=== PATIENT | female | born 1990 | race Caucasian/White ===

== ENCOUNTER → 2020-08-08 02:19 | Outpatient (CLI) | payer OTHER, SELFPAY ==
[2020-08-09 16:31] LABS: SARS-CoV-2 RNA PCR Negative
== END ==
PROVIDERS: PCP Emergency Medicine; Visit Provider Obstetrics & Gynecology
DX: Z01.812 Encounter for preprocedural laboratory examination (principal); Z20.822 Contact with and (suspected) exposure to COVID-19
CPT/HCPCS: C9803; U0003; U0005

== ENCOUNTER 2020-08-11 01:50 | Day surgery (SDC) | payer OTHER, SELFPAY ==
[2020-07-27 11:51] VITALS: BMI 21.6
--- NOTE | 2020-08-10 12:12 | P.PNAN_ITS ---
Anes - Initial Pre Proc Eval Procedure: Operation Date: 08/11/20 07:30 Proposed Procedures p Hysteroscopy with Farzana Endometrial Ablation - Trevor Murguia MD Date/Time: 08/10/20 12:12 Surgeon: Trevor Murguia MD Pre Op Diagnosis: menorrhaghia Patient Data Age: 30 Gender: F Height: 1.65 m Weight: 59 kg Allergies Allergy/AdvReac Type Severity Reaction Status Date / Time No Known Allergies Allergy Verified 07/27/20 11:51 Home Medications Medication Instructions Recorded Confirmed Type No Home Medications 07/27/20 07/27/20 History Patient hx anesthesia problems: none Family hx anesthesia problems: none [facility] Social History Social History Years smoked: 13 Smoking status: Current every day smoker Tobacco type: cigarettes Alcohol intake: never Substance use: never Substance use type: does not use Living arrangements: with family Spiritual care concerns: No Anes - Eval Final PreProcedure Day of Procedure 08/10/20 12:12 Patient weight: normal Heart: regular rate and rhythm Lungs: clear to auscultation and normal air movement Airway: Mallampati scale class II Neurological: alert and oriented Last oral intake: >/= 8 hours ASA classification: II Emergent: no Anesthetic plan: proceed Anesthesia type and monitoring: general GIVS and LMA Informed Consent: The patient's anesthetic plan and its attendant risks and benefits were discussed with the patient/family/POA. Questions were solicited and answers provided to the satisfaction of the patient/family/POA.
[2020-08-11] MEDS: ACETAMINOPHEN 500 MG TABLET 1000 MG PO (06:46)
[2020-08-11] MEDS: LACTATED RINGERS 1,000 ML 30 ML IV CONT (06:49)
[2020-08-11 06:52] VITALS: BP 101/71; PULSE 77; RESP 16; TEMP 36.1; O2SAT 100
--- NOTE | 2020-08-11 06:59 | WPDHPUPDATE1 ---
History and Physical Update Update Date/Time: 08/11/20 06:59 History and Physical has been reviewed, including an updated exam of the patient. There are NO changes in the patient's condition. Risks, benefits, and alternatives have been discussed and questions answered. Patient agrees to proceed with procedure.
--- NOTE | 2020-08-11 07:50 | W.PM.PROC2 ---
Procedure Note - Detailed Date of Procedure 08/11/20 Pre-op Diagnosis menorrhaghia Post-op Diagnosis same Procedure Performed endometrial ablation with hysteroscopy d&c Surgeon Trevor Murguia MD Anesthesia MAC Indications Severe menorrhagia Findings Normal vulva vagina and cervix. Normal endometrium. Description of Procedure The patient was taken to the operating room. She was prepped and draped in the dorsal lithotomy position after induction of mac anesthesia. A speculum was placed in the vagina. Cervix grasped with a tenaculum. The cervix was dilated to about 1 cm. The hysteroscope was inserted. The above findings were noted. Endometrial curettage was performed with a medium-size curette. All surfaces of the endometrium were affected by the curettage. The specimens were collected and sent to pathology. Measurements were taken of the uterus and cervix. The uterine length was then entered into the hand piece of the Farzana device. The device was inserted into the intrauterine cavity. The array of the device was expanded. The balloon cuff was inflated. A good seal was achieved. The energy and safety cycles were initiated and completed. The array was collapsed and the instrument was withdrawn after deflating the balloon cuff. Hysteroscope was reinserted. Above findings were noted. The hysteroscope was removed. The patient tolerated the procedure well. The speculum and tenaculum were removed. She was taken to recovery in stable condition. Sponge lap and needle counts were correct x2. Estimated Blood Loss 15 Pathology yes Complications No immediate complications Condition stable Disposition same day
[2020-08-11 07:52] VITALS: BP 111/70; PULSE 71; RESP 16; O2SAT 99
[2020-08-11] MEDS: oxyCODONE HCL (*CRX) 5 MG TAB IR PO (08:16)
[2020-08-11 08:33] VITALS: BP 133/75; PULSE 42; RESP 16
[2020-08-11] MEDS: fentaNYL CITRATE INJ (*CRX) 100 MCG/2 ML VIAL 25 MCG IV PUSH ×2 (08:33→08:36)
== END 2020-08-11 09:10 | disposition home or self-care (01) ==
PROVIDERS: PCP Emergency Medicine; Visit Provider Obstetrics & Gynecology
PROC: 0U5B8ZZ Destruction of Endometrium, Via Natural or Artificial Opening Endoscopic (ICD-10-PCS; CPT 58563; principal; 2020-08-11 07:30)
DX: N92.0 Excessive and frequent menstruation with regular cycle (principal); F17.210 Nicotine dependence, cigarettes, uncomplicated
CPT/HCPCS: 58563; 88305; A9270; J1100; J1885; J2250; J2405; J2704; J3010; J7030; J7120

== ENCOUNTER → 2020-08-18 10:46 | Outpatient (CLI) | payer OTHER, SELFPAY ==
--- NOTE | ~2020-08-18 | XR_ITS ---
EXAMINATION: XR chest 2V DATE: 08/18/2020 11:04 INDICATION: Tobacco use. TECHNIQUE: Frontal and lateral views of the chest were obtained on 3 radiographs. COMPARISON: Chest 2 views 01/06/2012, CT abdomen and pelvis 02/20/2012 FINDINGS: There is mild scarring at the lung apices. No pleural effusion or pneumothorax. The heart s ize is normal. IMPRESSION: 1. Stable mild scarring at the lung apices. Reviewed, dictated and finalized at location A.
== END ==
PROVIDERS: PCP Emergency Medicine; Visit Provider Emergency Medicine
DX: Z72.0 Tobacco use (principal)
CPT/HCPCS: 71046

== ENCOUNTER 2022-10-21 15:13 | Emergency (ER) | payer OTHER, SELFPAY ==
[2022-10-21 15:29] VITALS: BP 124/104; PULSE 79; RESP 16; TEMP 36.9; O2SAT 97
--- NOTE | 2022-10-21 16:32 | ED.URI ---
HPI - URI/Sore Throat General Chief Complaint: Upper Respiratory Infection Stated Complaint: ribcage pain,cough,sweating Time Seen by Provider: 10/21/22 16:24 Source: patient and RN notes reviewed Mode of arrival: ambulatory Limitations: no limitations History of Present Illness HPI Narrative: Patient presents today complaining of a 2 day history of dry cough, sweats, shortness of breath with exertion. Denies fever, congestion, rhinorrhea. She has been taking Tylenol and a decongestant at home without relief. Denies history of asthma or COPD. She did a home COVID test that was negative. Patient is a smoker Related Data Allergies Allergy/AdvReac Type Severity Reaction Status Date / Time No Known Allergies Allergy Verified 10/21/22 15:52 Review of Systems Review of Systems: CONSTITUTIONAL: Denies body aches, fever, chills. + sweats EYES: Denies visual changes, redness, or discharge. ENT: Denies rhinorrhea, congestion, sore throat, or otalgia. CARDIOVASCULAR: Denies chest pain, palpitations, or edema. RESPIRATORY: + cough, shortness of breath with exertion. GASTROINTESTINAL: Denies abdominal pain, nausea, vomiting, or diarrhea. GENITOURINARY: Denies dysuria or hematuria. SKIN: Denies rash, itching, or wounds. MUSCULOSKELETAL: Denies back pain, joint pain, or myalgia. NEUROLOGIC: Denies headache, numbness, tingling, or weakness. PSYCH: Denies depression or anxiety. [facility] Social History Social History Years smoked: 13 Smoking status: Current every day smoker Tobacco type: cigarettes Alcohol intake: never Substance use: never Substance use type: does not use Living arrangements: with family Spiritual care concerns: No Comments At time of signature, I have reviewed and agree with nursing past medical, surgical, social and family history unless otherwise noted. Please see nursing chart for further information. There is no relevant family history pertinent to the presenting complaint Exam Narrative: GENERAL: Well-appearing, well-nourished, and in no acute distress. HEAD: Normocephalic, atraumatic. EYES: EOMI. No redness or drainage. Conjunctivae normal. ENT: Mucous membranes pink and moist. Nares clear. No rhinorrhea. TMs normal bilaterally. Throat normal. Uvula midline. NECK: Normal AROM. Supple. No lymphadenopathy. CHEST: No respiratory distress. Slight expiratory wheeze in the left upper lobe, otherwise clear. Harsh cough noted. HEART: Regular rate and rhythm. No murmur appreciated. Normal peripheral pulses. EXTREMITIES: Normal range of motion. No edema. SKIN: Warm, dry, no rash. Capillary refill normal. Normal skin turgor. NEURO: No focal deficits. Alert and oriented x3. Gait steady. PSYCH: Normal affect. No signs of depression or anxiety. Course Course Level of Care: Express Care Visit Vital Signs Vital signs: Vital Signs Temperature 98.5 F 10/21/22 15:29 Pulse Rate 79 10/21/22 15:29 Respiratory Rate 16 10/21/22 15:29 Blood Pressure 124/104 H 10/21/22 15:29 Pulse Oximetry 97 10/21/22 15:29 Oxygen Delivery Room Air 10/21/22 15:29 Temperature 98.5 F 10/21/22 15:29 Pulse Rate 79 10/21/22 15:29 Respiratory Rate 16 10/21/22 15:29 Blood Pressure 124/104 H 10/21/22 15:29 Pulse Oximetry 97 10/21/22 15:29 Oxygen Delivery Room Air 10/21/22 15:29 Reviewed MDM - URI/Sore Throat MDM Narrative Medical decision making narrative: Will treat patient with prednisone and albuterol inhaler. Instructed her to purchase some Mucinex to help break up any congestion in her chest. Patient agrees with plan. Anticipatory guidance given. Differential Diagnosis Differential diagnosis: Likely upper respiratory infection, viral infection, bronchitis and other (Pneumonia) Critical Care Time Critical Care Time Critical Care Time: No Discharge Plan Discharge Clinical Impression: Bronch
== END 2022-10-21 16:48 | disposition home or self-care (01) ==
PROVIDERS: Emergency Provider Nurse Practitioner; PCP Emergency Medicine
DX: J40 Bronchitis, not specified as acute or chronic (principal); F17.210 Nicotine dependence, cigarettes, uncomplicated
CPT/HCPCS: 99213; G0463

== ENCOUNTER 2023-08-27 15:55 | Observation (INO) | payer OTHER, SELFPAY ==
[2023-08-27] VITALS (13 sets, daily range): BP systolic 99–121; BP diastolic 66–82; PULSE 78–115; RESP 17–21; TEMP 36.3–36.6; O2SAT 91–98; BMI 18.7
--- NOTE | ~2023-08-27 | CT_ITS ---
EXAMINATION: CTA chest PE protocol DATE: 08/27/2023 19:30 INDICATION: Shortness of breath. TECHNIQUE: Computed tomography angiography (CTA) of the chest was performed with 100 mL Omnipaque-350 intravenous contrast timed to evaluate the pulmonary arteries. Coronal maximum intensity projection 3D-reconstructions were created by the technologist. Automated exposure control and iterative reconst ruction technique were employed. The dose-length product was 151.30 mGy-cm. COMPARISON: CT abdomen and pelvis 02/20/2012 FINDINGS: There is moderate emphysema. There are patchy groundglass and airspace opacities involving all lobes. No pleural effusion. The heart size is normal. There is no pulmonary embolus. There is tho racic dextroscoliosis and mild spondylosis. IMPRESSION: 1. No pulmonary embolus. 2. Multifocal lung disease, likely pneumonia. 3. Moderate emphysema. Reviewed, dictated and finalized at location E.
--- NOTE | ~2023-08-27 | XR_ITS ---
EXAMINATION: XR chest 2V DATE: 08/27/2023 16:23 INDICATION: Shortness of breath. TECHNIQUE: Frontal and lateral views of the chest were obtained. COMPARISON: Chest 2 views 08/18/2020 FINDINGS: A calcified right lung nodule is consistent with old granulomatous disease. No pleural effu nicky or pneumothorax. The heart size is normal. IMPRESSION: 1. No acute cardiopulmonary disease. Reviewed, dictated and finalized at location E.
--- NOTE | 2023-08-27 16:00 | ECG_ITS ---
Test Date: 2023-08-27 16:05:46 Measurements Intervals [place] Rate: 93 P: 69 [place]: 155 QRS: 114 QRSD: 90 T: 59 QT: 349 QTc: 435 Interpretive Statements SINUS RHYTHM WITH SINUS ARRHYTHMIA RIGHT AXIS DEVIATION INCOMPLETE RIGHT BUNDLE BRANCH BLOCK BORDERLINE ST-T WAVE ABNORMALITY- INFERIOR LEADS BASELINE ARTIFACT- I, II, III, AVR, AVL, V4-V6 BORDERLINE ECG No previous ECG available for comparison Electronically Signed On 08-27-2023 20:29:42 CDT by Mark Kraus D.O.
[2023-08-27 16:39] LABS: Basophils Absolute Auto 0.1 K/mm3 (0.0-0.1); Basophils Percent Auto 0.4 % (0.2-1.2); Eosinophils Percent Auto 0.2 % (0-4.4); Hematocrit 44.5 % (37.0-47.0); Hemoglobin 14.8 g/dL (12.0-15.0); Immature Granulocyte Absolute 0.06 K/mm3 (0.00-0.031); Immature Granulocyte Percent A 0.4 % (0-0.5); Lymphocytes Absolute Auto 1.08 K/mm3 (0.9-3.2); Lymphocytes Percent Auto 6.4 % (18.3-44.2); Mean Corpuscular HGB Conc 33.3 g/dl (32-36); Mean Corpuscular Hemoglobin 31.2 pg (26-34); Mean Corpuscular Volume 93.7 fl (80-100); Mean Platelet Volume 10.1 fl (7.4-10.4); Monocytes Absolute Auto 0.8 K/mm3 (0.1-0.6); Monocytes Percent Auto 4.8 % (2.6-8.5); Neutrophils Absolute Auto 14.9 K/mm3 (1.3-6.7); Neutrophils Percent Auto 87.8 % (45.5-73.1); Platelet Count Result 207 k/mm3 (150-375); Red Blood Count 4.75 M/mm3 (4.2-5.4); Red Cell Distribution Width 12.9 % (11.5-14.5); White Blood Count 16.9 K/mm3 (4.5-10.0)
[2023-08-27 16:48] LABS: Alanine Aminotransferase 21 U/L (6-35); Albumin Level 4.6 g/dL (3.5-5.1); Alkaline Phosphatase 63 U/L (38-126); Anion Gap 12 mmol/L (4-12); Aspartate Amino Transferase 33 U/L (14-36); Bilirubin,Total 0.8 mg/dL (0.2-1.3); Blood Urea Nitrogen 9 mg/dL (7-17); Calcium 9.3 mg/dL (8.4-10.2); Carbon Dioxide 25 mmol/L (22-30); Chloride 104 mmol/L (98-107); Estimated CRCL calculation 93 ml/min; Estimated Glomerular Filt Rate > 60; Glucose 101 mg/dL (65-110); Potassium 3.7 mmol/L (3.4-5.0); Sodium 141 mmol/L (137-145)
[2023-08-27] MEDS: ALBUTEROL SULFATE NEB 2.5 MG/3 ML INH 10 MG INHALATION (17:06)
--- NOTE | 2023-08-27 17:06 | ED.SOB ---
HPI - SOB/Dyspnea General Chief Complaint: Shortness of Breath/Dyspnea Stated Complaint: SOB Time Seen by Provider: 08/27/23 16:04 History of Present Illness HPI Narrative: Patient is a 33-year-old female presenting with shortness of breath. Patient states that she started feeling very short of breath earlier today. She took some gvza-crx-ksuaexx asthma medicine which normally helps for her but this did not help at all this time. She continued to feel very short of breath and then became very sweaty so EMS was called. She was found to be saturating approximately 80% on room air. Placed on 2 L nasal cannula with improvement to the mid 90s. States that she still has chest tightness but she feels much better on the oxygen. Denies any recent fevers, sore throat, chest pain, leg swelling. No further complaints. Related Data Allergies Allergy/AdvReac Type Severity Reaction Status Date / Time No Known Allergies Allergy Verified 10/21/22 15:52 Review of Systems Review of Systems: All systems reviewed & are unremarkable except as noted in HPI and below PMFSH Social History Social History Years smoked: 13 Smoking status: Former smoker Tobacco type: cigarettes Smokeless tobacco user: other Second hand tobacco smoke exposure: No Alcohol intake: never Substance use: former Substance use type: marijuana Do You Feel Safe in your Home?: Yes Lack of Transportation: No Lack of Food: Never True Current Housing: I Have Housing Concerned About Future Housing: No Difficulty Paying Gas/Electric Bills: No Difficulty Paying for Meds: No Currently Unemployed: No Education: High School Diploma/GED Difficulty w/ Childcare or Family Care: No Living arrangements: with family Spiritual care concerns: No Exam Narrative: GENERAL: Ill-appearing, in no acute distress, pleasant cooperative HEAD: Normocephalic, atraumatic. EYES: PERRLA and EOMI. ENT: Mucous membranes moist. NECK: Supple. CHEST: Crackles and wheezing bilaterally, on 2 L nasal cannula saturating in the mid 90s HEART: Tachycardic, regular rhythm ABDOMEN: Soft, nontender, nondistended EXTREMITIES: Normal range of motion. No edema. SKIN: Warm, dry, no rash. NEURO: No focal deficits. Alert and oriented x3. PSYCH: Normal mood and affect. Course Vital Signs Vital signs: Vital Signs Temperature 97.9 F 08/27/23 15:52 Pulse Rate 78 08/27/23 15:52 Respiratory Rate 18 08/27/23 15:52 Blood Pressure 121/79 08/27/23 15:52 Pulse Oximetry 96 08/27/23 15:52 Oxygen Delivery Nasal Cannula 08/27/23 15:52 Oxygen Flow Rate 2 08/27/23 15:52 Temperature 97.3 F L 08/28/23 06:00 Pulse Rate 81 08/28/23 08:00 Respiratory Rate 20 08/28/23 07:40 Blood Pressure 103/62 08/28/23 06:00 Pulse Oximetry 95 08/28/23 08:00 Oxygen Delivery Nasal Cannula 08/28/23 07:23 Oxygen Flow Rate 2 08/28/23 07:23 MDM - SOB/Dyspnea MDM Narrative Medical decision making narrative: 33-year-old female presenting with shortness of breath and chest tightness. Patient was hypoxic on room air, she saturating the mid 90s on 2 L nasal cannula. Exam is otherwise remarkable for the above. Patient given a breathing treatment reports improvement in her shortness of breath but she remains hypoxic on room air. Continues to require 2 L. D-dimer is elevated so CT PE study was obtained which shows multifocal pneumonia. No evidence of pulmonary embolus. Blood work concerning for leukocytosis of 17. Patient would benefit from admission for IV antibiotics and continued oxygen supplementation. She is agreeable with this plan. Spoke with the hospitalist who has accepted her for admission. Differential Diagnosis Differential diagnosis: Likely acute exacerbation of chronic obstructive airways disease, community acquired pneumonia and pulmonary embolism Medical Records Attestation: I re
[2023-08-27] MEDS: IPRATROPIUM BR 0.02% INH SOLN 0.5 MG/2.5 ML VIAL INHALATION (17:07)
[2023-08-27] MEDS: SODIUM CHLORIDE 0.9% IV 1,000 ML 999 ML IV CONT (17:12)
[2023-08-27] MEDS: methylPREDNISolone SOD SUCC 125 MG VIAL IV PUSH (17:12)
[2023-08-27 17:15] LABS: Appearance Urine Clear (Clear); Bacteria Urine None Seen /hpf; Bilirubin Urine Negative (Negative); Blood Urine Negative (Negative); Color Urine Yellow (Yellow); Glucose Urine UA Negative (Negative); Ketones Urine Negative (Negative); Leukocyte Esterase Ur Negative LEU/UL (Negative); Nitrate Urine Negative (Negative); Non Pathogenic Casts 0-2; Protein Urine Trace mg/dL (Negative); RBC Urine 0-2 /hpf (0-2); Squamous Epithelial Cell Urine Occasional /hpf (Few); Urobilinogen Urine 0.2 mg/dL (<2.0); WBC Urine 0-5 /hpf (0-3)
[2023-08-27 17:24] LABS: Add Urine Microscopic? YES
[2023-08-27 17:25] LABS: Troponin I < 0.012 ng/mL (0.000-0.034)
[2023-08-27 17:45] LABS: Influenza A QL RT-PCR Negative (Negative); Influenza B QL RT-PCR Negative (Negative); RSV RNA, RT-PCR Negative (Negative); SARS-CoV-2 RNA PCR Negative (Negative)
[2023-08-27 18:16] LABS: D Dimer 0.52 ug/mL (<0.48)
[2023-08-27 19:10] LABS: Pregnancy On Board Control Positive; Urine Pregnancy Test Negative
--- NOTE | 2023-08-27 19:24 | ECG_ITS ---
Test Date: 2023-08-27 19:49:36 Measurements Intervals [place] Rate: 88 P: 71 [place]: 154 QRS: 96 QRSD: 94 T: 59 QT: 378 QTc: 459 Interpretive Statements SINUS RHYTHM WITH SINUS ARRHYTHMIA RIGHT AXIS DEVIATION BORDERLINE ST-T WAVE ABNORMALITY- ANT/INF LEADS BASELINE ARTIFACT- I, II, III, AVR, AVL, AVF, V2, V4 BORDERLINE ECG Compared to ECG 08/27/2023 16:05:46 NO SIGNIFICANT CHANGE Electronically Signed On 08-27-2023 20:25:42 CDT by Mark Kraus D.O.
[2023-08-27 20:29] LABS: Troponin I < 0.012 ng/mL (0.000-0.034)
[2023-08-27] MEDS: cefTRIAXone 2 GM/NS 100 ML 2 GM/100 ML BAG IVPB (20:53)
--- NOTE | 2023-08-27 21:44 | PM.IMHP ---
H&P: HPI History of Present Illness Date/Time: 08/27/23 21:44 Chief Complaint: Shortness of breath Narrative: Patient today [age] female came to the hospital with severe shortness of breath and productive cough. Patient states that normally she gets sick uses ktgg-iqd-slhudst medications not on any inhalers used to smoke quit smoking a few years ago but today she was so short of breath he could not stand up. She also felt some dizziness weakness fever and chills no exposure to COVID no nausea vomiting diarrhea no hematemesis hemoptysis. Patient has a productive cough no blood-tinged sputum noted or recent exposure to sick person no recent travels Review of Systems Review of Systems: All systems reviewed & are unremarkable except as noted in HPI and below PMFSH Social History Social History Years smoked: 13 Smoking status: Current every day smoker Tobacco type: cigarettes Alcohol intake: never Substance use: never Substance use type: does not use Living arrangements: with family Spiritual care concerns: No Meds Home Medications and Allergies Home Medications Medication Instructions Recorded Confirmed Type albuterol sulfate 90 mcg/actuation 2 puff inhalation Q4-6H PRN 10/21/22 Rx aerosol inhaler (ProAir HFA) shortness of breath or wheezing #18 grams inhalational spacing device #1 ea 10/21/22 Rx (BreatheRite MDI Spacer) prednisone 50 mg tablet 50 mg PO DAILY 5 days #5 tabs 10/21/22 Rx Allergies Allergy/AdvReac Type Severity Reaction Status Date / Time No Known Allergies Allergy Verified 10/21/22 15:52 Vital Signs Vital Signs - 24 hr 08/27/23 15:52 08/27/23 16:03 08/27/23 16:30 Temperature 36.6 C Pulse Rate 78 95 Respiratory Rate 18 19 Blood Pressure 121/79 116/80 Pulse Oximetry 96 96 94 Oxygen Delivery Nasal Cannula Nasal Cannula Oxygen Flow Rate 2 2 08/27/23 17:09 08/27/23 17:52 08/27/23 17:49 Temperature Pulse Rate 96 105 H 100 Respiratory Rate 20 21 H 18 Blood Pressure 118/66 Pulse Oximetry 98 Oxygen Delivery Oxygen Flow Rate 08/27/23 18:00 08/27/23 18:30 08/27/23 19:00 Temperature Pulse Rate 109 H 115 H 108 H Respiratory Rate 20 20 17 Blood Pressure 109/73 112/71 115/78 Pulse Oximetry 96 91 93 Oxygen Delivery Oxygen Flow Rate 08/27/23 19:35 08/27/23 20:46 Temperature Pulse Rate 108 H 99 Respiratory Rate 20 20 Blood Pressure 110/82 112/73 Pulse Oximetry 96 93 Oxygen Delivery Oxygen Flow Rate Exam Narrative: GENERAL: Well appearing, no acute distress. HEAD: Normocephalic, atraumatic. NECK: Supple. No adenopathy, no masses. RESPIRATORY: respirations nonlabored. , no rales, has wheezing. Bilateral CARDIOVASCULAR: Regular rate and rhythm without murmurs, . Peripheral pulses 2+ and equal bilaterally. ABDOMINAL: Soft, nontender, nondistended, no hepatosplenomegaly. Normoactive BS. MUSCULOSKELETAL: no Epigastric and no hypochondrial tenderness SKIN: Warm, dry, NEURO: A&O X3. Moves all extremities H&P: Results Labs Labs: Short CBC 08/27/23 Range/Units 16:32 WBC 16.9 H (4.5-10.0) K/mm3 Hgb 14.8 (12.0-15.0) g/dL Hct 44.5 (37.0-47.0) % Plt Count 207 (150-375) k/mm3 BMP 08/27/23 16:32 Sodium 141 Potassium 3.7 Chloride 104 Carbon Dioxide 25 BUN 9 Creatinine 0.60 L Glucose 101 Calcium 9.3 Cardiac Enzymes 08/27/23 08/27/23 Range/Units 16:32 19:43 Troponin I < 0.012 < 0.012 (0.000-0.034) ng/mL Liver Function 08/27/23 Range/Units 16:32 Total Bilirubin 0.8 (0.2-1.3) mg/dL AST 33 (14-36) U/L ALT 21 (6-35) U/L Alkaline Phosphatase 63 (38-126) U/L Albumin 4.6 (3.5-5.1) g/dL Urine 08/27/23 Range/Units 17:02 Urine Color Yellow (Yellow) Urine Appearance Clear (Clear) Urine pH 5.0 (5.0-9.0) Ur Specific [place] 1.020 (1.00
[2023-08-27 22:11] LABS: Albumin Level 4.5 g/dL (3.5-5.1); Alkaline Phosphatase 59 U/L (38-126); Anion Gap 15 mmol/L (4-12); Aspartate Amino Transferase 31 U/L (14-36); Bilirubin,Total 0.7 mg/dL (0.2-1.3); Blood Urea Nitrogen 8 mg/dL (7-17); Calcium 9.1 mg/dL (8.4-10.2); Carbon Dioxide 18 mmol/L (22-30); Chloride 107 mmol/L (98-107); Estimated CRCL calculation 109 ml/min; Estimated Glomerular Filt Rate > 60; Glucose 145 mg/dL (65-110); Potassium 3.3 mmol/L (3.4-5.0); Sodium 140 mmol/L (137-145)
[2023-08-27 22:17] LABS: Alanine Aminotransferase 27 U/L (6-35)
--- NOTE | 2023-08-27 22:49 | ADMGEN ---
This patient, Muriel Armando, was admitted to Medical Room 250-01. Patient/family oriented to hospital policies and general routines including ID bracelet, bed and alarms, visiting hours, pain management, procedures, bathroom and other care routines, personal items, smoking policy, room service/diet, and visiting hours. Information on how to activate the Rapid Response Team has been discussed. Patient/Family are encouraged to report perceived risks to care and to ask questions if they do not understand what they are told or what they should do.
[2023-08-27 23:16] LABS: Troponin I < 0.012 ng/mL (0.000-0.034)
[2023-08-27] MEDS: AZITHROMYCIN 500 MG/NS 250 ML 500 MG/250 ML BAG 250 MG IVPB (23:39)
[2023-08-27] MEDS: SODIUM CHLORIDE 0.9% IV 1,000 ML 100 ML IV CONT (23:40)
[2023-08-28] VITALS (8 sets, daily range): BP systolic 103; BP diastolic 62; PULSE 76–100; RESP 18–20; TEMP 36.3; O2SAT 95–97
[2023-08-28] MEDS: IPRATROPIUM 0.5 MG/ALBUTEROL SULFATE 2.5 MG AMPUL.NEB 3 ML INHALATION ×2 (03:55→07:23)
--- NOTE | 2023-08-28 06:58 | P.PNIM_ITS ---
Progress Note: A&P Assessment and Plan (1) Bilateral upper lobe community acquired pneumonia: Code(s): J18.9 - Pneumonia, unspecified organism Status: Acute Assessment and Plan: * Presented to the ED with worsening shortness of breath * chest ct positive for opacities in all lobes * Monitor lactic acid levels. * Repeat CBC CMP. Monitor oxygen saturation. * Watch for any chest pain,tachycardia or tachypnea * Two sets of blood culture,Sputum cultures * Urine Legionella antigen ordered * DuoNeb q.4 p.r.n. * Solu-Medrol IV 40 mg BID * Consider pulmonary consult (2) Acute respiratory failure with hypoxemia: Code(s): J96.01 - Acute respiratory failure with hypoxia Status: Acute Assessment and Plan: * Noted to be saturating 80% on arrival * Supplemental oxygen to maintain saturation >90% * Neb treatments * Most likely related to PNA and most likely COPD/Emphysema * IV antibiotics continued * Trend respiratory status * Continuous pulse-ox (3) Sepsis: Qualifiers: Acute respiratory failure type: with hypoxia Sepsis acute organ dysfunction status: with acute organ dysfunction Sepsis type: sepsis due to unspecified organism Severe sepsis acute organ dysfunction type: acute respiratory failure Severe sepsis shock status: without septic shock Qualified Code(s): A41.9 - Sepsis, unspecified organism; R65.20 - Severe sepsis without septic shock; J96.01 - Acute respiratory failure with hypoxia Code(s): A41.9 - Sepsis, unspecified organism Status: Acute Assessment and Plan: * Meets SIRS criteria with tachycardia, tachypnea, leukocytosis, mild hypotension * Source of infection PNA * Blood cultures pending * Sputum cultures pending * WBC elevated at admission 16.9 * Chest CT shows opacities in all lobes, multifocal in all lobes and emphysema * Continue IV Azithromycin and ceftriaxone * Neb treatments on board (4) Emphysema lung: Code(s): J43.9 - Emphysema, unspecified Status: Acute Assessment and Plan: * Chest ct shows emphysema * No home medications * Consider Pulmonary consult * Supplemental oxygen keep saturations >90% * Continue Solumedrol 40mg BID, deescalate as able * Will need outpatient PFTs * Continue Neb treatments Time Spent With Patient Time: 51 minutes Time with patient: Greater than 35 minutes Subjective Date/time seen: 08/28/23 06:58 Interval history: 08/27/23 21:44 Patient today [age] female came to the hospital with severe shortness of breath and productive cough. Patient states that normally she gets sick uses [id number] medications not on any inhalers used to smoke quit smoking a few years ago but today she was so short of breath he could not stand up. She also felt some dizziness weakness fever and chills no exposure to COVID no naus ea vomiting diarrhea no hematemesis hemoptysis. Patient has a productive cough no blood-tinged sputum noted or recent exposure to sick person no recent travels 08/28/2023 Review of Systems Review of Systems: All systems reviewed & are unremarkable except as noted in HPI and below Exam Narrative: General: well-nourished, ill-appearing 33-year-old female, sitting up in bed, comfortable, NARD Neuro: awake, alert and oriented x4, speech clear, no focal neuro deficits noted HEENMT: normocephalic, atraumatic, EOMI, sclerae anicteric,
--- NOTE | 2023-08-28 06:58 | PM.IMPN ---
Progress Note: A&P Assessment and Plan (1) Bilateral upper lobe community acquired pneumonia: Code(s): J18.9 - Pneumonia, unspecified organism Status: Acute Assessment and Plan: Presented to the ED with worsening shortness of breath chest ct positive for opacities in all lobes Monitor lactic acid levels. Repeat CBC CMP. Monitor oxygen saturation. Watch for any chest pain,tachycardia or tachypnea Two sets of blood culture,Sputum cultures Urine Legionella antigen ordered DuoNeb q.4 p.r.n. Solu-Medrol IV 40 mg BID Consider pulmonary consult (2) Acute respiratory failure with hypoxemia: Code(s): J96.01 - Acute respiratory failure with hypoxia Status: Acute Assessment and Plan: Noted to be saturating 80% on arrival Supplemental oxygen to maintain saturation >90% Neb treatments Most likely related to PNA and most likely COPD/Emphysema IV antibiotics continued Trend respiratory status Continuous pulse-ox (3) Sepsis: Qualifiers: Acute respiratory failure type: with hypoxia Sepsis acute organ dysfunction status: with acute organ dysfunction Sepsis type: sepsis due to unspecified organism Severe sepsis acute organ dysfunction type: acute respiratory failure Severe sepsis shock status: without septic shock Qualified Code(s): A41.9 - Sepsis, unspecified organism; R65.20 - Severe sepsis without septic shock; J96.01 - Acute respiratory failure with hypoxia Code(s): A41.9 - Sepsis, unspecified organism Status: Acute Assessment and Plan: Meets SIRS criteria with tachycardia, tachypnea, leukocytosis, mild hypotension Source of infection PNA Blood cultures pending Sputum cultures pending WBC elevated at admission 16.[address] shows opacities in all lobes, multifocal in all lobes and emphysema Continue IV Azithromycin and ceftriaxone Neb treatments on board (4) Emphysema lung: Code(s): J43.9 - Emphysema, unspecified Status: Acute Assessment and Plan: Chest ct shows emphysema No home medications Consider Pulmonary consult Supplemental oxygen keep saturations >90% Continue Solumedrol 40mg BID, deescalate as able Will need outpatient PFTs Continue Neb treatments Time Spent With Patient Time: 51 minutes Time with patient: Greater than 35 minutes Subjective Date/time seen: 08/28/23 06:58 Interval history: 08/27/23 21:44 Patient today [age] female came to the hospital with severe shortness of breath and productive cough. Patient states that normally she gets sick uses [id number]-[id number] medications not on any inhalers used to smoke quit smoking a few years ago but today she was so short of breath he could not stand up. She also felt some dizziness weakness fever and chills no exposure to COVID no nausea vomiting diarrhea no hematemesis hemoptysis. Patient has a productive cough no blood-tinged sputum noted or recent exposure to sick person no recent travels 08/28/2023 Review of Systems Review of Systems: All systems reviewed & are unremarkable except as noted in HPI and below Exam Narrative: General: well-nourished, ill-appearing 33-year-old female, sitting up in bed, comfortable, NARD Neuro: awake, alert and oriented x4, speech clear, no focal neuro deficits noted HEENMT: normocephalic, atraumatic, EOMI, sclerae anicteric, moist oral mucosa Respiratory: Clear to auscultation bilaterally without crackles, rhonchi or wheezes, nonlabored breathing Cardio: regular rate, regular rhythm with S1-S2 Abdomen: nondistended, normoactive bowel sounds, soft, nontender to palpation Extremities: no edema, erythema, or tenderness to palpation, DP pulses 2+ bilaterally Skin: no rashes or lesions, warm and dry Psych: appropriate mood and affect, judgment and insight intact Objective Data Vital Signs Vital Signs: Vital Signs - 24 hr 08/27/23
[2023-08-28 07:44] LABS: Basophils Percent Auto 0.1 % (0.2-1.2); Hematocrit 39.9 % (37.0-47.0); Hemoglobin 13.2 g/dL (12.0-15.0); Immature Granulocyte Absolute 0.06 K/mm3 (0.00-0.031); Immature Granulocyte Percent A 0.5 % (0-0.5); Lymphocytes Absolute Auto 0.84 K/mm3 (0.9-3.2); Lymphocytes Percent Auto 7.3 % (18.3-44.2); Mean Corpuscular HGB Conc 33.1 g/dl (32-36); Mean Corpuscular Hemoglobin 31.1 pg (26-34); Mean Corpuscular Volume 94.1 fl (80-100); Mean Platelet Volume 10.5 fl (7.4-10.4); Monocytes Absolute Auto 0.4 K/mm3 (0.1-0.6); Monocytes Percent Auto 3.7 % (2.6-8.5); Neutrophils Absolute Auto 10.2 K/mm3 (1.3-6.7); Neutrophils Percent Auto 88.4 % (45.5-73.1); Platelet Count Result 206 k/mm3 (150-375); Red Blood Count 4.24 M/mm3 (4.2-5.4); Red Cell Distribution Width 13.4 % (11.5-14.5); White Blood Count 11.5 K/mm3 (4.5-10.0)
[2023-08-28] MEDS: PANTOPRAZOLE 40 MG TABLET PO (08:20)
[2023-08-28] MEDS: ENOXAPARIN 40 MG/0.4 ML SYRINGE SUB-Q (08:20)
[2023-08-28] MEDS: methylPREDNISolone SOD SUCC 40 MG VIAL IV PUSH (08:20)
--- NOTE | 2023-08-28 10:22 | P.DS_ITS ---
DS: Admitting Diagnosis Discharge Date 08/28/2023 0945 Admitting Diagnosis PNA, Emphysema, COPD exacerbation DS: Discharge Diagnosis Discharge Diagnosis (1) Bilateral upper lobe community acquired pneumonia: Code(s): J18.9 - Pneumonia, unspecified organism Status: Acute Assessment and Plan: * Presented to the ED with worsening shortness of breath * chest ct positive for opacities in all lobes * Monitor lactic acid levels. * Repeat CBC CMP. Monitor oxygen saturation. * Watch for any chest pain,tachycardia or tachypnea * Two sets of blood culture,Sputum cultures * Urine Legionella antigen ordered * DuoNeb q.4 p.r.n. * Solu-Medrol IV 40 mg BID * Consider pulmonary consult (2) Acute respiratory failure with hypoxemia: Code(s): J96.01 - Acute respiratory failure with hypoxia Status: Acute Assessment and Plan: * Noted to be saturating 80% on arrival * Supplemental oxygen to maintain saturation >90% * Neb treatments * Most likely related to PNA and most likely COPD/Emphysema * IV antibiotics continued * Trend respiratory status * Continuous pulse-ox (3) Sepsis: Qualifiers: Sepsis type: sepsis due to unspecified organism Sepsis acute organ dysfunction status: with acute organ dysfunction Severe sepsis acute organ dysfunction type: acute respiratory failure Acute respiratory failure type: with hypoxia Severe sepsis shock status: without septic shock Qualified Code(s): A41.9 - Sepsis, unspecified organism; R65.20 - Severe sepsis without septic shock; J96.01 - Acute respiratory failure with hypoxia Code(s): A41.9 - Sepsis, unspecified organism Status: Acute Assessment and Plan: * Meets SIRS criteria with tachycardia, tachypnea, leukocytosis, mild hypotension * Source of infection PNA * Blood cultures pending * Sputum cultures pending * WBC elevated at admission 16.9 * Chest CT shows opacities in all lobes, multifocal in all lobes and emphysema * Continue IV Azithromycin and ceftriaxone * Neb treatments on board (4) Emphysema lung: Code(s): J43.9 - Emphysema, unspecified Status: Acute Assessment and Plan: * Chest ct shows emphysema * No home medications * Consider Pulmonary consult * Supplemental oxygen keep saturations >90% * Continue Solumedrol 40mg BID, deescalate as able * Will need outpatient PFTs * Continue Neb treatments DS: Summary Hospital Course Hospital Course: Patient is a 39 year old female with no significant past medical history presented to the ED with shortness of breath and productive cough. Upon arrival to the ED patient was noted to be satting 80% on room air and patient was given supplemental oxygen. Saturations improved. Patient did meet sepsis criteria with tachycardia, tachypnea, leukocytosis and mild hypotension with source of infection. White blood cell count on admission was 16.9. CT of the chest showed opacities in all lobes and emphysema. Patient was initiated on IV azithromycin ceftriaxone and white count is down to 11. Patient was also started on Solu-Medrol which wheezing has resolved. Patient does have a productive cough however seems to be stable. DuoNebs were also ordered. Patient has been walking around and has been doing well. She denies any current chest pain, shortness a breath, nausea, vomiting, diarrhea or constipation. Her biggest complaint was that she just feels exhausted. Currently patient is stable for discharge per labs and vital
--- NOTE | 2023-08-28 10:22 | PM.DS ---
DS: Admitting Diagnosis Discharge Date 08/28/2023 0945 Admitting Diagnosis PNA, Emphysema, COPD exacerbation DS: Discharge Diagnosis Discharge Diagnosis (1) Bilateral upper lobe community acquired pneumonia: Code(s): J18.9 - Pneumonia, unspecified organism Status: Acute Assessment and Plan: Presented to the ED with worsening shortness of breath chest ct positive for opacities in all lobes Monitor lactic acid levels. Repeat CBC CMP. Monitor oxygen saturation. Watch for any chest pain,tachycardia or tachypnea Two sets of blood culture,Sputum cultures Urine Legionella antigen ordered DuoNeb q.4 p.r.n. Solu-Medrol IV 40 mg BID Consider pulmonary consult (2) Acute respiratory failure with hypoxemia: Code(s): J96.01 - Acute respiratory failure with hypoxia Status: Acute Assessment and Plan: Noted to be saturating 80% on arrival Supplemental oxygen to maintain saturation >90% Neb treatments Most likely related to PNA and most likely COPD/Emphysema IV antibiotics continued Trend respiratory status Continuous pulse-ox (3) Sepsis: Qualifiers: Sepsis type: sepsis due to unspecified organism Sepsis acute organ dysfunction status: with acute organ dysfunction Severe sepsis acute organ dysfunction type: acute respiratory failure Acute respiratory failure type: with hypoxia Severe sepsis shock status: without septic shock Qualified Code(s): A41.9 - Sepsis, unspecified organism; R65.20 - Severe sepsis without septic shock; J96.01 - Acute respiratory failure with hypoxia Code(s): A41.9 - Sepsis, unspecified organism Status: Acute Assessment and Plan: Meets SIRS criteria with tachycardia, tachypnea, leukocytosis, mild hypotension Source of infection PNA Blood cultures pending Sputum cultures pending WBC elevated at admission 16.[address] shows opacities in all lobes, multifocal in all lobes and emphysema Continue IV Azithromycin and ceftriaxone Neb treatments on board (4) Emphysema lung: Code(s): J43.9 - Emphysema, unspecified Status: Acute Assessment and Plan: Chest ct shows emphysema No home medications Consider Pulmonary consult Supplemental oxygen keep saturations >90% Continue Solumedrol 40mg BID, deescalate as able Will need outpatient PFTs Continue Neb treatments DS: Summary Hospital Course Hospital Course: Patient is a 39 year old female with no significant past medical history presented to the ED with shortness of breath and productive cough. Upon arrival to the ED patient was noted to be satting 80% on room air and patient was given supplemental oxygen. Saturations improved. Patient did meet sepsis criteria with tachycardia, tachypnea, leukocytosis and mild hypotension with source of infection. White blood cell count on admission was 16.9. CT of the chest showed opacities in all lobes and emphysema. Patient was initiated on IV azithromycin ceftriaxone and white count is down to 11. Patient was also started on Solu-Medrol which wheezing has resolved. Patient does have a productive cough however seems to be stable. DuoNebs were also ordered. Patient has been walking around and has been doing well. She denies any current chest pain, shortness a breath, nausea, vomiting, diarrhea or constipation. Her biggest complaint was that she just feels exhausted. Currently patient is stable for discharge per labs and vital signs. Patient has been updated on plan of care and agreed with plan of care at this time. Time spent discussing smoking cessation with patient: more than 10 minutes Status at Discharge Functional status at discharge: independent ambulation Overall status at discharge: patient is progressing back to baseline Time Spent with Patient Time attestation: Total time spent providing and/or coordinating discharge services:42 minutes Time spent: Abdulkadir
[2023-09-02 16:44] LABS: Pneumococcal Antigen Urine NOT DETECTED
[2023-09-04 01:33] LABS: Legionella pneumophila Ag Ur NOT DETECTED
== END 2023-08-28 11:27 | disposition home or self-care (01) ==
LOC: ANHED 22:01 → ANH2MED 08-28 10:33
PROVIDERS: Nurse Practitioner; Student in an Organized Health Care Education/Training Program; Admitting Provider Internal Medicine; Emergency Provider Emergency Medicine; PCP Emergency Medicine; Visit Provider Hospitalist
DX: J18.9 Pneumonia, unspecified organism (principal); J96.01 Acute respiratory failure with hypoxia; R65.20 Severe sepsis without septic shock; A41.9 Sepsis, unspecified organism; J43.9 Emphysema, unspecified; Z87.891 Personal history of nicotine dependence; Z20.822 Contact with and (suspected) exposure to COVID-19
CPT/HCPCS: 36415; 71046; 71275; 80053; 81001; 81025; 84484; 85025; 85380; 86738; 87040; 87449; 87637; 87899; 93005; 94640; 96361; 96365; 96372; 96375; 96376; 99291; A9270; G0378; J0456; J0696; J1650; J2919; J7030; Q9967

== ENCOUNTER → 2023-10-07 10:08 | Outpatient (CLI) | payer OTHER, SELFPAY ==
--- NOTE | ~2023-10-07 | XR_ITS ---
EXAMINATION: XR chest 2V 10/07/2023 10:26 INDICATION: Pneumonia PROCEDURE: Two-view chest COMPARISON: 08/2023 FINDINGS: The lungs are clear. The cardiomediastinal silhouette is within normal limits. There are no pleural effusions. There is no pneumothorax suspected. There is dextroscoliosis of the thoracic spine. The lungs are mildly hyperinflated, which can be associated with reactive airway disease. IMPRESSION: 1: NO ACUTE CARDIOPULMONARY DISEASE. Reviewed, dictated and finalized at location B.
== END ==
PROVIDERS: PCP Emergency Medicine; Visit Provider Emergency Medicine
DX: J18.9 Pneumonia, unspecified organism (principal)
CPT/HCPCS: 71046

== ENCOUNTER 2023-11-01 10:54 | Emergency (ER) | payer OTHER, SELFPAY ==
--- NOTE | ~2023-11-01 | XR_ITS ---
EXAMINATION: XR chest 2V DATE: 11/01/2023 11:20 INDICATION: Wheezing TECHNIQUE: frontal and lateral views of the chest were obtained. COMPARISON: Chest radiograph dated 10/07/[address] dated 08/27/2023 FINDINGS: Again seen is hyperexpansion of lungs a consistent with emphysema which is better appreciated on prio r CT. No focal airspace opacities, pulmonary edema, pleural effusion or pneumothorax. Nipple shadows project over the bilateral anterior fifth ribs. The cardiomediastinal silhouette is normal. 30 degree s thoracic dextroscoliosis. IMPRESSION: 1. Emphysema. No acute cardiopulmonary disease. Reviewed, dictated and finalized at location A.
[2023-11-01 10:56] VITALS: BP 114/69; PULSE 98; RESP 20; TEMP 37.2; O2SAT 98
[2023-11-01 11:02] VITALS: BP 114/69; PULSE 98; RESP 20; TEMP 37.2; O2SAT 98
--- NOTE | 2023-11-01 11:08 | ED.URI ---
HPI - URI/Sore Throat General Chief Complaint: Upper Respiratory Infection Stated Complaint: Cough/SOB Time Seen by Provider: 11/01/23 11:08 Source: patient, RN notes reviewed and old records reviewed Mode of arrival: ambulatory Limitations: no limitations History of Present Illness HPI Narrative: Patient with history of COPD presents with complaints of shortness of breath and cough over the past few days. She has run out of her albuterol inhaler. She has been using Primatene mist, states that she has had worsening of symptoms since running out of albuterol. She is not in any distress at this time. She denies any fever, chills, sweats. No body aches. Related Data Allergies Allergy/AdvReac Type Severity Reaction Status Date / Time No Known Allergies Allergy Verified 11/01/23 11:00 Review of Systems Review of Systems: All systems reviewed & are unremarkable except as noted in HPI and below Constitutional: Constitutional: Reports as per HPI and Reports no additional constitutional complaints ENT: Reports system reviewed and no additional complaints, except as documented Cardiovascular: Cardiovascular: Reports no additional cardiovascular complaints Respiratory: Respiratory: Reports as per HPI, Reports no additional respiratory complaints, Reports chest congestion, Reports cough, Reports dyspnea and Reports dyspnea on exertion Gastrointestinal: Gastrointestinal: Reports no additional gastrointestinal complaints [facility] Social History Social History Years smoked: 13 Smoking status: Former smoker Tobacco type: cigarettes Smokeless tobacco user: other Second hand tobacco smoke exposure: No Alcohol intake: never Substance use: former Substance use type: marijuana Do You Feel Safe in your Home?: Yes Lack of Transportation: No Lack of Food: Never True Current Housing: I Have Housing Concerned About Future Housing: No Difficulty Paying Gas/Electric Bills: No Difficulty Paying for Meds: No Currently Unemployed: No Education: High School Diploma/GED Difficulty w/ Childcare or Family Care: No Living arrangements: with family Spiritual care concerns: No Exam Const: General: cooperative, no acute distress, alert and awake Orientation/consciousness: oriented to person, oriented to place and oriented to time HENMT: Head: normal to inspection Resp: Effort & Inspection: normal respiratory effort and able to speak in complete sentences Auscultation: clear to auscultation bilaterally, no crackles, no rales, no rhonchi and wheezes scattered wheezes and throughout Cardio: Palpation: normal PMI Rate: regular rate Rhythm: regular rhythm Heart sounds: S1 normal heart sound present and S2 normal heart sound present Neuro: General: oriented to person, oriented to place and oriented to time Cranial nerves: Yes CN's II-XII intact bilaterally Psych: Appearance: grossly normal Thought process: Normal thought process present Insight: Good insight present (Psych) Judgement: Good judgement present (Psych) Course Course Emergency Course: Patient presents with complaints of wheezing and shortness of breath since running out of albuterol. She is speaking in full sentences, no respiratory distress. Chest x-ray without any acute findings. This is COPD exacerbation. First dose of steroids given prior to discharge, DuoNeb given. Will send home with prescriptions of azithromycin for further reduction of inflammation, steroids, albuterol. Follow with primary care provider. Emergency department with any new or worse symptoms. Discharge instructions reviewed with patient, as well as provided in writing per nursing staff. The instructions also include specific and strict return/GO TO THE ER as well as f/u information. All questions have been answered, and the patient deny any further questions with discharge and discharge plan. Some parts of this di
[2023-11-01] MEDS: predniSONE 20 MG TABLET 60 MG PO (11:40)
[2023-11-01] MEDS: IPRATROPIUM 0.5 MG/ALBUTEROL SULFATE 2.5 MG AMPUL.NEB 3 ML INHALATION (11:41)
[2023-11-01 11:55] VITALS: PULSE 98; RESP 18; O2SAT 98
== END 2023-11-01 12:00 | disposition home or self-care (01) ==
PROVIDERS: Emergency Provider Nurse Practitioner Family; PCP Emergency Medicine
DX: J44.1 Chronic obstructive pulmonary disease with (acute) exacerbation (principal); Z87.891 Personal history of nicotine dependence
CPT/HCPCS: 71046; 94640; 99213; G0463; J7512

== ENCOUNTER 2023-12-28 19:06 | Observation (INO) | payer OTHER, SELFPAY ==
[2023-12-28] VITALS (9 sets, daily range): BP systolic 114–133; BP diastolic 72–83; PULSE 65–114; RESP 13–20; TEMP 36.4; O2SAT 89–93
--- NOTE | ~2023-12-28 | CT_ITS ---
CT Scan of the Chest without Contrast: Clinical Indication: Cough, shortness of breath Technique: Contiguous sections were acquired throughout the chest without intravenous contrast. Dose reduction technique was used on this scan by utilizing automated exposure control and iterative recon struction technique. The dose-length product (DLP) was 131.53 mGy-cm. COMPARISON: 08/27/2023 Findings: There is no evidence of any significant mediastinal, hilar or axillary lymphadenopathy. The mediastin al soft tissues appear normal. There is no evidence of pleural or pericardial effusion. There is moderate to advanced emphysema. There is patchy groundglass consolidation in the anteromedia l right upper lobe, compatible with pneumonia. There are minimal additional groundglass opacities in the medial aspects of the bilateral lower lobes.. Images through the upper abdomen reveal no abnormalities. Impression: Patchy groundglass consolidation, mildly worsened from prior exam, compatible with multifocal pneumon ia, possibly chronic pneumonia given relative stability in distribution of findings from prior exam. Underlying moderate to advanced emphysema. Reviewed, dictated and finalized at location M. ICS TECHNICAL OFFICER Impression: Patchy groundglass consolidation, mildly worsened from prior exam, compatible w ith multifocal pneumonia, possibly chronic pneumonia given relative stability i n distribution of findings from prior exam. Underlying moderate to advanced emphysema.
--- NOTE | ~2023-12-28 | XR_ITS ---
EXAMINATION: XR chest 2V Exam Date/Time: 12/28/2023 19:31 PATIENT INTAKE COORDINATOR HISTORY: SOB, CHEST PAIN Comparison: 11/01/2023. CTPA 08/27/2023. RESULT: Lines, tubes, and devices: None. Lungs and pleura: Clear. Emphysematous change. Cardiomediastinal silhouette: Stable. Other: No acute osseous or upper abdominal finding. IMPRESSION: No acute cardiopulmonary process. Reviewed, dictated and finalized at location K. ENT INTAKE COORDINATOR
--- NOTE | 2023-12-28 19:07 | ECG_ITS ---
Test Date: 2023-12-28 19:15:58 Measurements Intervals [place] Rate: 104 P: 77 [place]: 162 QRS: 136 QRSD: 95 T: 51 QT: 344 QTc: 454 Interpretive Statements SINUS TACHYCARDIA INCOMPLETE RIGHT BUNDLE BRANCH BLOCK DELAYED PRECORDIAL R/S TRANSITION BORDERLINE ST ABNORMALITY- ANTEROLAT/IF LEADS BASELINE ARTIFACT- I, II, AVR, AVL, AVF, V1, V4-V6 BORDERLINE ECG Compared to ECG 08/27/2023 19:49:36 HEART RATE HAS INCREASED Electronically Signed On 12-29-2023 06:42:37 [employer] by Mark Kraus D.O.
[2023-12-28 19:29] LABS: Basophils Absolute Auto 0.1 K/mm3 (0.0-0.1); Basophils Percent Auto 0.7 % (0.2-1.2); Eosinophils Absolute Auto 0.8 K/mm3 (0-0.3); Eosinophils Percent Auto 6.3 % (0-4.4); Hematocrit 41.1 % (37.0-47.0); Hemoglobin 13.8 g/dL (12.0-15.0); Immature Granulocyte Absolute 0.04 K/mm3 (0.00-0.031); Immature Granulocyte Percent A 0.3 % (0-0.5); Lymphocytes Absolute Auto 2.96 K/mm3 (0.9-3.2); Mean Corpuscular HGB Conc 33.6 g/dl (32-36); Mean Corpuscular Hemoglobin 31.9 pg (26-34); Mean Corpuscular Volume 95.1 fl (80-100); Mean Platelet Volume 10.2 fl (7.4-10.4); Monocytes Absolute Auto 0.9 K/mm3 (0.1-0.6); Monocytes Percent Auto 7.6 % (2.6-8.5); Neutrophils Absolute Auto 7.5 K/mm3 (1.3-6.7); Neutrophils Percent Auto 61.1 % (45.5-73.1); Platelet Count Result 261 k/mm3 (150-375); Red Blood Count 4.32 M/mm3 (4.2-5.4); Red Cell Distribution Width 11.9 % (11.5-14.5); White Blood Count 12.3 K/mm3 (4.5-10.0)
[2023-12-28 19:38] LABS: Alanine Aminotransferase 26 U/L (6-35); Albumin Level 4.2 g/dL (3.5-5.1); Alkaline Phosphatase 63 U/L (38-126); Anion Gap 8 mmol/L (4-12); Aspartate Amino Transferase 32 U/L (14-36); Bilirubin,Total 0.3 mg/dL (0.2-1.3); Blood Urea Nitrogen 8 mg/dL (7-17); Calcium 9.3 mg/dL (8.4-10.2); Carbon Dioxide 31 mmol/L (22-30); Chloride 99 mmol/L (98-107); Estimated CRCL calculation 97 ml/min; Estimated Glomerular Filt Rate > 60; Glucose 114 mg/dL (65-110); Potassium 3.2 mmol/L (3.4-5.0); Sodium 138 mmol/L (137-145)
--- NOTE | 2023-12-28 21:26 | ED.SOB ---
HPI - SOB/Dyspnea General Chief Complaint: Shortness of Breath/Dyspnea <Esthela Ribeiro PA-C - Last Filed: 12/28/23 23:29> Stated Complaint: Severe SOB <NAFISA Smith Last Filed: 12/28/23 23:29> Time Seen by Provider: 12/28/23 21:23 <NAFISA Smith Last Filed: 12/28/23 23:29> Source: patient <NAFISA Smith Last Filed: 12/28/23 23:29> Mode of arrival: ambulatory <NAFISA Smith Last Filed: 12/28/23 23:29> Limitations: no limitations <NAFISA Smith Last Filed: 12/28/23 23:29> History of Present Illness HPI Narrative: This is a 33-year-old female that presents to the emergency department for shortness of breath. Ongoing over the last several days. Reports associated cough and congestion. Also is wheezing. Has history of asthma. Has been using her albuterol inhaler with little relief. Denies fevers. <NAFISA Smith Last Filed: 12/28/23 23:29> Related Data Home Medications: Home Medications Medication Instructions Recorded Confirmed fluticasone propionate 115 2 puff inhalation Q12H 12/28/23 12/28/23 mcg-salmeterol 21 mcg/actuation HFA inhaler (Advair HFA) <Esthela Ribeiro PA-C - Last Filed: 12/28/23 23:29> Allergies/Adverse Reactions: Allergies Allergy/AdvReac Type Severity Reaction Status Date / Time No Known Allergies Allergy Verified 12/28/23 19:13 <NAFISA Smith Last Filed: 12/28/23 23:29> Review of Systems Review of Systems: CONSTITUTIONAL: Denies fever CARDIOVASCULAR: Denies chest pain or edema. RESPIRATORY: Reports cough and dyspnea. <NAFISA Smith Last Filed: 12/28/23 23:29> All systems reviewed & are unremarkable except as noted in HPI and below <Esthela Ribeiro PA-C - Last Filed: 12/28/23 23:29> [facility] Past Medical History Medical History: Medical History (Updated 12/28/23 @ 23:15 by Brooke Martinez MD) History of asthma <Esthela Ribeiro PA-C - Last Filed: 12/28/23 23:29> Family History Family History: Family History (Updated 12/28/23 @ 23:42 by Xochitl Durbin RN) Mother Lung cancer <Esthela Ribeiro PA-C - Last Filed: 12/28/23 23:29> Social History Social History: Social History Years smoked: 13 Smoking status: Former smoker Tobacco type: cigarettes Smokeless tobacco user: other Second hand tobacco smoke exposure: No Alcohol intake: never Substance use: former Substance use type: marijuana Do You Feel Safe in your Home?: Yes Lack of Transportation: No Lack of Food: Never True Current Housing: I Have Housing Concerned About Future Housing: No Difficulty Paying Gas/Electric Bills: No Difficulty Paying for Meds: No Currently Unemployed: No Education: High School Diploma/GED Difficulty w/ Childcare or Family Care: No Living arrangements: with family Spiritual care concerns: No <NAFISA Smith Last Filed: 12/28/23 23:29> Exam Narrative: GENERAL: Well-appearing, well-nourished, and in no acute distress. HEAD: Normocephalic, atraumatic. EYES: EOMI. ENT: Nares clear, no rhinorrhea or epistaxis. Mucous membranes moist. Oropharynx without tonsillar hypertrophy exudate or other lesions. NECK: Supple. No adenopathy or masses. CHEST: No respiratory distress. Diffuse expiratory wheezing. No rales or rhonchi HEART: Regular rate and rhythm. No murmur heard. Normal peripheral pulses. EXTREMITIES: Normal range of motion. No edema. SKIN: Warm, dry, no rash. NEURO: No focal deficits. Alert and oriented x3. PSYCH: Normal mood and affect <Esthela Ribeiro PA-C - Last Filed: 12/28/23 23:29> Course Course Emergency Course: patient updated on her workup and recommendation for admission <Esthela Ribeiro PA-C - Last Filed: 12/28/23 23:29> YE[employer]KE C[employer]TER/PA Physician Supervision I was available for consultation while this patient was in the emergency department but otherwise did not personally examine and was not involved in their care. <Laurie Anderson MD - Last Filed: 12/30/23 08:13> Consultations Consultation #1: spoke with hospitalist about patient and workup who accepts admission <Esthela Ribeiro PA-C - Last Filed: 12/28/23 23:29> Date: 12/28/23 <Esthela Ribeiro PA-C - Last Filed: 12/28/23 23:29> Vital Signs Vital signs: Vital Signs Temperature 97.6 F 12/28/23 19:08 Pulse Rate 112 H 12/28/23 19:08 Respiratory Rate 16 12/28/23 19:08 Blood Pressure 116/72 12/28/23 19:08 Pulse Oximetry 93 12/28/23 19:08 Oxygen Delivery Room Air 12/28/23 19:08 Temperature 97.2 F L 12/29/23 08:00 Pulse Rate 111 H 12/29/23 14:30 Respiratory Rate 16 12/29/23 08:00 Blood Pressure 121/59 L 12/29/23 08:00 Pulse Oximetry 92 12/29/23 14:30 Oxygen Delivery Room Air 12/29/23 14:30 Oxygen Flow Rate 2 12/29/23 08:15 <Esthela Ribeiro PA-C - Last Filed: 12/28/23 23:29> Vital Signs Temperature 97.6 F 12/28/23 19:08 Pulse Rate 112 H 12/28/23 19:08 Respiratory Rate 16 12/28/23 19:08 Blood Pressure 116/72 12/28/23 19:08 Pulse Oximetry 93 12/28/23 19:08 Oxygen Delivery Room Air 12/28/23 19:08 Temperature 97.2 F L 12/29/23 08:00 Pulse Rate 111 H 12/29/23 14:30 Respiratory Rate 16 12/29/23 08:00 Blood Pressure 121/59 L 12/29/23 08:00 Pulse Oximetry 92 12/29/23 14:30 Oxygen Delivery Room Air 12/29/23 14:30 Oxygen Flow Rate 2 12/29/23 08:15 <Laurie Anderson MD - Last Filed: 12/30/23 08:13> MDM - SOB/Dyspnea MDM Narrative Medical decision making narrative: patient presents to the emergency department for shortness of breath. She is afebrile and nontoxic appearing. Oxygen saturation did dip to the mid to upper 80s on room air. Placed on 2 L nasal cannula. She was wheezing initially, this improved after nebulizer treatment. CBC with leukocytosis to 12.3. Metabolic panel with mild hypokalemia, patient's potassium was replaced. Chest x-ray without acute cardiopulmonary abnormality. D-dimer negative. CT of the chest was obtained for further evaluation. This does show findings of pneumonia. Patient will be admitted for further management. Spoke with hospitalist about patient and workup who accepts admission <Esthela Ribeiro PA-C - Last Filed: 12/28/23 23:29> Differential Diagnosis Differential diagnosis: Likely acute exacerbation of chronic obstructive airways disease, community acquired pneumonia, asthma with exacerbation and pulmonary embolism <Esthela Ribeiro PA-C - Last Filed: 12/28/23 23:29> Lab Data Attestation: I reviewed the patient's lab results. <Esthela Ribeiro PA-C - Last Filed: 12/28/23 23:29> Result diagrams: 12/29/23 07:26 12/29/23 07:26 <Esthela Ribeiro PA-C - Last Filed: 12/28/23 23:29> Labs: Lab Results 12/28/23 12/29/23 Range/Units 19:23 07:26 WBC 12.3 H 6.3 (4.5-10.0) K/mm3 RBC 4.32 4.67 (4.2-5.4) M/mm3 Hgb 13.8 14.6 (12.0-15.0) g/dL Hct 41.1 44.3 (37.0-47.0) % MCV 95.1 94.9 (80-100) fl MCH 31.9 31.3 (26-34) pg MCHC 33.6 33.0 (32-36) g/dl RDW 11.9 11.9 (11.5-14.5) % Plt Count 261 254 (150-375) k/mm3 MPV 10.2 10.2 (7.4-10.4) fl Immature Gran % (Auto) 0.3 Not Reportable (0-0.5) % Neut % (Auto) 61.1 Not Reportable (45.5-73.1) % Lymph % (Auto) 24.0 Not Reportable (18.3-44.2) % [place] % (Auto) 7.6 Not Reportable (2.6-8.5) % Eos % (Auto) 6.3 H Not Reportable (0-4.4) % Baso % (Auto) 0.7 Not Reportable (0.2-1.2) % Lymph # (Auto) 2.96 Not Reportable (0.9-3.2) K/mm3 [place] # (Auto) 0.9 H Not Reportable (0.1-0.6) K/mm3 Eos # (Auto) 0.8 H Not Reportable (0-0.3) K/mm3 Baso # (Auto) 0.1 Not Reportable (0.0-0.1) K/mm3 Abs Immat Gran (auto) 0.04 H Not Reportable (0.00-0.031) K/mm3 Absolute Neuts (auto) 7.5 H Not Reportable (1.3-6.7) K/mm3 Absolute Nucleated RBC 0.000 Not Reportable (0.0-0.012) K/mm3 Total Counted 100 Neutrophils % (Manual) 88 H (46-73) % Band Neutrophils % 1 (0-6) % Lymphocytes % (Manual) 9 L (18-44) % Monocytes % (Manual) 2 L (3-9) % Eosinophils % (Manual) 0 (0-4) % Basophils % (Manual) 0 (0-1) % Nucleated RBC % 0.0 Not Reportable (0.0-0.2) % Abs Neuts (Manual) 5.60 (1.7-7.2) K/mm3 Abs Lymphs (Manual) 0.56 L (1.1-4.5) K/mm3 Abs Monocytes (Manual) 0.12 (0.1-0.90) K/mm3 Absolute Eos (Manual) 0.00 L (0.02-0.50) K/mm3 Abs Basophils (Manual) 0.00 (0.0-0.1) K/mm3 Atypical Lymphocytes Present Platelet Estimate Adequate (Adequate) Schistocytes None seen D-Dimer < 0.27 (<0.48) ug/mL Sodium 138 138 (137-145) mmol/L Potassium 3.2 L 4.7 (3.4-5.0) mmol/L Chloride 99 107 (98-107) mmol/L Carbon Dioxide 31 H 24 (22-30) mmol/L Anion Gap 8 7 (4-12) mmol/L BUN 8 8 (7-17) mg/dL Creatinine 0.60 L 0.50 L (0.7-1.0) mg/dL Estim Creat Clear Calc 97 115 ml/min Estimated GFR > 60 > 60 (59 - ) Glucose 114 H 138 H (65-110) mg/dL Calcium 9.3 9.5 (8.4-10.2) mg/dL Magnesium 1.9 2.0 (1.6-2.3) mg/dL Total Bilirubin 0.3 0.5 (0.2-1.3) mg/dL AST 32 30 (14-36) U/L ALT 26 26 (6-35) U/L Alkaline Phosphatase 63 66 (38-126) U/L Total Protein 8.0 8.0 (6.3-8.2) g/dL Albumin 4.2 4.4 (3.5-5.1) g/dL <Esthela Ribeiro PA-C - Last Filed: 12/28/23 23:29> Lab Results 12/28/23 12/29/23 Range/Units 19:23 07:26 WBC 12.3 H 6.3 (4.5-10.0) K/mm3 RBC 4.32 4.67 (4.2-5.4) M/mm3 Hgb 13.8 14.6 (12.0-15.0) g/dL Hct 41.1 44.3 (37.0-47.0) % MCV 95.1 94.9 (80-100) fl MCH 31.9 31.3 (26-34) pg MCHC 33.6 33.0 (32-36) g/dl RDW 11.9 11.9 (11.5-14.5) % Plt Count 261 254 (150-375) k/mm3 MPV 10.2 10.2 (7.4-10.4) fl Immature Gran % (Auto) 0.3 Not Reportable (0-0.5) % Neut % (Auto) 61.1 Not Reportable (45.5-73.1) % Lymph % (Auto) 24.0 Not Reportable (18.3-44.2) % [place] % (Auto) 7.6 Not Reportable (2.6-8.5) % Eos % (Auto) 6.3 H Not Reportable (0-4.4) % Baso % (Auto) 0.7 Not Reportable (0.2-1.2) % Lymph # (Auto) 2.96 Not Reportable (0.9-3.2) K/mm3 [place] # (Auto) 0.9 H Not Reportable (0.1-0.6) K/mm3 Eos # (Auto) 0.8 H Not Reportable (0-0.3) K/mm3 Baso # (Auto) 0.1 Not Reportable (0.0-0.1) K/mm3 Abs Immat Gran (auto) 0.04 H Not Reportable (0.00-0.031) K/mm3 Absolute Neuts (auto) 7.5 H Not Reportable (1.3-6.7) K/mm3 Absolute Nucleated RBC 0.000 Not Reportable (0.0-0.012) K/mm3 Total Counted 100 Neutrophils % (Manual) 88 H (46-73) % Band Neutrophils % 1 (0-6) % Lymphocytes % (Manual) 9 L (18-44) % Monocytes % (Manual) 2 L (3-9) % Eosinophils % (Manual) 0 (0-4) % Basophils % (Manual) 0 (0-1) % Nucleated RBC % 0.0 Not Reportable (0.0-0.2) % Abs Neuts (Manual) 5.60 (1.7-7.2) K/mm3 Abs Lymphs (Manual) 0.56 L (1.1-4.5) K/mm3 Abs Monocytes (Manual) 0.12 (0.1-0.90) K/mm3 Absolute Eos (Manual) 0.00 L (0.02-0.50) K/mm3 Abs Basophils (Manual) 0.00 (0.0-0.1) K/mm3 Atypical Lymphocytes Present Platelet Estimate Adequate (Adequate) Schistocytes None seen D-Dimer < 0.27 (<0.48) ug/mL Sodium 138 138 (137-145) mmol/L Potassium 3.2 L 4.7 (3.4-5.0) mmol/L Chloride 99 107 (98-107) mmol/L Carbon Dioxide 31 H 24 (22-30) mmol/L Anion Gap 8 7 (4-12) mmol/L BUN 8 8 (7-17) mg/dL Creatinine 0.60 L 0.50 L (0.7-1.0) mg/dL Estim Creat Clear Calc 97 115 ml/min Estimated GFR > 60 > 60 (59 - ) Glucose 114 H 138 H (65-110) mg/dL Calcium 9.3 9.5 (8.4-10.2) mg/dL Magnesium 1.9 2.0 (1.6-2.3) mg/dL Total Bilirubin 0.3 0.5 (0.2-1.3) mg/dL AST 32 30 (14-36) U/L ALT 26 26 (6-35) U/L Alkaline Phosphatase 63 66 (38-126) U/L Total Protein 8.0 8.0 (6.3-8.2) g/dL Albumin 4.2 4.4 (3.5-5.1) g/dL <Laurie Anderson MD - Last Filed: 12/30/23 08:13> Imaging Data Radiologist's impression: ITS Impressions Chest X-Ray 12/28/23 20:06 IMPRESSION: No acute cardiopulmonary process. <Esthela Ribeiro PA-C - Last Filed: 12/28/23 23:29> ECG Data EKG #1: ECG completion date: 12/28/23 <Esthela Ribeiro PA-C - Last Filed: 12/28/23 23:29> EKG Interpretation: normal rate, sinus rhythm, no ST changes and normal QT <Esthela Ribeiro PA-C - Last Filed: 12/28/23 23:29> Critical Care Time Critical Care Time Critical Care Time: Yes <Esthela Riebiro PA-C - Last Filed: 12/28/23 23:29> Total Critical Care Time: 35 <Esthela Ribeiro PA-C - Last Filed: 12/28/23 23:29> Discharge Plan Discharge Clinical Impression: Acute respiratory failure with hypoxemia, Pneumonia <Esthela Ribeiro PA-C - Last Filed: 12/28/23 23:29> Patient Disposition: Still a Patient <Esthela Ribeiro PA-C - Last Filed: 12/28/23 23:29> Condition: Improved <Esthela Ribeiro PA-C - Last Filed: 12/28/23 23:29>
[2023-12-28] MEDS: IPRATROPIUM 0.5 MG/ALBUTEROL SULFATE 2.5 MG AMPUL.NEB 3 ML INHALATION (21:37)
[2023-12-28] MEDS: methylPREDNISolone SOD SUCC 125 MG VIAL IV PUSH (21:51)
[2023-12-28 21:52] LABS: D Dimer < 0.27 ug/mL (<0.48)
--- NOTE | 2023-12-28 23:12 | P.HP_ITS ---
H&P: HPI History of Present Illness Date/Time: 12/28/23 23:12 Chief Complaint: shortness of breath Narrative: This is a 33-year-old female with past medical history significant for asthma, patient presents to the emergency room due to 3-4 days of shortness of breath and wheezing has been using her inhalers more than usual with L relieve however has worsened over the last 24 hours, has had a dry cough, chills, fevers, night sweats. In emergency room preliminary workup was significant for CT of the chest showed infiltrate. Patient has been admitted for further evaluation management and treatment. EXAMINATION: XR chest 2V Exam Date/Time: 12/28/2023 19:31 LOGISTIC MANAGER HISTORY: SOB, CHEST PAIN Comparison: 11/01/2023. CTPA 08/27/2023. RESULT: Lines, tubes, and devices: None. Lungs and pleura: Clear. Emphysematous change. Cardiomediastinal silhouette: Stable. Other: No acute osseous or upper abdominal finding. IMPRESSION: No acute cardiopulmonary process. Review of Systems Review of Systems: Shortness of breath, dry cough, night sweats, fevers, chills PMFSH Past Medical History Medical History (Updated 12/28/23 @ 23:15 by Brooke Martinez MD) History of asthma Family History Family History (Updated 12/28/23 @ 23:42 by Xochitl Durbin RN) Mother Lung cancer Social History Social History Years smoked: 13 Smoking status: Former smoker Tobacco type: cigarettes Smokeless tobacco user: other Second hand tobacco smoke exposure: No Alcohol intake: never Substance use: former Substance use type: marijuana Do You Feel Safe in your Home?: Yes Lack of Transportation: No Lack of Food: Never True Current Housing: I Have Housing Concerned About Future Housing: No Difficulty Paying Gas/Electric Bills: No Difficulty Paying for Meds: No Currently Unemployed: No Education: High School Diploma/GED Difficulty w/ Childcare or Family Care: No Living arrangements: with family Spiritual care concerns: No Meds Home Medications and Allergies Home Medications Medication Instructions Recorded Confirmed Type albuterol sulfate 90 mcg/actuation 2 puff inhalation Q4H PRN 09/14/24 11/10/24 Rx aerosol inhaler (Ventolin HFA) shortness of breath or wheezing #8.5 grams fluticasone propionate 115 2 puff inhalation Q12H 12/28/23 12/28/23 History mcg-salmeterol 21 mcg/actuation HFA inhaler (Advair HFA) Allergies Allergy/AdvReac Type Severity Reaction Status Date / Time No Known Allergies Allergy Verified 12/28/23 19:13 Vital Signs Vital Signs - 24 hr 12/28/23 19:08 12/28/23 21:37 12/28/23 21:52 Temperature 97.6 F Pulse Rate 112 H 65 114 H Respiratory Rate 16 20 Blood Pressure 116/72 Pulse Oximetry 93 Oxygen Delivery Room Air Oxygen Flow Rate 12/28/23 21:52 12/28/23 21:52 12/28/23 22:40 Temperature Pulse Rate 99 91 Respiratory Rate 16 16 Blood Pressure 114/83 115/74 Pulse Oximetry 92 90 90 Oxygen Delivery Room Air Oxygen Flow Rate 12/28/23 22:41 Temperature Pulse Rate Respiratory Rate Blood Pressure Pulse Oximetry 91 Oxygen Delivery Nasal Cannula Oxygen Flow Rate 2 Exam Narrative: patient is sitting in a stretcher Const: General: cooperative, comfortable, no acute distress, well developed, alert, awake, ill appearing acutely and thin Nutritional Appearance: thin Orientation/consciousness: patient oriented x3 HENMT: Head: normal to inspection, normocephalic and atraumatic Ears: hearing grossly normal bilaterally Face/Nose/Sinus: normal facial exam Face and sinus: normal facial exam Eyes: General: appearance normal, both eyes and all related structures Pupils: Equal, round and reactive pupils present EOM: EOMs intact bilaterally Neck: Neck: full ROM, no lymphadenopathy and no JVD Thyroid: thyroid normal Lymphatic: no lymphadenopathy noted Resp: Effort & Inspection: normal respiratory effort and able to speak in complete sentences Auscultation: wheezes and diminished lung sounds Cardio: Jugular venous distension: no JVD Rate: regular rate Rhythm: regular rhythm Heart sounds: S1 normal heart sound present and S2 normal heart sound present GI: GI Palp: Yes Soft to palpation and Yes No hepatosplenomegaly present : General: Yes deferred Skin: Rashes: no rashes Wounds: no wounds Neuro: General: patient oriented x3 and CN's II-XI intact bilaterally Cranial nerves: Yes CN's II-XII intact bilaterally and Yes Equal, round and reactive pupils present Cognition (Neuro): normal cognition Speech: normal speech Gait exam (Neuro): Normal gait present Motor exam (neuro): 5/5 motor strength present throughout Extrem: General: normal to inspection, full ROM, no joint enlargement and no pedal edema H&P: Results Labs Labs: Short CBC 12/28/23 Range/Units 19:23 WBC 12.3 H (4.5-10.0) K/mm3 Hgb 13.8 (12.0-15.0) g/dL Hct 41.1 (37.0-47.0) % Plt Count 261 (150-375) k/mm3 BMP 12/28/23 19:23 Sodium 138 Potassium 3.2 L Chloride 99 Carbon Dioxide 31 H BUN 8 Creatinine 0.60 L Glucose 114 H Calcium 9.3 Liver Function 12/28/23 Range/Units 19:23 Total Bilirubin 0.3 (0.2-1.3) mg/dL AST 32 (14-36) U/L ALT 26 (6-35) U/L Alkaline Phosphatase 63 (38-126) U/L Albumin 4.2 (3.5-5.1) g/dL Assessment and Plan Assessment and plan (1) Acute respiratory failure with hypoxemia: Code(s): J96.01 - Acute respiratory failure with hypoxia Status: Acute Assessment and Plan: admit to [facility] on supplemental oxygen by nasal cannula (2) Emphysema lung: Code(s): J43.9 - Emphysema, unspecified Status: Acute Assessment and Plan: patient is in the process of having lung functioning test done in the outpatient setting (3) Asthma: Code(s): J45.909 - Unspecified asthma, uncomplicated Status: Acute Assessment and Plan: breathing treatments systemic steroids (4) Pneumonia: Code(s): J18.9 - Pneumonia, unspecified organism Status: Acute Assessment and Plan: started Rocephin and Zithromax Hospitalist [facility] Advance Care Plan I have confirmed that the patient's Advanced Care Plan is present, code status is documented, or surrogate decision maker is listed in patient medical record.: Yes Medication Reconciliation I have utilized all available resources to obtain, update and review the patients current medications (includes all prescriptions, OTC, herbals, cannabis, and nutritional supplements).: Yes
[2023-12-28] MEDS: POTASSIUM CHLORIDE 20 MEQ ER TABLET 40 MEQ PO (23:19)
[2023-12-28 23:42] LABS: Magnesium 1.9 mg/dL (1.6-2.3)
[2023-12-29] VITALS (14 sets, daily range): BP systolic 110–125; BP diastolic 59–69; PULSE 79–129; RESP 16–20; TEMP 36.2–36.7; O2SAT 90–97
[2023-12-29] MEDS: AZITHROMYCIN 500 MG/NS 250 ML 500 MG/250 ML BAG 250 MG IVPB (00:02)
--- NOTE | 2023-12-29 00:09 | ADMGEN ---
This patient, Muriel Armando, was admitted to 2 Medical Room 240-01. Patient/family oriented to hospital policies and general routines including ID bracelet, bed and alarms, visiting hours, pain management, procedures, bathroom and other care routines, personal items, smoking policy, room service/diet, and visiting hours. Information on how to activate the Rapid Response Team has been discussed. Patient/Family are encouraged to report perceived risks to care and to ask questions if they do not understand what they are told or what they should do.
[2023-12-29] MEDS: methylPREDNISolone SOD SUCC 125 MG VIAL 60 MG IV PUSH ×2 (05:12→11:34)
--- NOTE | 2023-12-29 07:12 | PM.IMPN ---
Progress Note: A&P Assessment and Plan (1) Acute respiratory failure with hypoxemia: Code(s): J96.01 - Acute respiratory failure with hypoxia Status: Acute Assessment and Plan: -Likely secondary to community acquired pneumonia and asthma exacerbation Currently on 2L NC, continue to wean O2 for a saturation greater than 92% Respiratory panel (2) Pneumonia: Code(s): J18.9 - Pneumonia, unspecified organism Status: Acute Assessment and Plan: Continue Duonebs q 6 hours She was given loading dose of Solumedrol 125mg IVP while in the ER, Continue Solumedrol 60 mg IVP q6h will check MRSA and if positive will add Vancomycin Continue Rocephin and Azithromycin Check mycoplasma, urine strep, urine legionella (3) Asthma: Code(s): J45.909 - Unspecified asthma, uncomplicated Status: Acute Assessment and Plan: Continue Duonebs and Solumedrol as described above. Time Spent With Patient Time with patient: Greater than 35 minutes Subjective Date/time seen: 12/29/23 07:12 Interval history: Interval history: This is a 33 year old female who presented to the hospital on 12/29/23 with acute respiratory failure with hypoxia due to asthma exacerbation complicated by pneumonia. Work up in the hospital included a chest x-ray which was negative. Chest CT shown patchy ground glass consolidation compatible with multifocal pneumonia. Initial labs revealed a WBC of 12.3, K+ 3.2. Blood cultures were obtained and pending. Patient was given 125mg of solu-medrol, Duoneb, potassium 40 meq and started on Rocephin and Azithromycin while in the ER. Subjective: Patient denies. Patient endorses. Labs and imaging reviewed. Review of Systems Review of Systems: All systems reviewed & are unremarkable except as noted in HPI and below Constitutional: Constitutional: Reports as per HPI and Reports no additional constitutional complaints Eyes: Eyes: Reports as per HPI and Reports no additional eye complaints ENT: Reports system reviewed and no additional complaints, except as documented and Reports as per HPI Cardiovascular: Cardiovascular: Reports as per HPI and Reports no additional cardiovascular complaints Respiratory: Respiratory: Reports as per HPI and Reports no additional respiratory complaints Gastrointestinal: Gastrointestinal: Reports as per HPI and Reports no additional gastrointestinal complaints Genitourinary: Genitourinary: Reports no additional female genitourinary complaints and Reports as per HPI Musculoskeletal: Musculoskeletal: Reports no additional musculoskeletal complaints and Reports as per HPI Integumentary/Breasts: Skin/Breast: Reports system reviewed and no additional complaints, except as docu and Reports as per HPI Neurologic: Reports system reviewed and no additional complaints, except as documented and Reports as per HPI Psychiatric: Psychiatric: Reports no additional psychiatric complaints and Reports as per HPI Exam Narrative: General: In no acute distress, well nourished Head: atraumatic, no encephalopathy Eyes: EOMI, PERRLA, sclera clear ENT: moist mucous membranes, nasal passages clear Neck: supple, no JVD, no adenopathy, trachea midline Cardiac: Normal S1 and S2. No murmur, gallops or friction rubs, peripheral pulses intact. Respiratory: Lungs clear to auscultation, no adventitious lung sounds Gastrointestinal: soft, non-distended, non-tender, normoactive bowel sounds. : voiding without difficulty. Extremities: moves all extremities well, no edema, good ROM, strength 5/5 Skin: clean, dry, intact. No wounds or lesions. Neuro: Alert and oriented x4, cranial nerves intact, no neuro deficits. Psych: normal mood, normal affect, interactive Objective Data Vital Signs Vital Signs: Vital Signs - 24 hr 12/28/23 19:08 12/28/23 21:37 12/28/23 21:52 Temperature 97.6 F Pulse Rate 112 H 65 114 H Respiratory Rate 16 20 Blood Pressure 116/72 Pulse Oximetry 93 Oxygen Delivery Room Air Oxygen Flow Rate 12/28/23 21:52 12/28/23 21:52 12/28/23 22:40 Temperature Pulse Rate 99 91 Respiratory Rate 16 16 Blood Pressure 114/83 115/74 Pulse Oximetry 92 90 90 Oxygen Delivery Room Air Oxygen Flow Rate 12/28/23 22:41 12/28/23 21:51 12/28/23 22:00 Temperature Pulse Rate 102 H 96 Respiratory Rate 13 18 Blood Pressure 114/83 117/74 Pulse Oximetry 91 93 90 Oxygen Delivery Nasal Cannula Oxygen Flow Rate 2 12/28/23 22:30 12/28/23 23:20 12/29/23 00:11 Temperature 98.1 F Pulse Rate 100 100 84 Respiratory Rate 19 16 20 Blood Pressure 115/74 133/81 125/69 Pulse Oximetry 89 L 92 97 Oxygen Delivery Oxygen Flow Rate 12/29/23 00:23 12/29/23 04:00 12/29/23 05:36 Temperature 98.0 F Pulse Rate 79 94 Respiratory Rate 20 Blood Pressure 110/68 Pulse Oximetry 97 96 Oxygen Delivery Nasal Cannula Oxygen Flow Rate 2 Intake/Output Intake/Output: Intake & Output 12/26/23 12/27/23 12/28/23 12/29/23 23:59 23:59 23:59 23:59 Intake Total 250 Balance 250 Meds/Results Medications: Active Medications Generic Name Dose Route Start Last Admin Trade Name Freq PRN Reason Stop Dose Admin Acetaminophen 1,000 mg 12/29/23 01:51 Acetaminophen 500 Mg Tablet PO Q6H PRN Mild Pain (1-3) or Fever Al Hydrox/Mg Hydrox/Simethicone 30 ml 12/29/23 01:51 Mag Hydrox/Al Hydrox/Simeth 30 Ml Udc PO Q6H PRN Indigestion Albuterol/Ipratropium 3 ml 12/29/23 02:00 Ipratropium 0.5 Mg/Albuterol Sulfate 2.5 Mg Ampul.Neb 3 Ml INHALATION Q6HRT [facility] Ceftriaxone Sodium 1 gm in 50 mls @ 100 mls/hr 12/29/23 21:00 Rocephin 1 Gm/Ns 50 Ml IVPB Q24H [facility] Azithromycin 500 mg in 250 mls @ 250 mls/hr 12/29/23 21:00 Zithromax IVPB Q24H [facility] Methylprednisolone Sodium Succinate 60 mg 12/29/23 05:00 12/29/23 05:12 Methylprednisolone Sod Succ 125 Mg Vial IV PUSH 60 mg Q6HR [facility] Administration Ondansetron HCl 4 mg 12/29/23 01:51 Ondansetron Inj 4 Mg/2 Ml Vial IV PUSH Q4H PRN Nausea And Vomiting Polyethylene Glycol 17 gm 12/29/23 01:51 Polyethylene Glycol 3350 17 Gm Powd.Pack PO QAM PRN Constipation Fluticasone/Salmeterol 2 puff 12/29/23 08:00 Fluticasone/Salmeterol 115-21 Mcg Inhaler 1 Puff INHALATION Q12HRT [facility] Radiology Results: ITS Impressions Chest X-Ray 12/28/23 20:06 IMPRESSION: No acute cardiopulmonary process. Chest CT 12/29/23 05:29 Impression: Patchy groundglass consolidation, mildly worsened from prior exam, compatible with multifocal pneumonia, possibly chronic pneumonia given relative stability in distribution of findings from prior exam. Underlying moderate to advanced emphysema. Labs Labs: Laboratory Results - last 24 hr 12/28/23 19:23 WBC 12.3 H RBC 4.32 Hgb 13.8 Hct 41.1 MCV 95.1 MCH 31.9 MCHC 33.6 RDW 11.9 Plt Count 261 MPV 10.2 Immature Gran % (Auto) 0.3 Neut % (Auto) 61.1 Lymph % (Auto) 24.0 Graves % (Auto) 7.6 Eos % (Auto) 6.3 H Baso % (Auto) 0.7 Lymph # (Auto) 2.96 Graves # (Auto) 0.9 H Eos # (Auto) 0.8 H Baso # (Auto) 0.1 Abs Immat Gran (auto) 0.04 H Absolute Neuts (auto) 7.5 H Absolute Nucleated RBC 0.000 Nucleated RBC % 0.0 D-Dimer < 0.27 Sodium 138 Potassium 3.2 L Chloride 99 Carbon Dioxide 31 H Anion Gap 8 BUN 8 Creatinine 0.60 L Estim Creat Clear Calc 97 Estimated GFR > 60 Glucose 114 H Calcium 9.3 Magnesium 1.9 Total Bilirubin 0.3 AST 32 ALT 26 Alkaline Phosphatase 63 Total Protein 8.0 Albumin 4.2 Quality VTE Prophylaxis VTE prophylaxis: mechanical ordered
[2023-12-29] MEDS: FLUTICASONE/SALMETEROL 115-21 MCG INHALER 1 PUFF 2 PUFF INHALATION (07:33)
[2023-12-29] MEDS: IPRATROPIUM 0.5 MG/ALBUTEROL SULFATE 2.5 MG AMPUL.NEB 3 ML INHALATION (07:33)
[2023-12-29 07:34] LABS: Hematocrit 44.3 % (37.0-47.0); Hemoglobin 14.6 g/dL (12.0-15.0); Mean Corpuscular Hemoglobin 31.3 pg (26-34); Mean Corpuscular Volume 94.9 fl (80-100); Mean Platelet Volume 10.2 fl (7.4-10.4); Platelet Count Result 254 k/mm3 (150-375); Red Blood Count 4.67 M/mm3 (4.2-5.4); Red Cell Distribution Width 11.9 % (11.5-14.5); White Blood Count 6.3 K/mm3 (4.5-10.0)
[2023-12-29 07:49] LABS: Atypical Lymphocytes Present; Band Neutrophils Percent 1 % (0-6); Basophils Percent Manual 0 % (0-1); Eosinophils Percent Manual 0 % (0-4); Lymphocytes Absolute Manual 0.56 K/mm3 (1.1-4.5); Lymphocytes Percent Manual 9 % (18-44); Monocytes Absolute Manual 0.12 K/mm3 (0.1-0.90); Monocytes Percent Manual 2 % (3-9); Neutrophils Percent Manual 88 % (46-73); Total Cells Counted 100
[2023-12-29 07:50] LABS: Alanine Aminotransferase 26 U/L (6-35); Albumin Level 4.4 g/dL (3.5-5.1); Alkaline Phosphatase 66 U/L (38-126); Anion Gap 7 mmol/L (4-12); Aspartate Amino Transferase 30 U/L (14-36); Bilirubin,Total 0.5 mg/dL (0.2-1.3); Blood Urea Nitrogen 8 mg/dL (7-17); Calcium 9.5 mg/dL (8.4-10.2); Carbon Dioxide 24 mmol/L (22-30); Chloride 107 mmol/L (98-107); Estimated CRCL calculation 115 ml/min; Estimated Glomerular Filt Rate > 60; Glucose 138 mg/dL (65-110); Platelet Estimate Adequate (Adequate); Potassium 4.7 mmol/L (3.4-5.0); Schistocytes None Seen; Sodium 138 mmol/L (137-145)
[2023-12-29 13:05] LABS: MRSA (PCR) NOT DETECTED (NOT DETECTE)
--- NOTE | 2023-12-29 13:14 | P.DS_ITS ---
DS: Admitting Diagnosis Discharge Date 12/29/23 Admitting Diagnosis Acute respiratory failure with hypoxemia Emphysema lung Asthma Pneumonia DS: Summary Hospital Course Reason for hospitalization: Acute respiratory failure with hypoxemia Emphysema lung Asthma Pneumonia Hospital Course: This is a 33 year old female who presented to the hospital on 12/29/23 with acute respiratory failure with hypoxia due to asthma exacerbation complicated by pneumonia. Work up in the hospital included a chest x-ray which was negative. Chest CT shown patchy ground glass consolidation compatible with multifocal pneumonia. Initial labs revealed a WBC of 12.3, K+ 3.2. Blood cultures were obtained and pending. Patient was given 125mg of solu-medrol, Duoneb, potassium 40 meq and started on Rocephin and Azithromycin while in the ER. Patient was weaned off oxygen and states that she is feeling much better today. Her lungs are clear with no audible wheezing. She would like to go home today. We went ahead and switched her over to oral antibiotics of Augmentin and azithromycin. MRSA was negative. She will need to follow up with her primary care physician in 1 week. We will also send her home with a nebulizer with DuoNebs as backup treatment considering her overuse of her albuterol inhaler. She also sees turner machine over at [facility] and has an appointment in 2 weeks to follow-up. She will also be given steroid taper. Final diagnosis: Acute respiratory failure with hypoxemia, asthma exacerbation, community-acquired pneumonia Status at Discharge Cognitive/behavioral status at discharge: Alert oriented x4 Functional status at discharge: independent ambulation Overall status at discharge: patient is progressing back to baseline Time Spent with Patient Time attestation: Total time spent providing and/or coordinating discharge services: Time spent: Greater than 30 minutes Exam Narrative: General: In no acute distress, well nourished Head: atraumatic, no encephalopathy Eyes: PERRLA, sclera clear ENT: moist mucous membranes, nasal passages clear Neck: supple, no JVD, no adenopathy, trachea midline Cardiac: Normal S1 and S2. No murmur, gallops or friction rubs, peripheral pulses intact. Respiratory: Lungs clear to auscultation, no adventitious lung sounds Gastrointestinal: soft, non-distended, non-tender, normoactive bowel sounds. : voiding without difficulty. Extremities: moves all extremities well, no edema, good ROM, strength 5/5 Skin: clean, dry, intact. No wounds or lesions. Neuro: Alert and oriented x4, cranial nerves intact, no neuro deficits. Psych: normal mood, normal affect, interactive DS: Data Data Completed and Pending Completed studies during hospitalization: Chest CT Chest x-ray Pending studies at discharge: Blood cultures Labs on day of discharge: Labs from last 24 hours 12/29/23 12/29/23 12/28/23 11:38 07:26 19:23 WBC 6.3 12.3 H RBC 4.67 4.32 Hgb 14.6 13.8 Hct 44.3 41.1 MCV 94.9 95.1 MCH 31.3 31.9 MCHC 33.0 33.6 RDW 11.9 11.9 Plt Count 254 261 MPV 10.2 10.2 Immature Gran % (Auto) Not Reportable 0.3 Neut % (Auto) Not Reportable 61.1 Lymph % (Auto) Not Reportable 24.0 [facility] % (Auto) Not Reportable 7.6 Eos % (Auto) Not Reportable 6.3 H Baso % (Auto) Not Reportable 0.7 Lymph # (Auto) Not Reportable 2.96 [facility] # (Auto) Not Reportable 0.9 H Eos # (Auto) Not Reportable 0.8 H Baso # (Auto) Not Reportable 0.1 Abs Immat Gran (auto) Not Reportable 0.04 H Absolute Neuts (auto) Not Reportable 7.5 H Absolute Nucleated RBC Not Reportable 0.000 Total Counted 100 Neutrophils % (Manual) 88 H Band Neutrophils % 1 Lymphocytes % (Manual) 9 L Monocytes % (Manual) 2 L Eosinophils % (Manual) 0 Basophils % (Manual) 0 Nucleated RBC % Not Reportable 0.0 Abs Neuts (Manual) 5.60 Abs Lymphs (Manual) 0.56 L Abs Monocytes (Manual) 0.12 Absolute Eos (Manual) 0.00 L Abs Basophils (Manual) 0.00 Atypical Lymphocytes Present Platelet Estimate Adequate Schistocytes None seen D-Dimer < 0.27 Sodium 138 138 Potassium 4.7 3.2 L Chloride 107 99 Carbon Dioxide 24 31 H Anion Gap 7 8 BUN 8 8 Creatinine 0.50 L 0.60 L Estim Creat Clear Calc 115 97 Estimated GFR > 60 > 60 Glucose 138 H 114 H Calcium 9.5 9.3 Magnesium 2.0 1.9 Total Bilirubin 0.5 0.3 AST 30 32 ALT 26 26 Alkaline Phosphatase 66 63 Total Protein 8.0 8.0 Albumin 4.4 4.2 Nasal MRSA (PCR) Not detected Legionella Culture Pending M. pneumoniae Source Pending M.pneumoniae DNA (PCR) Pending Urine Pneumococcal Ag Pending Procedures/Treatments: None Imaging Radiologist's impression: CT Scan of the Chest without Contrast: Clinical Indication: Cough, shortness of breath Technique: Contiguous sections were acquired throughout the chest without intravenous contrast. Dose reduction technique was used on this scan by utilizing automated exposure control and iterative reconstruction technique. The dose-length product (DLP) was 131.53 mGy-cm. COMPARISON: 08/27/2023 Findings: There is no evidence of any significant mediastinal, hilar or axillary lymphadenopathy. The mediastinal soft tissues appear normal. There is no evidence of pleural or pericardial effusion. There is moderate to advanced emphysema. There is patchy groundglass cons olidation in the anteromedial right upper lobe, compatible with pneumonia. There are minimal additional groundglass opacities in the medial aspects of the bilateral lower lobes.. Images through the upper abdomen reveal no abnormalities. Impression: Patchy groundglass consolidation, mildly worsened from prior exam, compatible with multifocal pneumonia, possibly chronic pneumonia given relative stability in distribution of findings from prior exam. Underlying moderate to advanced emphysema. Reviewed, dictated and finalized at [facility]. SIGNALMAN EXAMINATION: XR chest 2V Exam Date/Time: 12/28/2023 19:31 FLAG SIGNALMAN HISTORY: SOB, CHEST PAIN Comparison: 11/01/2023. CTPA 08/27/2023. RESULT: Lines, tubes, and devices: None. Lungs and pleura: Clear. Emphysematous change. Cardiomediastinal silhouette: Stable. Other: No acute osseous or upper abdominal finding. IMPRESSION: No acute cardiopulmonary process. Reviewed, dictated and finalized at location [facility]NALMAN Discharge Plan Discharge Attending physician on discharge: Ángel Villarreal Discharging Clinician: Damari Crabtree Anticipated Discharge Date/Time: 12/29/23 12:24 Patient Disposition: Home, Self-Care Activity: as tolerated Diet: as tolerated Discharge Instructions: * Follow up with Primary care doctor in 1 week * Follow up with [facility] in 2 weeks as previously scheduled. * Finish all your antibiotics as directed * Continue using your inhalers at home as 1st line treatment for asthma exacerbation * If not controlled with albuterol inhaler after 2 uses then get nebulizer and do a nebulized treatment. * If inhalers and nebulized breathing treatments fail, then come back to the ER as you may need steroids. * Keep track of your asthma exacerbations. If you have more than 3 in a year...you may need to have medications adjusted. This would be a talk between you and your pulmonology team. * If you have not gotten the Flu or covid booster, make sure you do get it soon. Preferably after you complete your antibiotic course. Patient Instructions: Antibiotic Form, Pain Management (DC) Patient Language: French Stand Alone Forms: General Discharge Information Follow-up/Referrals: Catracho Mcghee MD [Primary Care Provider] - 1 Week Discharge Medications: New (DME) nebulizer accessories Kit See Rx Instructions .Route Qty: 1 0RF Rx Instructions: As directed (DME) nebulizer and compressor [Comp-Air Nebulizer Compressor] Device See Rx Instructions .Route Qty: 1 0RF Rx Instructions: As directed amoxicillin-pot clavulanate 875-125 mg tablet 1 tablet PO Q12H Qty: 14 0RF azithromycin 500 mg tablet 500 mg PO DAILY 3 Days Qty: 3 0RF prednisone 10 mg tablets,dose pack See Taper PO DAILY 12 Days Qty: 42 0RF Taper: Prednisone Taper from 60 mg;12 days 60 mg DAILY for 2 Days and 0 Hour 50 mg DAILY for 2 Days and 0 Hour 40 mg DAILY for 2 Days and 0 Hour 30 mg DAILY for 2 Days and 0 Hour 20 mg DAILY for 2 Days and 0 Hour 10 mg DAILY for 2 Days and 0 Hour Rx Instructions: see taper instructions Call if you have questions [phone] Damari BAKER ipratropium-albuterol 0.5 mg-3 mg(2.5 mg base)/3 mL Solution For Nebulization 3 ml inhalation Q6HRT Qty: 30 0RF Continued albuterol sulfate [Ventolin HFA] 90 mcg/actuation HFA aerosol inhaler 2 puff inhalation Q4H PRN (Reason: shortness of breath or wheezing) Qty: 8.5 0RF fluticasone propion-salmeterol [Advair HFA] 115-21 mcg/actuation Hfa Aerosol Inhaler 2 puff INHALATION Q12H Date of admission: 12/29/23 08:44 Primary Care Provider: Catracho Mcghee Admitting Provider: Brooke Martinez V. Attending physician on admission: Damari Crabtree Condition: Improved Quality VTE Prophylaxis VTE prophylaxis: mechanical ordered Hospitalist MIPS Heart Failure (Exclusion) Patient has history of Heart Transplant or Left Ventricular Assistive Device?: No IF YES, STOP HERE Heart Failure (Qualifier) Patient has current or prior documentation of LVEF less than or equal to 40%, or mod/servere depressed LVSF?: No IF NO, STOP HERE
== END 2023-12-29 14:30 | disposition home or self-care (01) ==
LOC: ANHED 23:25 → ANH2MED 23:45
PROVIDERS: Student in an Organized Health Care Education/Training Program; Admitting Provider Internal Medicine; Emergency Provider Physician Assistant; PCP Emergency Medicine; Visit Provider Nurse Practitioner Acute Care
DX: J96.01 Acute respiratory failure with hypoxia (principal); J45.909 Unspecified asthma, uncomplicated; J18.9 Pneumonia, unspecified organism; J43.9 Emphysema, unspecified; Z79.51 Long term (current) use of inhaled steroids; Z87.891 Personal history of nicotine dependence; J45.901 Unspecified asthma with (acute) exacerbation
CPT/HCPCS: 36415; 71046; 71250; 80053; 83735; 85025; 85380; 87040; 87081; 87181; 87581; 87641; 87899; 93005; 94618; 94640; 96365; 96374; 96375; 96376; 99285; A9270; G0378; J0456; J0696; J2919

== ENCOUNTER 2023-12-31 09:35 | Emergency (ER) | payer OTHER, SELFPAY ==
[2023-12-31 09:37] VITALS: BP 130/81; PULSE 102; RESP 16; TEMP 36.4; O2SAT 99
--- NOTE | 2023-12-31 11:41 | ED.RECABL ---
HPI - Recheck/Abnormal Lab/Rx General Chief Complaint: Recheck/Abnormal Lab/Rx Stated Complaint: positive blood cultures Time Seen by Provider: 12/31/23 11:41 Focused HPI: This is a 33-year-old female that presents to the emergency department for positive blood cultures. Reports she was called by her PCP and told to come to the ER for further evaluation. She was recently admitted for pneumonia and reports she continues to feel better. Denies fever, chest pain, shortness of breath. GENERAL: Well-appearing, well-nourished, and in no acute distress. HEAD: Normocephalic, atraumatic. CHEST: Clear to auscultation. ?No respiratory distress. HEART: Regular rate and rhythm.? NEURO: ?Alert and oriented x3. Patient screened in triage and initial orders placed.? ?Additional care and disposition to be based upon?diagnostic testing and treatment. Related Data Home Medications Medication Instructions Recorded Confirmed fluticasone propionate 115 2 puff inhalation Q12H 12/28/23 12/28/23 mcg-salmeterol 21 mcg/actuation HFA inhaler (Advair HFA) Allergies Allergy/AdvReac Type Severity Reaction Status Date / Time No Known Allergies Allergy Verified 12/28/23 19:13 Review of Systems Review of Systems: CONSTITUTIONAL: Denies fever CARDIOVASCULAR: Denies chest pain RESPIRATORY: Denies dyspnea. All systems reviewed & are unremarkable except as noted in HPI and below PMFSH Past Medical History Medical History (Updated 12/31/23 @ 12:25 by Esthela Ribeiro PA-C) History of asthma Family History Family History (Updated 12/28/23 @ 23:42 by Xochitl Durbin RN) Mother Lung cancer Social History Social History Years smoked: 13 Smoking status: Former smoker Tobacco type: cigarettes Smokeless tobacco user: other Second hand tobacco smoke exposure: No Alcohol intake: never Substance use: former Substance use type: marijuana Do You Feel Safe in your Home?: Yes Lack of Transportation: No Lack of Food: Never True Current Housing: I Have Housing Concerned About Future Housing: No Difficulty Paying Gas/Electric Bills: No Difficulty Paying for Meds: No Currently Unemployed: No Education: High School Diploma/GED Difficulty w/ Childcare or Family Care: No Living arrangements: with family Spiritual care concerns: No Exam Narrative: GENERAL: Well-appearing, well-nourished, and in no acute distress. HEAD: Normocephalic, atraumatic. EYES: EOMI. CHEST: Clear to auscultation. No respiratory distress. No wheezes rales or rhonchi HEART: Regular rate and rhythm. No murmur heard. Normal peripheral pulses. EXTREMITIES: Normal range of motion. No edema. SKIN: Warm, dry, no rash. NEURO: No focal deficits. Alert and oriented x3. PSYCH: Normal mood and affect Course Course Emergency Course: Patient agrees with plan of care Consultations Consultation #1: Spoke with infectious disease pharmacist who agrees that her positive blood culture is likely a contamination as it is in one bottle, a common skin rui, not usually pathogenic in humans Date: 12/31/23 Vital Signs Vital signs: Vital Signs Temperature 97.5 F L 12/31/23 09:37 Pulse Rate 102 H 12/31/23 09:37 Respiratory Rate 16 12/31/23 09:37 Blood Pressure 130/81 12/31/23 09:37 Pulse Oximetry 99 12/31/23 09:37 Temperature 97.5 F L 12/31/23 09:37 Pulse Rate 102 H 12/31/23 09:37 Respiratory Rate 16 12/31/23 09:37 Blood Pressure 130/81 12/31/23 09:37 Pulse Oximetry 99 12/31/23 09:37 MDM - Recheck/Abnormal Lab/Rx MDM Narrative Medical decision making narrative: Patient had blood cultures that were positive after her recent admission for pneumonia. It is 1 of the 2 sets and a common skin rui. Reports she is improving clinically. She is afebrile and nontoxic appearing. Spoke with infectious disease pharmacist who agrees that her positive blood culture is likely a contamination as it is in one bottle, a common skin rui, not usually pathogenic in humans. Will repeat her blood cultures today to ensure these come back negative. Instructed to follow-up with her PCP. Given strict return precautions Critical Care Time Critical Care Time Critical Care Time: No Discharge Plan Discharge Clinical Impression: Positive blood culture Patient Disposition: Home, Self-Care Condition: Stable Additional Instructions: Return to the ER for fever, worsening symptoms or any other concerns It is very likely that your blood cultures were a contamination from your skin (not true infection). We re-ann-marie cultures today to be sure Prescriptions: No Action albuterol sulfate [Ventolin HFA] 90 mcg/actuation HFA aerosol inhaler 2 puff inhalation Q4H PRN (Reason: shortness of breath or wheezing) Qty: 8.5 0RF fluticasone propion-salmeterol [Advair HFA] 115-21 mcg/actuation Hfa Aerosol Inhaler 2 puff INHALATION Q12H ipratropium-albuterol 0.5 mg-3 mg(2.5 mg base)/3 mL Solution For Nebulization 3 ml inhalation Q6HRT Qty: 30 0RF (DME) nebulizer accessories Kit See Rx Instructions .Route Qty: 1 0RF Rx Instructions: As directed (DME) nebulizer and compressor [Comp-Air Nebulizer Compressor] Device See Rx Instructions .Route Qty: 1 0RF Rx Instructions: As directed amoxicillin-pot clavulanate 875-125 mg tablet 1 tablet PO Q12H Qty: 14 0RF azithromycin 500 mg tablet 500 mg PO DAILY 3 Days Qty: 3 0RF prednisone 10 mg tablets,dose pack See Taper PO DAILY 12 Days Qty: 42 0RF Taper: Prednisone Taper from 60 mg;12 days 60 mg DAILY for 2 Days and 0 Hour 50 mg DAILY for 2 Days and 0 Hour 40 mg DAILY for 2 Days and 0 Hour 30 mg DAILY for 2 Days and 0 Hour 20 mg DAILY for 2 Days and 0 Hour 10 mg DAILY for 2 Days and 0 Hour Rx Instructions: see taper instructions Call if you have questions [phone] Damari BAKER Follow-up/Referrals: Dilma Gaytan MD [Physician] - Catracho Mcghee MD [Primary Care Provider] -
== END 2023-12-31 12:41 | disposition home or self-care (01) ==
LOC: ANHED 12:27
PROVIDERS: Emergency Provider Physician Assistant; PCP Emergency Medicine
DX: R78.81 Bacteremia (principal); Z87.01 Personal history of pneumonia (recurrent); J45.909 Unspecified asthma, uncomplicated; Z87.891 Personal history of nicotine dependence
CPT/HCPCS: 87040; 99283

== ENCOUNTER 2024-04-08 09:20 | Outpatient (CLI) | payer OTHER, SELFPAY ==
--- OUTSIDE RECORDS SUMMARY | 2024-04-08 09:37 | XMS_ITS | Referral Summary ---
Author Organization [facility] Address [address] [place] [address] Care Team Providers Care Disability Examiner Name Role Phone Catracho Mcghee MD Primary Care Provider [phone] Allergies No known active allergies Medications albuterol HFA (PROVENTIL HFA,VENTOLIN HFA,PROAIR HFA) 90 mcg/actuation inhaler INHALE 2 PUFFS BY MOUTH EVERY 4 HOURS NEEDED FOR SHORTNESS OF BREATH FOR WHEEZING 4 Active fluticasone propion-salmete roL (Advair HFA) 115-21 mcg/actuation inhaler Inhale 2 puffs 2 (two) times a day Rinse mouth with water after use. Do not swallow. 12 g 3 4 Active Active Problems No known active problems Social History Tobacco Use Types Packs/Day Years Used Date Smoking Tobacco: Former Cigarettes Tobacco Cessation:Counseling Given: Not Answered Personal Safety Answer Date Recorded Getting School Help Needed Not on file 05/02 Comments Unknown Sex and Gender Information Value Date Recorded Sex Assigned at Not on file Legal Sex Female 3:14 AM [employer]PER[employer] Gender Identity Not on file Sexual Orientation Not on file Last Filed Vital Signs Vital Sign Reading Time Taken Comments Blood Pressure 114/75 11/06/2023 9:26 AM CDT Pulse 85 11/06/2023 9:26 AM CDT Temperature 37 C (98.6 F) 11/06/2023 9:26 AM CDT Respiratory Rate 18 11/06/2023 9:26 AM CDT Oxygen Saturation 97% 11/06/2023 9:26 AM CDT Inhaled Oxygen Concentration - - Weight 51.7 kg (114 lb) 11/06/2023 9:26 AM CDT Height 165.1 cm (5' 5 ) 11/06/2023 9:26 AM CDT Body Mass Index 18.97 11/06/2023 9:26 AM CDT Plan of Treatment Not on file Insurance Care Teams Disability Examiner Relationship Specialty Start Date End Date Catracho Mcghee MD [address] [place] [id number] PCP - General Emergency Medicine 10/08/23
--- OUTSIDE RECORDS SUMMARY | 2024-04-08 09:37 | XMS_ITS | Referral Summary ---
Author Organization [facility] [employer] Address [address] [place] [address] Care Team Providers Care Center Rep Name Role Phone Ebonie Crowe MD Primary Care Provider [phone] Source Comments [facility] [employer],non-owned Affiliates and Associated Physician Practices is amultiple site organization consisting of ambulatory clinics and hospital sitesin [place], [place], [place] and [place]. This disclosure is being madepursuant to the Care Everywhere program and may not contain all information available regarding this patient. Last updated [email or web address] Allergies No known active allergies Medications Be aware that medications may not be up to date on this document. Always verify current medications with the patient. No known medications Active Problems Patient Care Coordination No te Formatting of this note migh t be different from the original. Negative Sequential Screen Problem Noted Date Diagnosed Date Choroid plexus cyst of fetus 08/31/2013 Encounter for supervision of other normal pregna ncy 08/31/2013 Overview (12/25/2014): abnormality affecting management of mother, antepartum condition or complication 08/31/2013 Overview (11/17/2014): Social History Tobacco Use Types Packs/Day Years Used Date Smoking Tobacco: Every Day Cigarettes 0.5 10 Smokeless Tobacco: Never Alcohol Use Standard Drinks/Week Comments No 0 (1 standard drink = 0.6 oz pur e alcohol) Sex and Gender Information Value Date Recorded Sex Assigned at Not on file Gender Identity Not on file Sexual Orientation Not on file Plan of Treatment Not on file Care Teams Center Rep Relationship Specialty Start Date End Date Ebonie Crowe MD [address] [place] [address] PCP - General 04/08/18
--- OUTSIDE RECORDS SUMMARY | 2024-04-08 09:37 | XMS_ITS | Patient Health Summary ---
Author Organization [facility] Address [address] [place] [address] Care Team Providers Care Fish Seiner Name Role Phone Ebonie Crowe MD Primary Care Provider [phone] Note from [facility][note 3],non-owned Affiliates and Associated Physician Practices is amultiple site organization consisting of ambulatory clinics and hospital sitesin [place], [place], [place] and [place]. This disclosure is being madepursuant to the Care Everywhere program and may not contain all information available regarding this patient. Last updated 17.[email or web address] [employer] Allergies No known active allergies Medications Be aware that medications may not be up to date on this document. Always verify current medications with the patient. No known medications Active Problems Problem Noted Date Diagnosed Date Choroid plexus cyst of fetus 08/31/2013 Encounter for supervision of other normal pregna ncy 08/31/2013 abnormality affecting management of mother, antepartum condition or complication 08/31/2013 Social History Tobacco Use Types Packs/Day Years Used Date Smoking Tobacco: Every Day Cigarettes 0.5 10 Smokeless Tobacco: Never Alcohol Use Standard Drinks/Week Comments No 0 (1 standard drink = 0.6 oz pur e alcohol) Sex and Gender Information Value Date Recorded Sex Assigned at Not on file Gender Identity Not on file Sexual Orientation Not on file Procedures * OPH VISUAL FIELD TEST [facility](Performed 05/18/2018) Performed for Blurred vision, left eye * OPH OCT TEST [facility](Performed 05/18/2018) Performed for Blurred vision, left eye * SONOGRAM - COMPLETE(Performed 08/31/2013) Performed for Choroid plexus cyst of fetus on ultrasound Results * OPH VISUAL FIELD TEST [facility] (05/18/2018 8:43 AM CDT) Anatomical Region Laterality Modality Other 05/18/2018 8:43 AM CDT Alyssa Dan MD OPHTHALMOLOGY SERVIC ES ORDERABLES * OPH OCT TEST [facility] (05/18/2018 12:00 AM CDT) Anatomical Region Laterality Modality Other 05/18/2018 Alyssa Dan MD OPHTHALMOLOGY SERVIC ES ORDERABLES * SONOGRAM - COMPLETE (08/31/2013 12:29 PM CDT) Anatomical Region Laterality Modality Other 08/31/2013 12:2 9 PM CDT Narrative 08/31/2013 1:19 PM CDT [facility] PHONE: FAX: Pat. Name: ADDISON ARMANDO Pat. No: [id number] Study Date: 08/31/2013 12:29pm , Age: 04 1990, 23 Pregnancies: 2, Para 1 LMP: Unknown GA by US: 23w5d GA Selected: 23w2d (From Known E) SHABNAM: 12/26/2013 Referring MD: Ebonie Crowe MD Garage Door Technician: Suzy Martinez RDMS Hist/Ind: Choroid Plexus Cyst on Outside Scan MEASUREMENTS & AGE GROWTH EVALUATION Measurement GA Range Srce %for GA Ratios ----- ---- ------- BPD 5.8 cm 23w5d ([id number]) Hadl BPD 62% FL/BPD 0.71 (0.71 - 0.87) HC 21.4 cm 23w3d ([id number]) Hadl HC 55% FL/AC 0.22 (0.20 - 0.24) AC 18.6 cm 23w3d ([id number]) Hadl AC 52% HC/AC 1.15 (1.03 - 1.22) FL 4.1 cm 23w3d ([id number]) Hadl FL 52% CI 0.77 (0.70 - 0.86) HL 4.0 cm 24w3d ([id number]) Jose HL 70% GA for sonogram 23w5d ([id number]) Weight Estimate: based on (HL,BPD,HC,AC,FL) Avg Weight: 592 gm (505-678) Hadlock : 1lbs, 4oz Normal: 576 gm (384-1016) Brunilda Wt% 51% for 23w2d Heart Rate: 146 bpm Amniotic Fluid Index: 04.8cm (Deepest Pocket) CLINICAL SUMMARY Study Number: 1 A zacarias fetus is identified in cephalic presentation. The amniotic fluid volume is within normal limits. The placenta is anterior. IMPRESSION: 1) Zacarias gestation, 23w2d 2) Biometry is consistent with the previously established SHABNAM of 12/26/13 3) No structural abnormalities were detected on detailed anatomic survey NOTE: The patient was advised that ultrasound does not allow detection of all structural or chromosomal abnormalities. RECOMMEND: Follow up ultrasound only as clinically indicated. Thank you for allowing us the opportunity to care for your patient. Pat Montano MD <Electronic Signature> 08/31/2013 01:18pm Provider Unknown M ORDERABLES Care Teams Fish Seiner Relationship Specialty Start Date End Date Ebonie Crowe MD [address] [place] [address] PCP - General 04/08/18
--- OUTSIDE RECORDS SUMMARY | 2024-04-08 09:37 | XMS_ITS | Data Portability ---
Author Organization [facility] [place] Address [address] [place] [address] [place] [address] Care Team Providers Care Follow Up Manager Name Role Phone PROMISE LAZARO Primary Care Provider Assessment No assessment recorded. Plan of Treatment Reminders Order Date Submit Date Provider Last Modified By Organization Details Last Modified Time Details Appointments None recorded. Lab test, urine 2022 023 [email or web address] [facility], [address], [place], [address], 3 13:03:17 test, urine 2022 023 [email or web address] [facility], [address], [address], [place], [address], 3 11:38:17 Referral None recorded. Procedures None recorded. Surgeries loop electrode excision procedure, surgical (LEEP) (SURG) 2022 023 [id number] [facility], [address], [address], [place], [address], 3 09:22:18 Imaging None recorded. Medication Orders None recorded. Patient TargetsNo targets recorded. Patient InstructionsNo instructions recorded. Reason for Referral None Reported. Results Created Date Observation Date Name Description Value Unit Range Abnormal Flag Note LastModifiedBy Organization Detail LastModifiedTime 10/16/19 23 10/15/2022 IMAGE GUIDE D PAP AND HPV REGAR DLESS image guided Pap, HPV regardless of Pap result SEE RESULT S BELOW abnormal CASE REPOR T: Cytol ogy Gynec ologi adi Repor t Case: [id number] Autho curtis weston Provi rubi: Bridget Isidro NP Colle cted: 10/15 1446 Order ing Locat ion: [place] Patho logy Recei kurtis: 10/16 0544 First Scree n: Dyan Potts, CT Patho logis t: Faye Dillard MD Speci men: Catarino danielsg Pap - Image d, Cervi x STATE MENT OF ADEQU ACY: Satis facto ry for evalu ation Trans forma tion zone compo nent prese nt FINAL DIAGN OSIS: Epith elial Cell Abnor malit y, Squam ous Cell: Low Grade Squam 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 Elect anai lopez d by Faye Dillard MD on 2022 at 1:57 PM ----- ----- ----- ----- ----- ----- ----- ----- ----- ----- ----- ----- ----- ----- ----- ----- ----- ---- HPV RESUL TS: HPV mRNA E6/E7 : Posit margaret - HPV mRNA Detec duncan HPV GENOT YPE 16 (KRUPA) : Not Detec duncan HPV GENOT YPE 18/45 (KRUPA) : Not Detec duncan NOTE: This high risk HPV mRNA assay detec ts fourt een high- risk HPV types (16, 18, 31, 33, 35, 39, 45, 51, 52, 56, 58, 59, 66, 68) witho ut diffe renti ation . This assay can diffe renti ate HPV 16 from HPV 18/45 , but does not diffe renti ate betwe en HPV 18 and HPV 45. A negat margaret HPV 16, 18/45 genot ype assay resul t does not exclu de the possi bilit y of cytol ogic abnor malit ies or of futur e or under lying JOSÉ MANUEL 1, JOSÉ MANUEL 3 or cance r. COMME NT: This speci men was revie wed by a Cytot echno logis t and/o r Patho logis t (as indic ated in this repor t) after evalu ation using the Thinp rep Imagi ng Syste m. CLINI ADI INFOR MATIO N: Menst rual Statu s: LMP (if appli cable ): Clini adi Histo ry/Pr eviou s Pap: Type of Neopl wesley (if appli cable ): Signi fican t Clini adi Findi ngs: Other Histo ry: Hormo flor (if appli cable ): SUGGE STED FOLLO W-UP: Follo w up as warra nted, based on curre nt guide lines and indiv idual patie nt consi derat ions. Not Available [facility] (Lab) [address], [place], [address], 10/18/2022 12:42:37 11/06/19 23 11/05/2022 SURGI ADI PATHO LOGY surgical pathology SEE RESULT S BELOW CASE REPOR T: Surgi adi Patho logy Repor t Case: [id number] Autho curtis weston Provi rubi: Jamie Peterson Colle cted: 11/05 1646 CAMP[place] HAND Order ing Locat ion: [place] Patho logy Recei kurtis: 11/06 0144 Patho logis t: David Oquendo MD Speci mens: A) - Endoc ervix , ECC brush bx B) - Cervi x, TMZ spira brush FINAL DIAGN OSIS: A. Endoc ervix , curet tage: -High -grad e squam ous intra epith elial lesio n (JOSÉ MANUEL- 2) invol ving a few detac hed epith elial fragm ents, see comme nt. B. Cervi x, TMZ, biops y: -High -grad e squam ous intra epith elial lesio n (JOSÉ MANUEL- 2) invol ving detac hed epith elial fragm ents, see comme nt. Elect anai cole jessica d by David Oquendo MD on 2022 at 12:45 PM ----- ----- ----- ----- ----- ----- ----- ----- ----- ----- ----- ----- ----- ----- ----- ----- ----- ---- COMME NT: Immun ohist ochem ical christine sis with p16, perfo rmed on both speci mens, shows stron g react ivity and suppo rts the above diagn oses. CLINI ADI INFOR MATIO N: r87.6 12 MICRO SCOPI C DESCR IPTIO N: A micro scopi c exami natio n was perfo rmed. This test was devel oped and its perfo rmanc e ninfa cteri stics deter mined by [facility]an jac[facility]. It has not been clear ed or appro kurtis by the U. S. Food and Drug Admin istra tion. The FDA has deter mined that such clear ance or appro claudine is not neces pradip. This test may be used for clini adi purpo se. It shoul d not be regar ded as inves tigat ional or for resea rc. This labor atory is certi fied under the Clini adi Labor atory Impro vemen t Amend ments of 1987 (CLIA ) as quali fied to perfo rm high compl exity clini adi labor atory testi ng. In cases which have decal cifie d tissu es, the resul ts shoul d be inter prete d with cauti on given the possi bilit y of false negat juni. The posit margaret contr ols demon strat e appro priat e posit margaret stain ing. The known tissu e negat margaret contr ols are negat margaret. The non-i mmune serum contr ol was non-r eacti ve. GROSS DESCR IPTIO N: A. Endoc ervix . The speci men is label ed with the patie nt's name, demog raphi cs and ECC . Recei kurtis in forma nadira is a 2.0 x 2.0 x 0.2 cm aggre gate of mucus and dark red tissu e. The entir e speci men is submi tted in one casse tte. Gross ed by Iris rivas B. Cervi x. The speci men is label ed with the patie nt's name, demog raphi cs and TMZ . Recei kurtis in forma nadira is a 1.0 x 1.0 x 0.2 cm aggre gate of mucus and minut e white -dubose tissu e. The entir e speci men is submi tted in one casse tte. Gross ed by Iris rivas Not Available [facility] (Lab) [address], [place], [address], 11/07/2022 13:48:55 11/06/19 23 11/05/2022 pregn lindsay test, urine HCG negati ve Not Available [place] [address], [place], [address], 11/05/2022 11:23:05 12/20/19 23 12/19/2022 SURGI ADI PATHO LOGY surgical pathology SEE RESULT S BELOW CASE REPOR T: Surgi adi Patho logy Repor t Case: [id number] Autho curtis weston Provi rubi: Becky Murguia MD Colle cted: 12/19 1527 Order ing Locat ion: [place] Patho logy Recei kurtis: 12/20 0127 Patho logis t: Santana Senior MD Speci men: Cervi x, LEEP FINAL DIAGN OSIS: Cervi x, loop elect rical excis ion proce dure: -Foca l high- grade squam ous intra epith elial lesio n (JOSÉ MANUEL- 2). -All surgi adi eze ns negat margaret for HSIL/ JOSÉ MANUEL-2 . Elect anai lopez d by Santana Senior MD on 2022 at 8:06 AM ----- ----- ----- ----- ----- ----- ----- ----- ----- ----- ----- ----- ----- ----- ----- ----- ----- ---- COMME NT: An immun ohist ochem ical stain for p16, perfo rmed on block A5, shows stron g, diffu se nucle ar and cytop lasmi c block posit ivity in areas of HSIL/ JOSÉ MANUEL-2 . CLINI ADI INFOR MATIO N: n87.9 MICRO SCOPI C DESCR IPTIO N: A micro scopi c exami natio n was perfo rmed. This test was devel oped and its perfo rmanc e ninfa cteri stics deter mined by Ronan roe. It has not been clear ed or appro kurtis by the U. S. Food and Drug Admin istra tion. The FDA has deter mined that such clear ance or appro claudine is not neces pradip. This test may be used for clini adi purpo se. It shoul d not be regar ded as inves tigat ional or for resea rch. This labor atory is certi fied under the Clini adi Labor atory Impro vemen t Amend ments of 1987 (CLIA ) as quali fied to perfo rm high compl exity clini adi labor atory testi ng. In cases which have decal cifie d tissu es, the resul ts shoul d be inter prete d with cauti on given the possi bilit y of false negat juni. The posit margaret contr ols demon strat e appro priat e posit margaret stain ing. The known tissu e negat margraet contr ols are negat margaret. The non-i mmune serum contr ol was non-r eacti ve. GROSS DESCR IPTIO N: A. Cervi x. The speci men is label ed with the patie nt's name, demog stalin frost and LEEP . Recei kurtis in forma nadira are 3 irreg ular unori ented piece s of rubbe ry, pink- dubose cervi adi tissu e aggre gatin g 2.5 x 2.0 x 1.0 cm. A disti nct endoc ervic al eze n is not disce rnibl e with certa intaddison hinton ly. The resec tion eze ns of each fragm ent are inked green and each fragm ent is secti oned. The entir e speci men is submi tted in casse ttes A1-A6 . Gross ed by Iris rivas Not Available [facility] (Lab) [address], [place], [address], 12/23/2022 09:10:31 12/20/19 23 12/19/2022 pregn lindsay test, urine HCG negati ve Not Available [facility] [address], [place], [address], 12/19/2022 13:03:00 06/20/19 24 06/20/2023 IMAGE GUIDE D PAP AND HPV REGAR DLESS image guided Pap, HPV regardless of Pap result SEE RESULT S BELOW CASE REPOR T: Cytol ogy Gynec ologi adi Repor t Case: [id number] Autho rin g Provi rubi: Becky Murguia MD Colle cted: 06/19 1105 Order ing Locat ion: [place] Patho logy Recei kurtis: 06/22 0921 First Scree n: Strut z, Willi am, CT Rescr een: Navya Greene ay, CT Speci men: Scree merle Pap - Image d, Cervi x STATE MENT OF ADEQU ACY: Satis facto ry for evalu ation Trans forma tion zone compo nent absen t The absen ce of an endoc ervic al compo nent was confi rmed by an addit ional scree ner. ----- ----- ----- ----- ----- ----- ----- ----- ----- ----- ----- ----- ----- ----- ----- ----- ----- ---- FINAL DIAGN OSIS: Negat margaret for Intra epith elial Lesio n or Sadia cole (NIL) . Elect anai cole jessica d by Navya Greene, CT on 024 at 7:13 AM ----- ----- ----- ----- ----- ----- ----- ----- ----- ----- ----- ----- ----- ----- ----- ----- ----- ---- HPV RESUL TS: HPV mRNA E6/E7 : No HPV mRNA Detec duncan NOTE: This high risk HPV mRNA assay detec ts fourt een high- risk HPV types (16, 18, 31, 33, 35, 39, 45, 51, 52, 56, 58, 59, 66, 68) witho ut diffe renti ation . COMME NT: This speci men was revie wed by a Cytot echno logis t and/o r Patho logis t (as indic ated in this repor t) after evalu ation using the Thinp rep Imagi ng Syste m. CLINI ADI INFOR MATIO N: Menst rual Statu s: LMP (if appli cable ): Clini adi Histo ry/Pr eviou s Pap: Type of Neopl wesley (if appli cable ): Signi fican t Clini adi Findi ngs: Other Histo ry: Hormo flor (if appli cable ): PAP EDUCA JOSE MIGUEL L NOTE: The Pap Test is a scree merle test with an inher ent false negat margaret rate. Liqui d-bas ed sampl ing may decre ase, but will not elimi ulises, false negat margaret resul ts. A negat margaret resul t does not precl ude the prese nce and/o r devel opmen t of disea se, since the prese nce of abnor mal cells in the sampl e depen ds on the locat ion of the lesio n and sampl ing techn ique. Nia nued regul ar scree merle is the best metho d of cance r preve ntion . If repor duncan cytol ogic findi ng do not corre late with physi adi and/o r histo rical findi ngs, furth er inves tigat seb is recom lawanda d, as clini andrew justin nted. Not Available [facility] (Lab) [address], [place], [address], 06/26/2023 08:17:23 Result Notes None recorded. Problems Name Problem SNOMED Code Status Onset Date Resolution Date Notes Provider Name and Address Organization Details Recorded Time Pregnanc y detectio n examinat ion Completed 201606/16/2020 Encounte r for pregnanc y test, result positive ;Practic e ID: 0001 [place] villa, [facility] 18:13:37 Uterine size for dates discrepa ncy Completed 201606/16/2020 Uterine size-peggy e discrepa ncy, first trimeste r;Practi ce ID: 0001 [place] villa, [facility] 18:14:10 Gestatio n less than 9 weeks [id number] Completed 201606/16/2020 Less than 8 weeks gestatio n of pregnanc y;Practi ce ID: 0001 Medina Ohara [facility], [facility] 18:12:40 Secondar y amenorrh ea [id number] Completed 201606/16/2020 Secondar y amenorrh ea;Pract ice ID: 0001 [place] villa, [facility] 18:13:53 Normal pregnanc y in multigra sheng [id number] 4106 Completed 201606/16/2020 Encounte r for suprvsn of normal pregnanc y, first trimeste r;Practi ce ID: 0001 [place] villa, [facility] 18:13:30 Antenata l screenin g Completed 201606/16/2020 Encounte r for antenata l screenin g for nuchal transluc ency;Pra ctice ID: 0001 [place] villa, [facility] 18:11:55 Antenata l screenin g for malforma tion Completed 201606/16/2020 Encounte r for antenata l screenin g for malforma tions;Pr actice ID: 0001 Medina Ohara allen, [facility] 18:11:58 Uterine size for dates discrepa ncy Completed 201706/16/2020 Uterine size-peggy e discrepa ncy, second trimeste r;Practi ce ID: 0001 Medina Ohara [facility], [facility] 18:14:12 Gestatio n period, 31 weeks [id number] Completed 201706/16/2020 31 weeks gestatio n of pregnanc y;Practi ce ID: 0001 Medina Ohara [facility], [facility] 18:12:41 Benign essentia l hyperten nicky complica ting pregnanc y, childbir th and the puerperi um - delivere d with postnata l complica tion [id number] Completed 201106/16/2020 Benign essentia l hyperten nicky, with delivery , with mention of postpart um complica tion;Rec orded Elsewher e: No Locat ion: [facility] S ource: EHR Wildfire Prevention Specialist drew: N Practi ce ID: 0001 Js lable Time: 10:00:00 AM Medina Oliveirapaulo villa, [facility] 18:12:27 Screenin g for malignan t neoplasm of cervix Completed 201306/16/2020 Screenin g for malignan t neoplasm s of the cervix;R ecorded Elsewher e: No Locat ion: [facility] S ource: EHR Wild[employer] Prevention Specialist drew: N Practi ce ID: 0001 Js lable Time: 10:45:00 AM Medina Ohara allen, [facility] 1 18:13:51 Routine antenata l care Completed 201306/16/2020 Supervis ion of other normal pregnanc y;Record ed Elsewher e: No Locat ion: [facility] S ource: EHR Wildfire Prevention Specialist drew: Corey Perez ce ID: 0001 Js lable Time: 10:30:00 AM Medina Ohara [facility], [facility] 1 18:13:46 Lochia finding Completed 201706/16/2020 Encounte r for routine postpart um follow-u p;Record ed Elsewher e: No Locat ion: [facility] S ource: EHR [employer] Prevention Specialist drew: Corey Perez ce ID: 0001 Js lable Time: 11:00:00 AM Medina Ohara [facility], [facility] 18:13:12 Atypical squamous cells on cervical Papanico laou smear cannot exclude high grade squamous intraepi thelial lesion [id number] Completed 201606/16/2020 Atyp squam cell not excl hi grd intrepit h lesn cyto smr crvx;Rec orded Elsewher e: No Locat ion: [facility] S ource: EHR Wildfire Prevention Specialist drew: Corey Perez ce ID: 0001 Js lable Time: 10:30:00 AM Medina Ohara [facility], [facility] 1 18:12:03 Postpart um care Completed 201106/16/2020 Routine postpart um follow-u p;Record ed Elsewher e: No Locat ion: [facility] S ource: EHR Wildfire Prevention Specialist drew: N Chris ce ID: 0001 Js lable Time: 09:30:00 AM Medina Ohara allen, [facility] 1 18:13:34 Ultrason ography Completed 05/01/ 2014 06/16/2020 Antenata l screenin g for malforma tion using ultrason ics;Gerald rded Elsewher e: No Locat ion: [facility] S ource: EHR [employer] Prevention Specialist drew: Corey Perez ce ID: 0001 Js lable Time: 10:30:00 AM Medina Ohara [facility], [facility] 1 18:14:09 Congenit al malforma tion [id number] Completed 201306/16/2020 Antenata l screenin g for malforma tion using ultrason ics;Gerald rded Elsewher e: No [facility] Wild[employer] Prevention Specialist drew: Corey Perez ce ID: 0001 Js lable Time: 10:30:00 AM [place] villa, [facility] 1 18:12:29 Atypical squamous cells of undeterm ined signific ance on cervical Papanico laou smear [id number] Completed 201606/16/2020 Atyp squam cell of undet signfc cyto smr crvx (ASC-US) ;Recorde d Elsewher e: No Locat ion: [facility] S ource: EHR [employer] Prevention Specialist drew: Corey Perez ce ID: 0001 Js lable Time: 11:45:00 AM Med[place] Ohara [facility] 1 18:12:[address] Concept Completed 201706/16/2020 Encntr for sales support consultant exam (general ) (routine ) w/o abn findings ;Recorde d Elsewher e: No Locat ion: [facility] S ource: EHR [employer] Prevention Specialist drew: Corey Perez ce ID: 0001 Js lable Time: 11:00:00 AM Med[place] Ohara [facility] 1 18:13:[address] Concept Completed 201706/16/2020 Encntr for general adult medical exam w/o abnormal findings ;Recorde d Elsewher e: No [facility] Wild[employer] Prevention Specialist drew: Corey Perez ce ID: 0001 Js lable Time: 05:00:00 PM Medina Ohara allen, [facility] 1 18:13:56 Procedur e on genitour inary system Completed 201706/16/2020 Encounte r for surgical aftercar e followin g surgery on the genitour inary system;R ecorded Elsewher e: No Locat ion: [facility] S ource: EHR Wild[employer] Prevention Specialist drew: N Chris ce ID: 0001 Js lable Time: 09:30:00 AM Medina Ohara allen, [facility] 1 18:13:44 Postoper ative care Completed 201706/16/2020 Encounte r for surgical aftercar e followin g surgery on the genitour inary system;R ecorded Elsewher e: No Locat ion: [facility] S ource: EHR Wildfire Prevention Specialist drew: N Chris ce ID: 0001 Js lable Time: 09:30:00 AM Medina Ohara allen, [facility] 1 18:13:32 Pregnanc y test negative [id number] Completed 201406/16/2020 Pregnanc y examinat ion or test, negative result;R ecorded Elsewher e: No Locat ion: [facility] S ource: EHR Wildfire Prevention Specialist drew: N Chris ce ID: 0001 Js lable Time: 11:00:00 AM Medina Ohara allen, [facility] 1 18:13:[address] Concept Completed 201506/16/2020 Encounte r for supervis ion of normal pregnanc y, unspecif ied, second trimeste r;Record ed Elsewher e: No Locat ion: [facility] S ource: EHR Wildfire Prevention Specialist drew: N Chris ce ID: 0001 Js lable Time: 03:00:00 PM [place] villa [facility] 1 18:14:00 Sciatica Completed 201606/16/2020 Sciatica ;Recorde d Elsewher e: No Locat ion: [facility] S ource: EHR Wild[employer] Prevention Specialist drew: N Bibianati ce ID: 0001 Js lable Time: 09:15:00 AM [place], [facility] 1 18:13:47 Educatio n Completed 201706/16/2020 Encounte r for family planning advice NOS;Gerald rded Elsewher e: No Locat ion: [facility] S ource: EHR [employer] Prevention Specialist drew: N Bibianati ce ID: 0001 Js lable Time: 08:30:00 AM Medina Ohara [facility], [facility] 18:12:36 Speciali zed medical examinat ion Completed 201306/16/2020 Gynecolo gical Examinat ion;Gerald rded Elsewher e: No Locat ion: [facility] S ource: EHR Wild[employer] Prevention Specialist drew: N Chris ce ID: 0001 Js lable Time: 10:45:00 AM [place], [facility] 18:14:01 Cytologi c finding [id number] Completed 201406/16/2020 Papanico laou smear of cervix with low grade squamous intraepi thelial lesion (LGSIL); Recorded Elsewher e: No Locat ion: [facility]: [facility] drew: N Chris ce ID: 0001 Js lable Time: 05:00:00 PM [place] villa [facility] 18:12:31 Low grade squamous intraepi thelial lesion on cervical Papanico laou smear [id number] 105 Completed 201706/16/2020 Low grade intrepit h lesion cyto smr crvx (LGSIL); Recorded Elsewher e: No Locat ion: [facility] S ource: EHR Wildfire Prevention Specialist drew: N Chris ce ID: 0001 Js lable Time: 05:00:00 PM Med[place] Mayda villa [facility] 18:13:27 Primigra sheng [id number] Completed 201006/16/2020 Supervis ion of normal first pregnanc y;Bibianati ce ID: 0001 [place] Mayda [place], [facility] 18:13:42 anatomy study Completed 201006/16/2020 [facility] SUR[facility]Y;P ractice ID: 0001 [place] Mayda [place], [facility] 18:12:38 Delivery normal [id number] Completed 201106/16/2020 Normal delivery ;Practic e ID: 0001 Medina Ohara [facility], [facility] 18:12:34 Single live [id number] Completed 201106/16/2020 Mother with single liveborn ;Practic e ID: 0001 Medina Mayda allen, [facility] 18:13:55 Human papillom avirus deoxyrib onucleic acid detected , high risk on cervical specimen [id number] Completed 201406/16/2020 Cervical high risk HPV DNA test positive ;Recorde d Elsewher e: No Locat ion: [facility] S [facility]ce: [facility] drew: N Chris ce ID: 0001 Js lable Time: 05:00:00 PM [place] villa [facility] 18:13:06 Venereal disease screenin g Completed 201406/16/2020 Screenin g examinat ion for venereal disease; Recorded Elsewher e: No Locat ion: [facility] S ource: [facility] drew: N Chris ce ID: 0001 Js lable Time: 11:00:00 AM [place] villa [facility] 1 18:14:14 Pregnanc y test positive [id number] Completed 201306/16/2020 Pregnanc y examinat ion or test, positive result;R ecorded Elsewher e: No Locat ion: [facility] S ource: EHR Wildfire Prevention Specialist drew: Corey Perez ce ID: 0001 Js lable Time: 10:45:00 AM Medina Ohara [facility], [facility] 18:13:40 Adult health examinat ion Completed 201406/16/2020 ROUTINE MEDICAL EXAM;Rec orded Elsewher e: No Locat ion: [facility] S ource: EHR Wildfire Prevention Specialist drew: Corey Perez ce ID: 0001 Js lable Time: 11:00:00 AM [place], [facility] 18:11:54 Speciali zed medical examinat ion Completed 201406/16/2020 Other specifie d chlamydi al diseases ;Recorde d Elsewher e: No Locat ion: [facility] S ource: EHR Wildfire Prevention Specialist drew: Corey Perez ce ID: 0001 Js lable Time: 11:00:00 AM [place], [facility] 18:14:03 Low risk human papillom avirus deoxyrib onucleic acid detected in specimen from cervix [id number] 874902 Completed 201406/16/2020 Cervical low risk HPV DNA test positive ;Practic e ID: 0001 [place], [facility] 18:13:10 Term pregnanc y delivere d [id number] Completed 201506/16/2020 Encounte r for full-ter m uncompli cated delivery ;Practic e ID: 0001 [place], [facility] 18:14:06 Gestatio n period, 38 weeks [id number] Completed 201506/16/2020 38 weeks gestatio n of pregnanc y;Practi ce ID: 0001 [place], [facility] 18:12:44 Gestatio n period, 39 weeks 48640149 Completed 201706/16/2020 39 weeks gestatio n of pregnanc y;Practi ce ID: 0001 [place], [facility] 18:12:46 Steriliz ation procedur e Completed 201706/16/2020 Encounte r for steriliz ation;Pr actice ID: 0001 [place], [facility] 18:14:04 Problem Notes None recorded. Procedures Surgical History Date Name Laterality Status Provider Name and Address Organization Details Recorded Time 12/20/19 23 LEEP completed Mario Murguia MD [address], [place], [address], [facility] 12/19/2022 21:25:56 12/20/19 23 LEEP completed Teresa Lugo [facility] 12/26/2022 10:27:53 11/06/19 23 Colposcopy completed Moinca Nicole OLIVIA- [address], [place], [address], [facility] 11/05/2022 11:38:06 11/06/19 23 Colposcopy completed Medina Ohara [facility] 11/05/2022 11:24:41 11/06/19 23 Colposcopy completed Medina Ohara [facility] 11/05/2022 11:21:10 10/16/19 23 Date of Last Pap Smear completed Medina Ohara [facility] 11/05/2022 11:24:20 08/12/19 21 HYSTEROSCOPY, WITH ENDOMETRIAL ABLATION (SURG) completed Lissette Lowe [facility] 08/11/2020 10:39:26 07/01/19 21 Endometrial Biopsy completed Dea Garcia CNM [address], [place], [address], [facility] 06/30/2020 11:53:30 07/01/19 21 endometrial biopsy completed [facility] 06/30/2020 11:36:07 09/05/19 18 Colposcopy completed [facility] 06/16/2020 18:22:03 02/17/19 18 Tubal Ligation completed [facility] 06/16/2020 18:22:14 10/29/19 17 Colposcopy completed [facility] 06/16/2020 18:21:50 08/09/19 15 Colposcopy completed [facility] 06/16/2020 18:25:15 04/18/19 11 termination of completed [facility] 06/16/2020 18:22:26 Colposcopy completed [facility] 11/19/2022 10:15:28 Tubal Ligation completed [facility] 11/19/2022 10:15:28 Endometrial Ablation completed [facility] 11/19/2022 10:15:28 Imaging Results None recorded. Procedure Notes None recorded. Medical Equipment None Reported. Allergies No known drug allergies Medications Name Sig Start Date Stop Date Status Note LastModified by Organization Details LastModified Time amoxicill in 500 mg capsule TK ONE C PO Q 8 H TAT 06/30 completed Not Available Not Available Not Available ibuprofen 800 mg tablet Take 1 tablet 2 hours before the procedur e. 08/24 completed Not Available Not Available Not Available ondansetr on HCl 8 mg tablet Take 1 tablet 2 hours before the procedur e. 08/24 completed Not Available Not Available Not Available Space Chamber USE DIRECTED active Not Available Not Available No t Available acetamino phen 300 mg-codein e 30 mg tablet TK 1 T PO Q 8 H PRN P 06/30 completed Not Available Not Available Not Available hydrocodo ne 10 mg-acetam inophen 325 mg tablet Take 1 tablet 2 hours before the procedur e. 08/24 completed Not Available Not Available Not Available alprazola m 0.5 mg tablet Take 1 tablet 2 hours before the procedur e. 08/24 completed Not Available Not Available Not Available Flagyl 500 mg tablet take 1 tablet (500MG) by oral route every 12 hours for 7 days 05/27 completed Prescrib ed Elsewher e: No Locat ion: [facility] odify By: cmedical Encount er DateTime : 05/22/19 14 02:03:14 PM Not Available Not Available Not Available prednison e 50 mg tablet TAKE 1 TABLET BY MOUTH ONCE DAILY FOR 5 DAYS active Not Available Not Available No t Available sertralin e 25 mg tablet TAKE 1 TABLET (25 MG) BY MOUTH DAILY 10/15 completed Not Available Not Available Not Available labetalol 100 mg tablet take 1 tablet (100MG) by oral route 2 times every day 08/06 completed Prescrib ed Elsewher e: No Locat ion: [facility] odify By: eedmonds Encount er DateTime : 08/01/19 12 09:30:00 AM Not Available Not Available Not Available albuterol sulfate HFA 90 mcg/actua tion aerosol inhaler INHALE 2 PUFFS BY MOUTH EVERY 4 TO 6 HOURS NEEDED FOR SHORTNES S OF BREATH OR WHEEZING active Not Available Not Available No t Available Vitamin D2 1,250 mcg (50,000 unit) capsule take 1 capsule by oral route every week 09/19 completed Prescrib ed Elsewher e: No [facility] By: [email or web address] Billy r DateTime : 04/24/19 16 02:54:40 PM Not Available Not Available Not Available Fioricet 50 mg-325 mg-40 mg tablet take 1 tablet by oral route every 6 hours as needed not to exceed 6 tablets per 24hrs 01/19 completed Prescrib ed Elsewher e: No Locat ion: [facility] odify By: amnoah Lomax ncounter DateTime : 07/14/19 14 09:30:00 AM Not Available Not Available Not Available multivita min capsule take 1 capsule by oral route every day 05/12 completed Prescrib ed Elsewher e: No Locat ion: [facility] odify By: [email or web address] trick En counter DateTime : 07/18/19 12 09:00:00 AM Not Available Not Available Not Available Flexeril 10 mg tablet take 1 tablet (10MG) by oral route 3 times every day prn 07/08 completed Prescrib ed Elsewher e: No Locat ion: [facility] odify By: cmedical Encount er DateTime : 05/08/19 12 11:00:00 AM Not Available Not Available Not Available Zithromax 500 mg tablet take 2 tablet (1000MG) by oral route once 01/19 completed Prescrib ed Elsewher e: No Locat ion: [facility] odify By: amnoah Lomax ncounter DateTime : 05/20/19 14 09:56:18 AM Not Available Not Available Not Available 03/08 (28) 1 mg-20 mcg (21)/75 mg (7) tablet TAKE 1 TABLET BY ORAL ROUTE EVERY DAY 11/13 completed Prescrib ed Elsewher e: No Locat ion: Catherine monie [facility] odify By: [email or web address] Madayte r DateTime : 10/17/19 17 11:45:00 AM Not Available Not Available Not Available sertralin e 06/19 completed Not Available Not Available Not Available Vitamin D3 10 mcg (400 unit) capsule 07/08 completed Prescrib ed Elsewher e: Yes Loca tion: [facility] odify By: [email or web address] Encount er DateTime : 12/29/19 11 03:00:00 PM Not Available Not Available Not Available Lo Loestrin Fe 1 mg-10 mcg (24)/10 mcg (2) tablet take 1 tablet by oral route every day 01/20 completed Prescrib ed Elsewher e: No Locat ion: [facility] odify By: cmedical Encount er DateTime : 01/20/20 14 02:15:00 PM Not Available Not Available Not Available ZaydarodríguezJackie cruzo DHA 29 mg-1 mg-400 mg oral pack 07/08 completed Prescrib ed Elsewher e: Yes Loca tion: [facility] odify By: spencerdical Encount er DateTime : 12/29/19 11 03:00:00 PM Not Available Not Available Not Available Vitals Date Recorded Body height Body mass index (BMI) Body weight Systolic blood pressure Diastolic blood pressure Provider Name and Address Organization Details Last Updated DateTime 11/05/2022 162.56 cm 21.8 kg/m2 07781.23 g 97 mm[Hg] 66 mm[Hg] Medina Ohara [facility] 3 11:20:04 Date Recorded Body height Body mass index (BMI) Body weight Systolic blood pressure Diastolic blood pressure Provider Name and Address Organization Details Last Updated DateTime 11/19/2022 162.56 cm 21.8 kg/m2 65079.23 g 105 mm[Hg] 67 mm[Hg] [facility] 3 10:15:06 Date Recorded Body height Body mass index (BMI) Body weight Systolic blood pressure Diastolic blood pressure Provider Name and Address Organization Details Last Updated DateTime 12/19/2022 162.56 cm 21.6 kg/m2 06876.64 g 111 mm[Hg] 73 mm[Hg] [facility] 3 10:31:34 Date Recorded Body height Body mass index (BMI) Body weight Systolic blood pressure Diastolic blood pressure Provider Name and Address Organization Details Last Updated DateTime 12/26/2022 162.56 cm 21.6 kg/m2 52844.64 g 98 mm[Hg] 66 mm[Hg] Teresa Lugo [facility] 3 10:27:24 Date Recorded Body height Body mass index (BMI) Body weight Systolic blood pressure Diastolic blood pressure Provider Name and Address Organization Details Last Updated DateTime 06/20/2023 162.56 cm 20.9 kg/m2 82323.27 g 108 mm[Hg] 72 mm[Hg] Sharon Cunningham [facility] 4 10:29:44 Social History Question Answer Notes LastModified by Organizat ion Details LastModified Time Tobacco Smoking Status Current Every Day Smoker [place] [place], [facility] 12/26/2022 10:16:35 Do You Have An Advance Directive? No [email or web address] Information n ot available 06/14/2020 What Is Your Level Of Alcohol Consumption? None [email or web address] Information not available 06/14/2020 If You Are , What Was Your Level Of Alcohol Consumption Prior To ? None [email or web address] Information not available 12/26/2022 Are You Blind Or Do You Have Difficulty Seeing? No [email or web address] Information n ot available 06/14/2020 What Is Your Level Of Caffeine Consumption? Moderate [email or web address] Information not available 06/14/2020 How Much Tobacco Do You Chew? None [email or web address] Information not available 06/14/2020 In The 14 Days Before Symptom Onset, Have You Had Close Contact With A Laboratory-confirm ed COVID-19 While That Case Was Ill? No [email or web address] Information n ot available 06/14/2020 In The 14 Days Before Symptom Onset, Have You Had Close Contact With A Person Who Is Under Investigation For COVID-19 While That Person Was Ill? No [email or web address] Information not available 06/14/2020 Have You Been To An Area Known To Be High Risk For COVID-19? No [email or web address] Information not available 06/14/2020 Are You Deaf Or Do You Have Serious Difficulty Hearing? No Information not available 06/14/2020 What Type Of Diet Are You Following? REGULAR [email or web address] Information n ot available 06/14/2020 What Is The Highest Grade Or Level Of School You Have Completed Or The Highest Degree You Have Received? [id number] [email or web address] Information not available 06/14/2020 What Is Your Occupation? 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 No [email or web address] Information not available 06/14/2020 Do You Use Protection During Sex? Usually [email or web address] Information not available 06/14/2020 Do You Use Your Seat Belt Or Car Seat Routinely? Yes [email or web address] Information not available 06/14/2020 Do You Have Smoke And Carbon Monoxide Detectors In Your Home? Yes Information not available 06/14/2020 At What Age Did You Start Smoking Tobacco? 17 [email or web address] Information not available 06/14/2020 How Much Tobacco Do You Smoke? 2 PPW [email or web address] Information not available 06/14/2020 Do You Feel Stressed (tense, Restless, Nervous, Or Anxious, Or Unable To Sleep At Night)? [id number] [email or web address] Information not available 06/14/2020 Do You Use Any Illicit Or Recreational Drugs? No [email or web address] Information not available 06/14/2020 Do You Use Sunscreen Routinely? Yes [email or web address] Information not available 06/14/2020 Has Tobacco Cessation Counseling Been Provided? No [email or web address] Information not available 12/26/2022 How Many Years Have You Smoked Tobacco? 15 [email or web address] Information not available 11/19/2022 Have You Used IV Drugs? No [email or web address] Information not available 06/14/2020 Do You Or Have You Ever Used Any Other Forms Of Tobacco Or Nicotine? No [email or web address] Information not available 12/26/2022 Sex: Unknown Functional Status Question Answer Note LastModified by Organizat ion Details LastModified Time Do you have difficulty walking or climbing stairs? No [email or web address] Information not available 12/26/2022 Are you able to walk? YESWOREST [email or web address] Information not available 06/14/2020 Are you able to care for yourself? Yes [email or web address] Information not available 12/26/2022 Do you have difficulty dressing or bathing? No Information not available 12/26/2022 What is your exercise level? Moderate [email or web address] Information not available 06/14/2020 Mental Status None recorded. Family History Relationship Description Onset Age of this Age Resolved Age Notes LastModified by Organization Details LastModified Time Mother Malignant tumor of lung [email or web address] Not available 06/16 18:21:28 Brother Asthma Not available 11/05/2022 11:04:07 Medical History Condition Response Allergies (Food, seasonal, environmental ) Y Other N Drug/Latex Allergies/Reactions N Blood Transfusion N Breast Cancer N Dermatologic Disorders N Lung Disease N Defects or Inherited Disease N Breast Problem N Gestational Diabetes N Hematologic disorders N Anesthesia Complications N History of STI Y Deep Vein Thrombosis N Polycystic ovary syndrome N Anxiety Disorder Y Autoimmune disease N Arthritis N Polyps N Infertility N Acid Reflux (GERD) N History of abnormal pap Y Cancer N Varicosities N Stroke N Neurologic/Epilepsy N Endometriosis N High Cholesterol N Fibromyalgia N Headaches N Kidney Disease N Heart Problems N Thyroid Problems N Kidney or Bladder Problems N GI Problems N Eating Disorder N Anemia N Art (IVF or FET) N Psychiatric Illness N Ovarian Cancer N Diabetes N Pulmonary (TB, Asthma) N Hepatitis/Liver Disease N No Past Medical History N Eczema N Urinary Tract Infection N Abuse/Domestic Violence N Asthma Y Trauma/Violence N Depression/ depression Y Heart Disease N Pre-Eclampsia N Hypertension Y Osteoporosis N Thrombophilias N Gynecological History Statement/Question Response Abnormal Pap Yes Date of Last Mammogram Date of LMP 07/08/2020 On BCP's at Conception? N N Was last menstrual period normal Y STIs/STDs Y HPV Vaccine N Colposcopy 11/05/2022 Duration of Flow (days) 5 Current Control Method Tubal Ligat ion Age at First Child 21 Frequency of Cycle (Q days) 24 Sexually Active? Y Age of first menstrual cycle 12 Date of Last Pap Smear 10/15/2022 Sexual Problems? N LMP Approximate N 10/16/2016 Obstetrics History GPAL:G 5 P 4 0 1 4 Type Value Full Term 4 Induced 1 Living 4 Total 5 Past Encounters Encounter ID Performer Location Encounter Start Date Encounter Closed Date Diagnosis/Indication Diagnosis SNOMED-CT Code Diagnosis ICD10 Code Diagnosis Note [id number] Dea Garcia CNM [facility] [address] [address] 06/14/2020 10:42:21 06/14/2020 11:42:05 Dysmenorrhea 582045774 N94.6 Pain in pelvis 68819889 R10.2 [id number] Dea Garcia CNM [facility] [address],[place] [address] 06/30/2020 10:59:55 06/30/2020 12:00:22 Dysmenorrhea 104478637 N94.6 Menorrhagia 529286802 N9 2.0 [id number] Xochitl Waynejake [facility] [address],[place] [address] 06/30/2020 10:59:29 06/30/2020 11:47:19 Abnormal uterine bleeding 8360832898 9100 N93.9 [id number] Mario Murguia MD [facility] [address],[place] [address] 07/20/2020 10:25:33 07/20/2020 16:04:50 Menorrhagia 220029803 N92.0 This patient is a 30-year-ol d female with severe menorrhagi a. We have agreed to perform endometria l ablation with hysterosco py. She understand s the risks, benefits, and alternativ es. She has completed the informed consent process and is ready to proceed. [id number] Mario Murguia MD [facility] [address],[place] [address] 08/11/2020 09:27:24 08/11/2020 09:28:28 [id number] Mario Murguia MD [facility] [address],[place] [address] 08/24/2020 10:58:41 08/24/2020 12:20:12 Menorrhagia 099599567 N92.0 This patient is a 30-year-ol d female presents for follow-up on menorrhagi a. She underwent an endometria l ablation. She is recovering normally from that. She has some very small amount of watery vaginal discharge. We will observe her. She had a good result from her procedure and we hope for amenorrhea . She was given precaution s. [id number] Bridget LaMay, WHNP [facility] [address] [address] 10/15/2022 10:49:00 10/17/2022 12:27:01 Gynecologic examination 42387871 Z01.419 Take Calcium with Vitamin D 1200mg daily if not receiving in daily diet. It is strongly advised to have an annual flu shot and up can obtain at most pharmacies . If you have not had a TDap shot in the last 10 years you should obtain one as well. Discussed with patient & provided with informatio n regarding Gardisil vaccine to prevent the 4 strains for HPV that cause cervical cancer if under age 26. Encourage safe sexual practices, to use condoms and limit partners if not already in a monogamous relationsh ip. Do monthly self breast exams. Have mammogram yearly or every other year depending on family history. BRCA testing is now available for patients with strong genetic history of female cancer. If interested contact the office. Engage in daily exercise of low impact aerobic exercise 45-60 minutes 4-5 times weekly. Avoid tobacco and illicit drugs as well as using moderation with alcohol intake less than 1-2 8 oz beverages daily. This lifestyle behavior pattern will lead to less health conditions and longer life span. If BMI greater than 25 weight watchers or dietary consult advised. Patient received above instructio ns, and questions have been answered. If you have any questions please call or respond to this email. Patient was made aware of the patient portal and may obtain a paper copy of today's plan if desired. [facility] - BTL[facility] of abnormal paps, last in 2018normal pap last in 2019pap updated todaySTI testing added to papblood STI panel declinedfa m hx reviewedUT D with PCP for routine labs Lesion of cervix 9221475 01 N88.9 pinpoint sized darkening noted at 6 oclockwill await pap results and discuss further f/u once reviewed [id number] Monica [facility] [address] [address] 11/05/2022 11:02:11 11/05/2022 11:46:07 Screening procedure 46815313 Z13.9 Low grade squamous intraepithelial lesion on cervical Papanicolaou smear 4677228692 91 R87.612 See procedure notes.Post -procedure instructio ns reviewed with understand ing verbalized .Will contact with results & next steps in plan of care. Counseled on Pap/HPV guidelines /Testing/R esults with understand ing verbalized .All questions answered to patient satisfacti on. Booklet & additional resources regarding pap smear/HPV/ Pap results given. [email or web address] [email or web address].cancer.g ov/types/c ervical/un derstandin g-abnormal -hpv-and-p ap-test-re sults/unde rstanding- cervical-c hanges.pdf [id number] Mario Murguia MD [facility] [address],[place] [address] 11/19/2022 09:40:58 11/19/2022 11:15:10 Dysplasia of cervix 90830358 N87.9 We discussed HPV, cervical dysplasia, cervical cancer. We discussed HPV transmissi on, natural history, and dormancy. We discussed cervical dysplasia screening, diagnosis, treatment. She was given precaution s about follow-up. She was warned of the potential cervical cancer as an outcome in this situation. We discussed LEEP procedure. We discussed the procedure in detail. I showed her video. We discussed the risks, benefits, and alternativ es. We spent 25 minutes face-to-fa ce. [id number] Mario Murguia MD [facility] [address],[place] [address] 12/19/2022 10:29:26 12/20/2022 08:51:15 Screening procedure 37483501 Z13.9 Dysplasia of cervix 7339 1008 N87.9 32-year-ol d female presented for the procedure. She tolerated it well. It was completed without complicati ons. [id number] Mario Murguia MD [facility] [address],[place] [address] 1 06/20/2023 10:14:19 06/23/2023 01:27:18 Dysplasia of cervix 96284126 N87.9 This patient is a 33-year-ol d female who presents for repeat Pap smear after LEEP procedure. This is her 1st repeat Pap smear. The repeat Pap smear was performed. The vulva, vagina, cervix appear normal. She will return in 6 months for repeat Pap smear [id number] Mario Murguia MD [facility] [address] [address] 12/26/2022 10:16:26 12/26/2022 11:24:10 Dysplasia of cervix 50582485 N87.9 32-year-ol d female presents for follow-up on cervical dysplasia. She had a LEEP procedure last week. The margins were free of disease. She did have some focal high-grade dysplasia JOSÉ MANUEL 2. She is no complaints today. We talked about follow-up. She will return in 6 months for repeat Pap and every 6 months for 18 months. reviewed pathology report together. We talked about follow-up. Talked about disease natural history Health Concerns Section Related Observation LastModified by Organization Detai ls LastModified Time None Recorded Concern Status LastModified by Organization Details LastModified Time None Recorded Advance Directives Directive N: Payers Encounter Date Sequence Insurance Name Policy Number Policy Armstrong Covered Member ID Armstrong Member ID Guarantor Name 11/05/2022 1 [facility] (MEDICAID HMO) [id number] [place] [id number] [place] 11/19/2022 1 [facility] (MEDICAID HMO) [id number] [place]iel [place] [id number] [place]iel [place] 12/19/2022 1 [facility] (MEDICAID HMO) [id number] 0003 [place]iel [place] [id number] Muriel Tr 12/26/2022 1 [facility] [facility] (MEDICAID HMO) [id number] 0003 [place] [id number] Muriel Tr 06/20/2023 1 [facility] (MEDICAID HMO) [id number] 0003 [place] [id number] [place] Notes Date Note Type Note Provider Name and Address Organization Details Recorded Time 11/05/2022 text/html Here today for colposcopy due to LGSIL SHEREEN Chapin- [address], [place], [address], [facility] 11/05/2022 11:39:12 11/19/2022 text/html We discussed HPV , cervical dysplasia, cervical cancer. We discussed HPV transmission, natural history, and dormancy. We discussed cervical dysplasia screening, diagnosis, treatment. She was given precautions about follow-up. She was warned of the potential cervical cancer as an outcome in this situation. We discussed LEEP procedure. We discussed the procedure in detail. I showed her video. We discussed the risks, benefits, and alternatives. We spent 25 minutes [id number]. Mario Murguia MD [address], [place], [address], [facility] 11/19/2022 10:50:38 12/19/2022 text/html 32-year-old female who presents for the procedure for severe cervical dysplasia. The procedure was explained to her in detail. She is completed the informed consent process is ready to proceed. She understands risks, benefits, and alternatives. Mario Murguia MD [address], [place], [address], [facility] 12/19/2022 21:26:51 12/26/2022 text/html 32-year-old female presents for follow-up on cervical dysplasia. She had a LEEP procedure last week. The margins were free of disease. She did have some focal high-grade dysplasia JOSÉ MANUEL 2. She is no complaints today. We talked about follow-up. She will return in 6 months for repeat Pap and every 6 months for 18 months. Mario Murguia MD [address], [place], [address], [facility] 12/26/2022 11:07:01 06/20/2023 text/html This patient is a 33-year-old female who presents for repeat Pap smear after LEEP procedure. This is her 1st repeat Pap smear. The repeat Pap smear was performed. The vulva, vagina, cervix appear normal. She will return in 6 months for repeat Pap smear Mario Murguia MD [address], [place], [address], [facility] 06/21/2023 22:54:17 OBGyn Episode Ob Episode Information Episode Created Date Number of Fetuses Patient Bloodtype Patient rh Status Prepregnancy Weight lbs Domestic Partner Domestic Partner Phone Father Name Shop Technician Status 06/17/19 21 1 CLOSED Fetus Data First Name Last Name Admitted to NICU Weight (g) Sex Living Outcome Pediatric Complications Fetus ID Race Codes Race Delivery Type 3259.96 5704 M Full Term [id number] Vaginal Delivery Caio Calculation Initial Caio Date Initial Exam Date Initial Exam Provider Initial Ultrasound Date Last Menstrual Period Date Ultra Sound Weeks Gestation 0 Eighteen To Twenty Week Caio Update Ultra Sound Date Fundal Height At Umbil Quickening Date Ultra Sound Latest Weeks Gestation Final Caio Confirmed By Final Caio Confirmed Date Final Caio Date Ultra Sound Latest Days Gestation 0 0 Menstrual History Last Menstrual Date Menses Monthly On Bcp Conception Prior Menses Frequency Hcg Plus Date Menarche Onset Age Delivery Information Delivery Date Delivery Type Labor Anesthesia Weeks Gestation Incision Type Labor Labor Length Hrs Delivered By Post Complications Tubal Sterilization Discharge Date Comments 2 39 Discharge Information Feeding Method Contraceptive Method Maternal HG B and HCT Levels Ob Episode Information Episode Created Date Number of Fetuses Patient Bloodtype Patient rh Status Prepregnancy Weight lbs Domestic Partner Domestic Partner Phone Father Name Shop Technician Status 06/17/19 21 1 CLOSED Fetus Data First Name Last Name Admitted to NICU Weight (g) Sex Living Outcome Pediatric Complications Fetus ID Race Codes Race Delivery Type , Induced [id number] Caio Calculation Initial Caio Date Initial Exam Date Initial Exam Provider Initial Ultrasound Date Last Menstrual Period Date Ultra Sound Weeks Gestation 0 Eighteen To Twenty Week Caio Update Ultra Sound Date Fundal Height At Umbil Quickening Date Ultra Sound Latest Weeks Gestation Final Caio Confirmed By Final Caio Confirmed Date Final Caio Date Ultra Sound Latest Days Gestation 0 0 Menstrual History Last Menstrual Date Menses Monthly On Bcp Conception Prior Menses Frequency Hcg Plus Date Menarche Onset Age Delivery Information Delivery Date Delivery Type Labor Anesthesia Weeks Gestation Incision Type Labor Labor Length Hrs Delivered By Post Complications Tubal Sterilization Discharge Date Comments 1 Discharge Information Feeding Method Contraceptive Method Maternal HG B and HCT Levels Ob Episode Information Episode Created Date Number of Fetuses Patient Bloodtype Patient rh Status Prepregnancy Weight lbs Domestic Partner Domestic Partner Phone Father Name Shop Technician Status 06/17/19 21 1 CLOSED Fetus Data First Name Last Name Admitted to NICU Weight (g) Sex Living Outcome Pediatric Complications Fetus ID Race Codes Race Delivery Type 3373.36 3704 M Full Term 9543 Vaginal Delivery Caio Calculation Initial Caio Date Initial Exam Date Initial Exam Provider Initial Ultrasound Date Last Menstrual Period Date Ultra Sound Weeks Gestation 0 Eighteen To Twenty Week Caio Update Ultra Sound Date Fundal Height At Umbil Quickening Date Ultra Sound Latest Weeks Gestation Final Caio Confirmed By Final Caio Confirmed Date Final Caio Date Ultra Sound Latest Days Gestation 0 0 Menstrual History Last Menstrual Date Menses Monthly On Bcp Conception Prior Menses Frequency Hcg Plus Date Menarche Onset Age Delivery Information Delivery Date Delivery Type Labor Anesthesia Weeks Gestation Incision Type Labor Labor Length Hrs Delivered By Post Complications Tubal Sterilization Discharge Date Comments 6 38.6 Discharge Information Feeding Method Contraceptive Method Maternal HG B and HCT Levels Ob Episode Information Episode Created Date Number of Fetuses Patient Bloodtype Patient rh Status Prepregnancy Weight lbs Domestic Partner Domestic Partner Phone Father Name Shop Technician Status 06/17/19 21 1 CLOSED Fetus Data First Name Last Name Admitted to NICU Weight (g) Sex Living Outcome Pediatric Complications Fetus ID Race Codes Race Delivery Type 3005.04 7 M Full Term 9545 Vaginal Delivery Caio Calculation Initial Caio Date Initial Exam Date Initial Exam Provider Initial Ultrasound Date Last Menstrual Period Date Ultra Sound Weeks Gestation 0 Eighteen To Twenty Week Caio Update Ultra Sound Date Fundal Height At Umbil Quickening Date Ultra Sound Latest Weeks Gestation Final Caio Confirmed By Final Caio Confirmed Date Final Caio Date Ultra Sound Latest Days Gestation 0 0 Menstrual History Last Menstrual Date Menses Monthly On Bcp Conception Prior Menses Frequency Hcg Plus Date Menarche Onset Age Delivery Information Delivery Date Delivery Type Labor Anesthesia Weeks Gestation Incision Type Labor Labor Length Hrs Delivered By Post Complications Tubal Sterilization Discharge Date Comments 8 39.5 Discharge Information Feeding Method Contraceptive Method Maternal HG B and HCT Levels Ob Episode Information Episode Created Date Number of Fetuses Patient Bloodtype Patient rh Status Prepregnancy Weight lbs Domestic Partner Domestic Partner Phone Father Name Shop Technician Status 06/17/19 21 1 CLOSED Fetus Data First Name Last Name Admitted to NICU Weight (g) Sex Living Outcome Pediatric Complications Fetus ID Race Codes Race Delivery Type 3203.26 6704 M Full Term 9544 Vaginal Delivery Caio Calculation Initial Caio Date Initial Exam Date Initial Exam Provider Initial Ultrasound Date Last Menstrual Period Date Ultra Sound Weeks Gestation 0 Eighteen To Twenty Week Caio Update Ultra Sound Date Fundal Height At Umbil Quickening Date Ultra Sound Latest Weeks Gestation Final Caio Confirmed By Final Caio Confirmed Date Final Caio Date Ultra Sound Latest Days Gestation 0 0 Menstrual History Last Menstrual Date Menses Monthly On Bcp Conception Prior Menses Frequency Hcg Plus Date Menarche Onset Age Delivery Information Delivery Date Delivery Type Labor Anesthesia Weeks Gestation Incision Type Labor Labor Length Hrs Delivered By Post Complications Tubal Sterilization Discharge Date Comments 4 39 Discharge Information Feeding Method Contraceptive Method Maternal HG B and HCT Levels
--- OUTSIDE RECORDS SUMMARY | 2024-04-08 09:37 | XMS_ITS | Clinical Summary ---
Author Organization [facility] Address [address] [place] [address] Care Team Providers Care Machine Tester Name Role Phone Ebonie Crowe MD Primary Care Provider [phone] Source Comments [facility],non-owned Affiliates and Associated Physician Practices is amultiple site organization consisting of ambulatory clinics and hospital sitesin [place], [place], [place] and [place]. This disclosure is being madepursuant to the Care Everywhere program and may not contain all information available regarding this patient. Last updated 17.[employer] [facility] Allergies No known active allergies Medications Be [...] antepartum condition or complication 08/31/2013 Overview (11/17/2014): Family History Medical History Relation Name Comments Cancer Mother LUNG Cancer - Other Mother Relation Name Status Comments Mother Social History Tobacco Use Types Packs/Day Years Used Date Smoking Tobacco: Every Day Cigarettes 0.5 10 Smokeless Tobacco: Never Alcohol Use Standard Drinks/Week Comments No 0 (1 standard drink = 0.6 oz pur e alcohol) Sex and Gender Information Value Date Recorded Sex Assigned at Not on file Gender Identity Not on file Sexual Orientation Not on file Plan of Treatment Health Maintenance Due Date Last Done Comments PAP SMEAR 1989 HIV SCREENING 2004 HEPATITIS C SCREENING 05/28/2007 DTAP/TDAP/TD VACCINES (1 - Tdap) 2008 HEPATITIS B VACCINE (1 of 3 - 19+ 3-dose series) 2008 PNEUMOCOCCAL VACCINE (1 of 2 - PCV) 2008 COVID-19 VACCINE (1 - 2023-2 5 season) 2023 INFLUENZA VACCINE (#1) 2023 DEPRESSION SCREENING 02/18/2024 ZOSTER VACCINE (1 of 2) 06/02/2039 HIB VACCINE Aged Out No longer eligi ble based on patient's age to complete this topic HPV VACCINE Aged Out No longer eligi ble based on patient's age to complete this topic MENINGOCOCCAL (Group B) VACCINE Aged Out No longer eligible based on patient's age to complete this topic MENINGOCOCCAL VACCINE Aged Out No bautista alison eligible based on patient's age to complete this topic Care Teams Machine Tester Relationship Specialty Start Date End Date Ebonie Crowe MD [address] [place] [address] PCP - General 04/08/18
--- OUTSIDE RECORDS SUMMARY | 2024-04-08 09:37 | XMS_ITS | Clinical Summary ---
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 Gender Identity Not on file Sexual Orientation Not on file Obstetrics History Last Filed Vital Signs Vital Sign Reading [...] 11/06/2023 9:26 AM CDT Plan of Treatment Health Maintenance Due Date Last Done Comments Cervical Cancer Screening 1989 Depression Screening 1989 Hepatitis C Screening 1989 Varicella Vaccines (1 of 2 - 13+ 2-dose series) 2002 Regular Well Visit/Exam 18-64 06/02/2007 Pneumococcal vaccine <65 (1 of 2 - PCV) 2008 Influenza Vaccine (#1) 2023 01/12/2003 DTaP/Tdap/Td Vaccine (8 - Td or Tdap) 10/16/2026 10/16/2016, 06/05/2005, 01/31/2003, Additional history exists Hepatitis B Screening Completed 07/10/1999 , 01/23/1999, 12/26/1998 HPV Vaccines Aged Out No longer eligi ble based on patient's age to complete this topic Insurance Care Teams Dungeon Master Relationship Specialty Start Date End Date Catracho Mcghee MD [address] [place] [id number] PCP - General Emergency Medicine 10/08/23
--- OUTSIDE RECORDS SUMMARY | 2024-04-08 09:37 | XMS_ITS | Continuity of Care Document ---
Author Organization [facility] Address [address] [place] [address] Phone Care Team Providers Care Road Packer Operator Name Role Phone Jesús Wells MD Unavailable [...] Date Provider Providers Copied on Encounter [facility] [employer] [facility], [address], [id number], [phone] [employer] [facility] No Information 6 Pr[address]osa. [address] [facility], [facility] [address], [place], [place], [id number] , [place]. tel: [phone] Independent Medical Examination BROKOS [facility] [employer] [facility], [address], [id number], [place] tel:[phone] [facility] [employer] [facility] Pathological fracture of lt radius, initial encounter for fractureNondisp fx of left ulna styloid process, init for clos fx 5 [address]. [address] [facility], [facility] [address], [place], [place], [id number] , [place]. tel: [phone] Family History Family Member Type Diagnosis Age At Onset Problem (finding) Family history of malignant neoplasm of lung Payers Payer name Insurance type Covered alliance party ID Cherie laws(s) [employer] [id number] Social History Type Description Quantity Date Captured [...]
[2024-04-08 10:32] LABS: Basophils Absolute Auto 0.1 K/mm3 (0.0-0.1); Eosinophils Absolute Auto 0.4 K/mm3 (0-0.3); Eosinophils Percent Auto 4.9 % (0-4.4); Hematocrit 47.3 % (37.0-47.0); Hemoglobin 15.1 g/dL (12.0-15.0); Immature Granulocyte Absolute 0.03 K/mm3 (0.00-0.031); Immature Granulocyte Percent A 0.4 % (0-0.5); Lymphocytes Absolute Auto 2.45 K/mm3 (0.9-3.2); Lymphocytes Percent Auto 29.3 % (18.3-44.2); Mean Corpuscular HGB Conc 31.9 g/dl (32-36); Mean Corpuscular Hemoglobin 30.3 pg (26-34); Mean Platelet Volume 10.3 fl (7.4-10.4); Monocytes Absolute Auto 0.6 K/mm3 (0.1-0.6); Monocytes Percent Auto 7.1 % (2.6-8.5); Neutrophils Absolute Auto 4.8 K/mm3 (1.3-6.7); Neutrophils Percent Auto 57.3 % (45.5-73.1); Platelet Count Result 280 k/mm3 (150-375); Red Blood Count 4.98 M/mm3 (4.2-5.4); Red Cell Distribution Width 12.4 % (11.5-14.5); White Blood Count 8.4 K/mm3 (4.5-10.0)
--- NOTE | 2024-04-09 11:39 | WPDPFTINT ---
PFT Procedure Performed PFT Procedure Performed Spirometry with Pre/Post Bronchodilator Plethysmography (Lung Vol) Diffusing Cap (DLCO) Flow Vol Loop PFT Interpretation Lung volumes were measured with the body plethysmography method. The elevated FRC and RV could indicate air trapping. The remaining lung volumes are unremarkable. Spirometry showed diminished expiratory flow rates and a diminished FEV1 to FVC ratio 62%, consistent with obstructive airway disease. Following administration of a bronchodilator there was no significant increase in the expiratory flow rates. Lung diffusion capacity is mildly reduced at 70% predicted. This diminished lung diffusion capacity coupled with the mildly reduced alveolar volume and a normal DLCO/VA ratio indicates loss of alveolar capillary structure with a loss of lung volume as seen in emphysema or interstitial lung disease. The flow-volume loop is consistent with emphysema. Impression: Mild obstructive airway disease with air trapping and no response to bronchodilators on this testing. Mild reduction in lung diffusion capacity.
--- NOTE | 2024-04-09 11:44 | WPDSIXMINUTE ---
Six Minute Walk Procedure Procedure Performed Pulmonary Stress Test (6 min walk) Six Minute Walk Six Minute Walk: This 6 minute walk test was carried out with the patient breathing ambient air. The pre-walk baseline oxyhemoglobin saturation was 100%. The patient walked 487 m with no stops during testing. During the walk the oxyhemoglobin saturation remained in the range 97% to 99%. Impression: No evidence of oxyhemoglobin desaturation on this testing.
[2024-04-09 12:28] LABS: Immunoglobulin E 179 kU/L (<OR=114)
== END 2024-04-08 09:21 | disposition home or self-care (01) ==
PROVIDERS: PCP Emergency Medicine; Visit Provider Internal Medicine Critical Care Medicine
DX: J44.89 Other specified chronic obstructive pulmonary disease (principal)
CPT/HCPCS: 36415; 82785; 85025; 94060; 94618; 94726; 94729

== ENCOUNTER 2024-05-25 08:48 | Emergency (ER) | payer OTHER, SELFPAY ==
--- NOTE | ~2024-05-25 | XR_ITS ---
XR chest 2V Ordering provider: Karolina Vega APRN History: 33 years Female with . cough x 6 days. HX smokeing, COPD, asthma . Comparison: December 28, 2023 FINDINGS: MEDIASTINUM: The cardiac silhouette is not enlarged. LUNGS: Hyperinflated lungs. No effusions or pneumothorax. Minimal opacification in the left infrahila r area which is suggestive of early pneumonia. Follow-up advised. OTHER: No free air under the diaphragm. S-shaped scoliosis IMPRESSION: Possible early pneumonia in the left infrahilar area. Reviewed, dictated and finalized at location A.
--- NOTE | 2024-05-25 08:54 | ED.URI ---
HPI - URI/Sore Throat General Chief Complaint: Upper Respiratory Infection Stated Complaint: Fatigue/Bodyaches/Cough Time Seen by Provider: 05/25/24 08:57 Source: patient, RN notes reviewed and old records reviewed Mode of arrival: ambulatory Limitations: no limitations History of Present Illness HPI Narrative: 33-year-old female presents to the [facility] with complaints of fatigue, body aches, productive cough, fevers. Patient reports that she received her pneumonia vaccine on May 19, 6 days ago. Reports several hours after the vaccine she started having symptoms. States that she does use her Breo as prescribed. Has not had to use her albuterol inhaler in 3 days. Denies shortness of breath. Patient with a history of asthma/COPD Onset (ago): day(s) (6) Treatments prior to arrival: acetaminophen Related Data Allergies Allergy/AdvReac Type Severity Reaction Status Date / Time No Known Allergies Allergy Verified 05/25/24 08:55 Review of Systems Review of Systems: All systems reviewed & are unremarkable except as noted in HPI and below Constitutional: Constitutional: Reports as per HPI, Reports body ache(s), Reports fatigue and Reports fever(s) ENT: Reports system reviewed and no additional complaints, except as documented Cardiovascular: Cardiovascular: Reports no additional cardiovascular complaints, Denies chest pain and Denies dyspnea Respiratory: Respiratory: Reports as per HPI, Denies chest congestion, Reports cough and Denies dyspnea Musculoskeletal: Musculoskeletal: Reports no additional musculoskeletal complaints Integumentary/Breasts: Skin/Breast: Reports system reviewed and no additional complaints, except as docu PMFSH Past Medical History Medical History History of asthma Family History Family History Mother Lung cancer, Onset Age: 47 Other Emphysema of lung Social History Social History Years smoked: 13 Smoking status: Former smoker Tobacco type: cigarettes Smokeless tobacco user: other Second hand tobacco smoke exposure: No Alcohol intake: never Substance use: former Substance use type: marijuana Do You Feel Safe in your Home?: Yes Lack of Transportation: No Lack of Food: Never True Current Housing: I Have Housing Concerned About Future Housing: No Difficulty Paying Gas/Electric Bills: No Difficulty Paying for Meds: No Currently Unemployed: No Education: High School Diploma/GED Difficulty w/ Childcare or Family Care: No Living arrangements: with family Spiritual care concerns: No Comments At the time of my signature, I reviewed and agree with the nursing past medical, surgical, social, and family history. There is no relevant family history pertinent to the patient complaint. Exam Const: General: cooperative, healthy appearing, comfortable, no acute distress, well developed, alert and well nourished Nutritional Appearance: well nourished Orientation/consciousness: patient oriented x3 Limitations: no limitations HENMT: Head: normal to inspection Ears: hearing grossly normal bilaterally, external ears normal, TM's normal bilaterally, EAC's normal, mastoids normal and no periauricular adenopathy Mouth: Yes Normal oral and palatal mucosa present, Yes lip normal, Yes tongue normal and Yes moist mucous membranes Throat: posterior oropharynx normal, uvula midline, postnasal drainage and no uvular edema Eyes: General: appearance normal, both eyes and all related structures Alignment and Position: alignment normal Neck: Neck: normal visual inspection, full ROM, no lymphadenopathy and no meningeal signs Chest: Chest palpation & inspection: normal inspection of the chest Resp: Effort & Inspection: normal respiratory effort and able to speak in complete sentences Auscultation: clear to auscultation bilaterally, no crackles, no rales, no rhonchi and no wheezes Cardio: Rate: regular rate Skin: General skin exam: normal color and no rashes or lesions noted Neuro: General: patient oriented x3, gait normal, moves all extremities and no meningeal signs Cognition (Neuro): normal cognition Speech: normal speech Gait exam (Neuro): Normal gait present Extrem: General: normal to inspection, full ROM, capillary refill normal and normal gait Psych: Appearance: grossly normal and well kempt Mental Status: mental status grossly normal Speech and movement: Normal speech and movement present and Clear speech present Affect: normal affect Attitude: cooperative Course Course Level of Care: Express Care Visit Vital Signs Vital signs: Vital Signs Temperature 98.1 F 05/25/24 08:55 Pulse Rate 102 H 05/25/24 08:55 Respiratory Rate 18 05/25/24 08:55 Blood Pressure 111/76 05/25/24 08:55 Pulse Oximetry 100 05/25/24 08:55 Oxygen Delivery Room Air 05/25/24 08:55 Temperature 98.1 F 05/25/24 08:55 Pulse Rate 102 H 05/25/24 08:55 Respiratory Rate 18 05/25/24 08:55 Blood Pressure 111/76 05/25/24 08:55 Pulse Oximetry 100 05/25/24 08:55 Oxygen Delivery Room Air 05/25/24 08:55 Reviewed MDM - URI/Sore Throat MDM Narrative Medical decision making narrative: Patient sitting in exam room. Patient is nontoxic, vitals stable. Patient in no acute distress. Patient presents with concerns for pneumonia. Flu-like symptoms for 6 days. COVID flu are negative. X-ray shows possible early pneumonia. Will treat for pneumonia due to patient's past medical history. Prescribed antibiotics. Patient appropriate for outpatient treatment with close follow-up, discussed signs and symptoms proceed to the emergency room which she verbalized understanding. Discharge instructions reviewed with patient, as well as provided in writing per nursing staff. The instructions also include specific and strict return/GO TO THE ER as well as f/u information. All questions have been answered, and the patient deny any further questions with discharge and discharge plan. Some parts of this dictation were generated by voice recognition software and may contain typographical and/or grammatical inaccuracies. Differential Diagnosis Differential diagnosis: Likely upper respiratory infection, otitis media, sinusitis, viral infection, bronchitis, influenza and pharyngitis Lab Data Labs: Lab Results 05/25/24 Range/Units 09:05 POC Influenza A Ag Negative (Negative) POC Influenza B Ag Negative (Negative) POC SARS CoV-2 Ag Negative (Negative) Reviewed Imaging Data Radiologist's impression: XR chest 2V Ordering provider: Karolina Vega APRN History: 33 years Female with . cough x 6 days. HX smokeing, COPD, asthma . Comparison: December 28, 2023 FINDINGS: MEDIASTINUM: The cardiac silhouette is not enlarged. LUNGS: Hyperinflated lungs. No effusions or pneumothorax. Minimal opacification in the left infrahilar area which is suggestive of early pneumonia. Follow-up advised. OTHER: No free air under the diaphragm. S-shaped scoliosis IMPRESSION: Possible early pneumonia in the left infrahilar area. Critical Care Time Critical Care Time Critical Care Time: No Discharge Plan Discharge Clinical Impression: Pneumonia Qualifiers: Pneumonia type: due to unspecified organism Laterality: left Patient Disposition: Home Condition: Stable Instructions: Antibiotic Form, Pneumonia (ED) Additional Instructions: Today your x-ray showed early pneumonia. You are being treated with antibiotics. Use your inhaler As needed Follow-up with primary care provider For new or worsening symptoms go directly to the emergency room Patient Language: British Prescriptions: New azithromycin 250 mg tablet See Rx Instructions .ROUTE .COMPLEX Qty: 6 0RF Rx Instructions: take 500 mg today (day 1), then 250 mg for 4 days (days 2-5) amoxicillin-pot clavulanate 875-125 mg tablet 1 tablet PO Q12H Qty: 20 0RF No Action albuterol sulfate [Ventolin HFA] 90 mcg/actuation HFA aerosol inhaler 2 puff inhalation Q4H PRN (Reason: shortness of breath or wheezing) Qty: 8.5 0RF Breo Ellipta 50-25 mcg/dose blister with device 1 inh inhalation ONCE 30 Days Qty: 60 2RF albuterol sulfate 90 mcg/actuation HFA aerosol inhaler 1 puff inhalation Q4H PRN (Reason: shortness of breath or wheezing) 30 Days Qty: 8.5 1RF ipratropium-albuterol 0.5 mg-3 mg(2.5 mg base)/3 mL Solution For Nebulization 3 ml inhalation Q6HRT Qty: 30 0RF (DME) nebulizer accessories Kit See Rx Instructions .Route Qty: 1 0RF Rx Instructions: As directed (DME) nebulizer and compressor [Comp-Air Nebulizer Compressor] Device See Rx Instructions .Route Qty: 1 0RF Rx Instructions: As directed Follow-up/Referrals: Catracho Mcghee MD [Primary Care Provider] - 2 Weeks ([facility] follow-up) Stand Alone Forms: Work/School Release IP Time of Disposition: 10:02
[2024-05-25 08:55] VITALS: BP 111/76; PULSE 102; RESP 18; TEMP 36.7; O2SAT 100
[2024-05-25 09:26] LABS: EDCOVIDSCREEN Negative (Negative); EDINFLUASCREEN Negative (Negative); EDINFLUBSCREEN Negative (Negative)
== END 2024-05-25 10:10 | disposition home or self-care (01) ==
PROVIDERS: Emergency Provider Nurse Practitioner; PCP Emergency Medicine
DX: J18.9 Pneumonia, unspecified organism (principal); Z20.822 Contact with and (suspected) exposure to COVID-19; Z87.891 Personal history of nicotine dependence; J45.909 Unspecified asthma, uncomplicated
CPT/HCPCS: 71046; 87426; 87804; 99213; G0463

== ENCOUNTER 2024-06-15 16:13 | Emergency (ER) | payer OTHER, SELFPAY ==
--- NOTE | ~2024-06-15 | XR_ITS ---
EXAMINATION: XR chest 2V DATE: 06/15/2024 16:38 INDICATION: Cough and wheezing. Asthma and COPD. TECHNIQUE: PA and lateral views of the chest were obtained. COMPARISON: Chest radiograph dated 05/25/[address] dated 12/28/2023 FINDINGS: Hyperexpansion lungs with flattening of the diaphragm and increased retrosternal clear space consiste nt with emphysema better appreciated on prior CT. No focal airspace opacities, pulmonary edema, pleur al effusion or pneumothorax. Nipple shadows project over the inferior margin of the bilateral anterio r fifth ribs. Heart size is normal. S-shaped scoliosis of the thoracic and lumbar spine. IMPRESSION: 1. Emphysema. No acute cardiopulmonary disease. Reviewed, dictated and finalized at location B.
--- NOTE | 2024-06-15 16:17 | ED_ITS ---
HPI - General Adult General Chief complaint: Shortness of Breath/Dyspnea Stated complaint: SOB, light fever Time Seen by Provider: 06/15/24 16:22 Source: patient, RN notes reviewed and old records reviewed Mode of arrival: ambulatory Limitations: no limitations History of Present Illness HPI narrative: 34-year-old female with a history of COPD and asthma presents to the [facility] with complaints of shortness of breath and a fever. Related Data Allergies Allergy/AdvReac Type Severity Reaction Status Date / Time No Known Allergies Allergy Verified 06/15/24 16:19 Review of Systems Review of Systems: All systems reviewed & are unremarkable except as noted in HPI and below Constitutional: Constitutional: Reports no additional constitutional complaints ENT: Reports system reviewed and no additional complaints, except as documented Cardiovascular: Cardiovascular: Reports no additional cardiovascular complaints, Denies chest pain and Denies dyspnea Respiratory: Respiratory: Reports as per HPI, Denies chest congestion, Reports cough and Reports dyspnea Musculoskeletal: Musculoskeletal: Reports no additional musculoskeletal complaints Integumentary/Breasts: Skin/Breast: Reports system reviewed and no additional complaints, except as docu PMFSH Past Medical History Medical History History of asthma Family History Family History Mother Lung cancer, Onset Age: 47 Other Emphysema of lung Social History Social History Years smoked: 13 Smoking status: Former smoker Tobacco type: cigarettes Smokeless tobacco user: other Second hand tobacco smoke exposure: No Alcohol intake: never Substance use: former Substance use type: marijuana Do You Feel Safe in your Home?: Yes Lack of Transportation: No Lack of Food: Never True Current Housing: I Have Housing Concerned About Future Housing: No Difficulty Paying Gas/Electric Bills: No Difficulty Paying for Meds: No Currently Unemployed: No Education: High School Diploma/GED Difficulty w/ Childcare or Family Care: No Living arrangements: with family Spiritual care concerns: No Comments At the time of my signature, I reviewed and agree with the nursing past medical, surgical, social, and family history. There is no relevant family history pertinent to the patient complaint. Exam Const: General: cooperative, healthy appearing, comfortable, no acute distress, well developed, alert and well nourished Nutritional Appearance: well nourished Orientation/consciousness: patient oriented x3 Limitations: no limitations HENMT: Head: normal to inspection Ears: hearing grossly normal bilaterally, external ears normal, TM's normal bilaterally, EAC's normal, mastoids normal and no periauricular adenopathy Mouth: Yes Normal oral and palatal mucosa present, Yes lip normal, Yes tongue normal and Yes moist mucous membranes Throat: posterior oropharynx normal, uvula midline and no uvular edema Eyes: General: appearance normal, both eyes and all related structures Alignment and Position: alignment normal Neck: Neck: normal visual inspection, full ROM, no lymphadenopathy and no meningeal signs Chest: Chest palpation & inspection: normal inspection of the chest Resp: Effort & Inspection: normal respiratory effort and able to speak in complete sentences Auscultation: no crackles, no rales, no rhonchi and wheezes expiratory wheezes and throughout Cardio: Rate: regular rate Skin: General skin exam: normal color and no rashes or lesions noted Neuro: General: patient oriented x3, gait normal, moves all extremities and no meningeal signs Cognition (Neuro): normal cognition Speech: normal speech Gait exam (Neuro): Normal gait present Extrem: General: normal to inspection, full ROM, capillary refill normal and normal gait Psych: Appearance: grossly normal and well kempt Mental Status: mental status grossly normal Speech and movement: Normal speech and movement present and Clear speech present Affect: normal affect Attitude: cooperative Course Course Level of Care: Express Care Visit Vital Signs Vital signs: Vital Signs Temperature 97.9 F 06/15/24 16:20 Pulse Rate 102 H 06/15/24 16:20 Respiratory Rate 16 06/15/24 16:20 Blood Pressure 104/69 06/15/24 16:20 Pulse Oximetry 99 06/15/24 16:20 Oxygen Delivery Room Air 06/15/24 16:20 Temperature 97.9 F 06/15/24 16:20 Pulse Rate 102 H 06/15/24 16:35 Respiratory Rate 18 06/15/24 16:35 Blood Pressure 104/69 06/15/24 16:20 Pulse Oximetry 99 06/15/24 16:35 Oxygen Delivery Room Air 06/15/24 16:20 Reviewed Medical Decision Making MDM Narrative Medical decision making narrative: Patient presents with shortness of breath x1 day, cough. History of pneumonia X-ray negative, breathing ankle improved with breathing treatment Patient appropriate for outpatient treatment with close follow-up Post breathing treatment, patient reports improved min of breathing and lungs are now clear to auscultation Discharge instructions reviewed with patient, as well as provided in writing per nursing staff. The instructions also include specific and strict return/GO TO THE ER as well as f/u information. All questions have been answered, and the patient deny any further questions with discharge and discharge plan. Some parts of this dictation were generated by voice recognition software and may contain typographical and/or grammatical inaccuracies. Differential Diagnosis Differential Diagnosis: Bronchitis, emphysema, COPD, pneumonia, bronchitis Medical Records Medical records reviewed: Yes I reviewed the external patient's medical records. Vital Signs Vital Signs: Vital Signs Temperature 97.9 F 06/15/24 16:20 Pulse Rate 102 H 06/15/24 16:20 Respiratory Rate 16 06/15/24 16:20 Blood Pressure 104/69 06/15/24 16:20 Pulse Oximetry 99 06/15/24 16:20 Oxygen Delivery Room Air 06/15/24 16:20 Temperature 97.9 F 06/15/24 16:20 Pulse Rate 102 H 06/15/24 16:35 Respiratory Rate 18 06/15/24 16:35 Blood Pressure 104/69 06/15/24 16:20 Pulse Oximetry 99 06/15/24 16:35 Oxygen Delivery Room Air 06/15/24 16:20 Reviewed Lab Data Lab results reviewed: Yes I reviewed the patient's lab results. Labs: Reviewed Imaging Data Radiologist's impression: EXAMINATION: XR chest 2V DATE: 06/15/2024 16:38 INDICATION: Cough and wheezing. Asthma and COPD. TECHNIQUE: PA and lateral views of the chest were obtained. COMPARISON: Chest radiograph dated 05/25/[address] dated 12/28/2023 FINDINGS: Hyperexpansion lungs with flattening of the diaphragm and increased retrosternal clear space consistent with emphysema better appreciated on prior CT. No focal airspace opacities, pulmonary edema, pleural effusion or pneumothorax. Nipple shadows project over the inferior margin of the bilateral anterior fifth ribs. Heart size is normal. S-shaped scoliosis of the thoracic and lumbar spine. IMPRESSION: 1. Emphysema. No acute cardiopulmonary disease. Critical Care Time Critical Care Time Critical Care Time: No Discharge Plan Discharge Clinical Impression: Emphysema of lung Qualifiers: Emphysema type: unspecified Qualified Code(s): J43.9 - Emphysema, unspecified Patient Disposition: Home Condition: Stable Instructions: Antibiotic Form, Emphysema (ED) Additional Instructions: Call your [facility] and schedule a follow-up appointment Incentive using your inhaler, use your nebulizer for rescue Continue using your prescribed medication For new or worsening symptoms go directly to the emergency room Patient Language: Citizen Of [place] Prescriptions: New prednisone 20 mg tablet See Rx Instructions .Route .COMPLEX Qty: 9 0RF Rx Instructions: Take 40 mg daily for 3 days, 20 mg daily for 3 days albuterol sulfate 0.63 mg/3 mL solution for nebulization 0.63 mg inhalation Q6H Qty: 75 0RF No Action albuterol sulfate [Ventolin HFA] 90 mcg/actuation HFA aerosol inhaler 2 puff inhalation Q4H PRN (Reason: shortness of breath or wheezing) Qty: 8.5 0RF Breo Ellipta 50-25 mcg/dose blister with device 1 inh inhalation ONCE 30 Days Qty: 60 2RF ipratropium-albuterol 0.5 mg-3 mg(2.5 mg base)/3 mL Solution For Nebulization 3 ml inhalation Q6HRT Qty: 30 0RF (DME) nebulizer accessories Kit See Rx Instructions .Route Qty: 1 0RF Rx Instructions: As directed (DME) nebulizer and compressor [Comp-Air Nebulizer Compressor] Device See Rx Instructions .Route Qty: 1 0RF Rx Instructions: As directed albuterol sulfate 90 mcg/actuation HFA aerosol inhaler See Rx Instructions .ROUTE .COMPLEX Qty: 9 0RF Dose Instruction: INHALE 1 PUFF BY MOUTH EVERY 4 HOURS NEEDED FOR SHORTNESS OF BREATH OR WHEEZING Rx Instructions: INHALE 1 PUFF BY MOUTH EVERY 4 HOURS NEEDED FOR SHORTNESS OF BREATH OR WHEEZING Follow-up/Referrals: UNKNOWN,DOCTOR [Primary Care Provider] - Time of Disposition: 17:10
[2024-06-15 16:20] VITALS: BP 104/69; PULSE 102; RESP 16; TEMP 36.6; O2SAT 99
[2024-06-15 16:35] VITALS: PULSE 102; RESP 18; O2SAT 99
[2024-06-15] MEDS: ALBUTEROL SULFATE NEB 2.5 MG/3 ML INH INHALATION (16:36)
[2024-06-15] MEDS: IPRATROPIUM BR 0.02% INH SOLN 0.5 MG/2.5 ML VIAL INHALATION (16:36)
== END 2024-06-15 17:15 | disposition home or self-care (01) ==
PROVIDERS: Emergency Provider Nurse Practitioner
DX: J43.9 Emphysema, unspecified (principal); Z87.891 Personal history of nicotine dependence
CPT/HCPCS: 71046; 94640; 99213; G0463

== ENCOUNTER 2024-06-16 23:59 | Emergency (ER) | payer OTHER, SELFPAY ==
--- NOTE | ~2024-06-16 | XR_ITS ---
Portable chest x-ray Comparison: 06/15/2024 Clinical History: Shortness of breath Findings: Stable presumed nipple shadows present. Lungs are otherwise clear. Cardiomediastinal silh ouette is stable. Bones and soft tissues are unremarkable. Impression: Presumed nipple shadows, otherwise clear lungs. Reviewed, dictated and finalized at location M. Impression: Presumed nipple shadows, otherwise clear lungs.
[2024-06-17] VITALS (16 sets, daily range): BP systolic 99–137; BP diastolic 63–82; PULSE 76–123; RESP 15–26; TEMP 36.5–37.2; O2SAT 90–98
--- OUTSIDE RECORDS SUMMARY | 2024-06-17 00:01 | XMS_ITS | Data Portability ---
Author Organization [facility] [place] Address [address] [address] [place] [address] Care Team Providers Care Equestrian Trainer Name Role Phone PROMISE LAZARO Primary Care Provider Assessment No assessment recorded. Plan of Treatment Reminders Order Date Submit Date Provider Last Modified By Organization Details Last Modified Time Details Appointments None recorded. Lab test, urine 2022 023 [email or web address] [place], [address], [address], [place], [address], 3 13:03:17 test, urine 2022 023 [email or web address] [place], [address], [address], [place], [address], 3 11:38:17 Referral None recorded. Procedures None recorded. Surgeries loop electrode excision procedure, surgical (LEEP) (SURG) 2022 023 [id number] [facility], [address], [address], [place], [address], 3 09:22:18 Imaging None recorded. Medication Orders [...] patie nt consi derat ions. Not Available [facility] (Lab) [address], [place], [address], 10/18/2022 12:42:37 11/06/19 23 11/05/2022 SURGI ADI PATHO LOGY surgical pathology SEE RESULT S BELOW CASE REPOR T: Surgi adi Patho logy Repor t Case: [id number] Autho curtis weston Provi rubi: Jamie Peterson Colle cted: 11/05 1646 HOGSHEAD HOOPER Order ing Locat ion: [place] Patho logy [...] Gross ed by Iris rivas Not Available [facility] (Lab) [address], [place], [address], 11/07/2022 13:48:55 11/06/19 23 11/05/2022 pregn lindsay test, urine HCG negati ve Not Available [place] [address], [place], [address], 11/05/2022 11:23:05 12/20/19 23 12/19/2022 SURGI ADI [...] Gross ed by Iris rivas Not Available [facility] (Lab) [address], [place], [address], 12/23/2022 09:10:31 12/20/19 23 12/19/2022 pregn lindsay test, urine HCG negati ve Not Available [place] [address], [place], [address], 12/19/2022 13:03:00 06/20/19 24 06/20/2023 IMAGE GUIDE [...] may decre ase, but will not elimi uilses, false negat margaret resul ts. A negat [...] as clini andrew justin nted. Not Available [facility] (Lab) [address], [place], [address], 06/26/2023 08:17:23 Result Notes None recorded. Problems Name Problem SNOMED Code Status Onset Date Resolution Date Notes Provider Name and Address Organization Details Recorded Time Pregnanc y detectio n examinat ion Completed 201606/16/2020 Encounte r for pregnanc y test, result positive ;Practic e ID: 0001 [place], [facility] 18:13:37 Uterine size for dates discrepa ncy Completed 201606/16/2020 Uterine size-peggy e discrepa ncy, first trimeste r;Practi ce ID: 0001 [place], [facility] 18:14:10 Gestatio n less than 9 weeks [id number] Completed 201606/16/2020 Less than 8 weeks gestatio n of pregnanc y;Practi ce ID: 0001 Medina Ohara [facility], [facility] 18:12:40 Secondar y amenorrh ea [id number] Completed 201606/16/2020 Secondar y amenorrh ea;Pract ice ID: 0001 Med[place] villa, [facility] 18:13:53 Normal pregnanc y in multigra sheng [id number] 4106 Completed 201606/16/2020 Encounte r for suprvsn of normal pregnanc y, first trimeste r;Practi ce ID: 0001 [place] villa, [facility] 18:13:30 Antenata l screenin g Completed 201606/16/2020 Encounte r for antenata l screenin g for nuchal transluc ency;Pra ctice ID: 0001 [place] villa, [facility] 18:11:55 Antenata l screenin g for malforma tion Completed 201606/16/2020 Encounte r for antenata l screenin g for malforma tions;Pr actice ID: 0001 Medina Ohara all[place], [facility] 18:11:58 Uterine size for dates discrepa ncy Completed 201706/16/2020 Uterine size-peggy e discrepa ncy, second trimeste r;Practi ce ID: 0001 Medina Ohara [facility], [facility] 18:14:12 Gestatio n period, 31 weeks [id number] Completed 201706/16/2020 31 weeks gestatio n of pregnanc y;Practi ce ID: 0001 Medina Ohara [facility], [facility] 18:12:41 Benign essentia l hyperten nicky complica ting pregnanc y, childbir th and the puerperi um - delivere d with postnata l complica tion [id number] Completed 201106/16/2020 Benign essentia l hyperten nicky, with delivery , with mention of postpart um complica tion;Rec orded Elsewher e: No Locat ion: [facility] S ource: EHR Assembler Brazer drew: N Practi ce ID: 0001 Js lable Time: 10:00:00 AM Medina Oliveirapaulo [place], [facility] 18:12:27 Screenin g for malignan t neoplasm of cervix Completed 201306/16/2020 Screenin g for malignan t neoplasm s of the cervix;R ecorded Elsewher e: No Locat ion: [facility] S ource: EHR Assembler Brazer drew: N Practi ce ID: 0001 Js lable Time: 10:45:00 AM Medina Ohara allen, [facility] 1 18:13:51 Routine antenata l care Completed 201306/16/2020 Supervis ion of other normal pregnanc y;Record ed Elsewher e: No Locat ion: [facility] S ource: EHR Assembler Brazer drew: Corey Perez ce ID: 0001 Js lable Time: 10:30:00 AM Medina Ohara [facility], [facility] 1 18:13:46 Lochia finding Completed 201706/16/2020 Encounte r for routine postpart um follow-u p;Record ed Elsewher e: No Locat ion: [facility] S ource: EHR Assembler Brazer drew: Corey Perez ce ID: 0001 Js lable Time: 11:00:00 AM Medina Ohara [facility], [facility] 18:13:12 Atypical squamous cells on cervical Papanico laou smear cannot exclude high grade squamous intraepi thelial lesion [id number] Completed 201606/16/2020 Atyp squam cell not excl hi grd intrepit h lesn cyto smr crvx;Rec orded Elsewher e: No Locat ion: [facility] S ource: EHR Assembler Brazer drew: Corey Perez ce ID: 0001 Js lable Time: 10:30:00 AM Medina Ohara [facility], [facility] 1 18:12:03 Postpart um care Completed 201106/16/2020 Routine postpart um follow-u p;Record ed Elsewher e: No Locat ion: [facility] S ource: EHR Assembler Brazer drew: N Crhis ce ID: 0001 Js lable Time: 09:30:00 AM Medina Ohara all[place], [facility] 1 18:13:34 Ultrason ography Completed 05/01/ 2014 06/16/2020 Antenata l screenin g for malforma tion using ultrason ics;Gerald rded Elsewher e: No Locat ion: [facility] S ource: EHR Assembler Brazer drew: Corey Perez ce ID: 0001 Js lable Time: 10:30:00 AM Medina Ohara [facility], [facility] 1 18:14:09 Congenit al malforma tion [id number] Completed 201306/16/2020 Antenata l screenin g for malforma tion using ultrason ics;Gerald rded Elsewher e: No [facility]: EHR Assembler Brazer drew: Corey Perez ce ID: 0001 Js lable Time: 10:30:00 AM [place] villa, [facility] 1 18:12:29 Atypical squamous cells of undeterm ined signific ance on cervical Papanico laou smear [id number] Completed 201606/16/2020 Atyp squam cell of undet signfc cyto smr crvx (ASC-US) ;Recorde d Elsewher e: No Locat ion: [facility] S ource: EHR Assembler Brazer drew: Corey Perez ce ID: 0001 Js lable Time: 11:45:00 AM Med[place] Ohara [facility] [address] 18:12:[address] Concept Completed 201706/16/2020 Encntr for metal machinist exam (general ) (routine ) w/o abn findings ;Recorde d Elsewher e: No Locat ion: [facility] S ource: EHR Assembler Brazer drew: Corey Perez ce ID: 0001 Js lable Time: 11:00:00 AM Medina Ohara [facility] [address] 18:13:[address] Concept Completed 201706/16/2020 Encntr for general adult medical exam w/o abnormal findings ;Recorde d Elsewher e: No [facility]at [facility] S ource: EHR Assembler Brazer drew: Corey Perez ce ID: 0001 Js lable Time: 05:00:00 PM Medina Ohara [place], [facility] 1 18:13:56 Procedur e on genitour inary system Completed 201706/16/2020 Encounte r for surgical aftercar e followin g surgery on the genitour inary system;R ecorded Elsewher e: No Locat ion: [facility] S ource: EHR Assembler Brazer drew: N Crhis ce ID: 0001 Js lable Time: 09:30:00 AM Medina Ohara [place], [facility] 1 18:13:44 Postoper ative care Completed 201706/16/2020 Encounte r for surgical aftercar e followin g surgery on the genitour inary system;R ecorded Elsewher e: No Locat ion: [facility] S ource: EHR Assembler Brazer drew: N Chris ce ID: 0001 Js lable Time: 09:30:00 AM Medina Ohara [place], [facility] 1 18:13:32 Pregnanc y test negative [id number] Completed 201406/16/2020 Pregnanc y examinat ion or test, negative result;R ecorded Elsewher e: No Locat ion: [facility] S ource: EHR Assembler Brazer drew: N Chris ce ID: 0001 Js lable Time: 11:00:00 AM Medina Ohara [place], [facility] [address] 18:13:[address] Concept Completed 201506/16/2020 Encounte r for supervis ion of normal pregnanc y, unspecif ied, second trimeste r;Record ed Elsewher e: No Locat ion: [facility] S ource: EHR Assembler Brazer drew: N Chris ce ID: 0001 Js lable Time: 03:00:00 PM Medina villa [facility] 1 18:14:00 Sciatica Completed 201606/16/2020 Sciatica ;Recorde d Elsewher e: No Locat ion: [facility] S ource: EHR Assembler Brazer drew: N Bibianati ce ID: 0001 Js lable Time: 09:15:00 AM [place], [facility] 1 18:13:47 Educatio n Completed 201706/16/2020 Encounte r for family planning advice NOS;Gerald rded Elsewher e: No Locat ion: [facility] S ource: EHR Assembler Brazer drew: N Bibianati ce ID: 0001 Js lable Time: 08:30:00 AM Medina Ohara [facility], [facility] 18:12:36 Speciali zed medical examinat ion Completed 201306/16/2020 Gynecolo gical Examinat ion;Gerald rded Elsewher e: No Locat ion: [facility] S ource: EHR Assembler Brazer drew: N Chris ce ID: 0001 Js lable Time: 10:45:00 AM [place], [facility] 18:14:01 Cytologi c finding [id number] Completed 201406/16/2020 Papanico laou smear of cervix with low grade squamous intraepi thelial lesion (LGSIL); Recorded Elsewher e: No Locat ion: [facility] ce ID: 0001 Js lable Time: 05:00:00 PM Medina villa [facility] 18:12:31 Low grade squamous intraepi thelial lesion on cervical Papanico laou smear [id number] 105 Completed 201706/16/2020 Low grade intrepit h lesion cyto smr crvx (LGSIL); Recorded Elsewher e: No Locat ion: [facility] S ource: EHR Assembler Brazer drew: N Chris ce ID: 0001 Js lable Time: 05:00:00 PM [place] villa, [facility] 18:13:27 Primigra sheng 603061704 Completed 201006/16/2020 Supervis ion of normal first pregnanc y;Bibianati ce ID: 0001 [place] villa, [facility] 18:13:42 anatomy study Completed 201006/16/2020 [facility] SURVEY;P ractice ID: 0001 Medina Ohara [facility], [facility] 18:12:38 Delivery normal [id number] Completed 201106/16/2020 Normal delivery ;Practic e ID: 0001 [place] villa, [facility] 18:12:34 Single live from singleto n pregnanc y [id number] Completed 201106/16/2020 Mother with single liveborn ;Practic e ID: 0001 Medina Ohara [facility], [facility] 18:13:55 Human papillom avirus deoxyrib onucleic acid detected , high risk on cervical specimen [id number] Completed 201406/16/2020 Cervical high risk HPV DNA test positive ;Recorde d Elsewher e: No Locat ion: [facility] S ource: EHR Assembler Brazer drew: N Chris ce ID: 0001 Js lable Time: 05:00:00 PM [place], [facility] 18:13:06 Venereal disease screenin g Completed 201406/16/2020 Screenin g examinat ion for venereal disease; Recorded Elsewher e: No Locat ion: [facility]ce: [facility] Chris ce ID: 0001 Js lable Time: 11:00:00 AM Medina villa [facility] 1 18:14:14 Pregnanc y test positive [id number] Completed 201306/16/2020 Pregnanc y examinat ion or test, positive result;R ecorded Elsewher e: No Locat ion: [facility] S ource: EHR Assembler Brazer drew: Corey Mccartyti ce ID: 0001 Js lable Time: 10:45:00 AM [place] Ohara [facility] 18:13:40 Adult health examinat ion Completed 201406/16/2020 ROUTINE MEDICAL EXAM;Rec orded Elsewher e: No Locat ion: [facility] S ource: EHR Assembler Brazer drew: Corey Perez ce ID: 0001 Js lable Time: 11:00:00 AM [place] Ohara [facility] 18:11:54 Speciali zed medical examinat ion Completed 201406/16/2020 Other specifie d chlamydi al diseases ;Recorde d Elsewher e: No Locat ion: [facility] S ource: EHR Assembler Brazer drew: Corey Perez ce ID: 0001 Js lable Time: 11:00:00 AM Medina Ohara allen, [facility] 1 18:14:03 Low risk human papillom avirus deoxyrib onucleic acid detected in specimen from cervix [id number] 620918 Completed 201406/16/2020 Cervical low risk HPV DNA test positive ;Practic e ID: 0001 Medina Ohara allen, [facility] 18:13:10 Term pregnanc y delivere d 13155957 Completed 201506/16/2020 Encounte r for full-ter m uncompli cated delivery ;Practic e ID: 0001 Medina Ohara all[place], [facility] 18:14:06 Gestatio n period, 38 weeks [id number] Completed 201506/16/2020 38 weeks gestatio n of pregnanc y;Practi ce ID: 0001 [place] villa, [facility] 18:12:44 Gestatio n period, 39 weeks [id number] Completed 201706/16/2020 39 weeks gestatio n of pregnanc y;Practi ce ID: 0001 [place] villa, [facility] 18:12:46 Steriliz ation procedur e Completed 201706/16/2020 Encounte r for steriliz ation;Pr actice ID: 0001 [place], [facility] 18:14:04 Problem Notes None recorded. Procedures Surgical History Date Name Laterality Status Provider Name and Address Organization Details Recorded Time 12/20/19 23 LEEP completed Mario Murguia MD [address], [place], [address], [facility] 12/19/2022 21:25:56 12/20/19 23 LEEP completed Teresa Lugo [facility] 12/26/2022 10:27:53 11/06/19 23 Colposcopy completed Monica Nicole OLIVIA- [address], [place], [address], [facility] 11/05/2022 11:38:06 11/06/19 23 Colposcopy completed Medina Ohara [facility] 11/05/2022 11:24:41 11/06/19 23 Colposcopy completed Medina Ohara [facility] 11/05/2022 11:21:10 10/16/19 23 Date of Last Pap Smear completed Medina Ohara [facility] 11/05/2022 11:24:20 08/12/19 21 HYSTEROSCOPY, WITH ENDOMETRIAL ABLATION (SURG) completed Lissette Lowe [facility] 08/11/2020 10:39:26 07/01/19 21 Endometrial Biopsy completed Dea Garcia CNM [address], [place], [address], [facility] 06/30/2020 11:53:30 07/01/19 21 endometrial biopsy completed [facility] 06/30/2020 11:36:07 09/05/19 18 Colposcopy completed [facility] 06/16/2020 18:22:03 02/17/19 18 Tubal Ligation completed [facility] 06/16/2020 18:22:14 10/29/19 17 Colposcopy completed [facility] 06/16/2020 18:21:50 08/09/19 15 Colposcopy completed [facility] 06/16/2020 18:25:15 04/18/19 11 termination of completed [facility] 06/16/2020 18:22:[address] [facility] 11/19/2022 10:15:28 Tubal Ligation completed [facility] 11/19/2022 10:15:28 Endometrial Ablation completed [facility] 11/19/2022 10:15:28 Imaging Results None recorded. [...] Prescrib ed Elsewher e: No Locat ion: [facility] odify By: [email or web address] Encount er DateTime : [...] Prescrib ed Elsewher e: No [facility] By: [email or web address] Encount er DateTime : [...] Prescrib ed Elsewher e: No [facility] By: [email or web address] Billy r DateTime : 04/24/19 16 02:54:40 PM Not Available Not Available Not Available Fioricet 50 mg-325 mg-40 mg tablet take 1 tablet by oral route every 6 hours as needed not to exceed 6 tablets per 24hrs 01/19 completed Prescrib ed Elsewher e: No Locat ion: [facility] odify By: [email or web address] Lomax ncounter DateTime : 07/14/19 14 09:30:00 AM Not Available Not Available Not Available multivita min capsule take 1 capsule by oral route every day 05/12 completed Prescrib ed Elsewher e: No Locat ion: [facility] odify By: [email or web address] trick En counter DateTime : 07/18/19 12 09:00:00 AM Not Available Not Available Not Available Flexeril 10 mg tablet take 1 tablet (10MG) by oral route 3 times every day prn 07/08 completed Prescrib ed Elsewher e: No Locat ion: [facility] odify By: [email or web address] Encount er DateTime : 05/08/19 12 11:00:00 AM Not Available Not Available Not Available Zithromax 500 mg tablet take 2 tablet (1000MG) by oral route once 01/19 completed Prescrib ed Elsewher e: No Locat ion: [facility] odify By: beverley Lomax ncounter DateTime : 05/20/19 14 09:56:18 AM Not Available Not Available Not Available 03/08 (28) 1 mg-20 mcg (21)/75 mg (7) tablet TAKE 1 TABLET BY ORAL ROUTE EVERY DAY 11/13 completed Prescrib ed Elsewher e: No Locat ion: [facility] odify By: [email or web address] Encounte r DateTime : 10/17/19 17 11:45:00 AM Not Available Not Available Not Available sertralin e 06/19 completed Not Available Not Available Not Available Vitamin D3 10 mcg (400 unit) capsule 07/08 completed Prescrib ed Elsewher e: Yes Loca tion: [facility] odify By: cmedical Encount er DateTime : 12/29/19 11 03:00:00 PM Not Available Not Available Not Available Lo Loestrin Fe 1 mg-10 mcg (24)/10 mcg (2) tablet take 1 tablet by oral route every day 01/20 completed Prescrib ed Elsewher e: No Locat ion: Catherine monie [facility] odify By: cmedical Encount er DateTime : 01/20/20 14 02:15:00 PM Not Available Not Available Not Available Delia cruzo DHA 29 mg-1 mg-400 mg oral pack 07/08 completed Prescrib ed Elsewher e: Yes Loca tion: [facility] monie [facility] odify By: cmedical Encount er DateTime : 12/29/19 11 03:00:00 PM Not Available Not Available Not Available Vitals Date Recorded Body height Body mass index (BMI) Body weight Systolic blood pressure Diastolic blood pressure Provider Name and Address Organization Details Last Updated DateTime 11/05/2022 162.56 cm 21.8 kg/m2 85183.23 g 97 mm[Hg] 66 mm[Hg] Medina Ohara [facility] 3 11:20:04 Date Recorded Body height Body mass index (BMI) Body weight Systolic blood pressure Diastolic blood pressure Provider Name and Address Organization Details Last Updated DateTime 11/19/2022 162.56 cm 21.8 kg/m2 38473.23 g 105 mm[Hg] 67 mm[Hg] [facility] 3 10:15:06 Date Recorded Body height Body mass index (BMI) Body weight Systolic blood pressure Diastolic blood pressure Provider Name and Address Organization Details Last Updated DateTime 12/19/2022 162.56 cm 21.6 kg/m2 61735.64 g 111 mm[Hg] 73 mm[Hg] [facility] 3 10:31:34 Date Recorded Body height Body mass index (BMI) Body weight Systolic blood pressure Diastolic blood pressure Provider Name and Address Organization Details Last Updated DateTime 12/26/2022 162.56 cm 21.6 kg/m2 58656.64 g 98 mm[Hg] 66 mm[Hg] Teresa Lugo [facility] 3 10:27:24 Date Recorded Body height Body mass index (BMI) Body weight Systolic blood pressure Diastolic blood pressure Provider Name and Address Organization Details Last Updated DateTime 06/20/2023 162.56 cm 20.9 kg/m2 60754.27 g 108 mm[Hg] 72 mm[Hg] Sharon Grissomen [facility] 4 10:29:44 Social History Question Answer Notes LastModified by Organizat ion Details LastModified Time Tobacco Smoking Status Current Every Day Smoker Lani Loeraryan [place], [facility] 12/26/2022 10:16:35 Do You Have An Advance Directive? No [email or web address] Information n ot available 06/14/2020 What Is Your Level Of Alcohol Consumption? None [email or web address] Information not available 06/14/2020 If You Are , What Was Your Level Of Alcohol Consumption Prior To ? None [email or web address] Information not available 12/26/2022 Are You Blind Or Do You Have Difficulty Seeing? No [email or web address] Information n ot available 06/14/2020 What Is Your Level Of Caffeine Consumption? Moderate [email or web address] Information not available 06/14/2020 How Much Tobacco Do You Chew? None [email or web address] Information not available 06/14/2020 In The 14 Days Before Symptom Onset, Have You Had Close Contact With A Laboratory-confirm ed COVID-19 While That Case Was Ill? No [email or web address] Information n ot available 06/14/2020 In The 14 Days Before Symptom Onset, Have You Had Close Contact With A Person Who Is Under Investigation For COVID-19 While That Person Was Ill? No [email or web address] Information not available 06/14/2020 Have You Been To An Area Known To Be High Risk For COVID-19? No [email or web address] Information not available 06/14/2020 Are You Deaf Or Do You Have Serious Difficulty Hearing? No Information not available 06/14/2020 What Type Of Diet Are You Following? REGULAR Information n ot available 06/14/2020 What Is The Highest Grade Or Level Of School You Have Completed Or The Highest Degree You Have Received? 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 No [email or web address] Information not available 06/14/2020 Do You Use Protection During Sex? Usually [email or web address] Information not available 06/14/2020 Do You Use Your Seat Belt Or Car Seat Routinely? Yes [email or web address] Information not available 06/14/2020 Do You Have Smoke And Carbon Monoxide Detectors In Your Home? Yes [email or web address] Information not available 06/14/2020 At What Age Did You Start Smoking Tobacco? 17 [email or web address] Information not available 06/14/2020 How Much Tobacco Do You Smoke? 2 PPW [email or web address] Information not available 06/14/2020 Do You Feel Stressed (tense, Restless, Nervous, Or Anxious, Or Unable To Sleep At Night)? [id number] [email or web address] Information not available 06/14/2020 Do You Use Any Illicit Or Recreational Drugs? No [email or web address] Information not available 06/14/2020 Do You Use Sunscreen Routinely? Yes [email or web address] Information not available 06/14/2020 Has Tobacco Cessation Counseling Been Provided? No [email or web address] Information not available 12/26/2022 How Many Years Have You Smoked Tobacco? 15 [email or web address] Information not available 11/19/2022 Have You Used IV Drugs? No [email or web address] Information not available 06/14/2020 Do You Or Have You Ever Used Any Other Forms Of Tobacco Or Nicotine? No [email or web address] Information not available 12/26/2022 Sex: Unknown Functional Status Question Answer Note LastModified by Organizat ion Details LastModified Time Do you have difficulty walking or climbing stairs? No [email or web address] Information not available 12/26/2022 Are you able to walk? YESWOREST [email or web address] Information not available 06/14/2020 Are you able to care for yourself? Yes Information not available 12/26/2022 Do you have difficulty dressing or bathing? No [email or web address] Information not available 12/26/2022 What is your exercise level? Moderate [email or web address] Information not available 06/14/2020 Mental Status None recorded. Family History Relationship Description Onset Age of this Age Resolved Age Notes LastModified by Organization Details LastModified Time Mother Malignant neoplasm of lung [email or web address] Not available 06/16 18:21:28 Brother Asthma [email or web address] Not available 11/05/2022 11:04:07 Medical History Condition Response Allergies (Food, seasonal, environmental ) Y Other N Breast Cancer N Drug/Latex Allergies/Reactions N Blood Transfusion N Dermatologic Disorders N Lung Disease N Defects or Inherited Disease N Breast Problem N Gestational Diabetes N Hematologic disorders N Anesthesia Complications N History of STI Y Deep Vein Thrombosis N Polycystic ovary syndrome N Anxiety Disorder Y Autoimmune disease N Arthritis N Infertility N Polyps N Acid Reflux (GERD) N History of abnormal pap Y Cancer N Stroke N Varicosities N Neurologic/Epilepsy N Endometriosis N High Cholesterol N Headaches N Fibromyalgia N Kidney Disease N Heart Problems N Kidney or Bladder Problems N Thyroid Problems N GI Problems N Eating Disorder [...] SNOMED-CT Code Diagnosis ICD10 Code Diagnosis Note [id number] Dea Garcia, ALCIDES [facility] [address] [address] 06/14/2020 10:42:21 06/14/2020 11:42:05 Dysmenorrhea 351764916 N94.6 Pain in pelvis 36973146 R10.2 [id number] Dea Garcia CNM [facility] [address],[place] [address] 06/30/2020 10:59:55 06/30/2020 12:00:22 Dysmenorrhea 589670720 N94.6 Menorrhagia 928753171 N9 2.0 [id number] Mario Murguia MD [facility] [address],[place] [address] 06/30/2020 10:59:29 06/30/2020 11:47:19 Abnormal uterine bleeding [id number] 9100 N93.9 [id number] Mario Murguia MD [facility] [address],[place] [address] 07/20/2020 10:25:33 07/20/2020 16:04:50 Menorrhagia 123682245 N92.0 This patient is a 30-year-ol d female with severe menorrhagi a. We have agreed to perform endometria l ablation with hysterosco py. She understand s the risks, benefits, and alternativ es. She has completed the informed consent process and is ready to proceed. [id number] Mario Murguia MD [facility] [address],[place] [address] 08/11/2020 09:27:24 08/11/2020 09:28:28 [id number] Mario Murguia MD [facility] [address],[place] [address] 08/24/2020 10:58:41 08/24/2020 12:20:12 Menorrhagia [id number] N92.0 This patient is a 30-year-ol d female presents for follow-up on menorrhagi a. She underwent an endometria l ablation. She is recovering normally from that. She has some very small amount of watery vaginal discharge. We will observe her. She had a good result from her procedure and we hope for amenorrhea . She was given precaution s. [id number] SHEREEN Hartman [facility] [address] [address] 10/15/2022 10:49:00 10/17/2022 12:27:01 Gynecologic examination 34220324 Z01.419 Take Calcium with Vitamin D 1200mg [...] paper copy of today's plan if desired. WWEB - BTLhx of abnormal paps, last in 2018normal pap last in 2019pap updated todaySTI testing added to papblood STI panel declinedfa m hx reviewedUT D with PCP for routine labs Lesion of cervix 7091281 01 N88.9 pinpoint sized darkening noted at 6 oclockwill await pap results and discuss further f/u once reviewed [id number] [facility] [address] [address] 11/05/2022 11:02:11 11/05/2022 11:46:07 Screening procedure 05796998 Z13.9 Low grade squamous intraepithelial lesion on cervical Papanicolaou smear [id number] 9105 R87.612 See procedure notes.Post -procedure instructio ns reviewed with understand ing verbalized .Will contact with results & next steps in plan of care. Counseled on Pap/HPV guidelines /Testing/R esults with understand ing verbalized .All questions answered to patient satisfacti on. Booklet & additional resources regarding pap smear/HPV/ Pap results given. https://ww w.cancer.g ov/types/c ervical/un derstandin g-abnormal -hpv-and-p ap-test-re sults/unde rstanding- cervical-c hanges.pdf [id number] Mario Murguia MD [facility] [address],[place] [address] 11/19/2022 09:40:58 11/19/2022 11:15:10 Dysplasia of cervix 91248994 N87.9 We discussed HPV, cervical dysplasia, cervical [...] es. We spent 25 minutes face-to-fa ce. [id number] Mario Murguia MD [facility] [address],[place] [address] 12/19/2022 10:29:26 12/20/2022 08:51:15 Screening procedure 66319617 Z13.9 Dysplasia of cervix 7339 1008 N87.9 32-year-ol d female presented for the procedure. She tolerated it well. It was completed without complicati ons. [id number] Mario Murguia MD [facility] [address],[place] [address] 06/20/2023 10:14:19 06/23/2023 01:27:18 Dysplasia of cervix 53456682 N87.9 This patient is a 33-year-ol d female who presents for repeat Pap smear after LEEP procedure. This is her 1st repeat Pap smear. The repeat Pap smear was performed. The vulva, vagina, cervix appear normal. She will return in 6 months for repeat Pap smear [id number] Mario Murguia MD [facility] [address] [address] 12/26/2022 10:16:26 12/26/2022 11:24:10 Dysplasia of cervix 84353150 N87.9 32-year-ol d female presents for follow-up [...] Armstrong Member ID Guarantor Name 11/05/2022 1 [facility] (MEDICAID HMO) [id number] 0003 Muriel Tr [id number] Muriel [place] 11/19/2022 1 [facility] (MEDICAID HMO) [id number] 0003 Muriel [place] [id number] Muriel [place] 12/19/2022 1 [facility] (MEDICAID HMO) [id number] 0003 Muriel [place] [id number] Muriel Tr 12/26/2022 1 [facility] (MEDICAID HMO) [id number] 0003 Muriel [place] [id number] Muriel [place] 06/20/2023 1 [facility] (MEDICAID HMO) [id number] 0003 Muriel Tr [id number] Muriel Tr Notes Date Note Type Note Provider Name and Address Organization Details Recorded Time 11/05/2022 text/html Here today for colposcopy due to LGSIL Monica Nicole, [facility]- [address], [place], [address], [facility] 11/05/2022 11:39:12 11/19/2022 text/html We discussed [...] benefits, and alternatives. We spent 25 minutes [id number]. Mario Murguia MD [address], [place], [address], [facility] 11/19/2022 10:50:38 12/19/2022 text/html 32-year-old female who presents for the procedure for severe cervical dysplasia. The procedure was explained to her in detail. She is completed the informed consent process is ready to proceed. She understands risks, benefits, and alternatives. Mario Murguia MD [address], [place], [address], [facility] 12/19/2022 21:26:51 12/26/2022 text/html 32-year-old [...] months. Mario Murguia MD [address], [place], [address], [facility] 12/26/2022 11:07:01 06/20/2023 text/html This patient is a 33-year-old female who presents for repeat Pap smear after LEEP procedure. This is her 1st repeat Pap smear. The repeat Pap smear was performed. The vulva, vagina, cervix appear normal. She will return in 6 months for repeat Pap smear Mario Murguia MD [address], [place], [address], [facility] 06/21/2023 22:54:17 OBGyn Episode Ob Episode Information Episode Created Date Number of Fetuses Patient Bloodtype Patient rh Status Prepregnancy Weight lbs Domestic Partner Domestic Partner Phone Father Name Account Executive Software Sales Status 06/17/19 21 1 CLOSED Fetus Data [...] Domestic Partner Domestic Partner Phone Father Name Account Executive Software Sales Status 06/17/19 21 1 CLOSED Fetus Data [...] Domestic Partner Domestic Partner Phone Father Name Account Executive Software Sales Status 06/17/19 21 1 CLOSED Fetus Data [...] Domestic Partner Domestic Partner Phone Father Name Account Executive Software Sales Status 06/17/19 21 1 CLOSED Fetus Data [...] Domestic Partner Domestic Partner Phone Father Name Account Executive Software Sales Status 06/17/19 21 1 CLOSED Fetus Data [...]
--- OUTSIDE RECORDS SUMMARY | 2024-06-17 00:02 | XMS_ITS | Referral Summary ---
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
--- OUTSIDE RECORDS SUMMARY | 2024-06-17 00:02 | XMS_ITS | Clinical Summary ---
Author Organization [facility] Address [address] [place] [address] Care Team Providers Care Supply Room Clerk Name Role Phone Ebonie Crowe MD Primary Care Provider [phone] Source Comments [facility],non-owned Affiliates and Associated Physician Practices is amultiple site organization consisting of ambulatory clinics and hospital sitesin [place], [place], [place] and [place]. This disclosure is being madepursuant to the Care Everywhere program and may not contain all information available regarding this patient. Last updated 17.[employer] [facility] Allergies No known active allergies Medications * Be aware that medications may not be up to date on this document. Alwaysverify current medications with the patient. No known [...] drink = 0.6 oz pur e alcohol) Comments No Sex and Gender Information Value Date Recorded Sex Assigned at Not on file Legal Sex Female 1:47 PM CDT Gender Identity Not on file Sexual Orientation Not on file Plan of Treatment Health Maintenance Due Date Last Done Comments HIV SCREENING 2004 HEPATITIS C SCREENING 05/28/2007 DTAP/TDAP/TD VACCINES (1 - Tdap) 2008 HEPATITIS B VACCINE (1 of 3 - 19+ 3-dose series) 2008 COVID-19 VACCINE (1 - 2023-2 5 season) 2023 DEPRESSION SCREENING 02/18/2024 INFLUENZA VACCINE (Season Ended) 2024 ZOSTER VACCINE (1 of 2) 06/02/2039 HIB VACCINE Aged Out No longer eligi ble based on patient's age to complete this topic HPV VACCINE Aged Out No longer eligi ble based on patient's age to complete this topic MENINGOCOCCAL (Group B) VACC INE SHARED DECISION-MAKING Aged Out No longer eligibl e based on patient's age to complete this topic MENINGOCOCCAL GROUPS A/C/Y/W VACCINE Aged Out No longer eligible b ased on patient's age to complete this topic PNEUMOCOCCAL VACCINE Aged Out No long er eligible based on patient's age to complete this topic Insurance Care Teams Supply Room Clerk Relationship Specialty Start Date End Date Ebonie Crowe MD [address] [place] [address] PCP - General 04/08/18
--- OUTSIDE RECORDS SUMMARY | 2024-06-17 00:02 | XMS_ITS | Continuity of Care Document ---
Author Organization [facility] Address [address] [place] [address] Phone Care Team Providers Care Telescope Operator Name Role Phone Jesús Wells MD [...] Date Provider Providers Copied on Encounter [facility], [address], [id number], [phone] [facility] No Information 6 Priscilla Espinosa. [address], [address], [place], [place], [id number] , [place]. tel: [phone] Independent Medical Examination BROO[facility], [address], [id number], [place] tel:[phone] [facility] Pathological fracture of lt radius, initial encounter for fractureNondisp fx of left ulna styloid process, init for clos fx 5 Priscilla Espinosa. [address], [facility] [facility] [address], [place], [place], [id number] , [place]. tel: [phone] Family History Family Member Type Diagnosis Age At Onset Problem (finding) Family history of malignant neoplasm of lung Payers Payer name Insurance type Covered republican ID Cherie laws(s) [place] [employer] [id number] Social History Type Description Quantity Date Captured [...]
--- OUTSIDE RECORDS SUMMARY | 2024-06-17 00:02 | XMS_ITS | Clinical Summary ---
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
--- NOTE | 2024-06-17 00:08 | ECG_ITS ---
Test Date: 2024-06-17 00:17:18 Measurements Intervals [place] Rate: 96 P: 75 KS: 154 QRS: 83 QRSD: 94 T: 48 QT: 340 QTc: 430 Interpretive Statements SINUS RHYTHM Compared to ECG 12/28/2023 19:15:58 Sinus tachycardia no longer present Incomplete right bundle-branch block no longer present Electronically Signed On 06-18-2024 18:55:09 CDT by Vinay Castellon
[2024-06-17] MEDS: IPRATROPIUM 0.5 MG/ALBUTEROL SULFATE 2.5 MG AMPUL.NEB 3 ML INHALATION ×3 (00:10→00:50)
--- NOTE | 2024-06-17 00:16 | ED_ITS ---
HPI - SOB/Dyspnea General Chief Complaint: Shortness of Breath/Dyspnea Stated Complaint: sob Time Seen by Provider: 06/17/24 00:06 History of Present Illness HPI Narrative: 34-year-old female with a past medical history including asthma/COPD and recent pneumonia. She thinks she is having an allergic reaction to onion powder. She states that her cooked without any powder and then this afternoon when she ate dinner she had a sudden onset sensation of difficulty breathing and throat closing sensation. She does not have any history of anaphylaxis to her knowledge, no epinephrine at home. She tried a breathing machine treatment with albuterol and Atrovent without any relief of her symptoms. She came to the ER from walk-in triage. Patient looks visibly in distress, short dyspnea sentences, JVD, tachycardic and very wheezy. She was brought back to room 2 for resuscitation. Denies any rash, diarrhea, abdominal pain, fever, chills. No tongue swelling. No lip swelling. No chest pain but states that her chest is tight. Related Data Allergies Allergy/AdvReac Type Severity Reaction Status Date / Time No Known Allergies Allergy Verified 06/15/24 16:19 Review of Systems 2 Review of Systems: As reviewed above in HPI [facility] Past Medical History Medical History History of asthma Family History Family History Mother Lung cancer, Onset Age: 47 Other Emphysema of lung Social History Social History Years smoked: 13 Smoking status: Former smoker Tobacco type: cigarettes Smokeless tobacco user: other Second hand tobacco smoke exposure: No Alcohol intake: never Substance use: former Substance use type: marijuana Do You Feel Safe in your Home?: Yes Lack of Transportation: No Lack of Food: Never True Current Housing: I Have Housing Concerned About Future Housing: No Difficulty Paying Gas/Electric Bills: No Difficulty Paying for Meds: No Currently Unemployed: No Education: High School Diploma/GED Difficulty w/ Childcare or Family Care: No Living arrangements: with family Spiritual care concerns: No Exam 2 Narrative: GENERAL: Uncomfortable appearing, dyspneic, conversational dyspnea HEAD: [Normocephalic, atraumatic.] EYES: [PERRLA and EOMI.] ENT: Nares clear, no rhinorrhea or epistaxis. Mucous membranes moist. JVD bilaterally, no or pharyngeal swelling, uvula is midline without any uvular edema. No posterior oropharyngeal erythema. No base of tongue swelling. Tolerating secretions. NECK: Supple. CHEST: Decreased air entry bilaterally, scattered wheezing with prolonged expiratory phase, right side worse than left HEART: [Regular rate and rhythm]. No murmur heard. [Normal peripheral pulses.] ABDOMEN: [Soft, nondistended], [nontender], [No rigidity or guarding] EXTREMITIES: Normal range of motion. [No edema.] SKIN: Flushed appearing skin on the face and neck, no rash over the abdomen or extremities. NEURO: [No focal deficits]. Alert and oriented [x3.] PSYCH: [Normal mood and affect.] Course Vital Signs Vital signs: Vital Signs Temperature 36.5 C 06/17/24 00:02 Pulse Rate 123 H 06/17/24 00:02 Respiratory Rate 18 06/17/24 00:02 Blood Pressure 111/63 06/17/24 00:02 Pulse Oximetry 91 06/17/24 00:02 Oxygen Delivery Room Air 06/17/24 00:02 Temperature 36.9 C 06/17/24 01:30 Pulse Rate 96 06/17/24 01:53 Respiratory Rate 16 06/17/24 01:53 Blood Pressure 107/70 06/17/24 01:30 Pulse Oximetry 91 06/17/24 01:53 Oxygen Delivery Room Air 06/17/24 00:48 MDM - SOB/Dyspnea MDM Narrative Medical decision making narrative: 34-year-old female with history of asthma/COPD and recent pneumonia. She presents to the emergency room with difficulty breathing that was sudden onset. She states she is having difficulty breathing yesterday and was treated at urgent care and had significant improvement after the treatments there went home. She had a negative x-ray yesterday. Today she thinks that she was exposed to something she is allergic to. She is alert on and pattern her cooked with that this afternoon. After dinner she noted that she was having severe shortness of breath and throat closing sensations as well as appearing flushed. She has very scattered wheezing right worse than left and prolonged expiratory phase with diminished air entry on auscultation. She appears in some distress with tachycardia to keep as well as bilateral JVD. Conversationally dyspneic. She has a warm flushed appearance and skin changes to her anterior neck and face. No base of tongue swelling or uvular edema. She is tolerating secretions. Suspicion for anaphylaxis is raised given the clinical exam findings however she could also be having a severe COPD/asthma exacerbation. She was given 0.3 feeling of mg of subcutaneous epinephrine immediately, placed on cardiac rehabilitation specialist and pulse oximetry, respiratory called to start nebulization treatments. She was given IV Solu-Medrol, Pepcid and diphenhydramine. Basic laboratory studies were drawn as well as a chest x-ray and EKG. She will be observed here in the emergency department for symptom improvement and resolution and to make sure she does not have any rebound signs of anaphylaxis or any worsening respiratory status. After the epinephrine patient had significant respiratory improvement and felt almost 100%. She received nebulization and medications. Her vital signs have since normalized as well as her examination. She is moving oxygen, no signs of wheezing on auscultation, flushing has since subsided. She is no longer feeling like her throat was closing. She was observed in the ER for several hours with any recurrence of her symptoms. She was deemed stable for discharge home at this time and given instructions on how to use an autoinjector epinephrine kit which was prescribed for her as well as instructions to take her steroids from her recent COPD exacerbation to completion and even add Pepcid and diphenhydramine for any remaining allergy symptoms. She was given return precautions and she was safe for discharge. Medical Records Attestation: I reviewed the patient's medical records. Lab Data Attestation: I reviewed the patient's lab results. 06/17/24 00:45 Labs: Lab Results 06/17/24 Range/Units 00:45 WBC 12.4 H (4.5-10.0) K/mm3 RBC 4.64 (4.2-5.4) M/mm3 Hgb 14.0 (12.0-15.0) g/dL Hct 44.5 (37.0-47.0) % MCV 95.9 (80-100) fl MCH 30.2 (26-34) pg MCHC 31.5 L (32-36) g/dl RDW 13.2 (11.5-14.5) % Plt Count 298 (150-375) k/mm3 MPV 9.9 (7.4-10.4) fl Immature Gran % (Auto) 0.4 (0-0.5) % Neut % (Auto) 73.1 (45.5-73.1) % Lymph % (Auto) 17.2 L (18.3-44.2) % [place] % (Auto) 8.8 H (2.6-8.5) % Eos % (Auto) 0.3 (0-4.4) % Baso % (Auto) 0.2 (0.2-1.2) % Lymph # (Auto) 2.13 (0.9-3.2) K/mm3 [place] # (Auto) 1.1 H (0.1-0.6) K/mm3 Eos # (Auto) 0.0 (0-0.3) K/mm3 Baso # (Auto) 0.0 (0.0-0.1) K/mm3 Abs Immat Gran (auto) 0.05 H (0.00-0.031) K/mm3 Absolute Neuts (auto) 9.1 H (1.3-6.7) K/mm3 Absolute Nucleated RBC 0.000 (0.0-0.012) K/mm3 Nucleated RBC % 0.0 (0.0-0.2) % Magnesium 2.2 (1.6-2.3) mg/dL Imaging Data Attestation: I personally reviewed and interpreted this imaging study as follows: My impression: No pneumonia, consolidation or pneumothorax. Critical Care Time Critical Care Time Critical Care Time: Yes Total Critical Care Time: 35 Discharge Plan Discharge Clinical Impression: Anaphylaxis, Asthma-COPD overlap syndrome Patient Disposition: Home Condition: Stable Instructions: Antibiotic Form, Anaphylaxis (ED) Additional Instructions: Your symptoms were consistent with an anaphylactic reaction likely to the exposed allergen. We will send you home with refills of an epinephrine autoinjector. If you experience any rebound symptoms or any future episodes similar to this use the epinephrine and proceed to the nearest emergency department/call 911. Continue taking the steroids that were prescribed recently, you can also take Pepcid and Benadryl [id number] for any allergy symptoms if they are not severe enough to shortness of breath or throat closing sensation. Follow-up with your regular doctor. Return with any concerns. Patient Language: Ethiopian Prescriptions: New epinephrine [EpiPen 2-Huber] 0.3 mg/0.3 mL auto-injector 0.3 mg IM Q5-15M PRN (Reason: anaphylaxis) Qty: 2 0RF Rx Instructions: do not exceed 3 doses per episode No Action prednisone 20 mg tablet See Rx Instructions .Route .COMPLEX Qty: 9 0RF Rx Instructions: Take 40 mg daily for 3 days, 20 mg daily for 3 days albuterol sulfate 0.63 mg/3 mL solution for nebulization 0.63 mg inhalation Q6H Qty: 75 0RF albuterol sulfate [Ventolin HFA] 90 mcg/actuation HFA aerosol inhaler 2 puff inhalation Q4H PRN (Reason: shortness of breath or wheezing) Qty: 8.5 0RF Breo Ellipta 50-25 mcg/dose blister with device 1 inh inhalation ONCE 30 Days Qty: 60 2RF ipratropium-albuterol 0.5 mg-3 mg(2.5 mg base)/3 mL Solution For Nebulization 3 ml inhalation Q6HRT Qty: 30 0RF (DME) nebulizer accessories Kit See Rx Instructions .Route Qty: 1 0RF Rx Instructions: As directed (DME) nebulizer and compressor [Comp-Air Nebulizer Compressor] Device See Rx Instructions .Route Qty: 1 0RF Rx Instructions: As directed albuterol sulfate 90 mcg/actuation HFA aerosol inhaler See Rx Instructions .ROUTE .COMPLEX Qty: 9 0RF Dose Instruction: INHALE 1 PUFF BY MOUTH EVERY 4 HOURS NEEDED FOR SHORTNESS OF BREATH OR WHEEZING Rx Instructions: INHALE 1 PUFF BY MOUTH EVERY 4 HOURS NEEDED FOR SHORTNESS OF BREATH OR WHEEZING Follow-up/Referrals: UNKNOWN,DOCTOR [Primary Care Provider] - Time of Disposition: 03:05
[2024-06-17] MEDS: EPINEPHrine HCL INJ 1 MG/ML AMPUL 0.35 MG SUB-Q (00:18)
[2024-06-17] MEDS: LACTATED RINGERS 1,000 ML 999 ML IV CONT (00:21)
[2024-06-17] MEDS: FAMOTIDINE 20 MG/2 ML VIAL IV PUSH (00:22)
[2024-06-17] MEDS: methylPREDNISolone SOD SUCC 125 MG VIAL IV PUSH (00:22)
[2024-06-17] MEDS: diphenhydrAMINE HCl INJ 50 MG/ML VIAL IV PUSH (00:22)
--- OUTSIDE RECORDS SUMMARY | 2024-06-17 00:37 | XMS_ITS | Clinical Summary ---
Author Organization [facility] Address [address] [place] [address] Care Team Providers Care Carpet Installer Name Role Phone Ebonie Crowe MD Primary Care Provider [phone] Source Comments [facility],non-owned Affiliates and Associated Physician Practices is amultiple site organization consisting of ambulatory clinics and hospital sitesin [place], [place], [place] and [place]. This disclosure is being madepursuant to the Care Everywhere program and may not contain all information available regarding this patient. Last updated 17.[employer] [facility] Allergies No known active allergies Medications * [...] to complete this topic Insurance Care Teams Carpet Installer Relationship Specialty Start Date End Date Ebonie Crowe MD [address] [place] [address] PCP - General 04/08/18
--- OUTSIDE RECORDS SUMMARY | 2024-06-17 00:37 | XMS_ITS | Continuity of Care Document ---
Author Organization [facility] Address [address] [place] [address] Phone Care Team Providers Care Director Sales Name Role Phone Jesús Wells MD Unavailable [...] Date Provider Providers Copied on Encounter [facility] [employer] [facility], [address], [id number], [phone] [facility] No Information 6 Priscilla Espinosa. [address] [facility], [facility] [address], [place], [place], [id number] , [place]. tel: [phone] Independent Medical Examination BROOKS [facility] [employer] [facility], [address], [id number], [place] tel:[phone] [facility] [employer] [facility] Pathological fracture of lt radius, initial encounter for fractureNondisp fx of left ulna styloid process, init for clos fx 5 Priscilla Espinosa. [address] [facility], [facility] [address], [place], [place], [id number] , [place]. tel: [phone] Family History Family Member Type Diagnosis Age At Onset Problem (finding) Family history of malignant neoplasm of lung Payers Payer name Insurance type Covered green party ID Cherie laws(s) [employer] [id number] Social History Type Description Quantity Date Captured [...]
--- OUTSIDE RECORDS SUMMARY | 2024-06-17 00:37 | XMS_ITS | Clinical Summary ---
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
--- OUTSIDE RECORDS SUMMARY | 2024-06-17 00:37 | XMS_ITS | Referral Summary ---
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
[2024-06-17 00:53] LABS: Basophils Percent Auto 0.2 % (0.2-1.2); Eosinophils Percent Auto 0.3 % (0-4.4); Hematocrit 44.5 % (37.0-47.0); Immature Granulocyte Absolute 0.05 K/mm3 (0.00-0.031); Immature Granulocyte Percent A 0.4 % (0-0.5); Lymphocytes Absolute Auto 2.13 K/mm3 (0.9-3.2); Lymphocytes Percent Auto 17.2 % (18.3-44.2); Mean Corpuscular HGB Conc 31.5 g/dl (32-36); Mean Corpuscular Hemoglobin 30.2 pg (26-34); Mean Corpuscular Volume 95.9 fl (80-100); Mean Platelet Volume 9.9 fl (7.4-10.4); Monocytes Absolute Auto 1.1 K/mm3 (0.1-0.6); Monocytes Percent Auto 8.8 % (2.6-8.5); Neutrophils Absolute Auto 9.1 K/mm3 (1.3-6.7); Neutrophils Percent Auto 73.1 % (45.5-73.1); Platelet Count Result 298 k/mm3 (150-375); Red Blood Count 4.64 M/mm3 (4.2-5.4); Red Cell Distribution Width 13.2 % (11.5-14.5); White Blood Count 12.4 K/mm3 (4.5-10.0)
[2024-06-17 01:02] LABS: Magnesium 2.2 mg/dL (1.6-2.3)
--- NOTE | 2024-06-17 03:26 | PC.NURSE ---
pt educated on epi-pen use. Pt also instructed to ask the pharmacy when she goes to continuous pickling line pickler helper the prescription if she can see their epi-pen training device to practice. No questions or concerns.
== END 2024-06-17 03:27 | disposition home or self-care (01) ==
PROVIDERS: Emergency Provider Student in an Organized Health Care Education/Training Program
DX: T78.2XXA Anaphylactic shock, unspecified, initial encounter (principal); J44.9 Chronic obstructive pulmonary disease, unspecified; Z87.891 Personal history of nicotine dependence; Z87.01 Personal history of pneumonia (recurrent); I45.10 Unspecified right bundle-branch block
CPT/HCPCS: 36415; 71045; 83735; 85025; 93005; 94640; 96361; 96374; 96375; 99284; J0171; J1200; J2919; J7120

== ENCOUNTER 2024-06-20 20:49 | Observation (INO) | payer OTHER, SELFPAY ==
--- NOTE | ~2024-06-20 | CT_ITS ---
Clinical Indication: Hypoxia, shortness of breath CT Scan of the Chest with Contrast: Technique: Contiguous sections were acquired throughout the chest after intravenous administration of 100 cc of Omnipaque 350. Dose reduction technique was used on this scan by utilizing automated expos ure control and iterative reconstruction technique. The dose-length product (DLP) was 147.29 mGy-cm. COMPARISON: 12/28/2023 Findings: There is no evidence of any significant mediastinal, hilar or axillary lymphadenopathy. There is no f illing defect in the pulmonary arterial tree to suggest pulmonary embolus. There is no evidence of ao rtic dissection or aneurysm. There is no evidence of pleural or pericardial effusion. There is evidence of emphysema. There are several focal areas of groundglass opacity, possibly left p erihilar region, lingula, and medial right upper lobe, some of which are similar to prior exam. Images through the upper abdomen reveal no abnormalities. Impression: No evidence of pulmonary embolus, aortic dissection, or aortic aneurysm. Advanced emphysema. Scattered focal areas of groundglass opacity, some which are similar to prior exam. Correlate for chr onic pneumonias. Reviewed, dictated and finalized at location . Impression: No evidence of pulmonary embolus, aortic dissection, or aortic aneurysm. Advanced emphysema. Scattered focal areas of groundglass opacity, some which are similar to prior e xam. Correlate for chronic pneumonias.
--- NOTE | ~2024-06-20 | XR_ITS ---
EXAMINATION: XR chest 2V Exam Date/Time: 06/20/2024 21:05 CDT HISTORY: sob Comparison: 06/17/2024, 06/15/2024. RESULT: Lines, tubes, and devices: None. Lungs and pleura: Emphysematous change. No focal consolidation, pleural effusion, or pneumothorax. Cardiomediastinal silhouette: Stable. Other: No acute osseous or upper abdominal finding. IMPRESSION: No acute cardiopulmonary process. Emphysema. Reviewed, dictated and finalized at location K.
[2024-06-20 20:50] VITALS: BP 123/82; PULSE 94; RESP 26; TEMP 36.9; O2SAT 94
--- OUTSIDE RECORDS SUMMARY | 2024-06-20 20:51 | XMS_ITS | Continuity of Care Document ---
Author Organization [facility] Address [address] [place] [address] Phone Care Team Providers Care Manager Ent Name Role Phone Jesús Wells MD Unavailable [...] Date Provider Providers Copied on Encounter [facility], [address], [id number], [phone] [employer] [facility] No Information [address] [facility], [facility] [address], [place], [place], [id number] , [place]. tel: [phone] Independent Medical Examination BROOKS [facility], [address], [id number], [place] tel:[phone] [facility] Pathological fracture of lt radius, initial encounter for fractureNondisp fx of left ulna styloid process, init for clos fx [address] [facility], [facility] [address], [place], [place], [id number] , [place]. tel: [phone] Family History Family Member Type Diagnosis Age At Onset Problem (finding) Family history of malignant neoplasm of lung Payers Payer name Insurance type Covered green party ID Cherie laws(s) [employer] [id number] Social History Type Description Quantity Date Captured [...]
--- OUTSIDE RECORDS SUMMARY | 2024-06-20 20:51 | XMS_ITS | Clinical Summary ---
Author Organization [facility] Address [address] [place] [address] Care Team Providers Care Residential Pest Control Technician Name Role Phone Ebonie Crowe MD Primary Care Provider [phone] Source Comments [facility],non-owned Affiliates and Associated Physician Practices is amultiple site organization consisting of ambulatory clinics and hospital sitesin [place], [place], [place] and [place]. This disclosure is being madepursuant to the Care Everywhere program and may not contain all information available regarding this patient. Last updated 17.[employer] [facility] Allergies No known active allergies Medications * [...] to complete this topic Insurance Care Teams Residential Pest Control Technician Relationship Specialty Start Date End Date Ebonie Crowe MD [address] [place] [address] PCP - General 04/08/18
--- OUTSIDE RECORDS SUMMARY | 2024-06-20 20:51 | XMS_ITS | Clinical Summary ---
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
--- OUTSIDE RECORDS SUMMARY | 2024-06-20 20:51 | XMS_ITS | Referral Summary ---
Author Organization 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
--- OUTSIDE RECORDS SUMMARY | 2024-06-20 20:51 | XMS_ITS | Data Portability ---
Author Organization [facility] [place] Address [address] [place] [address] [place] [address] Care Team Providers Care Excel Vba Developer Name Role Phone PROMISE LAZARO Primary Care Provider [phone] Assessment No assessment recorded. Plan of Treatment Reminders Order Date Submit Date Provider Last Modified By Organization Details Last Modified Time Details Appointments None recorded. Lab test, urine 2022 023 [email or web address] [place], [address], [address], [place], [address], 3 13:03:17 test, urine 2022 023 [email or web address] [place], [address], [address], [place], [address], 3 11:38:17 Referral None recorded. Procedures None recorded. Surgeries loop electrode excision procedure, surgical (LEEP) (SURG) 2022 023 [id number] [facility], [address], [address], [place], [address], 3 09:22:18 Imaging None recorded. Medication Orders [...] [id number] Autho curtis weston Provi urbi: Bridget Isidro NP Colle cted: 10/15 1446 [...] patie nt consi derat ions. Not Available [facility] (Lab) [address], [place], [address], 10/18/2022 12:42:37 11/06/19 23 11/05/2022 SURGI ADI PATHO LOGY surgical pathology SEE RESULT S BELOW CASE REPOR T: Surgi adi Patho logy Repor t Case: [id number] Autho curtis weston Provi rubi: Jamie Peterson Colle cted: 11/05 1646 ERADICATOR Order ing Locat ion: [place] Patho logy [...] Gross ed by Iris rivas Not Available [facility] (Lab) [address], [place], [address], 11/07/2022 13:48:55 11/06/19 23 11/05/2022 pregn lindsay test, urine HCG negati ve Not Available [place] [address], [place], [address], 11/05/2022 11:23:05 12/20/19 23 12/19/2022 SURGI ADI [...] Gross ed by Iris rivas Not Available [facility] (Lab) [address], [place], [address], 12/23/2022 09:10:31 12/20/19 23 12/19/2022 pregn lindsay test, urine HCG negati ve Not Available [place] [address], [place], [address], 12/19/2022 13:03:00 06/20/19 24 06/20/2023 IMAGE GUIDE [...] as clini andrew justin nted. Not Available [facility] (Lab) [address], [place], [address], 06/26/2023 08:17:23 Result Notes None recorded. Problems Name Problem SNOMED Code Status Onset Date Resolution Date Notes Provider Name and Address Organization Details Recorded Time Pregnanc y detectio n examinat ion Completed 201606/16/2020 Encounte r for pregnanc y test, result positive ;Practic e ID: 0001 [place], [facility] 18:13:37 Uterine size for dates discrepa ncy Completed 201606/16/2020 Uterine size-peggy e discrepa ncy, first trimeste r;Practi ce ID: 0001 [place], [facility] 18:14:10 Gestatio n less than 9 weeks [id number] Completed 201606/16/2020 Less than 8 weeks gestatio n of pregnanc y;Practi ce ID: 0001 [place] [facility], [facility] 18:12:40 Secondar y amenorrh ea [id number] Completed 201606/16/2020 Secondar y amenorrh ea;Pract ice ID: 0001 [place], [facility] 18:13:53 Normal pregnanc y in multigra sheng [id number] 4106 Completed 201606/16/2020 Encounte r for suprvsn of normal pregnanc y, first trimeste r;Practi ce ID: 0001 [place], [facility] 18:13:30 Antenata l screenin g Completed 201606/16/2020 Encounte r for antenata l screenin g for nuchal transluc ency;Pra ctice ID: 0001 [place], [facility] 18:11:55 Antenata l screenin g for malforma tion Completed 201606/16/2020 Encounte r for antenata l screenin g for malforma tions;Pr actice ID: 0001 [place] Ohara all[place], [facility] 18:11:58 Uterine size for dates discrepa ncy Completed 201706/16/2020 Uterine size-peggy e discrepa ncy, second trimeste r;Practi ce ID: 0001 [place] [facility], [facility] 18:14:12 Gestatio n period, 31 weeks [id number] Completed 201706/16/2020 31 weeks gestatio n of pregnanc y;Practi ce ID: 0001 [place] [facility], [facility] 18:12:41 Benign essentia l hyperten nicky complica ting pregnanc y, childbir th and the puerperi um - delivere d with postnata l complica tion [id number] Completed 201106/16/2020 Benign essentia l hyperten nicky, with delivery , with mention of postpart um complica tion;Rec orded Elsewher e: No Locat ion: [facility] S ource: EHR Project Manager Industrial drew: N Practi ce ID: 0001 Js lable Time: 10:00:00 AM [place] Oliveirapaulo [place], [facility] 18:12:27 Screenin g for malignan t neoplasm of cervix Completed 201306/16/2020 Screenin g for malignan t neoplasm s of the cervix;R ecorded Elsewher e: No Locat ion: [facility] S ource: EHR Project Manager Industrial drew: N Practi ce ID: 0001 Js lable Time: 10:45:00 AM [place] Ohara allen, [facility] 1 18:13:51 Routine antenata l care Completed 201306/16/2020 Supervis ion of other normal pregnanc y;Record ed Elsewher e: No Locat ion: [facility] S ource: EHR Project Manager Industrial drew: Corey Perez ce ID: 0001 Js lable Time: 10:30:00 AM [place] [facility], [facility] 1 18:13:46 Lochia finding Completed 201706/16/2020 Encounte r for routine postpart um follow-u p;Record ed Elsewher e: No Locat ion: [facility] S ource: EHR Project Manager Industrial drew: Corey Perez ce ID: 0001 Js lable Time: 11:00:00 AM [place] [facility], [facility] 18:13:12 Atypical squamous cells on cervical Papanico laou smear cannot exclude high grade squamous intraepi thelial lesion [id number] Completed 201606/16/2020 Atyp squam cell not excl hi grd intrepit h lesn cyto smr crvx;Rec orded Elsewher e: No Locat ion: [facility] S ource: EHR Project Manager Industrial drew: Corey Perez ce ID: 0001 Js lable Time: 10:30:00 AM [place] [facility], [facility] 1 18:12:03 Postpart um care Completed 201106/16/2020 Routine postpart um follow-u p;Record ed Elsewher e: No Locat ion: [facility] S ource: EHR Project Manager Industrial drew: N Chris ce ID: 0001 Js lable Time: 09:30:00 AM [place] Ohara all[place], [facility] 1 18:13:34 Ultrason ography Completed 05/01/ 2014 06/16/2020 Antenata l screenin g for malforma tion using ultrason ics;Gerald rded Elsewher e: No Locat ion: [facility] S ource: EHR Project Manager Industrial drew: Corey Perez ce ID: 0001 Js lable Time: 10:30:00 AM [place] [facility], [facility] 1 18:14:09 Congenit al malforma tion [id number] Completed 201306/16/2020 Antenata l screenin g for malforma tion using ultrason ics;Gerald rded Elsewher e: No [facility]: EHR Project Manager Industrial drew: Corey Perez ce ID: 0001 Js lable Time: 10:30:00 AM [place], [facility] 1 18:12:29 Atypical squamous cells of undeterm ined signific ance on cervical Papanico laou smear 283207785 Completed 201606/16/2020 Atyp squam cell of undet signfc cyto smr crvx (ASC-US) ;Recorde d Elsewher e: No Locat ion: [facility] S ource: EHR Project Manager Industrial drew: Corey Perez ce ID: 0001 Js lable Time: 11:45:00 AM [place] Ohara [facility] 1 18:12:[address] Concept Completed 201706/16/2020 Encntr for pierogi maker exam (general ) (routine ) w/o abn findings ;Recorde d Elsewher e: No Locat ion: [facility] S ource: EHR Project Manager Industrial drew: Corey Perez ce ID: 0001 Js lable Time: 11:00:00 AM [place] [facility] 1 18:13:[address] Concept Completed 201706/16/2020 Encntr for general adult medical exam w/o abnormal findings ;Recorde d Elsewher e: No [facility]at ion[facility] ource: EHR Project Manager Industrial drew: Corey Perez ce ID: 0001 Js lable Time: 05:00:00 PM [place] Oh[place], [facility] 1 18:13:56 Procedur e on genitour inary system Completed 201706/16/2020 Encounte r for surgical aftercar e followin g surgery on the genitour inary system;R ecorded Elsewher e: No Locat ion: [facility] S ource: EHR Project Manager Industrial drew: N Chris ce ID: 0001 Js lable Time: 09:30:00 AM [place] Ohara [place], [facility] 1 18:13:44 Postoper ative care Completed 201706/16/2020 Encounte r for surgical aftercar e followin g surgery on the genitour inary system;R ecorded Elsewher e: No Locat ion: [facility] S ource: EHR Project Manager Industrial drew: N Chris ce ID: 0001 Js lable Time: 09:30:00 AM [place], [facility] 1 18:13:32 Pregnanc y test negative [id number] Completed 201406/16/2020 Pregnanc y examinat ion or test, negative result;R ecorded Elsewher e: No Locat ion: [facility] S ource: EHR Project Manager Industrial drew: N Chris ce ID: 0001 Js lable Time: 11:00:00 AM [place] Oh[place], [facility] 1 18:13:[address] Concept Completed 201506/16/2020 Encounte r for supervis ion of normal pregnanc y, unspecif ied, second trimeste r;Record ed Elsewher e: No Locat ion: [facility] S ource: EHR Project Manager Industrial drew: N Chris ce ID: 0001 Js lable Time: 03:00:00 PM [place] [facility] 1 18:14:00 Sciatica Completed 201606/16/2020 Sciatica ;Recorde d Elsewher e: No Locat ion: [facility] S ource: EHR Project Manager Industrial drew: N Bibianati ce ID: 0001 Js lable Time: 09:15:00 AM [place], [facility] 1 18:13:47 Educatio n Completed 201706/16/2020 Encounte r for family planning advice NOS;Gerald rded Elsewher e: No Locat ion: [facility] S ource: EHR Project Manager Industrial drew: N Bibianati ce ID: 0001 Js lable Time: 08:30:00 AM [place] [facility], [facility] 18:12:36 Speciali zed medical examinat ion Completed 201306/16/2020 Gynecolo gical Examinat ion;Gerald rded Elsewher e: No Locat ion: [facility] S ource: EHR Project Manager Industrial drew: N Chris ce ID: 0001 Js lable Time: 10:45:00 AM [place], [facility] 18:14:01 Cytologi c finding [id number] Completed 201406/16/2020 Papanico laou smear of cervix with low grade squamous intraepi thelial lesion (LGSIL); Recorded Elsewher e: No Locat ion: [facility] Chris ce ID: 0001 Js lable Time: 05:00:00 PM [place] [facility] 18:12:31 Low grade squamous intraepi thelial lesion on cervical Papanico laou smear [id number] 105 Completed 201706/16/2020 Low grade intrepit h lesion cyto smr crvx (LGSIL); Recorded Elsewher e: No Locat ion: [facility] S ource: EHR Project Manager Industrial drew: N Chris ce ID: 0001 Js lable Time: 05:00:00 PM [place], [facility] 18:13:27 Primigra sheng [id number] Completed 201006/16/2020 Supervis ion of normal first pregnanc y;Bibianati ce ID: 0001 [place], [facility] 18:13:42 anatomy study Completed 201006/16/2020 [facility] ANATMC SURVEY;P ractice ID: 0001 [place] [facility], [facility] 18:12:38 Delivery normal 71627199 Completed 201106/16/2020 Normal delivery ;Practic e ID: 0001 [place], [facility] 18:12:34 Single live from singleto n pregnanc y 520789545 Completed 201106/16/2020 Mother with single liveborn ;Practic e ID: 0001 [place] [facility], [facility] 18:13:55 Human papillom avirus deoxyrib onucleic acid detected , high risk on cervical specimen 568155904 Completed 201406/16/2020 Cervical high risk HPV DNA test positive ;Recorde d Elsewher e: No Locat ion: [facility] S ource: EHR Project Manager Industrial drew: N Chris ce ID: 0001 Js lable Time: 05:00:00 PM [place], [facility] 18:13:06 Venereal disease screenin g Completed 201406/16/2020 Screenin g examinat ion for venereal disease; Recorded Elsewher e: No Locat ion: [facility] Chris ce ID: 0001 Js lable Time: 11:00:00 AM [place] [facility] 1 18:14:14 Pregnanc y test positive [id number] Completed 201306/16/2020 Pregnanc y examinat ion or test, positive result;R ecorded Elsewher e: No Locat ion: [facility] S ource: EHR Project Manager Industrial drew: Corey Mccartyti ce ID: 0001 Js lable Time: 10:45:00 AM [place] Ohara [facility] 18:13:40 Adult health examinat ion Completed 201406/16/2020 ROUTINE MEDICAL EXAM;Rec orded Elsewher e: No Locat ion: [facility] S ource: EHR Project Manager Industrial drew: Corey Perez ce ID: 0001 Js lable Time: 11:00:00 AM [place] Ohara [facility] 18:11:54 Speciali zed medical examinat ion Completed 201406/16/2020 Other specifie d chlamydi al diseases ;Recorde d Elsewher e: No Locat ion: [facility] S ource: EHR Project Manager Industrial drew: Corey Perez ce ID: 0001 Js lable Time: 11:00:00 AM [place] Ohara all[place], [facility] 1 18:14:03 Low risk human papillom avirus deoxyrib onucleic acid detected in specimen from cervix [id number] 725800 Completed 201406/16/2020 Cervical low risk HPV DNA test positive ;Practic e ID: 0001 [place] Ohara [place], [facility] 18:13:10 Term pregnanc y delivere d 29398070 Completed 201506/16/2020 Encounte r for full-ter m uncompli cated delivery ;Practic e ID: 0001 [place] Ohara all[place], [facility] 18:14:06 Gestatio n period, 38 weeks 86305368 Completed 201506/16/2020 38 weeks gestatio n of pregnanc y;Practi ce ID: 0001 [place], [facility] 18:12:44 Gestatio n period, 39 weeks 77562142 Completed 201706/16/2020 39 weeks gestatio n of pregnanc y;Practi ce ID: 0001 [place], [facility] 18:12:46 Steriliz ation procedur e Completed 201706/16/2020 Encounte r for steriliz ation;Pr actice ID: 0001 [place], [facility] 18:14:04 Problem Notes None recorded. Procedures Surgical History Date Name Laterality Status Provider Name and Address Organization Details Recorded Time 12/20/19 23 LEEP completed Mario Murguia MD [address], [place], [address], [facility] 12/19/2022 21:25:56 12/20/19 23 LEEP completed Teresa Lugo [facility] 12/26/2022 10:27:53 11/06/19 23 Colposcopy completed Monica Nicole OLIVIA- [address], [place], [address], [facility] 11/05/2022 11:38:06 11/06/19 23 Colposcopy completed [place] Ohara [facility] 11/05/2022 11:24:41 11/06/19 23 Colposcopy completed [place] Ohara [facility] 11/05/2022 11:21:10 10/16/19 23 Date of Last Pap Smear completed [place] Ohara [facility] 11/05/2022 11:24:20 08/12/19 21 HYSTEROSCOPY, WITH ENDOMETRIAL ABLATION (SURG) completed Lissette Lowe [facility] 08/11/2020 10:39:26 07/01/19 21 Endometrial Biopsy completed Dea Garcia CNM [address], [place], [address], [facility] 06/30/2020 11:53:30 07/01/19 21 endometrial biopsy completed [facility] 06/30/2020 11:36:07 09/05/19 18 Colposcopy completed [facility] 06/16/2020 18:22:03 02/17/19 18 Tubal Ligation completed [facility] 06/16/2020 18:22:14 10/29/19 17 Colposcopy completed [facility] 06/16/2020 18:21:50 08/09/19 15 Colposcopy completed [facility] 06/16/2020 18:25:15 04/18/19 11 termination of completed [facility] 06/16/2020 18:22:26 Colposcopy completed [facility] 11/19/2022 10:15:28 Tubal Ligation completed [facility] 11/19/2022 10:15:28 Endometrial Ablation completed [facility] 11/19/2022 10:15:28 Imaging Results None recorded. [...] Prescrib ed Elsewher e: No Locat ion: [facility] odify By: cmedical Encount er DateTime : [...] Prescrib ed Elsewher e: No [facility]at [facility] odify By: [email or web address] Encount er DateTime : [...] Prescrib ed Elsewher e: No [facility]at [facility] By: [email or web address] Billy r DateTime : 04/24/19 16 02:54:40 PM Not Available Not Available Not Available Fioricet 50 mg-325 mg-40 mg tablet take 1 tablet by oral route every 6 hours as needed not to exceed 6 tablets per 24hrs 01/19 completed Prescrib ed Elsewher e: No Locat ion: [facility]ax [facility] odify By: [email or web address] Lomax ncounter DateTime : 07/14/19 14 09:30:00 AM Not Available Not Available Not Available multivita min capsule take 1 capsule by oral route every day 05/12 completed Prescrib ed Elsewher e: No Locat ion: [facility] lomax [facility] odify By: [email or web address] trick En counter DateTime : 07/18/19 12 09:00:00 AM Not Available Not Available Not Available Flexeril 10 mg tablet take 1 tablet (10MG) by oral route 3 times every day prn 07/08 completed Prescrib ed Elsewher e: No Locat ion: [facility] lomax [facility] odify By: [email or web address] Encount er DateTime : 05/08/19 12 11:00:00 AM Not Available Not Available Not Available Zithromax 500 mg tablet take 2 tablet (1000MG) by oral route once 01/19 completed Prescrib ed Elsewher e: No Locat ion: [facility] l[facility] odify By: beverley Lomax ncounter DateTime : 05/20/19 14 09:56:18 AM Not Available Not Available Not Available 03/08 (28) 1 mg-20 mcg (21)/75 mg (7) tablet TAKE 1 TABLET BY ORAL ROUTE EVERY DAY 11/13 completed Prescrib ed Elsewher e: No Locat ion: [facility] l[facility]ax [facility] odify By: [email or web address] Encounte r DateTime : 10/17/19 17 11:45:00 AM Not Available Not Available Not Available sertralin e 06/19 completed Not Available Not Available Not Available Vitamin D3 10 mcg (400 unit) capsule 07/08 completed Prescrib ed Elsewher e: Yes Loca tion: [facility] l[facility] odify By: cmedical Encount er DateTime : 12/29/19 11 03:00:00 PM Not Available Not Available Not Available Lo Loestrin Fe 1 mg-10 mcg (24)/10 mcg (2) tablet take 1 tablet by oral route every day 01/20 completed Prescrib ed Elsewher e: No Locat ion: Catherine monie [facility] odify By: cmedical Encount er DateTime : 01/20/20 14 02:15:00 PM Not Available Not Available Not Available Delia cruzo DHA 29 mg-1 mg-400 mg oral pack 07/08 completed Prescrib ed Elsewher e: Yes Loca tion: [facility] monie [facility] odify By: cmedical Encount er DateTime : 12/29/19 11 03:00:00 PM Not Available Not Available Not Available Vitals Date Recorded Body height Body mass index (BMI) Body weight Systolic blood pressure Diastolic blood pressure Provider Name and Address Organization Details Last Updated DateTime 11/05/2022 162.56 cm 21.8 kg/m2 52658.23 g 97 mm[Hg] 66 mm[Hg] [place] Ohara [facility] 3 11:20:04 Date Recorded Body height Body mass index (BMI) Body weight Systolic blood pressure Diastolic blood pressure Provider Name and Address Organization Details Last Updated DateTime 11/19/2022 162.56 cm 21.8 kg/m2 67386.23 g 105 mm[Hg] 67 mm[Hg] [facility] 3 10:15:06 Date Recorded Body height Body mass index (BMI) Body weight Systolic blood pressure Diastolic blood pressure Provider Name and Address Organization Details Last Updated DateTime 12/19/2022 162.56 cm 21.6 kg/m2 28413.64 g 111 mm[Hg] 73 mm[Hg] [facility] 3 10:31:34 Date Recorded Body height Body mass index (BMI) Body weight Systolic blood pressure Diastolic blood pressure Provider Name and Address Organization Details Last Updated DateTime 12/26/2022 162.56 cm 21.6 kg/m2 91092.64 g 98 mm[Hg] 66 mm[Hg] Teresa Lugo [facility] 3 10:27:24 Date Recorded Body height Body mass index (BMI) Body weight Systolic blood pressure Diastolic blood pressure Provider Name and Address Organization Details Last Updated DateTime 06/20/2023 162.56 cm 20.9 kg/m2 23667.27 g 108 mm[Hg] 72 mm[Hg] Sharon Grissomen [facility] 4 10:29:44 Social History Question Answer Notes LastModified by Organizat ion Details LastModified Time Tobacco Smoking Status Current Every Day Smoker [place] Loeraryan [place], [facility] 12/26/2022 10:16:35 Do You Have An Advance Directive? No [email or web address] Information n ot available 06/14/2020 What Is Your Level Of Alcohol Consumption? None [email or web address] Information not available 06/14/2020 If You Are , What Was Your Level Of Alcohol Consumption Prior To ? None Information not available 12/26/2022 Are You Blind Or Do You Have Difficulty Seeing? No [email or web address] Information n ot available 06/14/2020 What Is Your Level Of Caffeine Consumption? Moderate Information not available 06/14/2020 How Much Tobacco Do You Chew? None [email or web address] Information not available 06/14/2020 In The 14 Days Before Symptom Onset, Have You Had Close Contact With A Laboratory-confirm ed COVID-19 While That Case Was Ill? No [email or web address] Information n ot available 06/14/2020 In The 14 Days Before Symptom Onset, Have You Had Close Contact With A Person Who Is Under Investigation For COVID-19 While That Person Was Ill? No [email or web address] Information not available 06/14/2020 Have You Been To An Area Known To Be High Risk For COVID-19? No Information not available 06/14/2020 Are You Deaf Or Do You Have Serious Difficulty Hearing? No [email or web address] Information not available 06/14/2020 What Type Of Diet Are You Following? REGULAR [email or web address] Information n ot available 06/14/2020 What Is The Highest Grade Or Level Of School You Have Completed Or The Highest Degree You Have Received? [id number] [email or web address] Information not available 06/14/2020 What Is Your Occupation? 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 No [email or web address] Information not available 06/14/2020 Do You Use Protection During Sex? Usually [email or web address] Information not available 06/14/2020 Do You Use Your Seat Belt Or Car Seat Routinely? Yes [email or web address] Information not available 06/14/2020 Do You Have Smoke And Carbon Monoxide Detectors In Your Home? Yes [email or web address] Information not available 06/14/2020 At What Age Did You Start Smoking Tobacco? 17 [email or web address] Information not available 06/14/2020 How Much Tobacco Do You Smoke? 2 PPW [email or web address] Information not available 06/14/2020 Do You Feel Stressed (tense, Restless, Nervous, Or Anxious, Or Unable To Sleep At Night)? [id number] [email or web address] Information not available 06/14/2020 Do You Use Any Illicit Or Recreational Drugs? No [email or web address] Information not available 06/14/2020 Do You Use Sunscreen Routinely? Yes [email or web address] Information not available 06/14/2020 Has Tobacco Cessation Counseling Been Provided? No [email or web address] Information not available 12/26/2022 How Many Years Have You Smoked Tobacco? 15 [email or web address] Information not available 11/19/2022 Have You Used IV Drugs? No [email or web address] Information not available 06/14/2020 Do You Or Have You Ever Used Any Other Forms Of Tobacco Or Nicotine? No [email or web address] Information not available 12/26/2022 Sex: Unknown Functional Status Question Answer Note LastModified by Organizat ion Details LastModified Time Do you have difficulty walking or climbing stairs? No [email or web address] Information not available 12/26/2022 Are you able to walk? [email or web address] Information not available 06/14/2020 Are you able to care for yourself? Yes [email or web address] Information not available 12/26/2022 Do you have difficulty dressing or bathing? No [email or web address] Information not available 12/26/2022 What is your exercise level? Moderate Information not available 06/14/2020 Mental Status None recorded. Family History Relationship Description Onset Age of this Age Resolved Age Notes LastModified by Organization Details LastModified Time Mother Malignant neoplasm of lung [email or web address] Not available 06/16 18:21:28 Brother Asthma [email or web address] Not available 11/05/2022 11:04:07 Medical History Condition [...] SNOMED-CT Code Diagnosis ICD10 Code Diagnosis Note [id number] Dea Garcia, ALCIDES [place] [address] [address] 06/14/2020 10:42:21 06/14/2020 11:42:05 Dysmenorrhea 132537994 N94.6 Pain in pelvis 65982930 R10.2 [id number] Dea Garcia CNM [place] [address],[place] [address] 06/30/2020 10:59:55 06/30/2020 12:00:22 Dysmenorrhea 235312086 N94.6 Menorrhagia 642344541 N9 2.0 [id number] Mario Murguia MD [place] [address],[place] [address] 06/30/2020 10:59:29 06/30/2020 11:47:19 Abnormal uterine bleeding [id number] 9100 N93.9 [id number] Mario Murguia MD [place] [address],[place] [address] 07/20/2020 10:25:33 07/20/2020 16:04:50 Menorrhagia 112698702 N92.0 This patient is a 30-year-ol d female with severe menorrhagi a. We have agreed to perform endometria l ablation with hysterosco py. She understand s the risks, benefits, and alternativ es. She has completed the informed consent process and is ready to proceed. [id number] Mario Murguia MD [place] [address],[place] [address] 08/11/2020 09:27:24 08/11/2020 09:28:28 [id number] Mario Murguia MD [place] [address],[place] [address] 08/24/2020 10:58:41 08/24/2020 12:20:12 Menorrhagia 081909201 N92.0 This patient is a 30-year-ol d female presents for follow-up on menorrhagi a. She underwent an endometria l ablation. She is recovering normally from that. She has some very small amount of watery vaginal discharge. We will observe her. She had a good result from her procedure and we hope for amenorrhea . She was given precaution s. [id number] SHEREEN Hartman [place] [address] [address] 10/15/2022 10:49:00 10/17/2022 12:27:01 Gynecologic examination 69761273 Z01.419 Take Calcium with Vitamin D 1200mg [...] PCP for routine labs Lesion of cervix 4796768 01 N88.9 pinpoint sized darkening noted at 6 oclockwill await pap results and discuss further f/u once reviewed [id number] [facility] [address] [address] 11/05/2022 11:02:11 11/05/2022 11:46:07 Screening procedure 81359813 Z13.9 Low grade squamous intraepithelial lesion on cervical Papanicolaou smear [id number] 9105 R87.612 See procedure notes.Post -procedure instructio ns reviewed with understand ing verbalized .Will contact with results & next steps in plan of care. Counseled on Pap/HPV guidelines /Testing/R esults with understand ing verbalized .All questions answered to patient satisfacti on. Booklet & additional resources regarding pap smear/HPV/ Pap results given. https://ww w.cancer.g ov/types/c ervical/un derstandin g-abnormal -hpv-and-p ap-test-re sults/unde rstanding- cervical-c hanges.pdf [id number] Mario Murguia MD [place] [address],[place] [address] 1 11/19/2022 09:40:58 11/19/2022 11:15:10 Dysplasia of cervix 46250199 N87.9 We discussed HPV, cervical dysplasia, cervical [...] es. We spent 25 minutes face-to-fa ce. [id number] Mario Murguia MD [place] [address],[place] [address] 12/19/2022 10:29:26 12/20/2022 08:51:15 Screening procedure 00969758 Z13.9 Dysplasia of cervix 7339 1008 N87.9 32-year-ol d female presented for the procedure. She tolerated it well. It was completed without complicati ons. [id number] Mario Murguia MD [place] [address],[place] [address] 06/20/2023 10:14:19 06/23/2023 01:27:18 Dysplasia of cervix 95947354 N87.9 This patient is a 33-year-ol d female who presents for repeat Pap smear after LEEP procedure. This is her 1st repeat Pap smear. The repeat Pap smear was performed. The vulva, vagina, cervix appear normal. She will return in 6 months for repeat Pap smear [id number] Mario Murguia MD [place] [address] [address] 12/26/2022 10:16:26 12/26/2022 11:24:10 Dysplasia of cervix 65995453 N87.9 32-year-ol d female presents for follow-up [...] Armstrong Member ID Guarantor Name 11/05/2022 1 [facility] (MEDICAID HMO) [id number] 0003 Muriel Tr [id number] Muriel [place] 11/19/2022 1 [facility] (MEDICAID HMO) [id number] 0003 Muriel [place] [id number] Muriel [place] 12/19/2022 1 [facility] (MEDICAID HMO) [id number] 0003 Muriel [place] [id number] Muriel Tr 12/26/[address] [facility] (MEDICAID HMO) [id number] 0003 Muriel [place] [id number] Muriel [place] 06/20/2023 1 [facility] (MEDICAID HMO) [id number] 0003 Muriel Tr [id number] Muriel Tr Notes Date Note Type Note Provider Name and Address Organization Details Recorded Time 11/05/2022 text/html Here today for colposcopy due to LGSIL Monica Nicole, [facility]- [address], [place], [address], [facility] 11/05/2022 11:39:12 11/19/2022 text/html We discussed [...] benefits, and alternatives. We spent 25 minutes [id number]. Mario Murguia MD [address], [place], [address], [facility] 11/19/2022 10:50:38 12/19/2022 text/html 32-year-old female who presents for the procedure for severe cervical dysplasia. The procedure was explained to her in detail. She is completed the informed consent process is ready to proceed. She understands risks, benefits, and alternatives. Mario Murguia MD [address], [place], [address], [facility] 12/19/2022 21:26:51 12/26/2022 text/html 32-year-old female [...] months. Mario Murguia MD [address], [place], [address], [facility] 12/26/2022 11:07:01 06/20/2023 text/html This patient is a 33-year-old female who presents for repeat Pap smear after LEEP procedure. This is her 1st repeat Pap smear. The repeat Pap smear was performed. The vulva, vagina, cervix appear normal. She will return in 6 months for repeat Pap smear aMrio Murguia MD [address], [place], [address], [facility] 06/21/2023 22:54:17 OBGyn Episode Ob Episode Information Episode Created Date Number of Fetuses Patient Bloodtype Patient rh Status Prepregnancy Weight lbs Domestic Partner Domestic Partner Phone Father Name Washateria Attendant Status 06/17/19 21 1 CLOSED Fetus Data [...] Domestic Partner Domestic Partner Phone Father Name Washateria Attendant Status 06/17/19 21 1 CLOSED Fetus Data [...] Domestic Partner Domestic Partner Phone Father Name Washateria Attendant Status 06/17/19 21 1 CLOSED Fetus Data [...] Domestic Partner Domestic Partner Phone Father Name Washateria Attendant Status 06/17/19 21 1 CLOSED Fetus Data [...] Domestic Partner Domestic Partner Phone Father Name Washateria Attendant Status 06/17/19 21 1 CLOSED Fetus Data [...]
--- NOTE | 2024-06-20 20:55 | ECG_ITS ---
Test Date: 2024-06-20 20:59:59 Measurements Intervals [place] Rate: 79 P: 64 VA: 152 QRS: 109 QRSD: 98 T: 68 QT: 361 QTc: 415 Interpretive Statements SINUS RHYTHM MARKED RIGHT AXIS DEVIATION [QRS AXIS > 100] MINIMAL ST DEPRESSION [0.025+ mV ST DEPRESSION] Compared to ECG 06/17/2024 00:17:18 Right-axis deviation now present ST (T wave) deviation now present Electronically Signed On 06-21-2024 06:48:08 CDT by Checo Dunham M.D.
[2024-06-20 21:05] VITALS: O2SAT 90
[2024-06-20 21:11] LABS: Basophils Percent Auto 0.3 % (0.2-1.2); Eosinophils Absolute Auto 0.1 K/mm3 (0-0.3); Eosinophils Percent Auto 1.1 % (0-4.4); Hemoglobin 13.6 g/dL (12.0-15.0); Immature Granulocyte Absolute 0.04 K/mm3 (0.00-0.031); Immature Granulocyte Percent A 0.3 % (0-0.5); Lymphocytes Absolute Auto 3.73 K/mm3 (0.9-3.2); Lymphocytes Percent Auto 29.1 % (18.3-44.2); Mean Corpuscular HGB Conc 31.6 g/dl (32-36); Mean Corpuscular Volume 94.7 fl (80-100); Mean Platelet Volume 9.6 fl (7.4-10.4); Monocytes Percent Auto 7.8 % (2.6-8.5); Neutrophils Absolute Auto 7.9 K/mm3 (1.3-6.7); Neutrophils Percent Auto 61.4 % (45.5-73.1); Platelet Count Result 273 k/mm3 (150-375); Red Blood Count 4.54 M/mm3 (4.2-5.4); Red Cell Distribution Width 12.9 % (11.5-14.5); White Blood Count 12.8 K/mm3 (4.5-10.0)
[2024-06-20 21:23] LABS: Alanine Aminotransferase 24 U/L (6-35); Albumin Level 4.5 g/dL (3.5-5.1); Alkaline Phosphatase 74 U/L (38-126); Anion Gap 7 mmol/L (4-12); Aspartate Amino Transferase 30 U/L (14-36); Bilirubin,Total 0.5 mg/dL (0.2-1.3); Blood Urea Nitrogen 13 mg/dL (7-17); Calcium 9.4 mg/dL (8.4-10.2); Carbon Dioxide 29 mmol/L (22-30); Chloride 104 mmol/L (98-107); Estimated CRCL calculation 95 ml/min; Estimated Glomerular Filt Rate > 60; Glucose 108 mg/dL (65-110); Potassium 3.5 mmol/L (3.4-5.0); Sodium 140 mmol/L (137-145)
--- OUTSIDE RECORDS SUMMARY | 2024-06-20 21:30 | XMS_ITS | Referral Summary ---
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
--- OUTSIDE RECORDS SUMMARY | 2024-06-20 21:30 | XMS_ITS | Continuity of Care Document ---
Author Organization [facility] Address [address] [place] [address] Phone Care Team Providers Care Technical Implementation Lead Name Role Phone Jesús Wells MD [...] Date Provider Providers Copied on Encounter [facility], [address], [id number], [phone] [facility] No Information 6 Priscilla Espinosa. [address] [facility] [address], [place], [place], [id number] , [place]. tel: [phone] Independent Medical Examination BROOKS [facility], [address], [id number], [place] tel:[phone] [facility] Pathological fracture of lt radius, initial encounter for fractureNondisp fx of left ulna styloid process, init for clos fx 5 Priscilla Espinosa. [address] [facility] [address], [place], [place], [id number] , [place]. tel: [phone] Family History Family Member Type Diagnosis Age At Onset Problem (finding) Family history of malignant neoplasm of lung Payers Payer name Insurance type Covered libertarian ID Cherie laws(s) [employer] [id number] Social History Type Description Quantity Date Captured [...]
--- OUTSIDE RECORDS SUMMARY | 2024-06-20 21:30 | XMS_ITS | Clinical Summary ---
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
--- OUTSIDE RECORDS SUMMARY | 2024-06-20 21:30 | XMS_ITS | Clinical Summary ---
Author Organization [facility] Address [address] [place] [address] Care Team Providers Care Pv Design Engineer Name Role Phone Ebonie Crowe MD Primary Care Provider [phone] Source Comments [facility],non-owned Affiliates and Associated Physician Practices is amultiple site organization consisting of ambulatory clinics and hospital sitesin [place], [place], [place] and [place]. This disclosure is being madepursuant to the Care Everywhere program and may not contain all information available regarding this patient. Last updated 17.[employer] [facility] Allergies No known active allergies Medications * [...] to complete this topic Insurance Care Teams Pv Design Engineer Relationship Specialty Start Date End Date Ebonie Crowe MD [address] [place] [address] PCP - General 04/08/18
[2024-06-20 21:47] LABS: Influenza A QL RT-PCR Negative (Negative); Influenza B QL RT-PCR Negative (Negative); RSV RNA, RT-PCR Negative (Negative); SARS-CoV-2 RNA PCR Negative (Negative)
[2024-06-20 22:14] LABS: Troponin I < 0.012 ng/mL (0.000-0.034)
[2024-06-20] MEDS: methylPREDNISolone SOD SUCC 125 MG VIAL IV PUSH (22:23)
[2024-06-20] MEDS: LEVALBUTEROL NEB 1.25 MG/3 ML 2.5 MG INHALATION (22:37)
[2024-06-20] MEDS: IPRATROPIUM BR 0.02% INH SOLN 0.5 MG/2.5 ML VIAL 1.5 MG INHALATION (22:37)
[2024-06-20 22:38] VITALS: PULSE 94; RESP 16
--- NOTE | 2024-06-20 22:44 | ED.SOB ---
HPI - SOB/Dyspnea General Chief Complaint: Shortness of Breath/Dyspnea <NAFISA Gonzalez Last Filed: 06/21/24 02:25> Stated Complaint: sob <NAFISA Gonzalez Last Filed: 06/21/24 02:25> Time Seen by Provider: 06/20/24 21:18 <NAFISA Gonzalez Last Filed: 06/21/24 02:25> Source: patient <NAFISA Gonzalez Last Filed: 06/21/24 02:25> Mode of arrival: ambulatory <NAFISA Gonzalez Last Filed: 06/21/24 02:25> Limitations: no limitations <NAFISA Gonzalez Last Filed: 06/21/24 02:25> History of Present Illness HPI Narrative: Patient is a 34-year-old female, with past medical history of asthma, who presents to the ED with report of shortness of breath. Patient reports she began feeling unwell today. Developed significant shortness of breath, dry cough, wheezing. Used her inhaler at home without improvement. Also administered a nebulizer treatment at home without improvement. Began feeling dizzy with exertion, which prompted her presentation. She notes history of multiple episodes of pneumonia since last August. She is not currently on any antibiotics. Denies any recent fevers, but does admit to occasional diaphoresis. Denies chest pain. Denies lower extremity pain or swelling. <NAFISA Gonzalez Last Filed: 06/21/24 02:25> Related Data Allergies/Adverse Reactions: Allergies Allergy/AdvReac Type Severity Reaction Status Date / Time No Known Allergies Allergy Verified 06/15/24 16:19 <NAFISA Gonzalez Last Filed: 06/21/24 02:25> Review of Systems Review of Systems: All systems reviewed & are unremarkable except as noted in HPI. <NAFISA Gonzalez Last Filed: 06/21/24 02:25> All systems reviewed & are unremarkable except as noted in HPI and below <NAFISA Gonzalez Last Filed: 06/21/24 02:25> [facility] Past Medical History Medical History: Medical History (Updated 06/21/24 @ 02:42 by Ciara Vieyra PA-C) Depression with anxiety Asthma-COPD overlap syndrome <Mariangel Goodwin PA-C - Last Filed: 06/21/24 02:25> Surgical History Surgical History: Surgical History (Updated 06/21/24 @ 02:34 by Ciara Vieyra PA-C) History of tubal ligation <Mariangel Goodwin PA-C - Last Filed: 06/21/24 02:25> Family History Family History: Family History Mother Lung cancer, Onset Age: 47 Other Emphysema of lung <Mariangle Goodwin PA-C - Last Filed: 06/21/24 02:25> Social History Social History: Social History (Updated 06/21/24 @ 02:36 by Ciara Vieyra PA-C) Social History: Surrogate medical decision maker: Geremias Feliciano, spouse. Code status: Full code. Years smoked: 13 Smoking status: Former smoker Tobacco type: cigarettes Smokeless tobacco user: other Second hand tobacco smoke exposure: No Alcohol intake: never Substance use: never Substance use type: marijuana Do You Feel Safe in your Home?: Yes Lack of Transportation: No Lack of Food: Sometimes True Current Housing: I Have Housing Concerned About Future Housing: No Difficulty Paying Gas/Electric Bills: No Difficulty Paying for Meds: No Currently Unemployed: No Education: High School Diploma/GED Difficulty w/ Childcare or Family Care: No Living arrangements: with family Spiritual care concerns: No <Mariangel Goodwin PA-C - Last Filed: 06/21/24 02:25> Exam Narrative: GENERAL: Well appearing, thin, non-toxic, in mild acute distress. HEAD: Normocephalic, atraumatic. RESPIRATORY: Airway patent, respirations mildly tachypneic and labored with accessory muscle use. Diffuse inspiratory and expiratory wheezing shahram, worse in LLL CARDIOVASCULAR: Tachycardic with regular rhythm without murmurs, rubs, or gallops. Peripheral pulses intact. MUSCULOSKELETAL: Moves all extremities. No gross deformities. No peripheral edema. SKIN: Warm, dry, normal color. NEURO: A&O X3. Speech clear. PSYCHIATRIC: Appropriate mood and affect. Normal interaction. <Mariangel Goodwin PA-C - Last Filed: 06/21/24 02:25> Course ELECTRICITY TRADING ANALYST/PA Physician Supervision For this patient encounter, I reviewed the ELECTRICITY TRADING ANALYST or PA documentation, treatment plan, and medical decision making; and I had [id number] time with this patient. <Kayode Alvarez MD - Last Filed: 06/21/24 03:21> Vital Signs Vital signs: Vital Signs Temperature 98.4 F 06/20/24 20:50 Pulse Rate 94 06/20/24 20:50 Respiratory Rate 26 H 06/20/24 20:50 Blood Pressure 123/82 06/20/24 20:50 Pulse Oximetry 94 06/20/24 20:50 Oxygen Delivery Room Air 06/20/24 20:50 Temperature 97.4 F L 06/21/24 02:45 Pulse Rate 74 06/21/24 02:45 Respiratory Rate 17 06/21/24 02:45 Blood Pressure 120/72 06/21/24 02:45 Pulse Oximetry 93 06/21/24 03:02 Oxygen Delivery Nasal Cannula 06/21/24 03:02 Oxygen Flow Rate 2 06/21/24 03:02 <Mariangel Goodwin PA-C - Last Filed: 06/21/24 02:25> Vital Signs Temperature 98.4 F 06/20/24 20:50 Pulse Rate 94 06/20/24 20:50 Respiratory Rate 26 H 06/20/24 20:50 Blood Pressure 123/82 06/20/24 20:50 Pulse Oximetry 94 06/20/24 20:50 Oxygen Delivery Room Air 06/20/24 20:50 Temperature 97.4 F L 06/21/24 02:45 Pulse Rate 74 06/21/24 02:45 Respiratory Rate 17 06/21/24 02:45 Blood Pressure 120/72 06/21/24 02:45 Pulse Oximetry 93 06/21/24 03:02 Oxygen Delivery Nasal Cannula 06/21/24 03:02 Oxygen Flow Rate 2 06/21/24 03:02 <Kayode Alvarez MD - Last Filed: 06/21/24 03:21> MDM - SOB/Dyspnea MDM Narrative Medical decision making narrative: Patient presented to ED with increased shortness breath, dizziness, cough, wheezing. History of asthma. VSS upon arrival, though O2 was borderline/low 90s upon arrival, placed on 2L NC. No previous O2 requirement. She is afebrile here. Patient given hour long nebulizer treatment, 125mg IV Solu-Medrol. CBC with white blood cell count of 12.8. CMP is unremarkable. Viral swabs are negative. EKG with lots of artifact, some nonspecific ST changes. Patient is denying active chest pain. Baseline troponin undetectable. Initial chest x-ray showing emphysematous changes, no acute abnormalities. CTA of chest was obtained to rule out PE/occult PNA. CTA w/o evidence of PE, did show diffuse patchy ground-glass infiltrates, infection versus inflammation versus aspiration, areas of mucoid impaction. Discussed imaging findings with patient. She is feeling improved after hour long nebulizer treatment, wheezing is much improved, however oxygen saturations remained borderline. I removed patient's oxygen while in the room and she did drop down to 88% with a good waveform, placed back on O2. Discussed admission for continued nebulizer treatments and steroids. She was also given IV magnesium. Patient is in agreement with plan and need for admission. Discussed case with Ciara LARA hospitalist, accepted patient for admission. Agrees w/ plan to start abx to cover for potential PNA Patient did express concern over financial and food instability. She has two medically complex special needs children. Will place care coordination consult for additional resources. <Mariangel Goodwin PA-C - Last Filed: 06/21/24 02:25> Medical Records Attestation: I reviewed the patient's medical records. <NAFISA Gonzalez Last Filed: 06/21/24 02:25> Lab Data Attestation: I reviewed the patient's lab results. <NAFISA Gonzalez Last Filed: 06/21/24 02:25> Result diagrams: 06/20/24 21:04 06/20/24 21:04 <NAFISA Gonzalez Last Filed: 06/21/24 02:25> Labs: Lab Results 06/20/24 Range/Units 21:04 WBC 12.8 H (4.5-10.0) K/mm3 RBC 4.54 (4.2-5.4) M/mm3 Hgb 13.6 (12.0-15.0) g/dL Hct 43.0 (37.0-47.0) % MCV 94.7 (80-100) fl MCH 30.0 (26-34) pg MCHC 31.6 L (32-36) g/dl RDW 12.9 (11.5-14.5) % Plt Count 273 (150-375) k/mm3 MPV 9.6 (7.4-10.4) fl Immature Gran % (Auto) 0.3 (0-0.5) % Neut % (Auto) 61.4 (45.5-73.1) % Lymph % (Auto) 29.1 (18.3-44.2) % Boyle % (Auto) 7.8 (2.6-8.5) % Eos % (Auto) 1.1 (0-4.4) % Baso % (Auto) 0.3 (0.2-1.2) % Lymph # (Auto) 3.73 H (0.9-3.2) K/mm3 Boyle # (Auto) 1.0 H (0.1-0.6) K/mm3 Eos # (Auto) 0.1 (0-0.3) K/mm3 Baso # (Auto) 0.0 (0.0-0.1) K/mm3 Abs Immat Gran (auto) 0.04 H (0.00-0.031) K/mm3 Absolute Neuts (auto) 7.9 H (1.3-6.7) K/mm3 Absolute Nucleated RBC 0.000 (0.0-0.012) K/mm3 Nucleated RBC % 0.0 (0.0-0.2) % Sodium 140 (137-145) mmol/L Potassium 3.5 (3.4-5.0) mmol/L Chloride 104 (98-107) mmol/L Carbon Dioxide 29 (22-30) mmol/L Anion Gap 7 (4-12) mmol/L BUN 13 D (7-17) mg/dL Creatinine 0.63 L (0.7-1.0) mg/dL Estim Creat Clear Calc 95 ml/min Estimated GFR > 60 (59 - ) Glucose 108 (65-110) mg/dL Calcium 9.4 (8.4-10.2) mg/dL Total Bilirubin 0.5 (0.2-1.3) mg/dL AST 30 (14-36) U/L ALT 24 (6-35) U/L Alkaline Phosphatase 74 (38-126) U/L Troponin I < 0.012 (0.000-0.034) ng/mL Total Protein 8.0 (6.3-8.2) g/dL Albumin 4.5 (3.5-5.1) g/dL Influenza A (RT-PCR) Negative (Negative) Influenza B (RT-PCR) Negative (Negative) RSV (RT-PCR) Negative (Negative) SARS-CoV-2 RNA (RT-PCR) Negative (Negative) <Mariangel Goodwin PA-C - Last Filed: 06/21/24 02:25> Lab Results 06/20/24 Range/Units 21:04 WBC 12.8 H (4.5-10.0) K/mm3 RBC 4.54 (4.2-5.4) M/mm3 Hgb 13.6 (12.0-15.0) g/dL Hct 43.0 (37.0-47.0) % MCV 94.7 (80-100) fl MCH 30.0 (26-34) pg MCHC 31.6 L (32-36) g/dl RDW 12.9 (11.5-14.5) % Plt Count 273 (150-375) k/mm3 MPV 9.6 (7.4-10.4) fl Immature Gran % (Auto) 0.3 (0-0.5) % Neut % (Auto) 61.4 (45.5-73.1) % Lymph % (Auto) 29.1 (18.3-44.2) % Boyle % (Auto) 7.8 (2.6-8.5) % Eos % (Auto) 1.1 (0-4.4) % Baso % (Auto) 0.3 (0.2-1.2) % Lymph # (Auto) 3.73 H (0.9-3.2) K/mm3 Boyle # (Auto) 1.0 H (0.1-0.6) K/mm3 Eos # (Auto) 0.1 (0-0.3) K/mm3 Baso # (Auto) 0.0 (0.0-0.1) K/mm3 Abs Immat Gran (auto) 0.04 H (0.00-0.031) K/mm3 Absolute Neuts (auto) 7.9 H (1.3-6.7) K/mm3 Absolute Nucleated RBC 0.000 (0.0-0.012) K/mm3 Nucleated RBC % 0.0 (0.0-0.2) % Sodium 140 (137-145) mmol/L Potassium 3.5 (3.4-5.0) mmol/L Chloride 104 (98-107) mmol/L Carbon Dioxide 29 (22-30) mmol/L Anion Gap 7 (4-12) mmol/L BUN 13 D (7-17) mg/dL Creatinine 0.63 L (0.7-1.0) mg/dL Estim Creat Clear Calc 95 ml/min Estimated GFR > 60 (59 - ) Glucose 108 (65-110) mg/dL Calcium 9.4 (8.4-10.2) mg/dL Total Bilirubin 0.5 (0.2-1.3) mg/dL AST 30 (14-36) U/L ALT 24 (6-35) U/L Alkaline Phosphatase 74 (38-126) U/L Troponin I < 0.012 (0.000-0.034) ng/mL Total Protein 8.0 (6.3-8.2) g/dL Albumin 4.5 (3.5-5.1) g/dL Influenza A (RT-PCR) Negative (Negative) Influenza B (RT-PCR) Negative (Negative) RSV (RT-PCR) Negative (Negative) SARS-CoV-2 RNA (RT-PCR) Negative (Negative) <Kayode Alvarez MD - Last Filed: 06/21/24 03:21> Imaging Data Attestation: I personally reviewed and interpreted this imaging study as follows: <Mariangel Goodwin PA-C - Last Filed: 06/21/24 02:25> Radiologist's impression: CTA chest: Comparison 08/27/2023. Impression: No evidence of central pulmonary embolism. Emphysema. Patchy ground-glass infiltrates, may reflect infection/inflammation and/or aspiration. Bronchial wall thickening/airway disease. Areas of mucoid impaction. <NAFISA Gonzalez Last Filed: 06/21/24 02:25> ECG Data EKG #1: Attestation: I personally reviewed and interpreted this ECG as follows: <NAFISA Gonzalez Last Filed: 06/21/24 02:25> ECG completion date: 06/20/24 <NAFISA Gonzalez Last Filed: 06/21/24 02:25> ECG completion time: 23:06 <NAFISA Gonzalez Last Filed: 06/21/24 02:25> EKG Interpretation: normal rate (79), sinus rhythm and non-specific ST changes <NAFISA Gonzalez Last Filed: 06/21/24 02:25> Discharge Plan Discharge Clinical Impression: Acute respiratory failure with hypoxemia Asthma exacerbation Qualifiers: Asthma severity: unspecified severity Asthma persistence: unspecified Qualified Code(s): J45.901 - Unspecified asthma with (acute) exacerbation Pneumonia Qualifiers: Pneumonia type: due to unspecified organism Laterality: bilateral Lung location: unspecified part of lung Qualified Code(s): J18.9 - Pneumonia, unspecified organism <NAFISA Gonzalez Last Filed: 06/21/24 02:25> Patient Disposition: Still a Patient <NAFISA Gonzalez Last Filed: 06/21/24 02:25> Condition: Stable <NAFISA Gonzalez Last Filed: 06/21/24 02:25>
[2024-06-20 23:13] VITALS: PULSE 111; RESP 18
[2024-06-20] MEDS: SODIUM CHLORIDE 0.9% IV 1,000 ML 999 ML IV CONT (23:42)
[2024-06-20 23:43] VITALS: BP 116/63; PULSE 91; RESP 14; O2SAT 91
[2024-06-20 23:44] VITALS: O2SAT 91
[2024-06-21] VITALS (27 sets, daily range): BP systolic 101–132; BP diastolic 54–83; PULSE 72–120; RESP 12–18; TEMP 36.3–36.9; O2SAT 91–95; BMI 19.3
[2024-06-21] MEDS: MAGNESIUM SULF 2 GM/WATER 50ML 2 GM/50 ML BAG IVPB (00:20)
[2024-06-21] MEDS: IPRATROPIUM 0.5 MG/ALBUTEROL SULFATE 2.5 MG AMPUL.NEB 3 ML INHALATION ×7 (01:58→23:40)
--- NOTE | 2024-06-21 02:25 | PM.IMHP ---
H&P: HPI History of Present Illness Date/Time: 06/21/24 02:25 Chief Complaint: Shortness of breath. Narrative: This is a 34-year-old female with asthma who presented to the emergency department with complaints of shortness of breath. She has not been feeling well since yesterday with symptoms to include a cough which has been really productive of thick clear phlegm, wheezing, and progressive dyspnea. Rescue inhaler and nebulizer treatment administered home offered no significant improvement. She reports occasional sweats but denies fever, chills, congestion, sore throat, chest pain, pleuritic pain, nausea, vomiting, lower extremity edema, and calf pain. At the time my evaluation she has no complaints but reports hesitancy to have to stay in the hospital as she has financial concerns and food instability with to medically complex special needs children at home; she is worried that she will not be able to get to the food pantry tomorrow to feed her family. In the ED: Respiratory rate was 26 on arrival with an SpO2 of 94. Labs were pretty unremarkable aside from a WBC count of 12.8. Respiratory panel was negative. Chest CTA was negative for central pulmonary embolism and demonstrate emphysema and patchy ground-glass infiltrates which may reflect inflammation, infection, or aspiration with bronchial wall thickening evidence of air disease and some areas of mucoid impaction. She was administered an hour long nebulizer treatment, magnesium sulfate 2 g, and Solu-Medrol 125 mg. There was a V/Q mismatch after her nebulizer with an SpO2 dropping down to 88% and she was placed on oxygen. She is being admitted in this setting for further treatment. Review of Systems Review of Systems: 12 systems were reviewed and are negative except for as per HPI. [facility] Past Medical History Medical History (Updated 06/21/24 @ 02:42 by Ciara Vieyra PA-C) Depression with anxiety Asthma-COPD overlap syndrome Surgical History Surgical History (Updated 06/21/24 @ 02:34 by Ciara Vieyra PA-C) History of tubal ligation Family History Family History Mother Lung cancer, Onset Age: 47 Other Emphysema of lung Social History Social History (Updated 06/21/24 @ 02:36 by Ciara Vieyra PA-C) Social History: Surrogate medical decision maker: Geremias Feliciano, spouse. Code status: Full code. Years smoked: 13 Smoking status: Former smoker Tobacco type: cigarettes Smokeless tobacco user: other Second hand tobacco smoke exposure: No Alcohol intake: never Substance use: never Substance use type: marijuana Do You Feel Safe in your Home?: Yes Lack of Transportation: No Lack of Food: Sometimes True Current Housing: I Have Housing Concerned About Future Housing: No Difficulty Paying Gas/Electric Bills: No Difficulty Paying for Meds: No Currently Unemployed: No Education: High School Diploma/GED Difficulty w/ Childcare or Family Care: No Living arrangements: with family Spiritual care concerns: No Meds Home Medications and Allergies Home Medications ?Medication ?Instructions ?Recorded ?Confirmed ?Type albuterol sulfate 90 mcg/actuation 2 puff inhalation Q4H PRN 11/01/23 06/21/24 Rx aerosol inhaler (Ventolin HFA) shortness of breath or wheezing #8.5 grams nebulizer accessories #1 ea 12/29/23 06/21/24 Rx nebulizer and compressor (Comp-Air #1 ea 12/29/23 06/21/24 Rx Nebulizer Compressor) fluticasone furoate 50 1 inh inhalation ONCE asthma/COPD 03/30/24 06/21/24 Rx mcg-vilanterol 25 mcg/dose 1 month #60 ea inhalation powder (Breo Ellipta) albuterol sulfate 90 mcg/actuation See Rx Instructions .Route 06/02/24 06/21/24 Rx aerosol inhaler .COMPLEX #9 grams albuterol sulfate 0.63 mg/3 mL 0.63 mg (3 mL) inhalation Q6H #75 06/15/24 06/21/24 Rx solution for nebulization mL epinephrine 0.3 mg/0.3 mL 0.3 mg (0.3 mL) IM Q5-15M PRN 06/17/24 06/21/24 Rx injection, auto-injector (EpiPen anaphylaxis #2 ea 2-Huber) Allergies Allergy/AdvReac Type Severity Reaction Status Date / Time No Known Allergies Allergy Verified 06/15/24 16:19 Vital Signs Vital Signs - 24 hr 06/20/24 20:50 06/20/24 21:05 06/20/24 22:38 Temperature 98.4 F Pulse Rate 94 94 Respiratory Rate 26 H 16 Blood Pressure 123/82 Pulse Oximetry 94 90 Oxygen Delivery Room Air Room Air Oxygen Flow Rate 06/20/24 23:13 06/20/24 23:43 06/20/24 23:44 Temperature Pulse Rate 111 H 91 Respiratory Rate 18 14 Blood Pressure 116/63 Pulse Oximetry 91 91 Oxygen Delivery Nasal Cannula Oxygen Flow Rate 1 06/21/24 01:10 06/21/24 01:10 06/21/24 01:59 Temperature Pulse Rate 72 Respiratory Rate 18 Blood Pressure Pulse Oximetry 93 93 Oxygen Delivery Nasal Cannula Oxygen Flow Rate 3 06/21/24 02:08 06/21/24 02:23 06/21/24 02:24 Temperature Pulse Rate 96 77 77 Respiratory Rate 18 14 Blood Pressure 121/76 Pulse Oximetry 94 Oxygen Delivery Oxygen Flow Rate Exam Narrative: General: Nontoxic-appearing female sitting up in bed receiving a nebulizer treatment. Weight: 52.7 kg. BMI: 19.3. HEENT: PERRL, EOMI. Sclera anicteric. Oral mucosa moist. Neck: Supple. No lymphadenopathy. Respiratory: Currently receiving a nebulizer treatment. Respirations are nonlabored and she is speaking in full sentences. Lung sounds are a bit diminished with scattered high-pitched wheezes. Cardiovascular: Regular rate and rhythm with S1-S2. Gastrointestinal: Abdomen is soft, nontender, and nondistended with positive bowel sounds. Skin: Warm and dry. No rash or lesions on limited exam. Extremities: No cyanosis, clubbing, or edema. Radial and pedal pulses intact. Neurological: Alert. Cranial nerves 2-12 are grossly intact. No gross focal deficits to casual conversation. Psychiatric: Pleasant and cooperative with normal mood and affect. Judgment and insight intact. H&P: Results Labs Labs: Short CBC 06/20/24 Range/Units 21:04 WBC 12.8 H (4.5-10.0) K/mm3 Hgb 13.6 (12.0-15.0) g/dL Hct 43.0 (37.0-47.0) % Plt Count 273 (150-375) k/mm3 [facility] 06/20/24 21:04 Sodium 140 Potassium 3.5 Chloride 104 Carbon Dioxide 29 BUN 13 D Creatinine 0.63 L Glucose 108 Calcium 9.4 Cardiac Enzymes 06/20/24 Range/Units 21:04 Troponin I < 0.012 (0.000-0.034) ng/mL Liver Function 06/20/24 Range/Units 21:04 Total Bilirubin 0.5 (0.2-1.3) mg/dL AST 30 (14-36) U/L ALT 24 (6-35) U/L Alkaline Phosphatase 74 (38-126) U/L Albumin 4.5 (3.5-5.1) g/dL Imaging Chest X-Ray 06/20/24 21:18 IMPRESSION: No acute cardiopulmonary process. Emphysema. Assessment and Plan Assessment and plan (1) Hypoxia: Code(s): R09.02 - Hypoxemia Status: Acute (2) Asthma exacerbation: Qualifiers: Asthma persistence: unspecified Asthma severity: unspecified severity Qualified Code(s): J45.901 - Unspecified asthma with (acute) exacerbation Code(s): J45.901 - Unspecified asthma with (acute) exacerbation Status: Acute (3) Asthma-COPD overlap syndrome: Code(s): J44.89 - Other specified chronic obstructive pulmonary disease Status: Acute Plan The patient presented to the emergency department with complaints of dry cough, wheezing, and shortness of breath for not quite a day as detailed in HPI. Labs, imaging, EKG, and all reports were personally reviewed. Clinically she has evidence of an asthma/COPD exacerbation and she has been started on scheduled bronchodilators and systemic steroids. Chest CTA showed diffuse ground-glass opacities which could be inflammation or infection thus will start empiric antibiotics as well. Areas of mucoid impaction were noted and Cornet and Mucinex have been ordered to help mobilize secretions. Consider Mucomyst for something similar depending on how she responds. Wean oxygen as tolerated. Her home medications will be reviewed and resumed as appropriate. Findings and treatment plan were discussed with the patient. Questions were solicited and answered to satisfaction. The patient's medical management will be taken over by the hospitalist team in a.m. Quality VTE Prophylaxis VTE prophylaxis: pharmacologic ordered The patient has been admitted under observation status. Hospitalist MIPS Advance Care Plan I have confirmed that the patient's Advanced Care Plan is present, code status is documented, or surrogate decision maker is listed in patient medical record.: Yes Medication Reconciliation I have utilized all available resources to obtain, update and review the patients current medications (includes all prescriptions, OTC, herbals, cannabis, and nutritional supplements).: Yes
[2024-06-21] MEDS: AZITHROMYCIN 500 MG/NS 250 ML 500 MG/250 ML BAG 250 MG IVPB (03:20)
[2024-06-21 05:20] LABS: MRSA (PCR) NOT DETECTED (NOT DETECTE)
[2024-06-21] MEDS: methylPREDNISolone SOD SUCC 125 MG VIAL 60 MG IV PUSH ×4 (05:47→23:41)
[2024-06-21] MEDS: guaiFENesin 12 HR 600 MG TABCR 1200 MG PO ×2 (08:50→20:47)
[2024-06-21] MEDS: ENOXAPARIN 40 MG/0.4 ML SYRINGE SUB-Q (08:53)
--- NOTE | 2024-06-21 10:21 | P.PNIM_ITS ---
Progress Note: A&P Assessment and Plan (1) Hypoxia: Code(s): R09.02 - Hypoxemia Status: Acute Assessment and Plan: Has been needing NC O2 since admission, down to 1.5L NC 94% SpO2 -CO2 WDL, continue to trend (2) Asthma exacerbation: Qualifiers: Asthma persistence: unspecified Asthma severity: unspecified severity Qualified Code(s): J45.901 - Unspecified asthma with (acute) exacerbation Code(s): J45.901 - Unspecified asthma with (acute) exacerbation Status: Acute Assessment and Plan: Presented to the ED with SOB, dry cough, and wheezing x1 day. -Reports feeling much better today -Scheduled bronchodilators and systemic steroids have been ordered --> Dueoneb --> Solu-medrol (3) Asthma-COPD overlap syndrome: Code(s): J44.89 - Other specified chronic obstructive pulmonary disease Status: Acute Assessment and Plan: See above (4) Pneumonia: Qualifiers: Laterality: bilateral Lung location: unspecified part of lung Pneumonia type: due to unspecified organism Qualified Code(s): J18.9 - Pneumonia, unspecified organism Code(s): J18.9 - Pneumonia, unspecified organism Status: Acute Assessment and Plan: Chest CTA showed diffuse ground-glass opacities which could be inflammation or infection. Areas of mucoid impaction were noted as well. -Started empiric antibiotics upon admission --> Ceftriaxone --> Azithromycin -Cornet, Mucinex, and physiotherapy have been ordered to help mobilize secretions. Consider Mucomyst for something similar depending on how she responds -Pt reports that she believes these interventions have been helping -Pending blood and sputum cultures Time Spent With Patient Time with patient: less than 15 minutes Subjective Date/time seen: 06/21/24 1000 Interval history: Pt resting comfortably in bed on 1.5L NC O2. Pt declines being on home O2. She reports that her last asthma exacerbation was last week but was D/C. Pt denies ever having to get intubated in the past. Pt does report today that she is feeling a lot better, just tired . Pt updated on the plan for pending sputum and blood cultures as well as keeping her another day for PNA treatment and to wean her off O2. Pt seeing Pulm outpt here (Dr. Willoughby) as well as recently seeing an asthma coding support specialist; pt has an epi-pen due to her recent dx of allergic asthma . Reports taking bronchodilator inhalers and nebs at home PRN. Pt agreeable with plan to stabilize. Review of Systems Review of Systems: All systems reviewed & are unremarkable except as noted in HPI and below Constitutional: Comments: Very pleasant Respiratory: Respiratory: Reports cough (mild dry, improving) and Reports dyspnea (mild, improving) Exam Const: General: comfortable and no acute distress HENMT: Face/Nose/Sinus: Normal nares present Mouth: Yes moist mucous membranes Eyes: General: appearance normal, both eyes and all related structures Sclera: sclerae normal Neck: Neck: supple and no JVD Carotids: no bruits Resp: Auscultation: wheezes (mild) expiratory wheezes and scattered wheezes Other: pt on 1.5L NC O2 Cardio: Rate: regular rate Rhythm: regular rhythm Other: TELE NSR 78bpm GI: Inspection: non-distended Auscultation: normal bowel sounds Skin: General skin exam: normal color and no rashes or lesions noted Wounds: no wounds Neuro: Speech: normal speech Motor exam (neuro): Normal motor muscle tone present throughout Extrem: General: normal to inspection Psych: Mental Status: mental status grossly normal Affect: normal affect Objective Data Vital Signs Vital Signs: Vital Signs - 24 hr 06/20/24 20:50 06/20/24 21:05 06/20/24 22:38 Temperature 98.4 F Pulse Rate 94 94 Respiratory Rate 26 H 16 Blood Pressure 123/82 Pulse Oximetry 94 90 Oxygen Delivery Room Air Room Air Oxygen Flow Rate 06/20/24 23:13 06/20/24 23:43 06/20/24 23:44 Temperature Pulse Rate 111 H 91 Respiratory Rate 18 14 Blood Pressure 116/63 Pulse Oximetry 91 91 Oxygen Delivery Nasal Cannula Oxygen Flow Rate 1 06/21/24 01:10 06/21/24 01:10 06/21/24 01:59 Temperature Pulse Rate 72 Respiratory Rate 18 Blood Pressure Pulse Oximetry 93 93 Oxygen Delivery Nasal Cannula Oxygen Flow Rate 3 06/21/24 02:08 06/21/24 02:23 06/21/24 02:24 Temperature Pulse Rate 96 77 77 Respiratory Rate 18 14 Blood Pressure 121/76 Pulse Oximetry 94 Oxygen Delivery Oxygen Flow Rate 06/21/24 02:45 06/21/24 03:02 06/21/24 03:50 Temperature 97.4 F L Pulse Rate 74 86 Respiratory Rate 17 18 Blood Pressure 120/72 Pulse Oximetry 93 93 Oxygen Delivery Nasal Cannula Oxygen Flow Rate 2 06/21/24 03:51 06/21/24 04:00 06/21/24 04:00 Temperature Pulse Rate 86 86 120 H Respiratory Rate 18 18 Blood Pressure Pulse Oximetry 95 Oxygen Delivery Nasal Cannula Oxygen Flow Rate 2 06/21/24 04:52 06/21/24 07:15 06/21/24 07:15 Temperature 98.4 F Pulse Rate 89 99 Respiratory Rate 16 18 Blood Pressure 101/54 L Pulse Oximetry 91 94 Oxygen Delivery Nasal Cannula Oxygen Flow Rate 1.5 06/21/24 07:26 Temperature Pulse Rate 100 Respiratory Rate 18 Blood Pressure Pulse Oximetry Oxygen Delivery Oxygen Flow Rate Intake/Output Intake/Output: Intake & Output 06/18/24 06/19/24 06/20/24 06/21/24 23:59 23:59 23:59 23:59 Intake Total 1350 Output Total 100 Balance 1250 Meds/Results Medications: Active Medications Generic Name Dose Route Start Last Admin Trade Name Freq PRN Reason Stop Dose Admin Acetaminophen 650 mg 06/21/24 01:40 Acetaminophen 325 Mg Tablet PO Q4H PRN Mild Pain (1-3) or Fever Albuterol/Ipratropium 3 ml 06/21/24 04:00 06/21/24 07:15 Ipratropium 0.5 Mg/Albuterol Sulfate 2.5 Mg Ampul.Neb 3 Ml INHALATION 3 ml Q4HRT LOW Administration Dextrose 12.5 gm 06/21/24 01:40 Dextrose 50% 25 Gm/50 Ml Syringe IV PUSH PRN PRN Hypoglycemia Protocol Enoxaparin Sodium 40 mg 06/21/24 09:00 06/21/24 08:53 Enoxaparin 40 Mg/0.4 Ml Syringe SUB-Q 40 mg DAILY LOW Administration Glucagon 1 mg 06/21/24 01:40 Glucagon For Inj 1 Mg Vial IM PRN PRN Hypoglycemia Protocol Glucose 15 gm 06/21/24 01:40 Glucose Oral Gel 15 Gm Of Glucse In 37.5 Gm Tube PO PRN PRN Hypoglycemia Protocol Guaifenesin 1,200 mg 06/21/24 09:00 06/21/24 08:50 Guaifenesin 12 Hr 600 Mg Tabcr PO 1,200 mg Q12HR LOW Administration Ceftriaxone Sodium 1 gm in 50 mls @ 100 mls/hr 06/22/24 02:00 Rocephin 1 Gm/Ns 50 Ml IVPB Q24H LOW Azithromycin 500 mg in 250 mls @ 250 mls/hr 06/22/24 02:00 Zithromax IVPB Q24H LOW Dextrose 1,000 mls @ 100 mls/hr 06/21/24 01:40 Dextrose 5% 1,000 Ml IVPB PRN PRN Hypoglycemia Protocol Methylprednisolone Sodium Succinate 60 mg 06/21/24 06:00 06/21/24 05:47 Methylprednisolone Sod Succ 125 Mg Vial IV PUSH 60 mg Q6HR LOW Administration Radiology Results: ITS Impressions Chest X-Ray 06/20/24 21:18 IMPRESSION: No acute cardiopulmonary process. Emphysema. Chest CTA 06/21/24 05:30 Impression: No evidence of pulmonary embolus, aortic dissection, or aortic aneurysm. Advanced emphysema. Scattered focal areas of groundglass opacity, some which are similar to prior exam. Correlate for chronic pneumonias. Labs Labs: Laboratory Results - last 24 hr 06/20/24 06/21/24 21:04 03:39 WBC 12.8 H RBC 4.54 Hgb 13.6 Hct 43.0 MCV 94.7 MCH 30.0 MCHC 31.6 L RDW 12.9 Plt Count 273 MPV 9.6 Immature Gran % (Auto) 0.3 Neut % (Auto) 61.4 Lymph % (Auto) 29.1 Randall % (Auto) 7.8 Eos % (Auto) 1.1 Baso % (Auto) 0.3 Lymph # (Auto) 3.73 H Randall # (Auto) 1.0 H Eos # (Auto) 0.1 Baso # (Auto) 0.0 Abs Immat Gran (auto) 0.04 H Absolute Neuts (auto) 7.9 H Absolute Nucleated RBC 0.000 Nucleated RBC % 0.0 Sodium 140 Potassium 3.5 Chloride 104 Carbon Dioxide 29 Anion Gap 7 BUN 13 D Creatinine 0.63 L Estim Creat Clear Calc 95 Estimated GFR > 60 Glucose 108 Calcium 9.4 Total Bilirubin 0.5 AST 30 ALT 24 Alkaline Phosphatase 74 Troponin I < 0.012 Total Protein 8.0 Albumin 4.5 Nasal MRSA (PCR) Not detected Influenza A (RT-PCR) Negative Influenza B (RT-PCR) Negative RSV (RT-PCR) Negative SARS-CoV-2 RNA (RT-PCR) Negative Quality VTE Prophylaxis VTE prophylaxis: pharmacologic ordered
[2024-06-22] VITALS (11 sets, daily range): BP systolic 116; BP diastolic 70; PULSE 78–111; RESP 18–20; TEMP 36.3; O2SAT 92
[2024-06-22] MEDS: AZITHROMYCIN 500 MG/NS 250 ML 500 MG/250 ML BAG 250 MG IVPB (02:09)
[2024-06-22] MEDS: IPRATROPIUM 0.5 MG/ALBUTEROL SULFATE 2.5 MG AMPUL.NEB 3 ML INHALATION ×3 (03:55→11:56)
[2024-06-22 05:12] LABS: Basophils Percent Auto 0.1 % (0.2-1.2); Hematocrit 39.4 % (37.0-47.0); Hemoglobin 12.9 g/dL (12.0-15.0); Immature Granulocyte Absolute 0.07 K/mm3 (0.00-0.031); Immature Granulocyte Percent A 0.6 % (0-0.5); Lymphocytes Absolute Auto 0.97 K/mm3 (0.9-3.2); Lymphocytes Percent Auto 7.9 % (18.3-44.2); Mean Corpuscular HGB Conc 32.7 g/dl (32-36); Mean Corpuscular Hemoglobin 30.6 pg (26-34); Mean Corpuscular Volume 93.4 fl (80-100); Mean Platelet Volume 9.6 fl (7.4-10.4); Monocytes Absolute Auto 0.2 K/mm3 (0.1-0.6); Monocytes Percent Auto 1.9 % (2.6-8.5); Neutrophils Absolute Auto 11.1 K/mm3 (1.3-6.7); Neutrophils Percent Auto 89.5 % (45.5-73.1); Platelet Count Result 265 k/mm3 (150-375); Red Blood Count 4.22 M/mm3 (4.2-5.4); Red Cell Distribution Width 13.1 % (11.5-14.5); White Blood Count 12.3 K/mm3 (4.5-10.0)
[2024-06-22 05:27] LABS: Alanine Aminotransferase 20 U/L (6-35); Albumin Level 3.9 g/dL (3.5-5.1); Alkaline Phosphatase 61 U/L (38-126); Anion Gap 8 mmol/L (4-12); Aspartate Amino Transferase 24 U/L (14-36); Bilirubin,Total 0.3 mg/dL (0.2-1.3); Blood Urea Nitrogen 9 mg/dL (7-17); Calcium 9.1 mg/dL (8.4-10.2); Carbon Dioxide 25 mmol/L (22-30); Chloride 105 mmol/L (98-107); Estimated CRCL calculation 110 ml/min; Estimated Glomerular Filt Rate > 60; Glucose 130 mg/dL (65-110); Magnesium 2.3 mg/dL (1.6-2.3); Potassium 3.8 mmol/L (3.4-5.0); Sodium 138 mmol/L (137-145)
[2024-06-22] MEDS: methylPREDNISolone SOD SUCC 125 MG VIAL 60 MG IV PUSH (06:13)
[2024-06-22] MEDS: guaiFENesin 12 HR 600 MG TABCR 1200 MG PO (08:54)
[2024-06-22] MEDS: ENOXAPARIN 40 MG/0.4 ML SYRINGE SUB-Q (08:54)
--- NOTE | 2024-06-22 11:24 | PM.DS ---
DS: Admitting Diagnosis Discharge Date 06/22/2024 Admitting Diagnosis Asthma exacerbation, PNA DS: Discharge Diagnosis Discharge Diagnosis (1) Hypoxia: Code(s): R09.02 - Hypoxemia Status: Acute Assessment and Plan: Weaned completely off O2, stable at 95% today per my check, she states this is her baseline at home. -CO2 WDL (2) Asthma exacerbation: Qualifiers: Asthma persistence: unspecified Asthma severity: unspecified severity Qualified Code(s): J45.901 - Unspecified asthma with (acute) exacerbation Code(s): J45.901 - Unspecified asthma with (acute) exacerbation Status: Acute Assessment and Plan: Presented to the ED with SOB, dry cough, and wheezing x1 day. -Reports feeling much better today -Bronchodilators and systemic steroids have been ordered --> Dueoneb --> Solu-medrol -->Pt reports these have helped and also reports that she has enough inhalers and nebs at home. -->Will D/C with prednisone 40mg x3 more doses (total of 5) (3) Asthma-COPD overlap syndrome: Code(s): J44.89 - Other specified chronic obstructive pulmonary disease Status: Acute Assessment and Plan: See above (4) Pneumonia: Qualifiers: Laterality: bilateral Lung location: unspecified part of lung Pneumonia type: due to unspecified organism Qualified Code(s): J18.9 - Pneumonia, unspecified organism Code(s): J18.9 - Pneumonia, unspecified organism Status: Acute Assessment and Plan: Chest CTA showed diffuse ground-glass opacities which could be inflammation or infection. Areas of mucoid impaction were noted as well. -Started empiric antibiotics upon admission --> Ceftriaxone --> Azithromycin -D/C with continued abx therapy: Augmentin 875/125 x8 more doses (BID) and azithromycin x3 more doses. Also D/C with x3 more doses of Prednisone 40mg daily. -Cornet, Mucinex, and physiotherapy have been ordered to help mobilize secretions. -Pt reports that she believes these interventions have been helping, feeling much better today -Blood cultures negative, sputum culture unacceptable per lab, no need to repeat due to pt improving rapidly. DS: Summary Hospital Course Reason for hospitalization: Asthma exacerbation, PNA Hospital Course: Pt is a 34-year-old female with a history of asthma with no intubations who came to the emergency department on June 20 for increased shortness of breath despite her home nebulizer and inhaler. Patient reports that she was seen at [facility] last week with similar symptoms but was discharged home. Patient also complaining of thick sputum productive cough and wheezing. patient denies any other symptoms including fever, chills, malaise, chest pain, pleuritic pain, nausea, vomiting, diarrhea. Patient also declines ill contacts recently. Upon coming into the emergency department, her respiratory rate was elevated at 26 and her SpO2 was 94% on RA. Her labs had a white blood cell count of 12.8 her respiratory panel was negative and a CTA of her chest was performed which was negative for central pulmonary embolism and demonstrated emphysema and patchy ground glass infiltrates which may reflect inflammation infection or aspiration with bronchial wall thickening evidence of air disease and some areas of mucoid impaction. In the ER she was given an hour long nebulizer treatment, Mag sulfate 2 g, and Solu-Medrol 125 mg IV. Her oxygen saturations ended up dropping to 88% and she was placed on oxygen with the plan to be admitted for observation. upon admission patient was started on antibiotics for presumed pneumonia and daily Solu-Medrol. Goal was to wean her down to her baseline of no oxygen. She was also placed on daily bronchodilators as well as Mucinex. Blood cultures were obtained in the ED which were found to be negative. Sputum culture was also obtained in the ED, but labs found as unacceptable , this test was not reperformed due to patient getting better. Patient actively seeing outpatient pulmonology Dr. Steven as well as seeing asthma in immunology team recently. Patient able to completely wean off oxygen and maintain her O2 and is feeling much better; her lungs are clear throughout. Patient to be discharged with continuation of azithromycin and Augmentin as well as daily prednisone. Also encouraged patient to continue with Mucinex and adequate hydration. Patient states that she has enough inhalers and nebulizers at home. Sending patient home with a PCP referral as she needs to establish care. Status at Discharge Cognitive/behavioral status at discharge: Stable Time Spent with Patient Time attestation: Total time spent providing and/or coordinating discharge services: Exam Const: General: comfortable and no acute distress HENMT: Face/Nose/Sinus: Normal nares present Mouth: Yes moist mucous membranes Eyes: General: appearance normal, both eyes and all related structures Sclera: sclerae normal Neck: Neck: supple and no JVD Resp: Effort & Inspection: normal respiratory effort Auscultation: clear to auscultation bilaterally Cardio: Rate: regular rate Rhythm: regular rhythm GI: Inspection: non-distended GI Palp: Yes Soft to palpation and No Tenderness to palpation present (GI) Auscultation: normal bowel sounds Skin: General skin exam: normal color and no rashes or lesions noted Wounds: no wounds Neuro: Motor exam (neuro): Normal motor muscle tone present throughout Sensory Exam: normal sensation Extrem: General: normal to inspection Psych: Mental Status: mental status grossly normal Affect: normal affect DS: Data Data Completed and Pending Labs on day of discharge: Labs from last 24 hours 06/22/24 04:53 WBC 12.3 H RBC 4.22 Hgb 12.9 Hct 39.4 MCV 93.4 MCH 30.6 MCHC 32.7 RDW 13.1 Plt Count 265 MPV 9.6 Immature Gran % (Auto) 0.6 H Neut % (Auto) 89.5 H Lymph % (Auto) 7.9 L [place] % (Auto) 1.9 L Eos % (Auto) 0.0 Baso % (Auto) 0.1 L Lymph # (Auto) 0.97 [place] # (Auto) 0.2 Eos # (Auto) 0.0 Baso # (Auto) 0.0 Abs Immat Gran (auto) 0.07 H Absolute Neuts (auto) 11.1 H Absolute Nucleated RBC 0.000 Nucleated RBC % 0.0 Sodium 138 Potassium 3.8 Chloride 105 Carbon Dioxide 25 Anion Gap 8 BUN 9 Creatinine 0.49 L Estim Creat Clear Calc 110 Estimated GFR > 60 Glucose 130 H Calcium 9.1 Magnesium 2.3 Total Bilirubin 0.3 AST 24 ALT 20 Alkaline Phosphatase 61 Total Protein 7.0 Albumin 3.9 Preliminary micro results at discharge 06/21/24 02:21 Blood Culture - Preliminary Blood 06/21/24 02:21 Blood Culture - Preliminary Blood Discharge Plan Discharge Attending physician on discharge: Ann Renee Consulting providers: Elda Radford Discharging Clinician: Ann Renee Anticipated Discharge Date/Time: 06/22/24 11:32 Patient Disposition: Home Activity: may shower and unlimited Diet: regular Discharge Instructions: 1. Establish care with a primary care provider and see them soon to update them on your recent admissions 2. Follow-up with your retail seasonal specialist as well 3. I am giving you x2 antibiotics to finish up at home, these are Azithromycin and Augmentin. The azithromycin will start tonight and then x2 more doses, then the Augmentin will start tonight as well but it is twice daily medication, so after today you will have x2 more days of it taking it twice daily. 4. I am also giving you the remaining course of steroids (prednisone) that you will continue daily the next x3 days, starting tomorrow. Remember, steroids can make it hard to sleep so take these in the AM. 5. Feel free to continue taking Mucinex to try to break up more of the mucus as well as keeping hydrated. 6. Come back to the ER if any new issues breathing or cannot catch your breath with your home medications. Patient Instructions: Antibiotic Form, Amoxicillin/Clavulanate Potassium (By mouth), Azithromycin (By mouth), Prednisolone (By mouth), Asthma (GEN), Community Acquired Pneumonia (GEN) Patient Language: Bruneian Stand Alone Forms: General Discharge Information Follow-up/Referrals: Elda Radford DO [Physician] - (Establish care) Nataliia Willoughby MD [Physician] - (Follow-up after admission.) Discharge Medications: New amoxicillin-pot clavulanate 875-125 mg tablet 1 tablet PO Q12H Qty: 8 0RF Rx Instructions: Start this medication this evening. azithromycin 500 mg tablet 500 mg PO DAILY Qty: 3 0RF Rx Instructions: Start this medication tonight and then x2 more nights prednisone 20 mg tablet 40 mg PO DAILY Qty: 6 0RF Rx Instructions: Start this medication (x2 pills) tomorrow AM, and then x2 more days in the AM after tomorrow. Continued albuterol sulfate 0.63 mg/3 mL solution for nebulization 0.63 mg inhalation Q6H Qty: 75 0RF albuterol sulfate [Ventolin HFA] 90 mcg/actuation HFA aerosol inhaler 2 puff inhalation Q4H PRN (Reason: shortness of breath or wheezing) Qty: 8.5 0RF Breo Ellipta 50-25 mcg/dose blister with device 1 inh inhalation ONCE 30 Days Qty: 60 2RF (DME) nebulizer accessories Kit See Rx Instructions .Route Qty: 1 0RF Rx Instructions: As directed (DME) nebulizer and compressor [Comp-Air Nebulizer Compressor] Device See Rx Instructions .Route Qty: 1 0RF Rx Instructions: As directed epinephrine [EpiPen 2-Huber] 0.3 mg/0.3 mL auto-injector 0.3 mg IM Q5-15M PRN (Reason: anaphylaxis) Qty: 2 0RF Rx Instructions: do not exceed 3 doses per episode albuterol sulfate 90 mcg/actuation HFA aerosol inhaler See Rx Instructions .ROUTE .COMPLEX Qty: 9 0RF Dose Instruction: INHALE 1 PUFF BY MOUTH EVERY 4 HOURS NEEDED FOR SHORTNESS OF BREATH OR WHEEZING Rx Instructions: INHALE 1 PUFF BY MOUTH EVERY 4 HOURS NEEDED FOR SHORTNESS OF BREATH OR WHEEZING Date of admission: 06/21/24 01:40 Primary Care Provider: PHYSICIAN,WIND PROJECTS SUPERVISOR Admitting Provider: Brent Mahoney Attending physician on admission: Brent Mahoney Condition: Stable Quality VTE Prophylaxis VTE prophylaxis: pharmacologic ordered Hospitalist MIPS Heart Failure (Exclusion) Patient has history of Heart Transplant or Left Ventricular Assistive Device?: No IF YES, STOP HERE Heart Failure (Qualifier) Patient has current or prior documentation of LVEF less than or equal to 40%, or mod/servere depressed LVSF?: No IF NO, STOP HERE
[2024-06-23 17:33] LABS: Pneumococcal Antigen Urine NOT DETECTED
[2024-06-23 17:53] LABS: Mycoplasma IgM Antibody Titer 399 U/mL
[2024-06-23 18:29] LABS: Legionella pneumophila Ag Ur NOT DETECTED
== END 2024-06-22 12:25 | disposition home or self-care (01) ==
LOC: ANHED 06-21 01:19 → ANH2MED 06-21 02:21
PROVIDERS: Emergency Medicine; Physician Assistant; Admitting Provider Internal Medicine; Emergency Provider Physician Assistant; Visit Provider Internal Medicine
DX: J44.0 Chronic obstructive pulmonary disease with (acute) lower respiratory infection (principal); J44.89 Other specified chronic obstructive pulmonary disease; J45.901 Unspecified asthma with (acute) exacerbation; J18.9 Pneumonia, unspecified organism; R09.02 Hypoxemia; F41.8 Other specified anxiety disorders; Z87.891 Personal history of nicotine dependence; Z79.51 Long term (current) use of inhaled steroids; Z20.822 Contact with and (suspected) exposure to COVID-19
CPT/HCPCS: 36415; 71046; 71275; 80053; 83735; 84484; 85025; 86738; 87040; 87070; 87205; 87449; 87637; 87641; 87899; 93005; 94640; 94667; 96361; 96365; 96368; 96372; 96375; 96376; 99285; A9270; G0378; J0456; J0696; J1650; J2919; J3475; J7030; Q9967

== ENCOUNTER 2024-10-23 23:23 | Emergency (ER) | payer OTHER, SELFPAY ==
--- OUTSIDE RECORDS SUMMARY | 2015-02-28 19:00 | XMS_ITS | Continuity of Care Document ---
Author Organization [facility] Address [address] [place] [address] Phone Care Team Providers Care Energy Projects Lead Name Role Phone Jesús Wells MD Unavailable [...] Date Provider Providers Copied on Encounter [facility], [address], [id number], [phone] [employer] [facility] No Information 6 Priscilla Espinosa. [address] [facility], [facility] [address], [place], [place], [id number] , [place]. tel: [phone] Independent Medical Examination BROOKS [facility], [address], [id number], [place] tel:[phone] [facility] Pathological fracture of lt radius, initial encounter for fractureNondisp fx of left ulna styloid process, init for clos fx 5 Priscilla Espinosa. [address] [facility], [facility] [address], [place], [place], [id number] , [place]. tel: [phone] Family History Family Member Type Diagnosis Age At Onset Problem (finding) Family history of malignant neoplasm of lung Payers Payer name Insurance type Covered republican ID Cherie laws(s) [employer] [id number] Social History Type Description Quantity Date Captured [...]
[2024-10-23 23:42] VITALS: O2SAT 93
[2024-10-24] VITALS (10 sets, daily range): BP systolic 113–129; BP diastolic 78–89; PULSE 80–97; RESP 17–26; O2SAT 95–98
--- NOTE | 2024-10-24 00:37 | PC.NURSE ---
Pt c/o of 7/10 chest pain when taking a deep breath. Pt placed on 2 L via NC for comfort.
[2024-10-24] MEDS: FAMOTIDINE 20 MG/2 ML VIAL IV PUSH (01:05)
--- OUTSIDE RECORDS SUMMARY | 2024-10-24 04:06 | XMS_ITS | Clinical Summary ---
Author Organization [facility] Address [address] [place] [address] Care Team Providers Care Tool Crib Lead Name Role Phone Ebonie Crowe MD Primary Care Provider [phone] Source Comments [facility],non-owned Affiliates and Associated Physician Practices is amultiple site organization consisting of ambulatory clinics and hospital sitesin [place], [place], [place] and [place]. This disclosure is being madepursuant to the Care Everywhere program and may not contain all information available regarding this patient. Last updated 17.[employer] [facility] Allergies No known active allergies Medications * [...] of 3 - 19+ 3-dose series) 2008 HPV VACCINE (1 - 3-dose SCDM series) 2016 DEPRESSION SCREENING 02/18/2024 COVID-19 VACCINE (1 - 2023-2 5 season) 2024 INFLUENZA VACCINE (#1) 2024 ZOSTER VACCINE (1 of 2) 06/02/2039 [...] to complete this topic Insurance Care Teams Tool Crib Lead Relationship Specialty Start Date End Date Ebonie Crowe MD [address] [place] [address] PCP - General 04/08/18
--- OUTSIDE RECORDS SUMMARY | 2024-10-24 04:06 | XMS_ITS | Clinical Summary ---
Author Organization [facility] Address [address] [place] [address] Care Team Providers Care Slag Mixer Name Role Phone Catracho Mcghee MD Primary Care Provider [phone] Allergies No known active allergies Medications albuterol [...] on file Legal Sex Female 3:14 AM [employer] Gender Identity Not on file Sexual Orientation [...] 9:26 AM CDT Height 165.1 cm (5' 5) 11/06/2023 9:26 AM CDT Body Mass Index 18.97 11/06/2023 9:26 AM CDT Plan of Treatment Health Maintenance Due Date Last Done Comments Cervical Cancer Screening 1989 Depression Screening 1989 Hepatitis C Screening 1989 Varicella Vaccines (1 of 2 - 13+ 2-dose series) 2002 Regular Well Visit/Exam 18-64 06/02/2007 Pneumococcal vaccine <65 (1 of 2 - PCV) 2008 HPV Vaccines (1 - 3-dose SCD M series) 2016 Influenza Vaccine (#1) 2024 01/12/2003 DTaP/Tdap/Td Vaccine (8 - Td or Tdap) 10/16/2026 10/16/2016, 06/05/2005, 01/31/2003, Additional history exists Hepatitis B Screening Completed 07/10/1999 , 01/23/1999, 12/26/1998 Insurance [facility] Care Teams Slag Mixer Relationship Specialty Start Date End Date Catracho Mcghee MD [address] [place] [id number] PCP - General Emergency Medicine 10/08/23
--- NOTE | 2024-10-24 04:10 | ED.ALLEREA ---
HPI - Allergic Reaction General Chief complaint: Allergic Reaction Stated complaint: my throat feels like it's closing, I cant breathe Time Seen by Provider: 10/24/24 01:37 History of Present Illness HPI narrative: Patient is a 34-year-old female who presents emergency department this evening due to concern of an allergic reaction. Patient states that she had a severe allergy a year so ago to onion powder and today she started to have some upper respiratory symptoms. Initially she thought they were URI symptoms, however, she started to feel like the symptoms are progressive rapidly and she was concerned that she may have been exposed to something that she is allergic to. She was outside and states that there were a lot of people cooking barbecue when she is unsure if people using onion powder. Denies any additional symptoms or concerns at this time. Related Data Allergies Allergy/AdvReac Type Severity Reaction Status Date / Time No Known Allergies Allergy Verified 10/23/24 23:25 Review of Systems Review of Systems: All systems are reviewed and are negative unless stated otherwise in the HPI. [facility] Past Medical History Medical History Depression with anxiety Asthma-COPD overlap syndrome Surgical History Surgical History History of tubal ligation Family History Family History Mother Lung cancer, Onset Age: 47 Other Emphysema of lung Social History Social History Social History: Surrogate medical decision maker: Geremias Feliciano, spouse. Code status: Full code. Years smoked: 13 Smoking status: Former smoker Tobacco type: cigarettes Smokeless tobacco user: other Second hand tobacco smoke exposure: No Alcohol intake: never Substance use: never Substance use type: marijuana Do You Feel Safe in your Home?: Yes Lack of Transportation: No Lack of Food: Sometimes True Current Housing: I Have Housing Concerned About Future Housing: No Difficulty Paying Gas/Electric Bills: No Difficulty Paying for Meds: No Currently Unemployed: No Education: High School Diploma/GED Difficulty w/ Childcare or Family Care: No Living arrangements: with family Spiritual care concerns: No Exam Narrative: General: Alert, awake, afebrile, anxious. HEENT: PERRL, no rhinorrhea, no post nasal drip, oropharynx clear. Neck: Trachea midline, no JVD, no lymphadenopathy. Cardiovascular: Regular rate and rhythm, no murmurs, rubs or gallops, no peripheral edema. Respiratory: Clear to auscultation bilaterally, no tachypnea, no wheezing, no rhonchi, no rubs, no respiratory distress. Abdomen: Soft, nontender, nondistended, no rebound, no guarding, no peritoneal signs. Musculoskeletal: No joint swelling or deformity, normal muscle tone. Skin: No rashes or petechia, no signs of infection. Psychiatric: Alert and oriented, normal behavior and judgment for situation. Neurological: Alert and oriented to person, place, and time. Follows all commands. No focal deficits, speech is clear and fluent. Course Vital Signs Vital signs: Vital Signs Pulse Oximetry 93 10/23/24 23:42 Oxygen Delivery Room Air 10/23/24 23:42 Pulse Rate 97 10/24/24 02:31 Respiratory Rate 22 H 10/24/24 02:31 Blood Pressure 127/79 10/24/24 02:31 Pulse Oximetry 95 10/24/24 02:31 Oxygen Delivery Room Air 10/23/24 23:42 MDM - Allergic Reaction MDM Narrative Medical decision making narrative: The patient was evaluated by myself in the emergency department. History is obtained from patient who is an independent historian and physical exam was performed. External medical records were reviewed at this time. IV was established and pertinent tests were ordered. Patient was administered 125 mg of IV Solu-Medrol, 50 mg IV Benadryl and 20 mg IV Pepcid. Differential diagnosis considerations include anaphylaxis, allergic reaction, acute viral syndrome. Comorbidities impacting this visit include known allergies to onion powder. I have evaluated and discussed social determinants of health with the patient that could potentially impact subsequent diagnosis and treatment plans. On repeat assessment of the patient, reevaluation revealed that the patient is doing well and is in no acute distress. Patient symptoms have improved since she arrived to our emergency department. Patient was observed in the emergency department for 5 hours. Repeat vital signs were all reviewed and noted to be stable. Differential diagnosis and treatment plan were discussed with the patient at bedside. Patient agrees with discussion and after shared medical decision making agrees with discharge. All questions were answered to the patient's satisfaction. Patient will follow up with her PCP in 3-5 days. Patient was provided with strict return precautions and instructed to return to the emergency department if any new or worsening symptoms develop. The patient was discharged in stable condition. Discharge Plan Discharge Clinical Impression: Allergic reaction Patient Disposition: Home Condition: Improved Instructions: Antibiotic Form, Allergies (ED) Additional Instructions: Please follow-up with the family doctor within the next 3-5 days. Return to the emergency department if any new or worsening symptoms develop. Patient Language: Chinese Prescriptions: No Action albuterol sulfate 0.63 mg/3 mL solution for nebulization 0.63 mg inhalation Q6H Qty: 75 0RF albuterol sulfate [Ventolin HFA] 90 mcg/actuation HFA aerosol inhaler 2 puff inhalation Q4H PRN (Reason: shortness of breath or wheezing) Qty: 8.5 0RF (DME) nebulizer accessories Kit See Rx Instructions .Route Qty: 1 0RF Rx Instructions: As directed (DME) nebulizer and compressor [Comp-Air Nebulizer Compressor] Device See Rx Instructions .Route Qty: 1 0RF Rx Instructions: As directed epinephrine [EpiPen 2-Huber] 0.3 mg/0.3 mL auto-injector 0.3 mg IM Q5-15M PRN (Reason: anaphylaxis) Qty: 2 0RF Rx Instructions: do not exceed 3 doses per episode amoxicillin-pot clavulanate 875-125 mg tablet 1 tablet PO Q12H Qty: 8 0RF Rx Instructions: Start this medication this evening. azithromycin 500 mg tablet 500 mg PO DAILY Qty: 3 0RF Rx Instructions: Start this medication tonight and then x2 more nights prednisone 20 mg tablet 40 mg PO DAILY Qty: 6 0RF Rx Instructions: Start this medication (x2 pills) tomorrow AM, and then x2 more days in the AM after tomorrow. Breo Ellipta 50-25 mcg/dose blister with device See Rx Instructions .ROUTE .COMPLEX Qty: 60 1RF Dose Instruction: Inhale 1 puff by mouth once daily Rx Instructions: Inhale 1 puff by mouth once daily albuterol sulfate 90 mcg/actuation HFA aerosol inhaler See Rx Instructions .ROUTE .COMPLEX Qty: 9 2RF Dose Instruction: INHALE 1 PUFF BY MOUTH EVERY 4 HOURS NEEDED FOR SHORTNESS OF BREATH FOR WHEEZING Rx Instructions: INHALE 1 PUFF BY MOUTH EVERY 4 HOURS NEEDED FOR SHORTNESS OF BREATH FOR WHEEZING Follow-up/Referrals: Alek Ordoñez MD [Physician, Family Practice] - 3 Days PHYSICIAN,STAFF DEVELOPMENT COORDINATOR RN [Primary Care Provider, Internal Medicine] Time of Disposition: 04:10
== END 2024-10-24 04:47 | disposition home or self-care (01) ==
PROVIDERS: Emergency Provider Emergency Medicine
DX: T78.40XA Allergy, unspecified, initial encounter (principal); X58.XXXA Exposure to other specified factors, initial encounter; Z87.891 Personal history of nicotine dependence
CPT/HCPCS: 96374; 96375; 99284; J1200; J2919

== ENCOUNTER 2024-10-26 08:51 | Emergency (ER) | payer OTHER, SELFPAY ==
--- NOTE | ~2024-10-26 | XR_ITS ---
Examination: XR chest 2V Clinical History: Cough Comparison: 06/20/2024 Technique: PA and Lateral Findings: Cardiomediastinal silhouette normal size and configuration. Lungs clear. Hyperinflation. No acute bony abnormality. Scoliosis. IMPRESSION: 1. No acute cardiopulmonary findings. Reviewed, dictated and finalized at location R.
--- NOTE | 2024-10-26 09:08 | ED.URI ---
HPI - URI/Sore Throat General Chief Complaint: Upper Respiratory Infection Stated Complaint: shortness of breath, fever, cough Time Seen by Provider: 10/26/24 09:14 Source: patient and RN notes reviewed Mode of arrival: ambulatory Limitations: no limitations History of Present Illness HPI Narrative: 34-year-old female with history of asthma presents with a concern for 2 day history of fever, cough, shortness of breath. She also reports body aches and diarrhea. She ran out of her albuterol inhaler and nebulizer last night. MD elicited complaint: cough Related Data Allergies Allergy/AdvReac Type Severity Reaction Status Date / Time No Known Allergies Allergy Verified 10/26/24 08:58 Review of Systems Review of Systems: CONSTITUTIONAL: Reports malaise EYES: Denies visual changes, redness, or discharge. ENT: Reports rhinorrhea, congestion. Denies sinus pain, otalgia and sore throat. CARDIOVASCULAR: Denies chest pain, palpitations, or edema. RESPIRATORY: Reports cough, dyspnea. GASTROINTESTINAL: Denies abdominal pain, nausea, vomiting, diarrhea SKIN: Denies rash or itching. MUSCULOSKELETAL: Reports myalgia. NEUROLOGIC: Denies headache. All systems reviewed & are unremarkable except as noted in HPI and below PMFSH Past Medical History Medical History Depression with anxiety Asthma-COPD overlap syndrome Surgical History Surgical History History of tubal ligation Family History Family History Mother Lung cancer, Onset Age: 47 Other Emphysema of lung Social History Social History Social History: Surrogate medical decision maker: Geremias Feliciano, spouse. Code status: Full code. Years smoked: 13 Smoking status: Former smoker Tobacco type: cigarettes Smokeless tobacco user: other Second hand tobacco smoke exposure: No Alcohol intake: never Substance use: never Substance use type: marijuana Do You Feel Safe in your Home?: Yes Lack of Transportation: No Lack of Food: Sometimes True Current Housing: I Have Housing Concerned About Future Housing: No Difficulty Paying Gas/Electric Bills: No Difficulty Paying for Meds: No Currently Unemployed: No Education: High School Diploma/GED Difficulty w/ Childcare or Family Care: No Living arrangements: with family Spiritual care concerns: No Comments At time of signature, agree with nursing past medical, surgical, social and family history. There is no relevant family history pertinent to the presenting complaint Exam Narrative: GENERAL: Well-appearing, well-nourished, and in no acute distress. HEAD: Normocephalic EYES: PERRLA, conjunctivae clear ENT: Nares clear. Mucous membranes moist. TM pearly castellanos with sharp light reflex bilaterally; no tragal tenderness. Oropharynx not erythematous without lesions. Tonsils not enlarged and without exudate, no drooling, no hoarseness, no trismus, uvula midline. NECK: Supple. No lymphadenopathy CHEST: Scattered wheeze and rhonchi, breath sounds equal. No rales, or stridor. No respiratory distress, speaks in full sentences. HEART: Regular rate and rhythm. No murmur heard. SKIN: Warm, dry, no rash. NEURO: Alert and oriented x3. PSYCH: Normal mood and affect Course Course Emergency Course: Patient is aware of diagnosis, understands and agrees to treatment plan. Anticipatory guidance given. Patient agrees to follow-up as directed and is aware of reasons to seek care at the emergency department. Portions of this record may have been created with voice recognition software Level of Care: Express Care Visit Reevaluation(s) Reevaluation #1: Lung sounds improved patient verbalizes improvement Date: 10/26/24 Time: 09:42 Vital Signs Vital signs: Reviewed. MDM - URI/Sore Throat MDM Narrative Medical decision making narrative: Differential diagnosis considered: López virus, strep pharyngitis, allergic rhinitis, upper respiratory tract infection, sinusitis, rhinosinusitis, nasopharyngitis. viral pharyngitis, otitis media, otitis externa, pneumonia, bronchitis, viral cough syndrome, viral syndrome, and influenza. Exam findings show no acute concerns or changes; patient is non-toxic appearing and is in no distress. Patient is appropriate for outpatient treatment and follow-up. Lab Data Attestation: I reviewed the patient's lab results. Imaging Data My impression: Images reviewed, interpreted by radiologist, agree, see report. Radiologist's impression: Examination: XR chest 2V Clinical History: Cough Comparison: 06/20/2024 Technique: PA and Lateral Findings: Cardiomediastinal silhouette normal size and configuration. Lungs clear. Hyperinflation. No acute bony abnormality. Scoliosis. IMPRESSION: 1. No acute cardiopulmonary findings. Critical Care Time Critical Care Time Critical Care Time: No Discharge Plan Discharge Clinical Impression: Viral illness Asthma exacerbation Qualifiers: Asthma severity: unspecified severity Asthma persistence: unspecified Qualified Code(s): J45.901 - Unspecified asthma with (acute) exacerbation Patient Disposition: Home Condition: Stable Instructions: Antibiotic Form Additional Instructions: Your COVID and flu tests are negative Your chest x-ray is normal Viral illness may last between 7-21 days; antibiotics do not cure viral illness and are NOT recommended at this time. Recommend antihistamine such as Benadryl at night time and Zyrtec or Melvina during the day Use inhaler as needed for cough, wheezing, shortness of breath or chest tightness. Also, recommend symptomatic treatment includes: rest, fluids, and increase humidity of the air at home. Recommend Acetaminophen as directed on the bottle to reduce fever, pain, headache. Avoid smoking/second-hand smoke. Please schedule a follow-up visit with your personal physician for further evaluation and treatment within 3-5days. If your symptoms persist, change or worsen significantly before you can contact your personal physician then please, without delay, go to the emergency department for further evaluation. Patient Language: Chinese Prescriptions: New albuterol sulfate 2.5 mg /3 mL (0.083 %) solution for nebulization 2.5 mg inhalation Q4H PRN (Reason: shortness of breath or wheezing) Qty: 75 0RF prednisone 50 mg tablet 50 mg PO DAILY 5 Days Qty: 5 0RF albuterol sulfate 90 mcg/actuation HFA aerosol inhaler 2 puff INHALATION QID PRN (Reason: shortness of breath or wheezing) Qty: 8.5 0RF No Action albuterol sulfate [Ventolin HFA] 90 mcg/actuation HFA aerosol inhaler 2 puff inhalation Q4H PRN (Reason: shortness of breath or wheezing) Qty: 8.5 0RF (DME) nebulizer accessories Kit See Rx Instructions .Route Qty: 1 0RF Rx Instructions: As directed (DME) nebulizer and compressor [Comp-Air Nebulizer Compressor] Device See Rx Instructions .Route Qty: 1 0RF Rx Instructions: As directed epinephrine [EpiPen 2-Huber] 0.3 mg/0.3 mL auto-injector 0.3 mg IM Q5-15M PRN (Reason: anaphylaxis) Qty: 2 0RF Rx Instructions: do not exceed 3 doses per episode Breo Ellipta 50-25 mcg/dose blister with device See Rx Instructions .ROUTE .COMPLEX Qty: 60 1RF Dose Instruction: Inhale 1 puff by mouth once daily Rx Instructions: Inhale 1 puff by mouth once daily albuterol sulfate 90 mcg/actuation HFA aerosol inhaler See Rx Instructions .ROUTE .COMPLEX Qty: 9 2RF Dose Instruction: INHALE 1 PUFF BY MOUTH EVERY 4 HOURS NEEDED FOR SHORTNESS OF BREATH FOR WHEEZING Rx Instructions: INHALE 1 PUFF BY MOUTH EVERY 4 HOURS NEEDED FOR SHORTNESS OF BREATH FOR WHEEZING Follow-up/Referrals: UNKNOWN,DOCTOR [Primary Care Provider] Stand Alone Forms: Work/School Release IP
[2024-10-26 09:10] VITALS: BP 119/69; PULSE 91; RESP 20; TEMP 35.8; O2SAT 96
[2024-10-26 09:30] LABS: EDCOVIDSCREEN Negative (Negative); EDINFLUASCREEN Negative (Negative); EDINFLUBSCREEN Negative (Negative)
[2024-10-26] MEDS: IPRATROPIUM 0.5 MG/ALBUTEROL SULFATE 2.5 MG AMPUL.NEB 3 ML INHALATION (09:30)
== END 2024-10-26 09:50 | disposition home or self-care (01) ==
PROVIDERS: Nurse Practitioner; Emergency Provider Family Medicine
DX: B34.9 Viral infection, unspecified (principal); J45.901 Unspecified asthma with (acute) exacerbation; Z20.822 Contact with and (suspected) exposure to COVID-19; J44.9 Chronic obstructive pulmonary disease, unspecified; Z87.891 Personal history of nicotine dependence
CPT/HCPCS: 71046; 87426; 87804; 94640; 99213; G0463

== ENCOUNTER 2024-12-06 11:08 | Emergency (ER) | payer OTHER, SELFPAY ==
--- NOTE | ~2024-12-06 | XR_ITS ---
EXAMINATION: XR chest 2V, 12/06/2024 12:00 CDT HISTORY: cough x 1 day, sob, fever hx asthma COMPARISON: No comparisons available. Technique: 2 views obtained. Findings: The lungs are clear, no effusion. No pneumothorax. Heart is normal size. Mediastinal and hilar contours are within normal limits. Bony thorax no acute abnormality. Impression: No acute cardiopulmonary abnormality. Reviewed, dictated and finalized at location P. Impression: No acute cardiopulmonary abnormality.
[2024-12-06 11:11] VITALS: BP 103/77; PULSE 83; RESP 24; TEMP 36.6; O2SAT 93
--- NOTE | 2024-12-06 12:02 | ED_ITS ---
HPI - URI/Sore Throat General Chief Complaint: Upper Respiratory Infection Stated Complaint: Upper Respiratory Infection Time Seen by Provider: 12/06/24 11:55 Source: patient and RN notes reviewed Mode of arrival: ambulatory Limitations: no limitations History of Present Illness HPI Narrative: 34-year-old female patient with history of asthma presents today complaining of a fever with a T-max of 100.6?, wheezing and shortness of breath, dry cough, upper back pain that worsens with deep breath, and chest tightness. Denies congestion, sore throat, rhinorrhea. She has been using her albuterol inhaler and nebulizer treatments with short-term relief. She is currently out of her inhaler. Related Data Allergies Allergy/AdvReac Type Severity Reaction Status Date / Time No Known Allergies Allergy Verified 12/06/24 11:23 [facility], [facility] Past Medical History Medical History Depression with anxiety Asthma-COPD overlap syndrome Surgical History Surgical History History of tubal ligation Family History Family History Mother Lung cancer, Onset Age: 47 Other Emphysema of lung Social History Social History Social History: Surrogate medical decision maker: Geremias Feliciano, spouse. Code status: Full code. Years smoked: 13 Smoking status: Former smoker Tobacco type: cigarettes Smokeless tobacco user: other Second hand tobacco smoke exposure: No Alcohol intake: never Substance use: never Substance use type: marijuana Do You Feel Safe in your Home?: Yes Lack of Transportation: No Lack of Food: Sometimes True Current Housing: I Have Housing Concerned About Future Housing: No Difficulty Paying Gas/Electric Bills: No Difficulty Paying for Meds: No Currently Unemployed: No Education: High School Diploma/GED Difficulty w/ Childcare or Family Care: No Living arrangements: with family Spiritual care concerns: No Comments At time of signature, I have reviewed and agree with nursing past medical, surgical, social and family history unless otherwise noted. Please see nursing chart for further information. There is no relevant family history pertinent to the presenting complaint Exam Narrative: GENERAL: Mildly [id number], well-nourished, and in no acute distress. HEAD: Normocephalic, atraumatic. EYES: EOMI. No redness or drainage. Conjunctivae normal. ENT: Mucous membranes pink and moist. Nares clear. No rhinorrhea. TMs normal bilaterally. Throat normal. Uvula midline. NECK: Normal AROM. Supple. No lymphadenopathy. CHEST: No respiratory distress. Inspiratory and expiratory wheezing throughout HEART: Regular rate and rhythm. No murmur appreciated. EXTREMITIES: Normal range of motion. No edema. SKIN: Warm, dry, no rash. Capillary refill normal. Normal skin turgor. NEURO: No focal deficits. Alert and oriented x3. Gait steady. PSYCH: Normal affect. No signs of depression or anxiety. Course Course Emergency Course: 1250-DuoNeb finished. Patient states she feels a bit better. Wheezing has significantly improved. Level of Care: Express Care Visit Vital Signs Vital signs: Vital Signs Temperature 97.9 F 12/06/24 11:11 Pulse Rate 83 12/06/24 11:11 Respiratory Rate 24 H 12/06/24 11:11 Blood Pressure 103/77 12/06/24 11:11 Pulse Oximetry 93 12/06/24 11:11 Oxygen Delivery Room Air 12/06/24 11:11 Temperature 97.9 F 12/06/24 11:11 Pulse Rate 83 12/06/24 11:11 Respiratory Rate 24 H 12/06/24 11:11 Blood Pressure 103/77 12/06/24 11:11 Pulse Oximetry 93 12/06/24 11:11 Oxygen Delivery Room Air 12/06/24 11:11 Reviewed MDM - URI/Sore Throat MDM Narrative Medical decision making narrative: 34-year-old female patient with history of asthma presents today complaining of a fever with a T-max of 100.6?, wheezing and shortness of breath, dry cough, upper back pain that worsens with deep breath, and chest tightness. Patient out of her albuterol inhaler and nebulizer treatments at home. Upon exam, patient is mildly ill appearing inspiratory and expiratory wheezing throughout. Chest x-ray is negative for pneumonia. DuoNeb improved patient's wheezing. Symptoms likely viral in etiology. Influenza and COVID negative. She will be treated with prednisone and Cheratussin. Her albuterol has been refilled as well. Patient agrees with plan. Vital signs stable. Anticipatory guidance given. ED precautions given. Differential Diagnosis Differential diagnosis: Likely upper respiratory infection, viral infection, influenza and other (COVID-19, pneumonia, asthma exacerbation) Lab Data Attestation: I reviewed the patient's lab results. Labs: Lab Results 12/06/24 Range/Units 11:22 POC Influenza A Ag Negative (Negative) POC Influenza B Ag Negative (Negative) POC SARS CoV-2 Ag Negative (Negative) Imaging Data Radiologist's impression: ITS Impressions Chest X-Ray 12/06/24 12:12 Impression: No acute cardiopulmonary abnormality. Critical Care Time Critical Care Time Critical Care Time: No Discharge Plan Discharge Clinical Impression: Acute lower respiratory infection, Asthma exacerbation Patient Disposition: Home Condition: Stable Instructions: Viral Syndrome (ED) Additional Instructions: Your chest x-ray is negative for pneumonia. Your influenza and COVID-19 tests are negative as well. Please use all medications as prescribed. Do not drive within 6 hours of taking the Cheratussin as it can make you drowsy. Is recommended that you start some Mucinex to help break up any chest congestion. Please drink plenty of water when you take Mucinex to make it more effective. Your symptoms are likely due to a viral illness, which is not treated with antibiotics. Virus symptoms can last for up to 7-10days. Take Tylenol or ibuprofen for pain or fever. Rest and stay hydrated. Follow-up with PCP in 1 week if symptoms are not improving. To the ER if symptoms worsen. Patient Language: Tuvaluan Prescriptions: New prednisone 50 mg tablet 50 mg PO DAILY 5 Days Qty: 5 0RF albuterol sulfate 90 mcg/actuation HFA aerosol inhaler 2 inh inhalation Q4-6H PRN (Reason: shortness of breath or wheezing) Qty: 8.5 0RF albuterol sulfate 2.5 mg /3 mL (0.083 %) solution for nebulization 2.5 mg inhalation Q4-6H PRN (Reason: shortness of breath or wheezing) Qty: 90 0RF codeine-guaifenesin 10-100 mg/5 mL liquid 5 ml PO Q6H PRN (Reason: cough) Qty: 120 0RF No Action albuterol sulfate 2.5 mg /3 mL (0.083 %) solution for nebulization 2.5 mg inhalation Q4H PRN (Reason: shortness of breath or wheezing) Qty: 75 0RF albuterol sulfate 90 mcg/actuation HFA aerosol inhaler 2 puff INHALATION QID PRN (Reason: shortness of breath or wheezing) Qty: 8.5 0RF albuterol sulfate [Ventolin HFA] 90 mcg/actuation HFA aerosol inhaler 2 puff inhalation Q4H PRN (Reason: shortness of breath or wheezing) Qty: 8.5 0RF (DME) nebulizer accessories Kit See Rx Instructions .Route Qty: 1 0RF Rx Instructions: As directed (DME) nebulizer and compressor [Comp-Air Nebulizer Compressor] Device See Rx Instructions .Route Qty: 1 0RF Rx Instructions: As directed epinephrine [EpiPen 2-Huber] 0.3 mg/0.3 mL auto-injector 0.3 mg IM Q5-15M PRN (Reason: anaphylaxis) Qty: 2 0RF Rx Instructions: do not exceed 3 doses per episode Breo Ellipta 50-25 mcg/dose blister with device See Rx Instructions .ROUTE .COMPLEX Qty: 60 1RF Dose Instruction: Inhale 1 puff by mouth once daily Rx Instructions: Inhale 1 puff by mouth once daily albuterol sulfate 90 mcg/actuation HFA aerosol inhaler See Rx Instructions .ROUTE .COMPLEX Qty: 9 2RF Dose Instruction: INHALE 1 PUFF BY MOUTH EVERY 4 HOURS NEEDED FOR SHORTNESS OF BREATH FOR WHEEZING Rx Instructions: INHALE 1 PUFF BY MOUTH EVERY 4 HOURS NEEDED FOR SHORTNESS OF BREATH FOR WHEEZING Follow-up/Referrals: PHYSICIAN,LEAD MATERIAL HANDLER [Primary Care Provider, Internal Medicine] Time of Disposition: 12:54
[2024-12-06 12:04] LABS: EDCOVIDSCREEN Negative (Negative); EDINFLUASCREEN Negative (Negative); EDINFLUBSCREEN Negative (Negative)
[2024-12-06] MEDS: IPRATROPIUM BR 0.02% INH SOLN 0.5 MG/2.5 ML VIAL INHALATION (12:16)
[2024-12-06] MEDS: ALBUTEROL SULFATE NEB 2.5 MG/3 ML INH INHALATION (12:17)
== END 2024-12-06 13:02 | disposition home or self-care (01) ==
PROVIDERS: Emergency Provider Nurse Practitioner
DX: J22 Unspecified acute lower respiratory infection (principal); J45.901 Unspecified asthma with (acute) exacerbation; F41.8 Other specified anxiety disorders; Z87.891 Personal history of nicotine dependence; Z20.822 Contact with and (suspected) exposure to COVID-19
CPT/HCPCS: 71046; 87426; 87804; 94640; 99213; G0463

== ENCOUNTER 2024-12-27 16:11 | Emergency (ER) | payer OTHER, SELFPAY ==
--- OUTSIDE RECORDS SUMMARY | 2015-02-28 18:00 | XMS_ITS | Continuity of Care Document ---
Author Organization [facility] Address [address] [place] [address] Phone Care Team Providers Care Tipple Repairer Name Role Phone Jesús Wells MD Unavailable Unavailable Allergies, Adverse Reactions, Alerts Substance Reaction Status Criticality No Known Drug Allergies Active No I nformation Medications Medication Instructions Dosage Effective Dates (start - stop) Status Comments HYDROCODONE-ACETAM INOPHEN (unknown strength) take 1 - 2 Tablet by oral route every 4 - 6 hours as needed for pain Not Available - Active Procedures Procedure Date Special Narrative Report Independent Medical Examination BROOKS Advance Directives Directive Yes / No Effective Date File Name No Information Encounters Encounter Description Practice Location Reason(s) For Visit Diagnoses Date Provider Providers Copied on Encounter [facility], [address], [id number], [phone] [place] [facility] No Information 6 Priscilla Espinosa. [address] [facility], [facility] [address], [place], [place], [id number] , [place]. tel: [phone] Independent Medical Examination BROOKS [facility], [address], [id number], [place] tel:[phone] [facility] Pathological fracture of lt radius, initial encounter for fractureNondisp fx of left ulna styloid process, init for clos fx 5 Priscilla Espinosa. [address] [facility], [facility] [address], [place], [place], [id number] , [place]. tel: [phone] Family History Family Member Type Diagnosis Age At Onset Problem (finding) Family history of malignant neoplasm of lung Payers Payer name Insurance type Covered constitution party ID Cherie laws(s) [employer] [id number] Social History Type Description Quantity Date Captured Comments Sex Female Smoking Status No Information Chief Complaint And Reason For Visit No Information Reason For Referral Reason For Referral No Information Plan Of Treatment Date Type Action Status Patient Education Stopping Smoking: After Your Visit completed History Of Present Illness Encounter Date Complaint History Of Prese nt Illness No Information Functional Status Date Functional Assessmen t No Information Instructions Date Instruction Additional Infor mation No Information Assessments Type Assessment Date No Information Patient Care Teams Name Effective Dates (start - stop) Status Members No Information
[2024-12-27] VITALS (31 sets, daily range): BP systolic 96–132; BP diastolic 65–85; PULSE 70–124; RESP 16–32; TEMP 36.3; O2SAT 87–98
--- NOTE | ~2024-12-27 | CT_ITS ---
CTA chest PE protocol HISTORY:sob, hypoxia . COMPARISON: 06/20/2024 TECHNIQUE: Following the noncontrasted legal administrator, axial images of the thorax were obtained following infusion of 100 cc of Isovue 370. Post-processing on an independent workstation was performed to reconstruct MIP images for evaluation of the thoracic vasculature. FINDINGS: There is no pulmonary embolism, aortic dissection, thoracic aneurysm or pericardial fluid. Scattered areas of interlobular groundglass opacity and interlobular septal thickening bilaterally has increased. There are centrilobular emphysema. No pleural effusion or pneumothorax is noted. There is no axillary, mediastinal or hilar adenopathy. Limited evaluation of the upper abdomen demonstrates no gross abnormalities. Review of bone windows demonstrates no osteoblastic or lytic lesions. IMPRESSION: There is no pulmonary embolism, aortic dissection, pericardial fluid or thoracic aneurysm. Increase in areas of interlobular ground glass opacities bilaterally. All CT scans at this facility are performed using low dose modulation techniques as appropriate to perform exam including the following: automated exposure control; use of iterative reconstruction technique; adjustment of the mA and/or kV according to patient size (this includes techniques or standardized protocols for targeted exams where dose is matched to indication/reason for exam). Reviewed, dictated and finalized at location S. WORKING MACHINIST IMPRESSION: There is no pulmonary embolism, aortic dissection, pericardial fluid or thoraci c aneurysm. Increase in areas of interlobular ground glass opacities bilaterally. All CT scans at this facility are performed using low dose modulation techniqu es as appropriate to perform exam including the following: automated exposure c ontrol; use of iterative reconstruction technique; adjustment of the mA and/or kV according to patient size (this includes techniques or standardized protocol s for targeted exams where dose is matched to indication/reason for exam).
--- OUTSIDE RECORDS SUMMARY | 2024-12-27 16:13 | XMS_ITS | Clinical Summary ---
Author Organization [facility] Address [address] [place] [address] Care Team Providers Care Windows Systems Architect Name Role Phone Catracho Mcghee MD Primary Care Provider [phone] Allergies No known active allergies Medications albuterol [...] on file Legal Sex Female 3:14 AM [employer] Gender Identity Not on file Sexual Orientation [...] series) 2002 Regular Well Visit/Exam 18-64 06/02/2007 HPV Vaccines (1 - 3-dose SCDM series) 2016 Influenza Vaccine (#1) 2024 01/12/2003 DTaP/Tdap/Td Vaccine (8 - Td or Tdap) 10/16/2026 10/16/2016, 06/05/2005, 01/31/2003, Additional history exists Hepatitis B Screening Completed 07/10/1999 , 01/23/1999, 12/26/1998 Pneumococcal vaccine <65 Aged Out No longer eligible based on patient's age to complete this topic Insurance Care Teams Windows Systems Architect Relationship Specialty Start Date End Date Catracho Mcghee MD [address] [place] [id number] PCP - General Emergency Medicine 10/08/23
--- OUTSIDE RECORDS SUMMARY | 2024-12-27 16:13 | XMS_ITS | Data Portability ---
Author Organization [facility] [place] Address [address] [place] [address] Care Team Providers Care Outreach Assistant Name Role Phone TEJAS PROMISE Primary Care Provider [phone] Assessment No assessment recorded. Plan of Treatment Reminders Order Date Submit Date Provider Last Modified By Organization Details Last Modified Time Details Appointments None recorded. Lab test, urine 2022 023 [email or web address] [place], [address], [place], [address], 3 13:03:17 test, urine 2022 023 [email or web address] [place], [address], [place], [address], 3 11:38:17 Referral None recorded. Procedures None recorded. Surgeries loop electrode excision procedure, surgical (LEEP) (SURG) 2022 023 [id number] [facility], [address], [place], [address], 3 09:22:18 Imaging None recorded. Medication Orders [...] elial Lesio n (LSIL ). Elect anai cole jessica d by Faye Dillard MD on 2022 [...] ry: Hormo flor (if appli cable ): SUGNICANOR STED FOLLO W-UP: Follo w up as warra nted, based on curre nt guide lines and indiv idual patie nt consi derat ions. Not Available [facility] (Lab) [address], [place], [address], 10/18/2022 12:42:37 11/06/19 23 11/05/2022 SURGI ADI PATHO LOGY surgical pathology SEE RESULT S BELOW CASE REPOR T: Surgi adi Patho logy Repor t Case: [id number] Autho curtis weston Provi rubi: Jamie Peterson Colle cted: 11/05 1646 JUICE STANDARDIZER Order ing Locat ion: [place] Patho logy [...] Gross ed by Iris rivas Not Available [facility] (Lab) [address], [place], [address], 11/07/2022 13:48:55 11/06/19 23 11/05/2022 pregn lindsay test, urine HCG negati ve Not Available [place] [address], [place], [address], 11/05/2022 11:23:05 12/20/19 23 12/19/2022 SURGI ADI PATHO LOGY surgical pathology SEE RESULT S BELOW CASE REPOR T: Surgi adi Patho logy Repor t Case: [id number] Autho curtis weston Provi rubi: Becky [...] for HSIL/ JOSÉ MANUEL-2 . Elect anai bennett by Santana Senior MD on 2022 at [...] patie nt's name, demog raphi cs and LEEP . Recei kurtis in forma nadira are 3 irreg ular unori ented piece s of rubbe ry, pink- dubose cervi adi tissu e aggre gatin g 2.5 x 2.0 x 1.0 cm. A disti nct endoc ervic al eze n is not disce rnibl e with certa be hinton ly. The resec tion eze ns of each fragm ent are inked green and each fragm ent is secti oned. The entir e speci men is submi tted in casse ttes A1-A6 . Gross ed by Iris rivas Not Available [facility] (Lab) [address], [place], [address], 12/23/2022 09:10:31 12/20/19 23 12/19/2022 pregn lindsay test, urine HCG negati ve Not Available [place] [address], [place], [address], 12/19/2022 13:03:00 06/20/19 24 06/20/2023 IMAGE GUIDE D PAP AND HPV REGAR DLESS image guided Pap, HPV regardless of Pap result SEE RESULT S BELOW CASE REPOR T: Cytol ogy Gynec ologi adi Repor t Case: [id number] Autho rifreedom g Provi rubi: Becky Murgiua MD Colle cted: 06/19 1105 Order ing [...] or Sadia cole (NIL) . Elect anai hurtadoe d by Navya Greene, CT on 024 [...] rical findi ngs, furth er inves tigat ion is recom lawanda d, as clini andrew justin nted. Not Available [facility] (Lab) [address], [place], [address], 06/26/2023 08:17:23 Result Notes None recorded. Problems Name Problem SNOMED Code Status Onset Date Resolution Date Notes Provider Name and Address Organization Details Recorded Time Primigra sheng 411978657 Completed 201006/16/2020 Supervis ion of normal first pregnanc y;Chris ce ID: 0001 Medina villa [facility] 18:13:42 anatomy study Completed 201006/16/2020 [facility] ANATMC SURVEY;P ractice ID: 0001 Medina Oh[facility] 18:12:38 Delivery normal [id number] Completed 201106/16/2020 Normal delivery ;Practic e ID: 0001 Medina [facility] 18:12:34 Single live from singleto n pregnanc y [id number] Completed 201106/16/2020 Mother with single liveborn ;Practic e ID: 0001 Medina villa, [facility] 18:13:55 Benign essentia l hyperten nicky complica ting pregnanc y, childbir th and the puerperi um - delivere d with postnata l complica tion [id number] Completed 201106/16/2020 Benign essentia l hyperten nicky, with delivery , with mention of postpart um complica tion;Rec orded Elsewher e: No Locat ion: [facility] S ource: EHR Psychologists drew: N Bibianati ce ID: 0001 Js lable Time: 10:00:00 AM Medina villa [facility] 1 18:12:27 Postpart um care Completed 201106/16/2020 Routine postpart um follow-u p;Record ed Elsewher e: No Locat ion: [facility] S ource: EHR Psychologists drew: N Chris ce ID: 0001 Js lable Time: 09:30:00 AM Median [facility], [facility] 1 18:13:34 Screenin g for malignan t neoplasm of cervix Completed 201306/16/2020 Screenin g for malignan t neoplasm s of the cervix;R ecorded Elsewher e: No Locat ion: [facility] S ource: EHR Psychologists drew: Corey Perez ce ID: 0001 Js lable Time: 10:45:00 AM Medina [facility], [facility] 18:13:51 Speciali zed medical examinat ion Completed 201306/16/2020 Gynecolo gical Examinat ion;Gerald rded Elsewher e: No Locat ion: [facility] S ource: EHR Psychologists drew: N Chris ce ID: 0001 Js lable Time: 10:45:00 AM [facility] villa, [facility] 18:14:01 Pregnanc y test positive [id number] Completed 201306/16/2020 Pregnanc y examinat ion or test, positive result;R ecorded Elsewher e: No Locat ion: [facility] S ource: EHR Psychologists drew: N Bibianati ce ID: 0001 Js lable Time: 10:45:00 AM Medina [facility], [facility] 18:13:40 Ultrason ography Completed 201306/16/2020 Antenata l screenin g for malforma tion using ultrason ics;Gerald rded Elsewher e: No Locat ion: [facility] S ource: EHR Psychologists drew: N Chris ce ID: 0001 Js lable Time: 10:30:00 AM Medina villa, [facility] 18:14:09 Congenit al malforma tion [id number] Completed 201306/16/2020 Antenata l screenin g for malforma tion using ultrason ics;Gerald rded Elsewher e: No Locat ion: [facility] monie [facility] S ource: EHR Psychologists drew: N Bibianati ce ID: 0001 Js lable Time: 10:30:00 AM Medina villa, [facility] 18:12:29 Routine antenata l care Completed 201306/16/2020 Supervis ion of other normal pregnanc y;Record ed Elsewher e: No [facility] S ource: EHR Psychologists drew: N Chris ce ID: 0001 Js lable Time: 10:30:00 AM Medina Ohara allen [facility] 18:13:46 Pregnanc y test negative [id number] Completed 201406/16/2020 Pregnanc y examinat ion or test, negative result;R ecorded Elsewher e: No Locat ion: [facility] S ource: EHR Psychologists drew: N Chris ce ID: 0001 Js lable Time: 11:00:00 AM [place] villa [facility] 18:13:38 Venereal disease screenin g Completed 201406/16/2020 Screenin g examinat ion for venereal disease; Recorded Elsewher e: No Locat ion: [facility] S ource: EHR Psychologists drew: N Bibianati ce ID: 0001 Js lable Time: 11:00:00 AM [place] villa [facility] 18:14:14 Adult health examinat ion Completed 201406/16/2020 ROUTINE MEDICAL EXAM;Rec orded Elsewher e: No Locat ion: [facility] S ource: EHR Psychologists drew: N Bibianati ce ID: 0001 Js lable Time: 11:00:00 AM Medina villa, [facility] 1 18:11:54 Speciali zed medical examinat ion Completed 201406/16/2020 Other specifie d chlamydi al diseases ;Recorde d Elsewher e: No Locat ion: [facility] S ource: EHR Psychologists drew: N Bibianati ce ID: 0001 Js lable Time: 11:00:00 AM Medina [facility], [facility] 1 18:14:03 Cytologi c finding Completed 201406/16/2020 Papanico laou smear of cervix with low grade squamous intraepi thelial lesion (LGSIL); Recorded Elsewher e: No Locat ion: [facility] S ource: EHR Psychologists drew: N Bibianati ce ID: 0001 Js lable Time: 05:00:00 PM Medina villa, [facility] 1 18:12:31 Human papillom avirus deoxyrib onucleic acid detected , high risk on cervical specimen 902583012 Completed 201406/16/2020 Cervical high risk HPV DNA test positive ;Recorde d Elsewher e: No Locat ion: [facility] S ource: EHR Psychologists drew: N Bibianati ce ID: 0001 Js lable Time: 05:00:00 PM Medina villa [facility] 1 18:13:06 Low risk human papillom avirus deoxyrib onucleic acid detected in specimen from cervix [id number] 643715 Completed 201406/16/2020 Cervical low risk HPV DNA test positive ;Practic e ID: 0001 Medina villa, [facility] 18:13:[address] Concept Completed 201506/16/2020 Encounte r for supervis ion of normal pregnanc y, unspecif ied, second trimeste r;Record ed Elsewher e: No Locat ion: [facility] S ource: EHR Psychologists drew: N Practi ce ID: 0001 Js lable Time: 03:00:00 PM [facility] villa, [facility] 18:14:00 Term pregnanc y delivere d [id number] Completed 201506/16/2020 Encounte r for full-ter m uncompli cated delivery ;Practic e ID: 0001 Medina [facility], [facility] 18:14:06 Gestatio n period, 38 weeks [id number] Completed 201506/16/2020 38 weeks gestatio n of pregnanc y;Practi ce ID: 0001 Medina villa, [facility] 18:12:44 Atypical squamous cells of undeterm ined signific ance on cervical Papanico laou smear [id number] Completed 201606/16/2020 Atyp squam cell of undet signfc cyto smr crvx (ASC-US) ;Recorde d Elsewher e: No Locat ion: [facility] S ource: EHR Psychologists drew: N Practi ce ID: 0001 Js lable Time: 11:45:00 AM Medina villa [facility] 18:12:00 Pregnanc y detectio n examinat ion Completed 201606/16/2020 Encounte r for pregnanc y test, result positive ;Practic e ID: 0001 Medina villa [facility] 18:13:37 Atypical squamous cells on cervical Papanico laou smear cannot exclude high grade squamous intraepi thelial lesion 650678303 Completed 201606/16/2020 Atyp squam cell not excl hi grd intrepit h lesn cyto smr crvx;Rec orded Elsewher e: No Locat ion: Jaclynjenaro lomax [facility] S ource: EHR Psychologists rdew: N Practi ce ID: 0001 Js lable Time: 10:30:00 AM Medina Ohara allen, [facility] 18:12:03 Uterine size for dates discrepa ncy Completed 201606/16/2020 Uterine size-peggy e discrepa ncy, first trimeste r;Practi ce ID: 0001 Medina Mayda allen, [facility] 18:14:10 Gestatio n less than 9 weeks [id number] Completed 201606/16/2020 Less than 8 weeks gestatio n of pregnanc y;Practi ce ID: 0001 Medina Mayda villa, [facility] 18:12:40 Secondar y amenorrh ea 466575533 Completed 201606/16/2020 Secondar y amenorrh ea;Pract ice ID: 0001 Medina villa, [facility] 18:13:53 Normal pregnanc y in multigra sheng [id number] 4106 Completed 201606/16/2020 Encounte r for suprvsn of normal pregnanc y, first trimeste r;Practi ce ID: 0001 Medina Ohara allen, [facility] 18:13:30 Antenata l screenin g Completed 201606/16/2020 Encounte r for antenata l screenin g for nuchal transluc ency;Pra ctice ID: 0001 Medina Ohara null, [facility] 18:11:55 Antenata l screenin g for malforma tion Completed 201606/16/2020 Encounte r for antenata l screenin g for malforma tions;Pr actice ID: 0001 Medinahansel villa, [facility] 18:11:58 Sciatica Completed 201606/16/2020 Sciatica ;Recorde d Elsewher e: No Locat ion: Bayron lomax [facility] S ource: EHR Psychologists drew: N Practi ce ID: 0001 Js lable Time: 09:15:00 AM Medina [facility], [facility] 18:13:47 Uterine size for dates discrepa ncy Completed 201706/16/2020 Uterine size-peggy e discrepa ncy, second trimeste r;Practi ce ID: 0001 Medina [facility], [facility] 18:14:12 Gestatio n period, 31 weeks [id number] Completed 201706/16/2020 31 weeks gestatio n of pregnanc y;Practi ce ID: 0001 Medina [facility], [facility] 18:12:41 Gestatio n period, 39 weeks [id number] Completed 201706/16/2020 39 weeks gestatio n of pregnanc y;Practi ce ID: 0001 Medina [facility], [facility] 18:12:46 Lochia finding Completed 201706/16/2020 Encounte r for routine postpart um follow-u p;Record ed Elsewher e: No [facility] S ource: EHR Psychologists drew: N Practi ce ID: 0001 Js lable Time: 11:00:00 AM Medinahansel Ohara [facility], [facility] 18:13:[address] Concept Completed 201706/16/2020 Encntr for furnace tender exam (general ) (routine ) w/o abn findings ;Recorde d Elsewher e: No Locat ion: Bayron lomax [facility] S ource: EHR Psychologists drew: N Bibianati ce ID: 0001 Js lable Time: 11:00:00 AM Medina Oliveiratz allen [facility] 18:13:[address] Concept Completed 201706/16/2020 Encntr for general adult medical exam w/o abnormal findings ;Recorde d Elsewher e: No [facility] Psychologists drew: N Bibianati ce ID: 0001 Js lable Time: 05:00:00 PM Medina Oliveiratz allen [facility] 18:13:56 Low grade squamous intraepi thelial lesion on cervical Papanico laou smear [id number] 105 Completed 201706/16/2020 Low grade intrepit h lesion cyto smr crvx (LGSIL); Recorded Elsewher e: No Locat ion: Bayron lomax [facility] N Bibianati ce ID: 0001 Js lable Time: 05:00:00 PM Medina Oliveiratz allen [facility] 18:13:27 Procedur e by method Completed 201706/16/2020 Encounte r for family planning advice NOS;Gerald rded Elsewher e: No [facility] Psychologists drew: N Bibianati ce ID: 0001 Js lable Time: 08:30:00 AM Medina Ohara allen [facility] 18:12:36 Steriliz ation procedur e Completed 201706/16/2020 Encounte r for steriliz ation;Pr actice ID: 0001 Medina Ohara allen [facility] 18:14:04 Procedur e on genitour inary system Completed 201706/16/2020 Encounte r for surgical aftercar e followin g surgery on the genitour inary system;R ecorded Elsewher e: No Locat ion: [facility] S ource: EHR Psychologists drew: N Practi ce ID: 0001 Js lable Time: 09:30:00 AM Medina villa [facility] 18:13:44 Postoper ative care Completed 201706/16/2020 Encounte r for surgical aftercar e followin g surgery on the genitour inary system;R ecorded Elsewher e: No [facility] Psychologists drew: N Practi ce ID: 0001 Js lable Time: 09:30:00 AM Medina villa, [facility] 18:13:32 Problem Notes None recorded. Procedures Surgical History Date Name Laterality Status Provider Name and Address Organization Details Recorded Time 12/20/19 23 LEEP completed Mario Murguia MD [address], [place], [address], [facility] 12/19/2022 21:25:56 12/20/19 23 LEEP completed Teresa Lugo [facility] 12/26/2022 10:27:53 11/06/19 23 Colposcopy completed Monica Nicole OLIVIA- [address], [place], [address], [facility] 11/05/2022 11:38:06 11/06/19 23 Colposcopy completed Medina Ohara [facility] 11/05/2022 11:24:41 11/06/19 23 Colposcopy completed Medina Ohara [facility] 11/05/2022 11:21:10 10/16/19 23 Date of Last Pap Smear completed Medina Ohara [facility] 11/05/2022 11:24:20 08/12/19 21 HYSTEROSCOPY, WITH ENDOMETRIAL ABLATION (SURG) completed Lissette Lowe [facility] 08/11/2020 10:39:26 07/01/19 21 Endometrial Biopsy completed eDa Garcia CNM [address], [place], [address], [facility] 06/30/2020 11:53:30 07/01/19 21 endometrial biopsy completed [facility] 06/30/2020 11:36:07 09/05/19 18 Colposcopy completed [facility] 06/16/2020 18:22:03 02/17/19 18 Tubal Ligation completed [facility] 06/16/2020 18:22:14 10/29/19 17 Colposcopy completed [facility] 06/16/2020 18:21:50 08/09/19 15 Colposcopy completed [facility] 06/16/2020 18:25:15 04/18/19 11 termination of completed [facility] 06/16/2020 18:22:26 Colposcopy completed [facility] 11/19/2022 10:15:28 Tubal Ligation completed [facility] 11/19/2022 10:15:28 Endometrial Ablation completed [facility] 11/19/2022 10:15:28 Imaging Results None recorded. [...] Prescrib ed Elsewher e: No Locat ion: [facility] odify By: cmedical Encount er [...] Prescrib ed Elsewher e: No Locat ion: [facility] odify By: eedmonds Encount er [...] Prescrib ed Elsewher e: No [facility] By: [email or web address] Encounte r DateTime : 04/24/19 16 02:54:40 PM Not Available Not Available Not Available Fioricet 50 mg-325 mg-40 mg tablet take 1 tablet by oral route every 6 hours as needed not to exceed 6 tablets per 24hrs 01/19 completed Prescrib ed Elsewher e: No Locat ion: [facility]ron lomax [facility] odify By: amnoah Lomax ncounter DateTime : 07/14/19 14 09:30:00 AM Not Available Not Available Not Available multivita min capsule take 1 capsule by oral route every day 05/12 completed Prescrib ed Elsewher e: No Locat ion: [facility] odify By: [email or web address] trick En counter DateTime : 07/18/19 12 09:00:00 AM Not Available Not Available Not Available Flexeril 10 mg tablet take 1 tablet (10MG) by oral route 3 times every day prn 07/08 completed Prescrib ed Elsewher e: No Locat ion: [facility] lomax [facility] odify By: mao Nassart er DateTime : 05/08/19 12 11:00:00 AM Not Available Not Available Not Available Zithromax 500 mg tablet take 2 tablet (1000MG) by oral route once 01/19 completed Prescrib ed Elsewher e: No Locat ion: [facility] lomax [facility] odify By: amnoah Lomax ncounter DateTime : 05/20/19 14 09:56:18 AM Not Available Not Available Not Available 03/08 (28) 1 mg-20 mcg (21)/75 mg (7) tablet TAKE 1 TABLET BY ORAL ROUTE EVERY DAY 11/13 completed Prescrib ed Elsewher e: No Locat ion: [facility]ron lomax [facility] odify By: olga Encounte r DateTime : 10/17/19 17 11:45:00 AM Not Available Not Available Not Available sertralin e 06/19 completed Not Available Not Available Not Available Vitamin D3 10 mcg (400 unit) capsule 07/08 completed Prescrib ed Elsewher e: Yes Loca tion: [facility] lomax [facility] odify By: cmedical Encount er DateTime : 12/29/19 11 03:00:00 PM Not Available Not Available Not Available Lo Loestrin Fe 1 mg-10 mcg (24)/10 mcg (2) tablet take 1 tablet by oral route every day 01/20 completed Prescrib ed Elsewher e: No Locat ion: Catherine monie [facility] odify By: cmedical Encount er DateTime : 01/20/20 14 02:15:00 PM Not Available Not Available Not Available Delia cruzo DHA 29 mg-1 mg-400 mg oral pack 07/08 completed Prescrib ed Elsewher e: Yes Loca tion: [facility] odify By: cmedical Encount er DateTime : 12/29/19 11 03:00:00 PM Not Available Not Available Not Available Vitals Date Recorded Body height Body mass index (BMI) Body weight Systolic And Diastolic Provider Name and Address Organization Details Last Updated DateTime 06/20/2023 162.56 cm 20.9 kg/m2 79156.27 g 108/72 mm[Hg] Sharon Cunningham [facility] 06/20/2023 10:29:44 Date Recorded Body height Body mass index (BMI) Body weight Systolic And Diastolic Provider Name and Address Organization Details Last Updated DateTime 11/05/2022 162.56 cm 21.8 kg/m2 15071.23 g 97/66 mm[Hg] Medina Ohara [facility] 11/05/2022 11:20:04 Date Recorded Body height Body mass index (BMI) Body weight Systolic And Diastolic Provider Name and Address Organization Details Last Updated DateTime 11/19/2022 162.56 cm 21.8 kg/m2 41651.23 g 105/67 mm[Hg] Teresa Lugo [facility] 11/19/2022 10:15:06 Date Recorded Body height Body mass index (BMI) Body weight Systolic And Diastolic Provider Name and Address Organization Details Last Updated DateTime 12/19/2022 162.56 cm 21.6 kg/m2 59084.64 g 111/73 mm[Hg] Teresa [facility] 12/19/2022 10:31:34 Date Recorded Body height Body mass index (BMI) Body weight Systolic And Diastolic Provider Name and Address Organization Details Last Updated DateTime 12/26/2022 162.56 cm 21.6 kg/m2 81552.64 g 98/66 mm[Hg] Teresa Lugo [facility] 12/26/2022 10:27:24 Social History Question Answer Notes LastModified by Organizat ion Details LastModified Time Tobacco Smoking Status Current Every Day Smoker Lani Loera allen, [facility] 12/26/2022 10:16:35 Do You Have An Advance Directive? No [email or web address] Information n ot available 06/14/2020 If You Are , What Was Your Level Of Alcohol Consumption Prior To ? None [email or web address] Information not available 12/26/2022 Are You Blind Or Do You Have Difficulty Seeing? No [email or web address] Information n ot available 06/14/2020 What Is Your Level Of Caffeine Consumption? Moderate [email or web address] Information not available 06/14/2020 How Much Tobacco Do You Chew? None [email or web address] Information not available 06/14/2020 In The 14 Days Before Symptom Onset, Have You Had Close Contact With A Laboratory-confirm ed COVID-19 While That Case Was Ill? No [email or web address] Information n ot available 06/14/2020 In The 14 Days Before Symptom Onset, Have You Had Close Contact With A Person Who Is Under Investigation For COVID-19 While That Person Was Ill? No [email or web address] Information not available 06/14/2020 Have You Been To An Area Known To Be High Risk For COVID-19? No [email or web address] Information not available 06/14/2020 Are You Deaf Or Do You Have Serious Difficulty Hearing? No Information not available 06/14/2020 What Type Of Diet Are You Following? REGULAR [email or web address] Information n ot available 06/14/2020 What Is The Highest Grade Or Level Of School You Have Completed Or The Highest Degree You Have Received? [id number] Information not available 06/14/2020 Are There Any Guns Present In Your Home? No [email or web address] Information not available 06/14/2020 Do You Use Protection During Sex? Usually [email or web address] Information not available 06/14/2020 Do You Use Your Seat Belt Or Car Seat Routinely? Yes [email or web address] Information not available 06/14/2020 Do You Have Smoke And Carbon Monoxide Detectors In Your Home? Yes [email or web address] Information not available 06/14/2020 At What Age Did You Start Smoking Tobacco? 17 [email or web address] Information not available 06/14/2020 How Much Tobacco Do You Smoke? 2 PPW [email or web address] Information not available 06/14/2020 Do You Use Sunscreen Routinely? Yes [email or web address] Information not available 06/14/2020 Has Tobacco Cessation Counseling Been Provided? No [email or web address] Information not available 12/26/2022 How Many Years Have You Smoked Tobacco? 15 Information not available 11/19/2022 Have You Used IV Drugs? No [email or web address] Information not available 06/14/2020 Do You Have Difficulty Walking Or Climbing Stairs? No [email or web address] Information not available 12/26/2022 Sex: Unknown Functional Status Question Answer Note LastModified by Organizat ion Details LastModified Time Do you use any illicit or recreational drugs? No [email or web address] Information not available 06/14/2020 Do you or have you ever used any other forms of tobacco or nicotine? No [email or web address] Information not available 12/26/2022 What is your level of alcohol consumption? None Information not available 06/14/2020 Are you able to walk independently without assistance or assistive devices? YESWOREST [email or web address] Information not available 06/14/2020 Are you able to care for yourself independently? Yes [email or web address] Information not available 12/26/2022 What is your occupation? Stay at home mom Information not available 11/19/2022 Do you have difficulty dressing, bathing, grooming, or toileting? No [email or web address] Information not available 12/26/2022 What is your exercise level? Moderate [email or web address] Information not available 06/14/2020 Mental Status Question Answer Note LastModified by Organization D etails LastModified Time Do you feel stressed (tense, restless, nervous, or anxious, or unable to sleep at night)? [id number] [email or web address] Information not available 06/14/2020 Family History Relationship Description Onset Age of this Age Resolved Age Notes LastModified by Organization Details LastModified Time Mother Malignant neoplasm of lung [email or web address] Not available 06/16 18:21:28 Brother Asthma [email or web address] Not available 11/05/2022 11:04:07 Medical History Condition [...] Diagnosis SNOMED-CT Code Diagnosis ICD10 Code Diagnosis IMO Codes Diagnosis Note [id number] Dea Garcia, ALCIDES [facility] [address] [address] 06/14/2020 10:42:21 06/14/2020 11:42:05 Dysmenorrhea [id number] N94.6 Pain in pelvis [id number] R10.2 [id number] [facility] [address],[place] [address] 06/30/2020 10:59:55 06/30/2020 12:00:22 Dysmenorrhea 147679200 N94.6 Menorrhagia [id number] N9 2.0 [id number] Mario Murguia MD [facility] [address],[place] [address] 06/30/2020 10:59:29 06/30/2020 11:47:19 Abnormal uterine bleeding [id number] 9100 N93.9 [id number] Mario Murguia MD [facility] [address],[place] [address] 07/20/2020 10:25:33 07/20/2020 16:04:50 Menorrhagia 732975504 N92.0 This patient is a 30-year-ol d female with severe menorrhagi a. We have agreed to perform endometria l ablation with hysterosco py. She understand s the risks, benefits, and alternativ es. She has completed the informed consent process and is ready to proceed. [id number] Mario Murguia MD [facility] [address],[place] [address] 08/11/2020 09:27:24 08/11/2020 09:28:28 [id number] Mario Murguia MD [facility] [address],[place] [address] 08/24/2020 10:58:41 08/24/2020 12:20:12 Menorrhagia 174412975 N92.0 This patient is a 30-year-ol d female presents for follow-up on menorrhagi a. She underwent an endometria l ablation. She is recovering normally from that. She has some very small amount of watery vaginal discharge. We will observe her. She had a good result from her procedure and we hope for amenorrhea . She was given precaution s. [id number] SHEREEN Hartman [facility] [address] [address] 10/15/2022 10:49:00 10/17/2022 12:27:01 Gynecologic examination [id number] Z01.419 Take Calcium with Vitamin D 1200mg [...] PCP for routine labs Lesion of cervix [id number] 01 N88.9 pinpoint sized darkening noted at 6 oclockwill await pap results and discuss further f/u once reviewed [id number] [facility] [address] [address] 11/05/2022 11:02:11 11/05/2022 11:46:07 Screening procedure [id number] Z13.9 Low grade squamous intraepithelial lesion on cervical Papanicolaou smear [id number] 9105 R87.612 See procedure notes.Post -procedure instructio ns reviewed with understand ing verbalized .Will contact with results & next steps in plan of care. Counseled on Pap/HPV guidelines /Testing/R esults with understand ing verbalized .All questions answered to patient satisfacti on. Booklet & additional resources regarding pap smear/HPV/ Pap results given. [email or web address]://ww w.cancer.g ov/types/c ervical/un derstandin g-abnormal -hpv-and-p ap-test-re sults/unde rstanding- cervical-c hanges.pdf [id number] Mario Murguia MD [facility] [address],[place] [address] 11/19/2022 09:40:58 11/19/2022 11:15:10 Dysplasia of cervix 47497309 N87.9 We discussed HPV, cervical dysplasia, cervical [...] es. We spent 25 minutes face-to-fa ce. [id number] Mario Murguia MD [facility] [address],[place] [address] 12/19/2022 10:29:26 12/20/2022 08:51:15 Screening procedure 25124305 Z13.9 Dysplasia of cervix 7339 1008 N87.9 32-year-ol d female presented for the procedure. She tolerated it well. It was completed without complicati ons. [id number] Mario Murguia MD [facility] [address],[place] [address] 06/20/2023 10:14:19 06/23/2023 01:27:18 Dysplasia of cervix 17676257 N87.9 This patient is a 33-year-ol d female who presents for repeat Pap smear after LEEP procedure. This is her 1st repeat Pap smear. The repeat Pap smear was performed. The vulva, vagina, cervix appear normal. She will return in 6 months for repeat Pap smear [id number] Mario Murguia MD [facility] [address] [address] 12/26/2022 10:16:26 12/26/2022 11:24:10 Dysplasia of cervix 63746204 N87.9 32-year-ol d female presents for follow-up [...] None Recorded Advance Directives Directive N: Payers Insurance Date Sequence Insurance Name Policy Number Policy Armstrong Covered Member ID Armstrong Member ID Guarantor Name 09/04/2023 1 [facility] (MEDICAID HMO) [id number] Muriel Armando [id number] Muriel Armando Notes Date Note Type Note Provider Name and Address Organization Details Recorded Time 11/05/2022 text/html ROS as noted in the HPI Here today for colposcopy due to LGSIL Monica Nicole, [facility] [address], [place], [address], [facility] 11/05/2022 11:39:12 11/19/2022 text/html We discussed HPV, cervical dysplasia, cervical cancer. [...] benefits, and alternatives. We spent 25 minutes [id number]. Mario Murguia MD [address], [place], [address], [facility] 11/19/2022 10:50:38 12/19/2022 text/html 32-year-old female who presents for the procedure for severe cervical dysplasia. The procedure was explained to her in detail. She is completed the informed consent process is ready to proceed. She understands risks, benefits, and alternatives. Mario Murguia MD [address], [place], [address], [facility] 12/19/2022 21:26:51 12/26/2022 [...] months. Mario Murguia MD [address], [place], [address], [facility] 12/26/2022 11:07:01 06/20/2023 text/html This patient is a 33-year-old female who presents for repeat Pap smear after LEEP procedure. This is her 1st repeat Pap smear. The repeat Pap smear was performed. The vulva, vagina, cervix appear normal. She will return in 6 months for repeat Pap smear Mario Murguia MD [address], [place], [address], [facility] 06/21/2023 22:54:17 OBGyn Episode Ob Episode Information Episode Created Date Number of Fetuses Patient Bloodtype Patient rh Status Prepregnancy Weight lbs Domestic Partner Domestic Partner Phone Father Name Tobacco Stripper Status 06/17/19 21 1 CLOSED Fetus Data [...] Domestic Partner Domestic Partner Phone Father Name Tobacco Stripper Status 06/17/19 21 1 CLOSED Fetus Data [...] Domestic Partner Domestic Partner Phone Father Name Tobacco Stripper Status 06/17/19 21 1 CLOSED Fetus Data [...] Domestic Partner Domestic Partner Phone Father Name Tobacco Stripper Status 06/17/19 21 1 CLOSED Fetus Data [...] Domestic Partner Domestic Partner Phone Father Name Tobacco Stripper Status 06/17/19 21 1 CLOSED Fetus Data [...]
--- OUTSIDE RECORDS SUMMARY | 2024-12-27 16:13 | XMS_ITS | Clinical Summary ---
Author Organization [facility] [employer] Address [address] [place] [address] Care Team Providers Care Quiller Hand Name Role Phone Ebonie Crowe MD Primary Care Provider [phone] Source Comments [facility],non-owned Affiliates and Associated Physician Practices is amultiple site organization consisting of ambulatory clinics and hospital sitesin [place], [place], [place] and [place]. This disclosure is being madepursuant to the Care Everywhere program and may not contain all information available regarding this patient. Last updated 17.[employer] Allergies No known active allergies Medications * [...] to complete this topic Insurance Care Teams Quiller Hand Relationship Specialty Start Date End Date Ebonie Crowe MD [address] [place] [address] PCP - General 04/08/18
--- NOTE | 2024-12-27 16:20 | PC.NURSE ---
Pt was hypoxic during triage vitals, pt placed on 3L o2 via NC and oxygen saturation is now 93%. Pt does not normally wear oxygen.
--- NOTE | 2024-12-27 17:30 | ECG_ITS ---
Test Date: 2024-12-27 17:42:41 Measurements Intervals [place] Rate: 99 P: 75 WV: 168 QRS: 120 QRSD: 98 T: 52 QT: 346 QTc: 446 Interpretive Statements SINUS RHYTHM POSSIBLE LEFT ATRIAL ENLARGEMENT [-0.1mV P-WAVE IN V1/V2] INDETERMINATE AXIS INCOMPLETE RIGHT BUNDLE BRANCH BLOCK [90+ ms QRS DURATION, TERMINAL R IN V1/V2, 40+ ms S IN I/aVL/V4/V5/V6] LEFT POSTERIOR FASCICULAR BLOCK [QRS AXIS > 109, INFERIOR Q] Electronically Signed On 12-28-2024 17:29:27 TRANSPORTATION MAINTENANCE WORKER by Checo Dunham M.D.
[2024-12-27] MEDS: SODIUM CHLORIDE 0.9% IV 1,000 ML 999 ML IV CONT (17:40)
--- NOTE | 2024-12-27 17:46 | ED_ITS ---
HPI - SOB/Dyspnea General Chief Complaint: Shortness of Breath/Dyspnea Stated Complaint: SOB Time Seen by Provider: 12/27/24 17:31 Source: patient Mode of arrival: ambulatory Limitations: no limitations History of Present Illness HPI Narrative: This is a 34-year-old female that presents to the emergency department for shortness of breath. Reports she has had cold symptoms over the last couple of days. Reports today sudden worsening of shortness of breath. Reports history of COPD and asthma. She is a former smoker. Denies fevers. Related Data Allergies Allergy/AdvReac Type Severity Reaction Status Date / Time No Known Allergies Allergy Verified 12/27/24 18:24 Review of Systems 2 Review of Systems: All systems reviewed & are unremarkable except as noted in HPI and below PMFSH Past Medical History Medical History Depression with anxiety Asthma-COPD overlap syndrome Surgical History Surgical History History of tubal ligation Family History Family History Mother Lung cancer, Onset Age: 47 Other Emphysema of lung Social History Social History Social History: Surrogate medical decision maker: Geremias Feliciano, spouse. Code status: Full code. Years smoked: 13 Tobacco type: cigarettes Smokeless tobacco user: other Second hand tobacco smoke exposure: No Alcohol intake: never Substance use: never Substance use type: marijuana Do You Feel Safe in your Home?: Yes Lack of Transportation: No Lack of Food: Sometimes True Current Housing: I Have Housing Concerned About Future Housing: No Difficulty Paying Gas/Electric Bills: No Difficulty Paying for Meds: No Currently Unemployed: No Education: High School Diploma/GED Difficulty w/ Childcare or Family Care: No Living arrangements: with family Spiritual care concerns: No Exam 2 Narrative: GENERAL: Well-appearing, well-nourished, and in no acute distress. HEAD: Normocephalic, atraumatic. EYES: EOMI. ENT: Nares clear, no rhinorrhea or epistaxis. Mucous membranes moist. Oropharynx without tonsillar hypertrophy exudate or other lesions. Bilateral TMs pearly castellanos non-bulging NECK: Supple. No adenopathy or masses. CHEST: No respiratory distress. Diffuse expiratory wheezing. No rales or rhonchi HEART: Tachycardic, regular rhythm. No murmur heard. Normal peripheral pulses. ABDOMEN: Soft, nontender, nondistended, normal active bowel sounds. EXTREMITIES: Normal range of motion. No edema. SKIN: Warm, dry, no rash. NEURO: No focal deficits. Alert and oriented x3. PSYCH: Normal mood and affect Course Course Emergency Course: Patient reports she cannot stay in the hospital at this time. She will be signing out against medical advice. I will send a steroid and antibiotics to the pharmacy. Reports she has plenty of albuterol at home Vital Signs Vital signs: Vital Signs Temperature 97.3 F L 12/27/24 16:14 Pulse Rate 124 H 12/27/24 16:14 Respiratory Rate 25 H 12/27/24 16:14 Blood Pressure 127/85 12/27/24 16:14 Pulse Oximetry 88 L 12/27/24 16:14 Oxygen Delivery Room Air 12/27/24 16:14 Temperature 97.3 F L 12/27/24 16:14 Pulse Rate 123 H 12/27/24 22:45 Respiratory Rate 25 H 12/27/24 22:45 Blood Pressure 96/83 L 12/27/24 19:16 Pulse Oximetry 87 L 12/27/24 22:45 Oxygen Delivery Nasal Cannula 12/27/24 17:58 Oxygen Flow Rate 4 12/27/24 17:58 MDM - SOB/Dyspnea MDM Narrative Medical decision making narrative: Patient presents to the emergency department for cold symptoms, shortness of breath. Noted to be hypoxic upon arrival. Given nebulizer treatment, steroid with some improvement. CBC with leukocytosis to 12.1. Metabolic panel without concerning findings. Influenza, COVID and RSV screens are negative. CTA chest PE with abdomen pelvis obtained. No PE. Does show pneumonia. Blood cultures obtained, patient started on IV antibiotics. Patient reports she cannot stay in the hospital at this time as she does not have anyone to care for her children. She will be signing out against medical advice. I will send a steroid and antibiotics to the pharmacy. Reports she has plenty of albuterol at home Differential Diagnosis Differential diagnosis: Likely acute exacerbation of chronic obstructive airways disease, community acquired pneumonia, asthma with exacerbation and pulmonary embolism Lab Data Attestation: I reviewed the patient's lab results. 12/27/24 17:45 12/27/24 17:45 Labs: Lab Results 12/27/24 12/27/24 Range/Units 17:44 17:45 WBC 12.1 H (4.5-10.0) K/mm3 RBC 4.40 (4.2-5.4) M/mm3 Hgb 13.5 (12.0-15.0) g/dL Hct 42.1 (37.0-47.0) % MCV 95.7 (80-100) fl MCH 30.7 (26-34) pg MCHC 32.1 (32-36) g/dl RDW 13.2 (11.5-14.5) % Plt Count 260 (150-375) k/mm3 MPV 9.7 (7.4-10.4) fl Immature Gran % (Auto) 0.4 (0-0.5) % Neut % (Auto) 80.9 H (45.5-73.1) % Lymph % (Auto) 8.5 L (18.3-44.2) % Posey % (Auto) 5.7 (2.6-8.5) % Eos % (Auto) 3.8 (0-4.4) % Baso % (Auto) 0.7 (0.2-1.2) % Lymph # (Auto) 1.03 (0.9-3.2) K/mm3 Posey # (Auto) 0.7 H (0.1-0.6) K/mm3 Eos # (Auto) 0.5 H (0-0.3) K/mm3 Baso # (Auto) 0.1 (0.0-0.1) K/mm3 Abs Immat Gran (auto) 0.05 H (0.00-0.031) K/mm3 Absolute Neuts (auto) 9.8 H (1.3-6.7) K/mm3 Absolute Nucleated RBC 0.000 (0.0-0.012) K/mm3 Nucleated RBC % 0.0 (0.0-0.2) % PT 13.8 (11.1-14.7) Seconds INR 1.1 APTT 34.8 (22.3-36.8) Seconds D-Dimer < 0.27 (<0.48) ug/mL Sodium 138 (137-145) mmol/L Potassium 3.6 (3.4-5.0) mmol/L Chloride 102 (98-107) mmol/L Carbon Dioxide 30 (22-30) mmol/L Anion Gap 6 (4-12) mmol/L BUN 5 L (7-17) mg/dL Creatinine 0.58 L (0.7-1.0) mg/dL Estim Creat Clear Calc 100 ml/min Estimated GFR > 60 (59 - ) Glucose 110 (65-110) mg/dL Lactic Acid 1.3 (0.7-2.0) mmol/L Calcium 9.4 (8.4-10.2) mg/dL Total Bilirubin 0.4 (0.2-1.3) mg/dL AST 29 (14-36) U/L ALT 18 (6-35) U/L Alkaline Phosphatase 60 (38-126) U/L C-Reactive Protein 1.0 (<1.0) mg/dL NT-Pro-B Natriuret Pep 147 H (19.9-100) pg/mL Total Protein 7.4 (6.3-8.2) g/dL Albumin 4.4 (3.5-5.1) g/dL Influenza A (RT-PCR) Negative (Negative) Influenza B (RT-PCR) Negative (Negative) RSV (RT-PCR) Negative (Negative) SARS-CoV-2 RNA (RT-PCR) Negative (Negative) Imaging Data Radiologist's impression: ITS Impressions Chest CTA 12/27/24 18:34 IMPRESSION: There is no pulmonary embolism, aortic dissection, pericardial fluid or thoracic aneurysm. Increase in areas of interlobular ground glass opacities bilaterally. All CT scans at this facility are performed using low dose modulation techniques as appropriate to perform exam including the following: automated exposure control; use of iterative reconstruction technique; adjustment of the mA and/or kV according to patient size (this includes techniques or standardized protocols for targeted exams where dose is matched to indication/reason for exam). ECG Data EKG #1: ECG completion date: 12/27/24 EKG Interpretation: normal rate, sinus rhythm, no ST changes and normal QT Critical Care Time Critical Care Time Critical Care Time: Yes Total Critical Care Time: 35 Discharge Plan Discharge Clinical Impression: Acute hypoxemic respiratory failure Pneumonia Qualifiers: Pneumonia type: due to unspecified organism Laterality: bilateral Lung location: lower lobe of lung Qualified Code(s): J18.9 - Pneumonia, unspecified organism Asthma exacerbation Qualifiers: Asthma severity: unspecified severity Asthma persistence: unspecified Qualified Code(s): J45.901 - Unspecified asthma with (acute) exacerbation Patient Disposition: Left Against Medical Advice Condition: Guarded Prognosis Instructions: Asthma (ED), Community Acquired Pneumonia (ED), Acute Respiratory Failure (ED) Additional Instructions: Return any time for further management Take steroid and antibiotic as prescribed. Albuterol 2 puffs every 4-6 hours as needed for shortness of breath or wheezing Patient Language: Greenlandic Prescriptions: New prednisone 20 mg tablet 40 mg PO DAILY 4 Days Qty: 8 0RF azithromycin 250 mg tablet See Rx Instructions .ROUTE .COMPLEX Qty: 6 0RF Rx Instructions: For 250 mg dose pack: take 500 mg today (day 1), then 250 mg for 4 days (days 2-5) amoxicillin-pot clavulanate 875-125 mg tablet 1 tablet PO Q12H 5 Days Qty: 10 0RF No Action albuterol sulfate 2.5 mg /3 mL (0.083 %) solution for nebulization 2.5 mg inhalation Q4H PRN (Reason: shortness of breath or wheezing) Qty: 75 0RF albuterol sulfate 90 mcg/actuation HFA aerosol inhaler 2 puff INHALATION QID PRN (Reason: shortness of breath or wheezing) Qty: 8.5 0RF albuterol sulfate [Ventolin HFA] 90 mcg/actuation HFA aerosol inhaler 2 puff inhalation Q4H PRN (Reason: shortness of breath or wheezing) Qty: 8.5 0RF prednisone 50 mg tablet 50 mg PO DAILY 5 Days Qty: 5 0RF albuterol sulfate 90 mcg/actuation HFA aerosol inhaler 2 inh inhalation Q4-6H PRN (Reason: shortness of breath or wheezing) Qty: 8.5 0RF albuterol sulfate 2.5 mg /3 mL (0.083 %) solution for nebulization 2.5 mg inhalation Q4-6H PRN (Reason: shortness of breath or wheezing) Qty: 90 0RF codeine-guaifenesin 10-100 mg/5 mL liquid 5 ml PO Q6H PRN (Reason: cough) Qty: 120 0RF (DME) nebulizer accessories Kit See Rx Instructions .Route Qty: 1 0RF Rx Instructions: As directed (DME) nebulizer and compressor [Comp-Air Nebulizer Compressor] Device See Rx Instructions .Route Qty: 1 0RF Rx Instructions: As directed epinephrine [EpiPen 2-Huber] 0.3 mg/0.3 mL auto-injector 0.3 mg IM Q5-15M PRN (Reason: anaphylaxis) Qty: 2 0RF Rx Instructions: do not exceed 3 doses per episode Breo Ellipta 50-25 mcg/dose blister with device See Rx Instructions .ROUTE .COMPLEX Qty: 60 1RF Dose Instruction: Inhale 1 puff by mouth once daily Rx Instructions: Inhale 1 puff by mouth once daily albuterol sulfate 90 mcg/actuation HFA aerosol inhaler See Rx Instructions .ROUTE .COMPLEX Qty: 9 2RF Dose Instruction: INHALE 1 PUFF BY MOUTH EVERY 4 HOURS NEEDED FOR SHORTNESS OF BREATH FOR WHEEZING Rx Instructions: INHALE 1 PUFF BY MOUTH EVERY 4 HOURS NEEDED FOR SHORTNESS OF BREATH FOR WHEEZING Follow-up/Referrals: PHYSICIAN,TECHNOLOGY ENGINEER [Primary Care Provider, Internal Medicine]
[2024-12-27 17:51] LABS: Hematocrit 42.1 % (37.0-47.0); Hemoglobin 13.5 g/dL (12.0-15.0); Immature Granulocyte Percent A 0.4 % (0-0.5); Lymphocytes Absolute Auto 1.03 K/mm3 (0.9-3.2); Mean Corpuscular HGB Conc 32.1 g/dl (32-36); Mean Corpuscular Hemoglobin 30.7 pg (26-34); Mean Corpuscular Volume 95.7 fl (80-100); Nucleated Red Blood Cells Absolute Auto 0.000 K/mm3 (0.0-0.012); Nucleated Red Blood Cells Perc 0.0 % (0.0-0.2); Platelet Count Result 260 k/mm3 (150-375); Red Blood Count 4.40 M/mm3 (4.2-5.4); White Blood Count 12.1 K/mm3 (4.5-10.0)
[2024-12-27] MEDS: IPRATROPIUM 0.5 MG/ALBUTEROL SULFATE 2.5 MG (BASE) AMPUL.NEB 3 ML INHALATION ×2 (17:59→19:51)
[2024-12-27 18:05] LABS: Alanine Aminotransferase 18 U/L (6-35); Albumin Level 4.4 g/dL (3.5-5.1); Alkaline Phosphatase 60 U/L (38-126); Anion Gap 6 mmol/L (4-12); Aspartate Amino Transferase 29 U/L (14-36); Bilirubin,Total 0.4 mg/dL (0.2-1.3); Blood Urea Nitrogen 5 mg/dL (7-17); Calcium 9.4 mg/dL (8.4-10.2); Carbon Dioxide 30 mmol/L (22-30); Chloride 102 mmol/L (98-107); Estimated CRCL calculation 100 ml/min; Estimated Glomerular Filt Rate > 60; Glucose 110 mg/dL (65-110); Potassium 3.6 mmol/L (3.4-5.0); Sodium 138 mmol/L (137-145); Total Protein 7.4 g/dL (6.3-8.2)
[2024-12-27] MEDS: MAGNESIUM SULF 2 GM/WATER 50ML 2 GM/50 ML BAG IVPB (18:05)
--- NOTE | 2024-12-27 18:10 | PC.NURSE ---
Pt has had a tubal ligation.
[2024-12-27 18:13] LABS: INR 1.1; Prothrombin Time 13.8 Seconds (11.1-14.7)
[2024-12-27 18:14] LABS: NT Pro B Type Natriuretic Pept 147 pg/mL (19.9-100); Partial Thromboplastin Time 34.8 Seconds (22.3-36.8)
[2024-12-27 18:28] LABS: Influenza A QL RT-PCR Negative (Negative); Influenza B QL RT-PCR Negative (Negative); RSV RNA, RT-PCR Negative (Negative); SARS-CoV-2 RNA PCR Negative (Negative)
[2024-12-27 18:45] LABS: CRP 1.0 mg/dL (<1.0)
[2024-12-27] MEDS: cefTRIAXone 1 GM in SODIUM CHLORIDE 0.9% IV 50 ML 100 ML IVPB (20:24)
[2024-12-27] MEDS: AZITHROMYCIN IV 500 MG in SODIUM CHLORIDE 0.9% IV 250 ML IVPB (21:32)
[2024-12-27] MEDS: LORazepam (*CRX) 0.5 MG TABLET PO (22:54)
--- NOTE | 2024-12-28 00:03 | WPCEDHO ---
ED Hand Off Checklist All vitals saved:yes IV Site documented:yes All med administrations documented:yes Triage Note Triage Note Pt to ED co SOB since 1400 today. 12/27/24 17:41 Pt states it started as just a cold on that has gotten worse Allergies No Known Allergies Allergy (Verified 12/27/24 18:24) Family History (Last Reviewed 12/06/24 @ 12:03 by Ann Evans, CHARTER BOAT OPERATOR, PRODUCT EXAMINER) Mother Lung cancer Other Emphysema of lung Administered/Completed Medications Discontinued Medications Albuterol/Ipratropium (Ipratropium 0.5 Mg/Albuterol Sulfate 2.5 Mg (Base) Ampul.Neb 3 Ml) 3 ml INHALATION ONCE STA Stop: 12/27/24 17:46 Last Admin: 12/27/24 17:59 Dose: 3 ml Documented By: GLORIA Albuterol/Ipratropium (Ipratropium 0.5 Mg/Albuterol Sulfate 2.5 Mg (Base) Ampul.Neb 3 Ml) 3 ml INHALATION ONCE STA Stop: 12/27/24 19:44 Last Admin: 12/27/24 19:51 Dose: 3 ml Documented By: MATT Sodium Chloride (Normal Saline Iv) 1,000 mls @ 999 mls/hr IV CONT .Q1H1M STA Stop: 12/27/24 18:31 Last Infusion: 12/27/24 18:41 Dose: Infused Documented By: Admin: 12/27/24 17:40 Dose: 999 mls/hr Documented By: AZG Magnesium Sulfate (Magnesium Sulf 2 Gm/Water 50ml) 2 gm in 50 mls @ 25 mls/hr IVPB ONCE STA Stop: 12/27/24 19:44 Last Infusion: 12/27/24 20:20 Dose: Infused Documented By: Admin: 12/27/24 18:05 Dose: 25 mls/hr Documented By: KAHLIL Co-signed By: STACI Ceftriaxone Sodium 1 gm/ (Sodium Chloride) 50 mls @ 100 mls/hr IVPB ONCE STA Stop: 12/27/24 19:20 Last Infusion: 12/27/24 21:28 Dose: Infused Documented By: Admin: 12/27/24 20:24 Dose: 100 mls/hr Documented By: KAHLIL Azithromycin 500 mg/ Sodium (Chloride) 250 mls @ 250 mls/hr IVPB ONCE STA Stop: 12/27/24 19:50 Last Infusion: 12/27/24 22:35 Dose: Infused Documented By: Admin: 12/27/24 21:32 Dose: 250 mls/hr Documented By: KAHLIL Lorazepam (Lorazepam (*Crx) 0.5 Mg Tablet) 0.5 mg PO ONCE STA Stop: 12/27/24 22:29 Last Admin: 12/27/24 22:54 Dose: 0.5 mg Documented By: KAHLIL Methylprednisolone Sodium Succinate (Methylprednisolone Sod Succ 125 Mg Vial) 125 mg IV PUSH ONCE STA Stop: 12/27/24 17:46 Last Admin: 12/27/24 18:06 Dose: 125 mg Documented By: KAHLIL Notes 12/27/24 18:10 Nurse Note by Aundrea Owen Pt has had a tubal ligation. Initialized on 12/27/24 18:10 - END OF NOTE 12/27/24 16:20 Nurse Note by Zahraa Mcfadden Pt was hypoxic during triage vitals, pt placed on 3L o2 via NC and oxygen saturation is now 93%. Pt does not normally wear oxygen. Initialized on 12/27/24 16:20 - END OF NOTE Interventions/Assessments Cardiac Monitoring Start: 12/27/24 16:11 Freq: Status: Active Protocol: Document 12/27/24 17:42 AZG (Rec: 12/27/24 17:43 AZG [id number]) Senior Corporate Recruiter Assessment Senior Corporate Recruiter Yes Applied Pulse Rate (60-100) 105 H EKG Rythm Sinus Rhythm IV / Saline Lock, Insert Start: 12/27/24 17:30 Freq: STAT Status: Active Protocol: Document 12/27/24 17:53 [facility] (Rec: 12/27/24 17:53 [facility] [id number]) IV Assessment Peripheral Access Left Antecubital IV Catheter Access Initiated IV Insertion Date 12/27/24 IV Insertion Time 17:53 Catheter Gauge 18 IV Site Assessment WNL IV Care and WNL Maintenance PA: Cardiovascular Assessment Start: 12/27/24 16:11 Freq: Status: Active Protocol: Document 12/28/24 00:00 EMW (Rec: 12/28/24 00:00 EMW [id number]) Cardiovascular Assessment Skin Description Normal Color Heart Sounds Normal PA: Respiratory Assessment Start: 12/27/24 16:11 Freq: Status: Active Protocol: Document 12/27/24 17:57 [facility] (Rec: 12/27/24 17:57 [facility] [id number]) Respiratory Assessment Symptoms Congestion,Cough,Shortness of Breath at Rest,Shortness of Breath With Exertion Effort Labored Pattern Tachypnea Depth Normal Chest Expansion Symmetrical Cough Description Productive Cough Frequency Intermittent Oxygen Delivery Oxygen Delivery Room Air Pulse Oximetry (90- 88 L 100) Last Vital Signs Temperature 97.3 F L 12/27/24 16:14 Pulse Rate 123 H 12/27/24 22:45 Respiratory Rate 25 H 12/27/24 22:45 Pulse Oximetry 87 L 12/27/24 22:45 Blood Pressure 96/83 L 12/27/24 19:16 Blood Pressure Mean 89 12/27/24 19:16 Oxygen Delivery Nasal Cannula 12/27/24 17:58 Oxygen Flow Rate 4 12/27/24 17:58 Weight 55.1 kg 12/27/24 17:41 Last Result - Abnormals Only WBC 12.1 K/mm3 (4.5-10.0) H 12/27/24 17:45 Neut % (Auto) 80.9 % (45.5-73.1) H 12/27/24 17:45 Lymph % (Auto) 8.5 % (18.3-44.2) L 12/27/24 17:45 [place] # (Auto) 0.7 K/mm3 (0.1-0.6) H 12/27/24 17:45 Eos # (Auto) 0.5 K/mm3 (0-0.3) H 12/27/24 17:45 Abs Immat Gran (auto) 0.05 K/mm3 (0.00-0.031) H 12/27/24 17:45 Absolute Neuts (auto) 9.8 K/mm3 (1.3-6.7) H 12/27/24 17:45 BUN 5 mg/dL (7-17) L 12/27/24 17:45 Creatinine 0.58 mg/dL (0.7-1.0) L 12/27/24 17:45 NT-Pro-B Natriuret Pep 147 pg/mL (19.9-100) H 12/27/24 17:45 Most Recent Suicide Severity Rating Suicide Severity Rating NO RISK INDICATED 12/27/24 17:41
[2024-12-28 00:16] VITALS: O2SAT 93
--- NOTE | 2024-12-28 00:20 | PC.NURSE ---
This RN attempted to take pt up to room. Pt reports she needs to go home and stating that she has nobody to watch her kids . EDP notified and will speak to pt.
[2024-12-28 00:30] VITALS: BP 97/67; PULSE 107; RESP 17; O2SAT 94
[2024-12-28 01:00] VITALS: BP 99/67; PULSE 105; RESP 20; O2SAT 97
[2024-12-28 01:51] VITALS: BP 129/81; PULSE 101; RESP 20; O2SAT 93
== END 2024-12-28 01:13 | disposition left against medical advice (07) ==
LOC: ANHED 18:32 → ANH3MEDSUR 23:44
PROVIDERS: Emergency Provider Physician Assistant
DX: J96.01 Acute respiratory failure with hypoxia (principal); J18.9 Pneumonia, unspecified organism; J45.901 Unspecified asthma with (acute) exacerbation; I45.10 Unspecified right bundle-branch block; F32.A Depression, unspecified; F41.9 Anxiety disorder, unspecified
CPT/HCPCS: 36415; 71275; 80053; 83605; 83880; 85025; 85380; 85610; 85730; 86140; 87637; 93005; 94640; 96361; 96365; 96367; 96374; 96375; 99284; A9270; J0456; J0696; J2919; J3475; J7030; J7050; Q9967

== ENCOUNTER 2024-12-28 03:20 | Inpatient (IN) | payer OTHER, SELFPAY ==
[2024-12-28] VITALS (32 sets, daily range): BP systolic 101–135; BP diastolic 58–91; PULSE 89–129; RESP 16–26; TEMP 36.4–36.8; O2SAT 88–100; BMI 20.5
--- NOTE | ~2024-12-28 | XR_ITS ---
Examination: XR chest 1V portable Clinical History: shortness of breath Comparison: CTA chest one day prior Technique: Portable AP Findings: Heart size normal. Emphysema and hyperinflation. Scattered foci of airspace disease on CT poorly seen on chest x-ray. No acute bony abnormality. IMPRESSION: 1. Scattered foci of airspace disease on CT 1 day prior not well seen on portable chest x-ray. 2. No other cardiopulmonary change. Reviewed, dictated and finalized at location R. MAN IMPRESSION: 1. Scattered foci of airspace disease on CT 1 day prior not well seen on chemo ble chest x-ray. 2. No other cardiopulmonary change.
--- NOTE | 2024-12-28 03:28 | ECG_ITS ---
Test Date: 2024-12-28 03:34:42 Measurements Intervals [place] Rate: 102 P: 78 MO: 159 QRS: 117 QRSD: 92 T: 46 QT: 366 QTc: 478 Interpretive Statements SINUS TACHYCARDIA INDETERMINATE AXIS INCOMPLETE RIGHT BUNDLE BRANCH BLOCK [90+ ms QRS DURATION, TERMINAL R IN V1/V2, 40+ ms S IN I/aVL/V4/V5/V6] LEFT POSTERIOR FASCICULAR BLOCK [QRS AXIS > 109, INFERIOR Q] Electronically Signed On 12-28-2024 17:55:24 SUPPLY CHAIN COORDINATOR by Checo Dunham M.D.
--- NOTE | 2024-12-28 03:29 | ED.SOB ---
HPI - SOB/Dyspnea General Chief Complaint: Shortness of Breath/Dyspnea Stated Complaint: SOB, HYPOXIC Source: patient and EMS Mode of arrival: EMS Limitations: no limitations History of Present Illness HPI Narrative: This is a 34-year-old female history of COPD who presents to the ED via EMS for shortness of breath. Patient was seen her earlier today and was admitted but left AMA. When she got home, she states that she became more short of breath prompting her to call EMS. On their arrival, patient was satting in the 60s on room air. She was placed on supplemental oxygen but continued to have shortness of breath so she was given 2 DuoNebs and 2 g magnesium sulfate. Patient reports that she is feeling a little bit better at this point. Related Data Allergies Allergy/AdvReac Type Severity Reaction Status Date / Time No Known Allergies Allergy Verified 12/28/24 05:32 Review of Systems Review of Systems: Gen.: Denies fevers or chills Eyes: Denies eye pain or visual change ENT: Denies congestion Respiratory: As per HPI CV: Denies chest pain or palpitations GI: Denies abdominal pain nausea, emesis or diarrhea denies burning, urgency, frequency or hematuria Musculoskeletal: Denies back pain or muscle pain Neuro: Denies numbness, tingling, weakness or focal weakness Skin: Denies rash Except as documented, all other systems reviewed and negative [facility] Past Medical History Medical History Depression with anxiety Asthma-COPD overlap syndrome Surgical History Surgical History History of tubal ligation Family History Family History Mother Lung cancer, Onset Age: 47 Other Emphysema of lung Social History Social History Social History: Surrogate medical decision maker: Geremias Feliciano, spouse. Code status: Full code. Years smoked: 13 Smoking status: Former smoker Tobacco type: cigarettes Smokeless tobacco user: other Second hand tobacco smoke exposure: No Alcohol intake: never Substance use: unknown Substance use type: marijuana Do You Feel Safe in your Home?: Yes Lack of Transportation: No Lack of Food: Never True Current Housing: I Have Housing Concerned About Future Housing: No Difficulty Paying Gas/Electric Bills: No Difficulty Paying for Meds: No Currently Unemployed: No Education: High School Diploma/GED Difficulty w/ Childcare or Family Care: No Living arrangements: with family Spiritual care concerns: No Exam Narrative: APPEARANCE: No acute distress, nontoxic, resting in bed EYES: EOMI HEENT: Normocephalic, atraumatic, OMM RESPIRATORY: Respiratory distress, coarse breath sounds throughout CARDIOVASCULAR: Regular rate and rhythm without murmurs rubs or gallops. ABDOMINAL: Soft, nontender, nondistended, no rebound or guarding MUSCULOSKELETAl: Moves all extremities. No clubbing, cyanosis or edema. NEURO: Awake and alert. Following commands, speech normal, no focal deficits SKIN:: Warm, dry. No rashes lesions or abrasions PSYCHIATRIC: Normal affect/mood, Course Vital Signs Vital signs: Vital Signs Temperature 97.6 F 12/28/24 03:15 Pulse Rate 117 H 12/28/24 03:15 Respiratory Rate 26 H 12/28/24 03:15 Blood Pressure 116/70 12/28/24 03:15 Pulse Oximetry 100 12/28/24 03:15 Oxygen Delivery Nasal Cannula 12/28/24 03:15 Oxygen Flow Rate 10 12/28/24 03:15 Temperature 97.8 F 12/28/24 04:38 Pulse Rate 116 H 12/28/24 05:23 Respiratory Rate 23 H 12/28/24 05:23 Blood Pressure 114/66 12/28/24 05:23 Pulse Oximetry 98 12/28/24 05:23 Oxygen Delivery Nasal Cannula 12/28/24 04:39 Oxygen Flow Rate 3 12/28/24 04:39 Fraction of Inspired Oxygen 36 12/28/24 04:28 MDM - SOB/Dyspnea MDM Narrative Medical decision making narrative: 34-year-old female Presenting for respiratory distress. On initial evaluation patient was in moderate distress on DuoNeb satting 100%. Differentials include but are not limited to: ACS, CHF Exacerbation, COPD exacerbation, PE, PNA, PTX, bronchitis, viral syndrome Notable exam findings: Coarse breath sounds throughout, using accessory muscles Notable lab findings: ABG showed a respiratory acidosis Notable imaging findings: Chest x-ray showed questionable hazy infiltrates the bilateral lower lobes Patient did have significant improvement of her symptoms after the 2 DuoNebs, Solu-Medrol, and 2 g of magnesium by EMS. She was weaned to 3 L nasal cannula and had significant improvement of her work of breathing. Patient will require admission for acute hypoxic respiratory failure. Case was discussed with hospitalist, Dr. Qureshi will admit. Medical Records Attestation: I reviewed the patient's medical records. Medical records narrative: Patient seen earlier today and was initially admitted due to acute hypoxic respiratory failure due to pneumonia but left AMA as she had to take care of her kids at home. CTA chest showed increase in areas of inter lobar lower ground-glass opacities bilaterally without evidence of PE ABG Data ABG results: 12/28/24 03:26 Puncture Site Right brachial ABG pH 7.322 L ABG pCO2 46.1 H ABG pO2 115.1 H ABG PO2/FiO2 Ratio 2.62 ABG HCO3 23.3 ABG O2 Saturation 97.9 ABG O2 Content 19.8 ABG Base Excess -2.9 A-a Gradient 146.1 Oxyhemoglobin 97.1 Total Hemoglobin 14.4 O2 Delivery Device Nasal cannula O2 Liters/Min 6.0 FiO2 44 Imaging Data Attestation: I personally reviewed and interpreted this imaging study as follows: My impression: Chest x-ray showed questionable hazy infiltrates the bilateral lower lobes Discharge Plan Discharge Clinical Impression: Acute hypoxemic respiratory failure, Pneumonia of both lower lobes, Acute exacerbation of chronic obstructive pulmonary disease Patient Disposition: Still a Patient Condition: Stable
[2024-12-28 03:34] LABS: Alveolar/Arterial O2 Gradient 146.1 mmHg; Fractional Inspired Oxygen 44 %; HCO3 ABG 23.3 mEq/l (22.0-26.0); Oxygen Content ABG 19.8 %vol (16.0-22.0); Oxygen Saturation ABG 97.9 % (95.0-100.0); PCO2 ABG 46.1 mmHg (35.0-45.0); PO2 ABG 115.1 mmHg (80.0-100.0); PO2 FiO2 Ratio Arterial Blood 2.62 %
[2024-12-28 03:37] LABS: Liters per Minute 6.0 LPM; Modified Allen's Test Pass; Site Drawn RIGHT BRACHIAL
[2024-12-28] MEDS: ONDANSETRON INJ 4 MG/2 ML VIAL IV PUSH (04:17)
[2024-12-28] MEDS: IPRATROPIUM 0.5 MG/ALBUTEROL SULFATE 2.5 MG (BASE) AMPUL.NEB 3 ML INHALATION ×6 (04:26→23:41)
--- NOTE | 2024-12-28 04:40 | WPCEDHO ---
ED Hand Off Checklist All vitals saved:yes IV Site documented:yes All med administrations documented:yes Triage Note Triage Note Pt to ED via EMS from home w c/o 12/28/24 03:15 SOB. When EMS arrived pt was 57- 60% on RA , wheezing, tachypneic, tachy and was placed on 4 L NC. EMS gave pt 2 mg magnesium drip, 125 mg solumedrol , LR and 2 DuoNeb's. Pt was here earlier tonight and left AMA. hx COPD, pneumonia. Pt in room on 2nd Duoneb with an O2 of 100%. labored breathing . Allergies No Known Allergies Allergy (Verified 12/27/24 18:24) Family History (Last Reviewed 12/28/24 @ 03:31 by Antonio Webb DO) Mother Lung cancer Other Emphysema of lung Active Medications including assessments/comments Albuterol/Ipratropium (Ipratropium 0.5 Mg/Albuterol Sulfate 2.5 Mg (Base) Ampul.Neb 3 Ml) 3 ml INHALATION Q4HRT [facility] Last Admin: 12/28/24 04:26 Dose: 3 ml Documented By: [facility] Nebulizer Assessment Document 12/28/24 04:26 [facility] (Rec: 12/28/24 04:26 [facility] [id number]) Updraft Nebulizer Treatment Method Mask Treatment Tolerance Good Administered/Completed Medications Discontinued Medications Ondansetron HCl (Ondansetron Inj 4 Mg/2 Ml Vial) 4 mg IV PUSH ONCE STA Stop: 12/28/24 03:48 Last Admin: 12/28/24 04:17 Dose: 4 mg Documented By: SHELIA Interventions/Assessments Cardiac Monitoring Start: 12/28/24 03:10 Freq: Status: Active Protocol: Document 12/28/24 03:29 EMW (Rec: 12/28/24 03:29 EMW [id number]) Clay Pigeon Setter Assessment Clay Pigeon Setter Yes Applied Pulse Rate (60-100) 109 H IV / Saline Lock, Insert Start: 12/28/24 03:10 Freq: Status: Active Protocol: Document 12/28/24 03:29 EMW (Rec: 12/28/24 03:31 EMW [id number]) IV Assessment Peripheral Access Left Antecubital IV Catheter Access Initiated Before Arrival Catheter Gauge 20 IV Site Assessment WNL IV Care and WNL Maintenance PA: Cardiovascular Assessment Start: 12/28/24 03:10 Freq: Status: Active Protocol: Document 12/28/24 03:29 EMW (Rec: 12/28/24 03:31 EMW [id number]) Cardiovascular Assessment Cardiovascular Dizziness,Lightheadedness,Nausea Symptoms Skin Description Normal Color Heart Sounds Normal PA: Respiratory Assessment Start: 12/28/24 03:10 Freq: Status: Active Protocol: Document 12/28/24 03:29 EMW (Rec: 12/28/24 03:31 EMW [id number]) Respiratory Assessment Symptoms Congestion,Cough,Shortness of Breath at Rest,Shortness of Breath With Exertion Effort Labored,Short of Breath Pattern Tachypnea Depth Shallow Bilateral Throughout Phase Expiratory Lung Sounds Diminished,Wheezes Cough Description Acute,Productive Cough Frequency Intermittent Oxygen Delivery Oxygen Delivery Nasal Cannula Oxygen Flow Rate 10 Pulse Oximetry (90- 100 100) Last Vital Signs Temperature 97.8 F 12/28/24 04:38 Pulse Rate 129 H 12/28/24 04:38 Respiratory Rate 24 H 12/28/24 04:38 Pulse Oximetry 94 12/28/24 04:39 Blood Pressure 113/66 12/28/24 04:38 Blood Pressure Mean 81 12/28/24 04:38 Blood Pressure Position Supine 12/28/24 04:38 Oxygen Delivery Nasal Cannula 12/28/24 04:39 Oxygen Flow Rate 3 12/28/24 04:39 Fraction of Inspired Oxygen 36 12/28/24 04:28 Weight 58.6 kg 12/28/24 03:15 Last Result - Abnormals Only ABG pH 7.322 (7.350-7.450) L 12/28/24 03:26 ABG pCO2 46.1 mmHg (35.0-45.0) H 12/28/24 03:26 ABG pO2 115.1 mmHg (80.0-100.0) H 12/28/24 03:26 Most Recent Suicide Severity Rating Suicide Severity Rating NO RISK INDICATED 12/28/24 03:15
--- NOTE | 2024-12-28 05:13 | ADMGEN ---
This patient, Muriel Armando, was admitted to IMU Room 209-01. Patient/family oriented to hospital policies and general routines including ID bracelet, bed and alarms, visiting hours, pain management, procedures, bathroom and other care routines, personal items, smoking policy, room service/diet, and visiting hours. Information on how to activate the Rapid Response Team has been discussed. Patient/Family are encouraged to report perceived risks to care and to ask questions if they do not understand what they are told or what they should do.
--- NOTE | 2024-12-28 07:46 | PM.IMHP ---
H&P: HPI History of Present Illness Date/Time: 12/28/24 07:46 Chief Complaint: Worsening cough and shortness of breath Narrative: 34-year-old female with a past medical history of COPD and allergic rhinitis who presented to the ER after 4 days of worsening cough and shortness of breath. She reports that 8 year over the last 2 or 3 years she has developed recurrent episodes of bronchitis each spring and fall. She reports that the symptoms seem to be worse when allergens are in the air. The symptoms are worse despite her having stopped smoking in 2019. She denies any recent ill contacts. She reports that her cough is been productive of thick green sputum. She denies any fevers or chills. Her symptoms have worsened despite it using a nebulizers and inhalers at home. She denies any nausea or vomiting. He has not had any changes in bowel habits. She denies any chest pain or palpitations. She came into the ER earlier in the day and had CBC did performed which demonstrated mild leukocytosis white count of 12.1 with 80% neutrophils and normal hemoglobin. She had normal coags and a normal CMP. Flu COVID and RSV PCR were all negative. She received 2 nebulizers and a dose of Solu-Medrol 125 mg. She was requiring oxygen therapy at the time but they were able to wean her down to 1 L of nasal cannula oxygen but each time they would try to take her off of the oxygen she would desat to the mid 80s. But she he that he needed to get the car home so that her could get to work and get the children to their schools. She has 4 children 2 of which have level 3 autism. If her could get to work he was at risk of losing his job. So she went home. She was only home briefly when she started to have marked shortness of breath and became diaphoretic and had a racing heart. She called EMS to return to the ER. Bedtime EMS arrived at her house she was satting in the 60s. She received 2 [id number] nebulizers by EMS and 2 g of magnesium sulfate as well as another 125 mg dose of Solu-Medrol. After she arrived to the ER she received another 2 nebulizers. She reports after the 2nd set of nebulizers she actually started coughing up the green sputum. She reports that she feels significantly better at this time. But she is now requiring 6 L of oxygen. Her ABG in the ER demonstrated mild hypercapnic respiratory failure pH of 7.32 pCO2 of 46 with PO2 of 115 on 6 L nasal cannula. The patient's oxygen had been weaned down to 3 L nasal cannula in the ER but but time she arrived to the intermediate unit she was only satting 83% on the 3 L and had to be increased back up to 6 L nasal cannula. She has had her pneumonia shots. She does not partake in the flu vaccine. Review of Systems Review of Systems: 12 systems were reviewed with pertinent positives and negatives per HPI. Except as documented in the HPI, all other systems were reviewed and are negative. [facility] Past Medical History Medical History Depression with anxiety Asthma-COPD overlap syndrome Surgical History Surgical History History of tubal ligation Family History Family History Mother Lung cancer, Onset Age: 47 Other Emphysema of lung Social History Social History (Updated 12/28/24 @ 08:10 by Tianna Qureshi DO) Social History: Patient lives at home with her and her 4 sons. Her middle 2 sons are severely autistic. She smoked 1 pack of cigarettes per day from the age of 17 into the age of 30. She denies any history of alcohol use. She does occasionally use edible THC. Surrogate medical decision maker: Geremias Feliciano, spouse. Code status: Full code. Smoking packs per day: 1 Smoking cigarettes per day: 20.0 Years smoked: 13 Smoking pack-years: 13.00 Tobacco type: cigarettes Second hand tobacco smoke exposure: No Alcohol intake: never Substance use: current Substance use type: marijuana Do You Feel Safe in your Home?: Yes Lack of Transportation: No Lack of Food: Never True Current Housing: I Have Housing Concerned About Future Housing: No Difficulty Paying Gas/Electric Bills: No Difficulty Paying for Meds: No Currently Unemployed: No Education: High School Diploma/GED Difficulty w/ Childcare or Family Care: No Living arrangements: with family Spiritual care concerns: No Meds Home Medications and Allergies Home Medications ?Medication ?Instructions ?Recorded ?Confirmed ?Type nebulizer accessories #1 ea 12/29/23 12/28/24 Rx nebulizer and compressor (Comp-Air #1 ea 12/29/23 12/28/24 Rx Nebulizer Compressor) epinephrine 0.3 mg/0.3 mL 0.3 mg (0.3 mL) IM Q5-15M PRN 06/17/24 12/28/24 Rx injection, auto-injector (EpiPen anaphylaxis #2 ea 2-Huber) fluticasone furoate 50 See Rx Instructions .Route 07/12/24 12/28/24 Rx mcg-vilanterol 25 mcg/dose .COMPLEX #60 ea inhalation powder (Breo Ellipta) albuterol sulfate 90 mcg/actuation 2 puff inhalation QID PRN 10/26/24 12/28/24 Rx aerosol inhaler shortness of breath or wheezing #8.5 grams albuterol sulfate 2.5 mg/3 mL 2.5 mg (3 mL) inhalation Q4-6H PRN 12/06/24 12/28/24 Rx (0.083 %) solution for nebulization shortness of breath or wheezing #90 mL codeine 10 mg-guaifenesin 100 mg/5 5 ml PO Q6H PRN cough #120 mL 12/06/24 12/28/24 Rx mL oral liquid Allergies Allergy/AdvReac Type Severity Reaction Status Date / Time No Known Allergies Allergy Verified 12/28/24 05:32 Vital Signs Vital Signs - 24 hr 12/28/24 03:15 12/28/24 03:29 12/28/24 03:29 Temperature 97.6 F Pulse Rate 117 H 109 H Respiratory Rate 26 H Blood Pressure 116/70 Pulse Oximetry 100 100 Oxygen Delivery Nasal Cannula Nasal Cannula Oxygen Flow Rate 10 10 Fraction of Inspired Oxygen 12/28/24 03:31 12/28/24 03:31 12/28/24 04:26 Temperature 97.6 F Pulse Rate 111 H 105 H Respiratory Rate 23 H 20 Blood Pressure 122/72 Pulse Oximetry 100 100 Oxygen Delivery Nasal Cannula Oxygen Flow Rate 10 Fraction of Inspired Oxygen 12/28/24 04:28 12/28/24 04:35 12/28/24 04:38 Temperature 97.8 F Pulse Rate 105 H 123 H 129 H Respiratory Rate 20 20 24 H Blood Pressure 113/66 Pulse Oximetry 97 94 Oxygen Delivery Nasal Cannula Oxygen Flow Rate 4 Fraction of Inspired Oxygen 36 12/28/24 04:39 12/28/24 05:15 12/28/24 05:23 Temperature 98.2 F Pulse Rate 116 H 116 H Respiratory Rate 24 H 23 H Blood Pressure 135/91 H 114/66 Pulse Oximetry 94 90 98 Oxygen Delivery Nasal Cannula Oxygen Flow Rate 3 Fraction of Inspired Oxygen 12/28/24 06:00 12/28/24 06:29 12/28/24 07:30 Temperature Pulse Rate 111 H 110 H Respiratory Rate 24 H Blood Pressure Pulse Oximetry 93 99 Oxygen Delivery High Flow Nasal Cannula Nasal Cannula Oxygen Flow Rate 5 5 Fraction of Inspired Oxygen 40 12/28/24 07:32 Temperature Pulse Rate 105 H Respiratory Rate 20 Blood Pressure Pulse Oximetry Oxygen Delivery Oxygen Flow Rate Fraction of Inspired Oxygen Exam Narrative: Weight 55.8 kg BMI 20.5 Const: Other: Acutely ill-appearing, thin body habitus, appears older than stated age HENMT: Other: Mucous membranes are moist, no oral pharyngeal erythema, edentulous in upper and lower jaw Eyes: Other: Pupils are equal and reactive, no scleral icterus, no conjunctival pallor Neck: Other: No JVD, no lymphadenopathy Resp: Other: Tachypnea, accessory muscle use, diffuse wheezing in all [place] crackles at the bases Cardio: Other: Sinus tachycardia, 2+ bilateral radial pedal pulses, no JVD GI: Other: Soft, nontender, nondistended, positive bowel sounds Skin: Other: No jaundice, no pallor Neuro: Other: Alert oriented, speech is clear, no facial asymmetry, no localizing neurologic deficits noted during the course of conversation Extrem: Other: No clubbing, cyanosis or edema Psych: Other: Appropriate mood and affect, pleasant and cooperative H&P: Results Labs Labs: 12/28/24 03:26 Puncture Site Right brachial ABG pH 7.322 L ABG pCO2 46.1 H ABG pO2 115.1 H ABG PO2/FiO2 Ratio 2.62 ABG HCO3 23.3 ABG O2 Saturation 97.9 ABG O2 Content 19.8 ABG Base Excess -2.9 A-a Gradient 146.1 Oxyhemoglobin 97.1 Total Hemoglobin 14.4 O2 Delivery Device Nasal cannula O2 Liters/Min 6.0 FiO2 44 Impressions Chest X-Ray 12/28/24 06:26 IMPRESSION: 1. Scattered foci of airspace disease on CT 1 day prior not well seen on portable chest x-ray. 2. No other cardiopulmonary change. CTA chest PE protocol HISTORY:sob, hypoxia . COMPARISON: 06/20/2024 TECHNIQUE: Following the noncontrasted philosophy faculty, axial images of the thorax were obtained following infusion of 100 cc of Isovue 370. Post-processing on an independent workstation was performed to reconstruct MIP images for evaluation of the thoracic vasculature. FINDINGS: There is no pulmonary embolism, aortic dissection, thoracic aneurysm or pericardial fluid. Scattered areas of interlobular groundglass opacity and interlobular septal thickening bilaterally has increased. There are centrilobular emphysema. No pleural effusion or pneumothorax is noted. There is no axillary, mediastinal or hilar adenopathy. Limited evaluation of the upper abdomen demonstrates no gross abnormalities. Review of bone windows demonstrates no osteoblastic or lytic lesions. IMPRESSION: There is no pulmonary embolism, aortic dissection, pericardial fluid or thoracic aneurysm. Increase in areas of interlobular ground glass opacities bilaterally. Assessment and Plan Assessment and plan (1) Asthma exacerbation: Qualifiers: Asthma persistence: unspecified Asthma severity: unspecified severity Qualified Code(s): J45.901 - Unspecified asthma with (acute) exacerbation Code(s): J45.901 - Unspecified asthma with (acute) exacerbation Status: Acute (2) Sepsis: Qualifiers: Sepsis type: sepsis due to unspecified organism Sepsis acute organ dysfunction status: with acute organ dysfunction Severe sepsis acute organ dysfunction type: acute respiratory failure Acute respiratory failure type: with hypoxia Severe sepsis shock status: without septic shock Qualified Code(s): A41.9 - Sepsis, unspecified organism; R65.20 - Severe sepsis without septic shock; J96.01 - Acute respiratory failure with hypoxia Code(s): A41.9 - Sepsis, unspecified organism Status: Acute (3) Pneumonia: Qualifiers: Laterality: bilateral Lung location: lower lobe of lung Pneumonia type: due to unspecified organism Qualified Code(s): J18.9 - Pneumonia, unspecified organism Code(s): J18.9 - Pneumonia, unspecified organism Status: Acute (4) Acute respiratory failure with hypoxia and hypercarbia: Code(s): J96.01 - Acute respiratory failure with hypoxia; J96.02 - Acute respiratory failure with hypercapnia Status: Acute Plan Patient has acute hypoxic hypercarbic respiratory due to pneumonia causing COPD exacerbation. Patient been started empiric antibiotic therapy with Rocephin and azithromycin. Will place patient on scheduled nebulizer treatments with DuoNebs Q 4 hours. The will continue Solu-Medrol 60 mg IV it q.6 hours. The patient is having significant work of breathing and tachypnea. She does have some hypercarbia. She is willing to try BiPAP. BiPAP has been ordered 30/09 with a rate of 20 with 40% FiO2. If patient does not tolerate BiPAP we could consider vape both arms as the patient is requiring high-flow oxygen at this time. MEDICAL DECISION MAKING NARRATIVE -Spoke with the ED provider in detail regarding patient's evaluation, workup and management -Patient seen and examined at bedside -Collaborated with patient's nurse at the bedside in detail and addressed all concerns -Labs, electrolytes, radiology, investigations and test results personally reviewed and interpreted unless otherwise specified -ED/Consult/Nursing/Ancilliary notes on the chart reviewed and appreciated -Spoke with patient at bedside and diagnosis and plan of care was discussed. All questions answered. Quality VTE Prophylaxis VTE prophylaxis: pharmacologic ordered (Lovenox 40 mg subQ daily.) Hospitalist [facility] Advance Care Plan I have confirmed that the patient's Advanced Care Plan is present, code status is documented, or surrogate decision maker is listed in patient medical record.: Yes Medication Reconciliation I have utilized all available resources to obtain, update and review the patients current medications (includes all prescriptions, OTC, herbals, cannabis, and nutritional supplements).: Yes
[2024-12-28] MEDS: cefTRIAXone 1 GM in SODIUM CHLORIDE 0.9% IV 50 ML 100 ML IVPB (08:17)
[2024-12-28] MEDS: guaiFENesin 600 MG/DEXTROMETHORPHAN 30 MG SR TAB 12 HR 1 TAB PO ×2 (08:23→21:09)
[2024-12-28] MEDS: AZITHROMYCIN IV 500 MG in SODIUM CHLORIDE 0.9% IV 250 ML IVPB (08:24)
[2024-12-28] MEDS: ENOXAPARIN 40 MG/0.4 ML SYRINGE SUB-Q (09:13)
--- NOTE | 2024-12-28 09:45 | PM.IMPN ---
Progress Note: A&P Assessment and Plan (1) Asthma-COPD overlap syndrome: Code(s): J44.89 - Other specified chronic obstructive pulmonary disease Status: Acute (2) Pneumonia of both lower lobes: Qualifiers: Pneumonia type: due to unspecified organism Qualified Code(s): J18.9 - Pneumonia, unspecified organism Code(s): J18.9 - Pneumonia, unspecified organism Status: Acute Plan Community-acquired pneumonia -patient with COPD and asthma, has had Prevnar vaccine -antibiotics: Rocephin/azithromycin -guaifenesin for cough -checking Legionella and Streptococcus -chest x-ray shows bilateral ground-glass opacities, may be need atypical pneumonia? -flu negative, COVID negative, RSV negative Acute COPD exacerbation Acute hypoxic and hypercapnic respiratory failure -patient has expiratory wheezing -on 6 L oxygen, no home oxygen then, goal O2 sat greater 90%, wean as tolerated -steroids: Solu-Medrol 40 mg q.8 hours -nebs: DuoNeb q.4 hours -ABG pCO2 elevated at 46, pH very stable at 7.32, consistent with some hypercarbia -at home uses Breo inhaler Diet: Regular DVT prophylaxis: Lovenox Code status: Full code Disposition: Home in 2-4 days Time Spent With Patient Time: 35 minutes Subjective Date/time seen: 12/28/24 09:45 Interval history: Patient admitted this morning for community-acquired pneumonia and COPD exacerbation. She denies fever, chills, nausea vomiting diarrhea. She endorses dyspnea and cough. She has pressors with numerous pneumonias she has had. She has been diagnosed with COPD a year ago. She states that when she was a child she had asthma but did not have any issues again this year. She smoked half pack a day and quit in 2019. She has been following with an pre sales technical consultant and has had a Prevnar shot. Outpatient she is on Breo. She does not use any home oxygen therapy. Review of Systems Review of Systems: 10 point ROS complete, negative other than what is specified in HPI. Exam Narrative: - GENERAL: Pleasant woman appearing older than stated age in no acute distress. - EYES: EOMI. Anicteric. - HENT: Moist mucous membranes. Edentulous - LUNGS: Bilateral expiratory wheezing present, nonlabored respirations on 6 L oxygen nasal cannula - CARDIOVASCULAR: Regular rate and rhythm. No murmur. No JVD. - ABDOMEN: Soft, non-tender and non-distended. No palpable masses. - EXTREMITIES: No edema. Peripheral pulses 2+. Non-tender. - NEUROLOGIC: No focal neurological deficits. CN II-XII grossly intact. - PSYCHIATRIC: Awake, Alert and oriented x 3. Appropriate mood and affect. - SKIN: No rashes or lesions. Warm. - LYMPH: No cervical lymphadenopathy. Objective Data Vital Signs Vital Signs: Vital Signs - 24 hr 12/28/24 03:15 12/28/24 03:29 12/28/24 03:29 Temperature 36.4 C Pulse Rate 117 H 109 H Respiratory Rate 26 H Blood Pressure 116/70 Pulse Oximetry 100 100 Oxygen Delivery Nasal Cannula Nasal Cannula Oxygen Flow Rate 10 10 Fraction of Inspired Oxygen 12/28/24 03:31 12/28/24 03:31 12/28/24 04:26 Temperature 36.4 C Pulse Rate 111 H 105 H Respiratory Rate 23 H 20 Blood Pressure 122/72 Pulse Oximetry 100 100 Oxygen Delivery Nasal Cannula Oxygen Flow Rate 10 Fraction of Inspired Oxygen 12/28/24 04:28 12/28/24 04:35 12/28/24 04:38 Temperature 36.6 C Pulse Rate 105 H 123 H 129 H Respiratory Rate 20 20 24 H Blood Pressure 113/66 Pulse Oximetry 97 94 Oxygen Delivery Nasal Cannula Oxygen Flow Rate 4 Fraction of Inspired Oxygen 36 12/28/24 04:39 12/28/24 05:15 12/28/24 05:23 Temperature 36.8 C Pulse Rate 116 H 116 H Respiratory Rate 24 H 23 H Blood Pressure 135/91 H 114/66 Pulse Oximetry 94 90 98 Oxygen Delivery Nasal Cannula Oxygen Flow Rate 3 Fraction of Inspired Oxygen 12/28/24 06:00 12/28/24 06:29 12/28/24 07:30 Temperature Pulse Rate 111 H 110 H Respiratory Rate 24 H Blood Pressure Pulse Oximetry 93 99 Oxygen Delivery High Flow Nasal Cannula Nasal Cannula Oxygen Flow Rate 5 5 Fraction of Inspired Oxygen 40 12/28/24 07:32 12/28/24 07:45 12/28/24 07:55 Temperature 36.8 C Pulse Rate 105 H 102 H 109 H Respiratory Rate 20 20 22 H Blood Pressure 112/58 L Pulse Oximetry 99 Oxygen Delivery Oxygen Flow Rate Fraction of Inspired Oxygen 12/28/24 08:00 12/28/24 09:10 Temperature Pulse Rate 105 H Respiratory Rate 23 H Blood Pressure Pulse Oximetry 90 97 Oxygen Delivery High Flow Nasal Cannula BiPAP Oxygen Flow Rate 5 Fraction of Inspired Oxygen Intake/Output Intake/Output: Intake & Output 12/25/24 12/26/24 12/27/24 12/28/24 23:59 23:59 23:59 23:59 Intake Total 0 Balance 0 Meds/Results Medications: Active Medications Generic Name Dose Route Start Last Admin Trade Name Freq PRN Reason Stop Dose Admin Albuterol/Ipratropium 3 ml 12/28/24 04:20 12/28/24 07:31 Ipratropium 0.5 Mg/Albuterol Sulfate 2.5 Mg (Base) Ampul.Neb 3 Ml INHALATION 3 ml Q4HRT LOW Administration Enoxaparin Sodium 40 mg 12/28/24 09:00 12/28/24 09:13 Enoxaparin 40 Mg/0.4 Ml Syringe SUB-Q 40 mg DAILY LOW Administration Guaifenesin/Dextromethorphan 1 tab 12/28/24 09:00 12/28/24 08:23 Guaifenesin 600 Mg/Dextromethorphan 30 Mg Sr Tab 12 Hr PO 1 tab Q12HR LOW Administration Ceftriaxone Sodium 1 gm/ 50 mls @ 100 mls/hr 12/28/24 09:00 12/28/24 08:17 Sodium Chloride IVPB 100 mls/hr Q24H LOW Administration Azithromycin 500 mg/ Sodium 250 mls @ 250 mls/hr 12/28/24 09:00 12/28/24 08:24 Chloride IVPB 01/01/25 09:59 250 mls/hr Q24H LOW Administration Methylprednisolone Sodium Succinate 40 mg 12/28/24 14:00 Methylprednisolone Sod Succ 125 Mg Vial IV PUSH Q8HR LOW Ondansetron HCl 4 mg 12/28/24 07:42 Ondansetron Inj 4 Mg/2 Ml Vial IV PUSH Q6H PRN Nausea And Vomiting Radiology Results: ITS Impressions Chest X-Ray 12/28/24 06:26 IMPRESSION: 1. Scattered foci of airspace disease on CT 1 day prior not well seen on portable chest x-ray. 2. No other cardiopulmonary change. Labs Labs: Laboratory Results - last 24 hr 12/28/24 03:26 Puncture Site Right brachial ABG pH 7.322 L ABG pCO2 46.1 H ABG pO2 115.1 H ABG PO2/FiO2 Ratio 2.62 ABG HCO3 23.3 ABG O2 Saturation 97.9 ABG O2 Content 19.8 ABG Base Excess -2.9 A-a Gradient 146.1 Oxyhemoglobin 97.1 Total Hemoglobin 14.4 O2 Delivery Device Nasal cannula O2 Liters/Min 6.0 FiO2 44 Imaging My impression: Clear lungs on chest x-ray, slightly hyperinflated Radiologist's impression: IMPRESSION: 1. Scattered foci of airspace disease on CT 1 day prior not well seen on portable chest x-ray. 2. No other cardiopulmonary change. Quality VTE Prophylaxis VTE prophylaxis: pharmacologic ordered (Lovenox) Hospitalist [facility] [place] Advance Care Plan I have confirmed that the patient's Advanced Care Plan is present, code status is documented, or surrogate decision maker is listed in patient medical record.: Yes Medication Reconciliation I have utilized all available resources to obtain, update and review the patients current medications (includes all prescriptions, OTC, herbals, cannabis, and nutritional supplements).: Yes
--- NOTE | 2024-12-28 16:17 | PC.NURSE ---
Pt transferred to room 249 at 1617. Report given to TATYANA Kay.
--- NOTE | 2024-12-28 16:27 | PC.NURSE ---
This patient, Muriel Armando, was received from IMU on 12/28/24 at 1627. Patient/family oriented to unit policies and routines.
[2024-12-29] VITALS (17 sets, daily range): BP systolic 102–117; BP diastolic 69–81; PULSE 69–107; RESP 16–20; TEMP 36.4–36.9; O2SAT 91–99
[2024-12-29 04:26] LABS: Hematocrit 38.8 % (37.0-47.0); Hemoglobin 12.3 g/dL (12.0-15.0); Mean Corpuscular HGB Conc 31.7 g/dl (32-36); Mean Corpuscular Hemoglobin 30.4 pg (26-34); Mean Corpuscular Volume 96.0 fl (80-100); Platelet Count Result 258 k/mm3 (150-375); Red Blood Count 4.04 M/mm3 (4.2-5.4); White Blood Count 17.4 K/mm3 (4.5-10.0)
[2024-12-29] MEDS: IPRATROPIUM 0.5 MG/ALBUTEROL SULFATE 2.5 MG (BASE) AMPUL.NEB 3 ML INHALATION ×2 (04:34→07:22)
[2024-12-29 04:37] LABS: Anion Gap 2 mmol/L (4-12); Blood Urea Nitrogen 11 mg/dL (7-17); Calcium 9.0 mg/dL (8.4-10.2); Carbon Dioxide 29 mmol/L (22-30); Chloride 106 mmol/L (98-107); Estimated CRCL calculation 103 ml/min; Estimated Glomerular Filt Rate > 60; Glucose 121 mg/dL (65-110); Magnesium 2.4 mg/dL (1.6-2.3); Potassium 4.9 mmol/L (3.4-5.0); Sodium 137 mmol/L (137-145)
[2024-12-29] MEDS: ENOXAPARIN 40 MG/0.4 ML SYRINGE SUB-Q (08:45)
[2024-12-29] MEDS: guaiFENesin 600 MG/DEXTROMETHORPHAN 30 MG SR TAB 12 HR 1 TAB PO ×2 (08:45→20:12)
[2024-12-29] MEDS: cefTRIAXone 1 GM in SODIUM CHLORIDE 0.9% IV 50 ML 100 ML IVPB (08:46)
--- NOTE | 2024-12-29 08:59 | P.PNIM_ITS ---
Progress Note: A&P Assessment and Plan (1) Pneumonia of both lower lobes: Qualifiers: Pneumonia type: due to unspecified organism Qualified Code(s): J18.9 - Pneumonia, unspecified organism Code(s): J18.9 - Pneumonia, unspecified organism Status: Acute (2) Acute hypoxemic respiratory failure: Code(s): J96.01 - Acute respiratory failure with hypoxia Status: Acute (3) Asthma-COPD overlap syndrome: Code(s): J44.89 - Other specified chronic obstructive pulmonary disease Status: Acute Plan Community-acquired pneumonia Sepsis secondary pneumonia, present on presentation -patient with COPD and asthma, has had Prevnar vaccine -antibiotics: Rocephin/azithromycin -patient presented with sepsis tachycardia heart rate up to 116, leukocytosis 12 K. worsening leukocytosis from steroids -guaifenesin for cough -Legionella and Streptococcus pending -chest x-ray shows bilateral ground-glass opacities, may be need atypical pneumonia? -flu negative, COVID negative, RSV negative Acute COPD exacerbation Acute hypoxic and hypercapnic respiratory failure -patient has expiratory wheezing -on 6->3 L oxygen, no home oxygen then, goal O2 sat greater 90%, wean as tolerated -steroids: Solu-Medrol 40 mg q.8->12 hours -nebs: DuoNeb q.4 hours -ABG pCO2 elevated at 46, pH very stable at 7.32, consistent with some hypercarbia -at home uses Breo inhaler Diet: Regular DVT prophylaxis: Lovenox Code status: Full code Disposition: Home tomorrow Time Spent With Patient Time: 35 minutes Subjective Date/time seen: 12/29/24 08:59 Interval history: Patient seen examined. She is clinically doing much better. Leukocytosis increased from the steroids. We have weaned down to 3 L oxygen. Wheezing has resolved. Anticipate discharge home tomorrow. Sepsis was alerted with tachycardia and leukocytosis however we are already on antibiotics and leukocytosis from steroids. No need for sepsis fluid bolus. She denies fever, chills, nausea vomiting or diarrhea. Her dyspnea is improved significantly Review of Systems Review of Systems: 10 point ROS complete, negative other th an what is specified in HPI. Exam Narrative: - GENERAL: Pleasant woman appearing old er than stated age in no acute distress. - EYES: EOMI. Anicteric. - HENT: Moist mucous membranes. Edentul ous - LUNGS: Wheezing has resolved, nonlabo red respirations on 3 L oxygen nasal cannula - CARDIOVASCULAR: Regular rate and rhyth m. No murmur. No JVD. - ABDOMEN: Soft, non-tender and non-dist ended. No palpable masses. - EXTREMITIES: No edema. Peripheral puls es 2+. Non-tender. - NEUROLOGIC: No focal neurological defi cits. CN II-XII grossly intact. - PSYCHIATRIC: Awake, Alert and oriented x 3. Appropriate mood and affect. In good spirits - SKIN: No rashes or lesions. Warm. - LYMPH: No cervical lymphadenopathy. Objective Data Vital Signs Vital Signs: Vital Signs - 24 hr 12/28/24 09:10 12/28/24 10:00 12/28/24 10:57 Temperature Pulse Rate 105 H 104 H Respiratory Rate 23 H Blood Pressure Pulse Oximetry 97 Oxygen Delivery BiPAP BiPAP Oxygen Flow Rate 12/28/24 11:14 12/28/24 11:22 12/28/24 12:00 Temperature Pulse Rate 102 H 104 H 111 H Respiratory Rate 20 20 Blood Pressure Pulse Oximetry Oxygen Delivery Oxygen Flow Rate 12/28/24 16:00 12/28/24 16:33 12/28/24 16:39 Temperature 36.8 C Pulse Rate 110 H 96 99 Respiratory Rate 20 20 20 Blood Pressure 103/61 Pulse Oximetry 95 Oxygen Delivery Oxygen Flow Rate 12/28/24 19:44 12/28/24 20:00 12/28/24 20:34 Temperature 36.6 C Pulse Rate 89 Respiratory Rate 16 Blood Pressure 101/65 Pulse Oximetry 98 96 97 Oxygen Delivery High Flow Nasal Cannula High Flow Nasal Cannula Oxygen Flow Rate 5 5 12/28/24 20:34 12/28/24 20:41 12/28/24 23:41 Temperature Pulse Rate 96 99 95 Respiratory Rate 18 18 18 Blood Pressure Pulse Oximetry Oxygen Delivery Oxygen Flow Rate 12/28/24 23:45 12/29/24 04:19 12/29/24 04:34 Temperature 36.6 C Pulse Rate 101 H 101 H 95 Respiratory Rate 18 17 18 Blood Pressure 114/69 Pulse Oximetry 92 Oxygen Delivery Oxygen Flow Rate 12/29/24 07:22 12/29/24 07:22 12/29/24 07:33 Temperature Pulse Rate 97 100 Respiratory Rate 18 18 Blood Pressure Pulse Oximetry 97 Oxygen Delivery High Flow Nasal Cannula Oxygen Flow Rate 5 12/29/24 08:12 Temperature Pulse Rate Respiratory Rate Blood Pressure Pulse Oximetry 91 Oxygen Delivery High Flow Nasal Cannula Oxygen Flow Rate 3 Intake/Output Intake/Output: Intake & Output 12/26/24 12/27/24 12/28/24 12/29/24 23:59 23:59 23:59 23:59 Intake Total 780 220 Balance 780 220 Meds/Results Medications: Active Medications Generic Name Dose Route Start Last Admin Trade Name Freq PRN Reason Stop Dose Admin Albuterol/Ipratropium 3 ml 12/28/24 04:20 12/29/24 07:22 Ipratropium 0.5 Mg/Albuterol Sulfate 2.5 Mg (Base) Ampul.Neb 3 Ml INHALATION 3 ml Q4HRT LOW Administration Enoxaparin Sodium 40 mg 12/28/24 09:00 12/29/24 08:45 Enoxaparin 40 Mg/0.4 Ml Syringe SUB-Q 40 mg DAILY LOW Administration Guaifenesin/Dextromethorphan 1 tab 12/28/24 09:00 12/29/24 08:45 Guaifenesin 600 Mg/Dextromethorphan 30 Mg Sr Tab 12 Hr PO 1 tab Q12HR LOW Administration Ceftriaxone Sodium 1 gm/ 50 mls @ 100 mls/hr 12/28/24 09:00 12/29/24 08:46 Sodium Chloride IVPB 100 mls/hr Q24H LOW Administration Azithromycin 500 mg/ Sodium 250 mls @ 250 mls/hr 12/28/24 09:00 12/29/24 08:46 Chloride IVPB 01/01/25 09:59 250 mls/hr Q24H LOW Administration Methylprednisolone Sodium Succinate 40 mg 12/28/24 15:00 12/29/24 06:31 Methylprednisolone Sod Succ 40 Mg Vial IV PUSH 40 mg Q8HR LOW Administration Ondansetron HCl 4 mg 12/28/24 07:42 Ondansetron Inj 4 Mg/2 Ml Vial IV PUSH Q6H PRN Nausea And Vomiting Radiology Results: ITS Impressions Chest X-Ray 12/28/24 06:26 IMPRESSION: 1. Scattered foci of airspace disease on CT 1 day prior not well seen on chemo ble chest x-ray. 2. No other cardiopulmonary change. Labs Labs: Laboratory Results - last 24 hr 12/29/24 04:12 WBC 17.4 H RBC 4.04 L Hgb 12.3 Hct 38.8 MCV 96.0 MCH 30.4 MCHC 31.7 L RDW 13.6 Plt Count 258 MPV 10.0 Sodium 137 Potassium 4.9 Chloride 106 Carbon Dioxide 29 Anion Gap 2 L BUN 11 D Creatinine 0.56 L Estim Creat Clear Calc 103 Estimated GFR > 60 Glucose 121 H Calcium 9.0 Magnesium 2.4 H
[2024-12-29] MEDS: AZITHROMYCIN IV 500 MG in SODIUM CHLORIDE 0.9% IV 250 ML IVPB (09:16)
[2024-12-29] MEDS: IPRATROPIUM BR 0.02% INH SOLN 0.5 MG/2.5 ML VIAL INHALATION ×2 (13:44→20:32)
[2024-12-30] VITALS (10 sets, daily range): BP systolic 111–115; BP diastolic 67–81; PULSE 85–123; RESP 16–20; TEMP 36.8; O2SAT 86–96
[2024-12-30] MEDS: IPRATROPIUM BR 0.02% INH SOLN 0.5 MG/2.5 ML VIAL INHALATION ×2 (01:54→07:39)
[2024-12-30 04:21] LABS: Hematocrit 37.1 % (37.0-47.0); Hemoglobin 12.0 g/dL (12.0-15.0); Mean Corpuscular HGB Conc 32.3 g/dl (32-36); Mean Corpuscular Hemoglobin 31.0 pg (26-34); Mean Corpuscular Volume 95.9 fl (80-100); Platelet Count Result 253 k/mm3 (150-375); Red Blood Count 3.87 M/mm3 (4.2-5.4); White Blood Count 13.0 K/mm3 (4.5-10.0)
[2024-12-30 04:34] LABS: Anion Gap 5 mmol/L (4-12); Blood Urea Nitrogen 13 mg/dL (7-17); Calcium 9.1 mg/dL (8.4-10.2); Carbon Dioxide 26 mmol/L (22-30); Chloride 104 mmol/L (98-107); Estimated CRCL calculation 86 ml/min; Estimated Glomerular Filt Rate > 60; Glucose 102 mg/dL (65-110); Potassium 4.3 mmol/L (3.4-5.0); Sodium 135 mmol/L (137-145)
[2024-12-30] MEDS: cefTRIAXone 1 GM in SODIUM CHLORIDE 0.9% IV 50 ML 100 ML IVPB (08:23)
[2024-12-30] MEDS: ENOXAPARIN 40 MG/0.4 ML SYRINGE SUB-Q (08:23)
[2024-12-30] MEDS: guaiFENesin 600 MG/DEXTROMETHORPHAN 30 MG SR TAB 12 HR 1 TAB PO (08:23)
[2024-12-30] MEDS: AZITHROMYCIN IV 500 MG in SODIUM CHLORIDE 0.9% IV 250 ML IVPB (09:46)
--- NOTE | 2024-12-30 11:43 | P.DS_ITS ---
DS: Admitting Diagnosis Discharge Date 12/30/24 Admitting Diagnosis COPD exacerbation, community-acquired atypical pneumonia DS: Discharge Diagnosis Discharge Diagnosis (1) Bilateral upper lobe community acquired pneumonia: Code(s): J18.9 - Pneumonia, unspecified organism Status: Acute (2) Acute exacerbation of chronic obstructive pulmonary disease: Code(s): J44.1 - Chronic obstructive pulmonary disease with (acute) exacerbation Status: Acute Plan Community-acquired pneumonia Sepsis secondary pneumonia, present on presentation -patient with COPD and asthma, has had Prevnar vaccine -antibiotics: Rocephin/azithromycin. Will discharge with 4 more days of antibiotics azithromycin and cefuroxime -patient presented with sepsis tachycardia heart rate up to 116, leukocytosis 12 K. worsening leukocytosis from steroids -guaifenesin for cough -Legionella and Streptococcus pending -chest x-ray shows bilateral ground-glass opacities, may be need atypical pneumonia? -flu negative, COVID negative, RSV negative Acute COPD exacerbation Acute hypoxic and hypercapnic respiratory failure -patient has expiratory wheezing -on on presentation needed 6 L oxygen, no home oxygen then, goal O2 sat greater 90%, wean as tolerated -home O2 evaluation 12/30/24: patient will require 2 L of oxygen with activity to maintain O2 sat>90% -steroids: Will send prednisone taper -ABG pCO2 elevated at 46, pH very stable at 7.32, consistent with some hypercarbia -at home uses Breo inhaler Diet: Regular Code status: Full code Disposition: Home DS: Summary Hospital Course Reason for hospitalization: Pneumonia requiring oxygen Hospital Course: Patient is a 34-year-old female with past med history of asthma/COPD, allergic rhinitis who presents ED 2 with 4 days of dyspnea. Patient has been getting episodes of bronchitis in spring and fall over last several years. She presented with community-acquired pneumonia. CXR and CTA chest shows interlobular ground glass opacities. She had sepsis with leukocytosis and dyspnea with end-organ damage respiratory failure. Patient was hypoxic requiring up to 6 L of oxygen. She does not use any home oxygen therapy. She was treated with steroids and antibiotics. She was hospitalized from 12/28- 12/30. She will complete 5 day antibiotic course, steroid taper. We did a home O2 evaluation at time of discharge with recommendation of 2 L of oxygen with activity. She will follow-up with her PCP in 1 week. At time of discharge labs are stable, vitals improving, patient is stable for discharge home. Patient understands and agrees with plan. Status at Discharge Cognitive/behavioral status at discharge: Baseline Time Spent with Patient Time attestation: Total time spent providing and/or coordinating discharge services: 35 Exam Narrative: - GENERAL: Pleasant woman in No acute d istress. Well-nourished. - EYES: EOMI. Anicteric. - HENT: Moist mucous membranes. Edentul ous - LUNGS: Clear to auscultation bilateral ly, no wheezing, rhonchi, or rales. Breathing comfortably on 2 L oxygen nasal cannula - CARDIOVASCULAR: Regular rate and rhyth m. No murmur. No JVD. - ABDOMEN: Soft, non-tender and non-dist ended. No palpable masses. - EXTREMITIES: No edema. Peripheral puls es 2+. Non-tender. - NEUROLOGIC: No focal neurological defi cits. CN II-XII grossly intact. - PSYCHIATRIC: Awake, Alert and oriented x 3. Appropriate mood and affect. - SKIN: No rashes or lesions. Warm. - LYMPH: No cervical lymphadenopathy. DS: Data Data Completed and Pending Labs on day of discharge: Labs from last 24 hours 12/30/24 04:06 WBC 13.0 H RBC 3.87 L Hgb 12.0 Hct 37.1 MCV 95.9 MCH 31.0 MCHC 32.3 RDW 13.5 Plt Count 253 MPV 10.0 Sodium 135 L Potassium 4.3 Chloride 104 Carbon Dioxide 26 Anion Gap 5 BUN 13 Creatinine 0.68 L Estim Creat Clear Calc 86 Estimated GFR > 60 Glucose 102 Calcium 9.1 Imaging Radiologist's impression: CTA chest 12/27/24 IMPRESSION: There is no pulmonary embolism, aortic dissection, pericardial fluid or thoracic aneurysm. Increase in areas of interlobular ground glass opacities bilaterally. CXR 12/28 IMPRESSION: 1. Scattered foci of airspace disease on CT 1 day prior not well seen on portable chest x-ray. 2. No other cardiopulmonary change. Discharge Plan Discharge Attending physician on discharge: Buzz Perez Consulting providers: Rubin Hamm Discharging Clinician: Buzz Perez Anticipated Discharge Date/Time: 12/30/24 10:06 Patient Disposition: Home Activity: may shower Diet: regular Discharge Instructions: Please complete antibiotics cefuroxime and azithromycin for 4 more days. Follow the steroid taper with prednisone. You will need 2 L of oxygen with activity. Follow-up with PCP in 1 week for further management of asthma/COPD. Patient Instructions: Antibiotic Form, Using Oxygen at Home (DC) Patient Language: Luxembourger Stand Alone Forms: General Discharge Information Follow-up/Referrals: Rubin Hamm MD [Physician, Family Practice] - 1 Week Discharge Medications: New azithromycin 250 mg tablet 250 mg PO DAILY 4 Days Qty: 4 0RF Rx Instructions: start on day 2 of therapy cefuroxime axetil 500 mg tablet 500 mg PO BID 4 Days Qty: 8 0RF prednisone 20 mg tablet 20 mg PO DAILY Qty: 20 0RF Rx Instructions: 3 tabs for 3 days, 2 tabs for 3 days, 1 tab for 3 days, 0.5 tabs for 4 days Continued albuterol sulfate 90 mcg/actuation HFA aerosol inhaler 2 puff INHALATION QID PRN (Reason: shortness of breath or wheezing) Qty: 8.5 0RF albuterol sulfate 2.5 mg /3 mL (0.083 %) solution for nebulization 2.5 mg inhalation Q4-6H PRN (Reason: shortness of breath or wheezing) Qty: 90 0RF codeine-guaifenesin 10-100 mg/5 mL liquid 5 ml PO Q6H PRN (Reason: cough) Qty: 120 0RF (DME) nebulizer accessories Kit See Rx Instructions .Route Qty: 1 0RF Rx Instructions: As directed (DME) nebulizer and compressor [Comp-Air Nebulizer Compressor] Device See Rx Instructions .Route Qty: 1 0RF Rx Instructions: As directed epinephrine [EpiPen 2-Huber] 0.3 mg/0.3 mL auto-injector 0.3 mg IM Q5-15M PRN (Reason: anaphylaxis) Qty: 2 0RF Rx Instructions: do not exceed 3 doses per episode Breo Ellipta 50-25 mcg/dose blister with device See Rx Instructions .ROUTE .COMPLEX Qty: 60 1RF Dose Instruction: Inhale 1 puff by mouth once daily Rx Instructions: Inhale 1 puff by mouth once daily Date of admission: 12/28/24 04:16 Primary Care Provider: PHYSICIAN,MAINTENANCE AND OPERATIONS SUPERVISOR Admitting Provider: Tianna Qureshi Attending physician on admission: Tianna Qureshi Condition: Stable Hospitalist MIPS Heart Failure (Exclusion) Patient has history of Heart Transplant or Left Ventricular Assistive Device?: No IF YES, STOP HERE Heart Failure (Qualifier) Patient has current or prior documentation of LVEF less than or equal to 40%, or mod/servere depressed LVSF?: No IF NO, STOP HERE
--- NOTE | 2024-12-30 12:05 | HOMEO2EVAL ---
Evaluation was performed at [facility] Home Oxygen Evaluation RC: Home Oxygen (O2) Evaluation Start: 12/30/24 07:30 Freq: ONCE Status: Active Protocol: RPE Activity Type Activity Date Activity User E-sign Co-sign Detail Recorded Client Recorded Date Recorded By Document 12/30/24 11:30 CYNTHIA [email or web address] 12/30/24 12:04 CYNTHIA Document 12/30/24 11:35 CYNTHIA [email or web address] 12/30/24 12:04 CYNTHIA Document 12/30/24 11:40 CYNTHIA [email or web address] 12/30/24 12:04 CYNTHIA 12/30/24 12/30/24 12/30/24 11:30 11:35 11:40 Home O2 Evaluation [Oxygen] -Test Phase Resting Exercise Exercise -Oxygen Delivery Room Air Room Air Nasal Cannula -Oxygen Flow Rate (L/min) 2 [Pulse Oximetry] -Pulse Oximetry (90-100 %) 91 86 L 93 [Pulse Rate] -Pulse Rate (60-100 beats/min) 100 122 H 123 H [Exercise] -Ambulation Distance (meters) 800 [Comments] -Home Oxygen Evaluation Comments Pt requires 2 liters home O2. Pt can wear POC [Charges] -Evaluation Charges O2 Evaluation by Pulmonary
== END 2024-12-30 13:45 | disposition home or self-care (01) | DRG 871 ==
LOC: ANHED 03:44 → ANHIMU 05:58 → ANH2MED 12-29 11:52 → ANHIMU 12-31 14:02
PROVIDERS: Admitting Provider Internal Medicine; Emergency Provider Student in an Organized Health Care Education/Training Program; Visit Provider Student in an Organized Health Care Education/Training Program
DX: A41.9 Sepsis, unspecified organism (principal); J18.9 Pneumonia, unspecified organism; J96.01 Acute respiratory failure with hypoxia; J96.02 Acute respiratory failure with hypercapnia; J44.0 Chronic obstructive pulmonary disease with (acute) lower respiratory infection; J44.1 Chronic obstructive pulmonary disease with (acute) exacerbation; J45.901 Unspecified asthma with (acute) exacerbation; D72.829 Elevated white blood cell count, unspecified; Z20.822 Contact with and (suspected) exposure to COVID-19; F41.8 Other specified anxiety disorders; Z87.891 Personal history of nicotine dependence
CPT/HCPCS: 36415; 36600; 71045; 80048; 82805; 83735; 85018; 85027; 87449; 87899; 93005; 94002; 94618; 94640; 94667; 96374; 99285; A9270; J0456; J0696; J1650; J2405; J2919; J7050